=== PATIENT | female | born 1945 | race Caucasian/White ===

== ENCOUNTER 2023-07-02 15:15 | Outpatient (RCR) | payer MEDICARE, OTHER, SELFPAY | END 2023-07-02 23:59 | disposition home or self-care (01) | LOC: RPT 15:15 | PROVIDERS: ATTENDING PHYSICIAN Student in an Organized Health Care Education/Training Program; PRIMARYCARE PHYSICIAN Family Medicine | DX: Z47.89 Encounter for other orthopedic aftercare (principal); R26.89 Other abnormalities of gait and mobility; R29.6 Repeated falls; Z98.1 Arthrodesis status | CPT/HCPCS: 97110; 97530 ==

== ENCOUNTER → 2023-09-13 13:57 | Outpatient (REF) | payer MEDICARE, OTHER, SELFPAY ==
[2023-09-13 15:25] LABS: INR 1.95
== END ==
LOC: REG 13:57
PROVIDERS: ATTENDING PHYSICIAN Internal Medicine
DX: I48.0 Paroxysmal atrial fibrillation (principal)
CPT/HCPCS: 36415; 85610

== ENCOUNTER 2023-10-25 11:53 | Outpatient (RCR) | payer MEDICARE, OTHER, SELFPAY | END 2023-11-08 07:37 | disposition home or self-care (01) | LOC: RPT 11:53 | PROVIDERS: ATTENDING PHYSICIAN Student in an Organized Health Care Education/Training Program; FAMILY PHYSICIAN Family Medicine | DX: Z47.89 Encounter for other orthopedic aftercare (principal); S82.892D Other fracture of left lower leg, subsequent encounter for closed fracture with routine healing; M25.572 Pain in left ankle and joints of left foot; S90.32XD Contusion of left foot, subsequent encounter; R26.89 Other abnormalities of gait and mobility; Z73.6 Limitation of activities due to disability; R26.2 Difficulty in walking, not elsewhere classified; M62.81 Muscle weakness (generalized); R29.6 Repeated falls | CPT/HCPCS: 97162; 97530 ==

== ENCOUNTER → 2023-10-25 15:37 | Outpatient (REF) | payer MEDICARE, OTHER, SELFPAY | LOC: RAD 15:37 | PROVIDERS: ATTENDING PHYSICIAN Family Medicine | DX: D68.69 Other thrombophilia (principal); I50.9 Heart failure, unspecified; I10 Essential (primary) hypertension; R26.2 Difficulty in walking, not elsewhere classified; R29.6 Repeated falls; M25.511 Pain in right shoulder | CPT/HCPCS: 71046; 71100; 73030 ==

== ENCOUNTER 2023-11-03 04:11 | Observation (INO) | payer MEDICARE, OTHER, SELFPAY ==
[2023-11-02 23:51] VITALS: BP 167/92
[2023-11-03] VITALS (16 sets, daily range): BP systolic 99–156; BP diastolic 50–96
[2023-11-03 01:51] LABS: % Basophils 0.2 % (0-2); % Eosinophils 0.5 % (0-6); % Immature Granulocytes 0.5 % (0-0.5); % Lymphocytes 9.4 % (20.5-51.1); % Monocytes 7.8 % (1.7-9.3); % Neutrophils 81.6 % (42.2-75.2); Absolute Eosinophils 0.1 10^3/uL (0-0.7); Absolute Immature Granulocytes 0.1 10^3/uL (0-0.05); Absolute Lymphocytes 0.9 10^3/uL (1.2-3.4); Absolute Monocytes 0.8 10^3/uL (0.1-0.6); Absolute Neutrophils 8.2 10^3/uL (1.4-6.5); Hematocrit 30.3 % (37.0-47.0); Hemoglobin 9.7 g/dL (12.0-16.0); Mean Corpuscular Hgb 27.6 pg (27.0-31.0); Mean Corpuscular Volume 86.1 fL (81.0-99.0); Mean Platelet Volume 8.8 fL (7.4-10.4); Nucleated Red Blood Cells % 0 %; Platelet Count 370 10^3/uL (130-400); Red Blood Cell Count 3.52 10^6/uL (4.20-5.40); Red Cell Dist. Width 18.4 % (11.5-14.5); White Blood Cell Count 10.1 10^3/uL (4.8-10.8)
[2023-11-03 01:54] LABS: Blood Urea Nitrogen 16 mg/dl (7-17); Calcium 8.8 mg/dl (8.4-10.2); Carbon Dioxide 28 mmol/L (22-30); Chloride 103 mmol/L (98-107); Glucose 101 mg/dl (70-99); Potassium 3.7 mmol/L (3.5-5.1); Sodium 140 mmol/L (135-145); eGFR 57.31
[2023-11-03 01:57] LABS: PT 57.3 Sec (11.4-14.6)
[2023-11-03 01:58] LABS: APTT 88.3 Sec (23.4-35.0)
[2023-11-03 01:59] LABS: INR 6.35
--- NOTE | 2023-11-03 02:03 | ED.GENMED ---
History of Present Illness
General
Chief Complaint: Oral/Mouth Problem
Source: patient
Exam Limitations: none
Time Seen by Provider: 11/03/23 00:38
Travel History
Have you had any contact with someone who has COVID-19?: No
Do you have any symptoms of coronavirus? Fever > 100 degrees, chills, cough, shortness of breath, sore throat, loss of taste or smell, muscle aches, or headache?: No
History of Present Illness
History of Present Illness:
78-year-old female intraoral bleeding started 11 PM. Moderate in nature. Supratherapeutic INR reported to her today. Did not take Coumadin today but took it yesterday.
Past History
Past History
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
(Diverticulitis, DVT/PE, Only has right kidney, Endometriosis)
ED Past Surgical History: Appendectomy, Cardiac (quadruple bypass 2001. stent), Gynecological (Hysterectomy), Orthopedic (left shoulder, ankle) and Other (Right nephrectomy 2001 'tumor')
Social History
Tobacco: Former smoker
Alcohol: Occasional
Drug: None
Personal:
Living: with family
Employment: Retired
Family History
Family History: Other (Noncontributory)
Review of Systems
Review of Systems
All Other Systems: Not applicable
Cardiac: Reports no symptoms
ABD/GI: Reports no symptoms
Phy Exam
Physical Exam
Physical Exam:
GENERAL: Alert and oriented in no apparent distress
EYE: Orbits normal.
NECK: Supple
ENT: Diffuse intraoral fresh blood. Very difficult to locate the source. After careful multiple checks appears to be behind the upper left molar.
CARDIAC: Regular rate and rhythm without any obvious murmurs.
LUNGS: Clear breath sounds,normal
ABDOMEN: Soft, without focal tenderness or distention. Elevated BMI
NEUROLOGICAL: Alert and oriented , grossly non-focal
SKIN: Warm and dry
MUSCULOSKELETAL: No edema,no deformity.Good color
PSYCH: Pleasant and cooperative but very anxious
Course
Orders/Labs/Results
Orders:
Orders
11/03/23 00:47
IV Insert/Care/Rem.- Treatment PRN
11/03/23 01:15
Type+Screen Urgent
Basic Metabolic Panel Urgent
Complete Blood Count/With Diff Urgent
PTT Urgent
Prothrombin Time Urgent
11/03/23 02:41
Phytonadione [Mephyton] 5 mg PO NOW STA
11/03/23 02:50
Acetaminophen 1000MG/100Ml [Ofirmev] 1,000 mg in 100 ml IV ONCE
Acetaminophen IV Indication:: ED Narcotic Naive Pt-ONCE
11/03/23 04:03
Admit/Transfer Patient As Directed
Co-Sign Provider:
Level of Care: Observation services
Assign to:: Medical/Surgical
Physician / Group: Jonathan
Diagnosis: Oral Bleeding, Coagulopathy
11/03/23 04:04
Code Status As Directed
Resuscitation Status: Full Code
11/03/23 05:42
Acetaminophen [Tylenol] 650 mg PO Q4HPRN PRN
11/03/23 05:42
ORAL MAXILLO FACIAL CONSULT Routine
Consulting Provider: Addison Baumann
Was physician already notified: Yes
Reason for Consult: Oral Bleeding
Activity As Directed
Activity Level: Ambulate
With Assistance
I/O [Intake/ Output] As Directed
Frequency: Per unit guidelines
Pneumatic Compression Sleeves As Directed
Type: Knee high
Precautions As Directed
Type of Precautions: Bleeding
Aspiration
Vital Signs As Directed
Frequency: Per unit guidelines
Oxygen Therapy [O2 Therapy] [RESP] Routine
Titrate/Wean O2 to maintain O2 sat greater than (%): 94
DX Deep Vein Thrombosis Video Routine
11/03/23 06:23
Basic Metabolic Panel IN AM
Complete Blood Count/No Diff IN AM
Prothrombin Time IN AM
11/03/23 07:30
Pancrelipase [Zenpep Delayed Release Capsule] 2 capsule PO ACHS
11/03/23 08:00
Atenolol [Tenormin] 50 mg PO BID
Bumetanide [Bumex] 1 mg PO BID
Diltiazem Extended Release [Cardizem Cd] 120 mg PO DAILY
Gabapentin [Neurontin] 600 mg PO TID
ISOSORBIDE MONOnitrate ER [Imdur (Extended Release)] 60 mg PO DAILY
Pantoprazole [Protonix] 40 mg PO DAILY
Phenobarbital [Luminal] 32.4 mg PO TID
Phenytoin [Dilantin] 100 mg PO TID
11/03/23 18:00
Montelukast Sodium [Singulair] 10 mg PO QPM
11/04/23 05:40
Prothrombin Time IN AM
11/04/23 Breakfast
NPO
Allow oral meds: Yes
Allow clear liquids: Sips of Clears
11/05/23 06:00
Prothrombin Time IN AM
11/06/23 06:00
Prothrombin Time IN AM
Abnormal Lab Results
11/03/23
01:15
RBC 3.52 L 10^6/uL
(4.20-5.40)
Hgb 9.7 L g/dL
(12.0-16.0)
Hct 30.3 L %
(37.0-47.0)
MCHC 32.0 L g/dL
(33.0-37.0)
RDW 18.4 H %
(11.5-14.5)
Abs Immat Gran (auto) 0.1 H 10^3/uL
(0-0.05)
Absolute Neuts (auto) 8.2 H 10^3/uL
(1.4-6.5)
Absolute Lymphs (auto) 0.9 L 10^3/uL
(1.2-3.4)
Absolute Monos (auto) 0.8 H 10^3/uL
(0.1-0.6)
Neutrophils % 81.6 H %
(42.2-75.2)
Lymphocytes % 9.4 L %
(20.5-51.1)
PT 57.3 H Sec
(11.4-14.6)
INR 6.35 H*
APTT 88.3 H Sec
(23.4-35.0)
Glucose 101 H mg/dl
(70-99)
11/03/23 01:15
11/03/23 01:15
Vital Signs
Initial and Last Documented VS:
Initial Vital Signs
Pulse Resp BP Pulse Ox
78 30 167/92 94
11/02/23 23:51 11/02/23 23:51 11/02/23 23:51 11/02/23 23:51
Last Documented Vital Signs
Temp Pulse Resp BP Pulse Ox
98.5 F 67 21 126/88 96
11/04/23 02:45 11/04/23 02:45 11/04/23 02:45 11/04/23 02:45 11/04/23 02:45
*Critical Care Note
Total Time (30-74mins, 75-104mins- exclusive of procedures): 40
Data Reviewed
Review of Other/Old Records Reveals: Labs, Records, Testing and Discharge Summary
Update Note
Update Note:
Significant searching as to the source of the bleeding. Appears to be behind the left upper molar. Local pressure, epinephrine soaked gauze, hemocon packing. INR supratherapeutic over 6. At this time clinically is not a severe bleeding. However
would benefit from vitamin K.
Also attempted cautery without significant success. Local pressure does seem to hold this. Patient will be admitted medically. Oral surgery was also texted for possible involvement at some point
0250... Recheck. Bleeding is under better control. Clinically stable. Very anxious. Complaining of some headache. Will give her some IV Tylenol.
ED Attending Note
-
Portions of this chart may have been created with voice recognition software.� Occasional wrong word or��sound alike� substitutions may have occurred due to the inherent limitations of voice recognition software.
Discharge Plan
Departure
Patient Disposition: Admit
Date of Disposition: 11/03/23
Time of Disposition: 02:20
Presentation/result/management discussed w/ accepting MD/DO: Oral surgery
Discharge Problem:
Ongoing intraoral hemorrhage, Supratherapeutic INR, Chronic anemia
Interventions
Interventions:
*Risk Screen - Suicide Last Done: 11/02/23 23:51
*General Assessment Last Done: 11/02/23 23:51
*Neglect/Abuse Screening Last Done: 11/02/23 23:51
ED- Fall Risk Assessment Last Done: 11/03/23 08:12
*ED COVID-19 Vaccine History Last Done: 11/02/23 23:51
[2023-11-03] MEDS: OFIRMEV 100 IV (02:57)
[2023-11-03] MEDS: MEPHYTON 5 MG PO (02:57)
--- NOTE | 2023-11-03 04:07 | HPS.HSE ---
Family Physician
-
Family Physician: Luis Manuel Burden
Chief Complaint
-
Bleeding
History of Present Illness
Patient is a 78y F with PMH significant for ASCVD, A-Fib, history of DVT / PE and chronic Coumadin therapy who presents to ED complaining of oral bleeding. Patient states she was preparing for bed this evening when she noted blood on her mouth.
She had no pain / discomfort. She noted significant bleeding then from her mouth - mostly on the L side. She could not pinpoint a source for the bleeding, but presented to the ED for further evaluation. ED staff noted bleeding from an area around
L maxillary molar. Hemostasis improved - though bleeding not completely stopped - after some effort in the ED.
Patient states that her INR has been high lately. She typically takes 2.5mg daily; however, she was decreased to 1.25mg daily after INR last week was > 3. She had repeat INR done Wednesday and was contacted today and told it was > 5.
Patient states that her last dose of Coumadin was 1.25mg taken on Wednesday, 10/31.
Patient also states that she noted a small, crusted lesion under her tongue about one week ago. She was seen by her dentist who recommended monitoring.
Patient took pre-treatment antibiotics prior to that appointment - though no cleaning, biopsy or other significant intervention was done at that visit.
Medical History
Past Medical History
Past Medical History: Reports Other
Additional Past Medical History:
Seizures (infancy)
Peripheral Neuropathy
Asthma
History of DVT / PE
ASCVD
Chronic HFpEF
Atrial Fibrillation
Hypertension
Diverticular Disease
GERD
Endometriosis
Solitary Kidney
Melanoma
History of Renal Cell Carcinoma
Past Surgical History: Reports Other
Additional Past Surgical History:
Melanoma Excision
CABG
PTCA with Stent
Left Ankle ORIF with Hardware
Right Nephrectomy
FLYNN / BSO
Left Shoulder Surgery
Appendectomy
Right TKA
Social History
Tobacco: Former Smoker
Alcohol: Other (Couple times a week with dinner when she eats out)
Drug: None
Personal:
Living: With Family
Employment: Retired
Family History
Family History: Other ((Mother had history of [place], paternal grandmother with history of [place], paternal grandfather had [place], 3 uncles-paternal with [place], brother with [place] at age of 40, another brother had [place], father with history of heart emergency disease)
Allergies / Home Medications
Allergies reflects when Allergies were last updated in [employer].
Home Medications with original date entered in [employer]
Allergy/Medication List:
Allergies
Allergy/AdvReac Type Severity Reaction Status Date / Time
hydroxyzine Allergy Unknown Verified 11/02/23 23:51
lactose Allergy Unknown Verified 11/02/23 23:51
metronidazole [From Flagyl] Allergy Nausea / Verified 11/02/23 23:51
Vomiting
pollen extracts Allergy ENVIRONMENTAL Verified 11/02/23 23:51
ALLERGIES-NASAL
SYMPTOMS
Home Medications
montelukast 10 mg tablet 10 mg PO QPM Lung/breathing issues 04/02/15
warfarin 2.5 mg tablet (Jantoven) 1.25 mg PO SUMOTUWE@1800 Blood clot prevention/tx 05/10/17
albuterol sulfate 90 mcg/actuation aerosol inhaler 2 puff inhalation R Q4 PRN SOB/WHEEZING 03/12/21
ezetimibe 10 mg tablet 10 mg PO DAILY High cholesterol 03/12/21
phenytoin sodium extended 100 mg capsule (Dilantin Extended) 100 mg PO TID Seizures 12/31/22
warfarin 2.5 mg tablet 2.5 mg PO THFRSA@1800 Blood Clot Prevention/Tx 12/31/22
atenolol 50 mg tablet 50 mg PO BID Blood Pressure 01/13/23
fluticasone furoate 200 mcg-vilanterol 25 mcg/dose inhalation powder (Breo Ellipta) 1 inh inhalation R DAILY Lung/Breathing Issues 01/13/23
isosorbide mononitrate 60 mg tablet,extended release 24 hr 60 mg PO DAILY Heart Disease/Condition 01/13/23
bumetanide 1 mg tablet 1 mg PO BID Fluid Retention/Swelling 01/25/23
phenobarbital 32.4 mg tablet 32.4 mg PO TID Seizures #9 tabs 03/22/23
dexlansoprazole 60 mg capsule,biphase delayed release 60 mg PO DAILY 03/25/23
diltiazem HCl 120 mg capsule,extended release 24 hr 120 mg PO DAILY Blood Pressure 03/25/23
incsxl-tamiltfy-oppkxmn 10,000-32,000-42,000 unit capsule,delayed rel (Zenpep) 2 cap PO ACHS Gastrointestinal Issue 03/25/23
nitroglycerin 0.4 mg sublingual tablet 0.4 mg sublingual [id number] PRN chest pain 03/25/23
gabapentin 600 mg tablet 600 mg PO TID 07/29/23
aspirin 81 mg chewable tablet 81 mg PO DAILY 11/03/23
hyoscyamine sulfate 0.125 mg sublingual tablet 0.125 mg PO TID 11/03/23
pravastatin 10 mg tablet 10 mg PO HS 11/03/23
Review of Systems
-
History Source: Patient
A 12 point ROS was completed and negative except as noted: Yes
Constitutional: Denies Fever or Chills
EENT: Reports Other (Mouth bleeding. No pain.); Denies Sore Throat or Runny Nose
Respiratory: Denies Cough or Trouble Breathing
Cardiac: Denies Chest Pain
Abdomen/GI: Denies Abdominal Pain, Nausea, Vomiting or Diarrhea
: Denies Dysuria or Frequency
Musculoskeletal: Denies Joint Pain or Edema
Neurological: Denies Dizzy or Headache
Psych: Denies Depression or Anxiety
Physical Exam
Vital Signs
Vital Signs
Pulse Resp BP Pulse Ox
72 21 116/55 94
11/03/23 03:15 04/10/24 03:15 11/03/23 03:15 11/03/23 03:30
Physical Exam
General: Other (78y F in no acute distress.)
HEENT: Other (Packing is in place in the L mouth / buccal region. Evidence of prior bleeding but not active / significant bleeding noted at present.)
Respiratory: Clear; No Wheezes, Rales or Rhonchi
Cardiac: S1/S2 and Irregular Rhythm; No Murmur
GI: Soft, Non Tender, Non Distended and Normal Bowel Sounds
Musculoskeletal: No Clubbing, No Cyanosis and Other (1+ edema at the L ankle - chronic / unchanged.)
Neuro: AO x 3
Laboratory Results
-
11/03/23 01:15
11/03/23 01:15
Laboratory Results
PT 57.3 Sec (11.4-14.6) H 11/03/23 01:15
INR 6.35 H* 11/03/23 01:15
APTT 88.3 Sec (23.4-35.0) H 11/03/23 01:15
Impression/Plan
-
A/P: Patient is a 78y F with PMH significant for ASCVD, A-Fib and chronic Coumadin use who presents to ED c/o bleeding from the mouth that started suddenly this evening.
Oral Bleeding
Coumadin Coagulopathy
- Observe overnight for further evaluation and treatment.
- Bleeding significantly improved after treatment in the ED.
- s/p Vitamin K x 1 dose in the ED.
- INR here is 6.35
- Continue to hold Coumadin and follow INR.
- Re-dose Vitamin K if needed.
- OMFS evaluation for any additional / local treatment.
ASCVD
- Stable. No current chest pain, etc.
- Continue usual CV med regimen.
Chronic HFpEF
- Stable. No evidence of volume overload on exam.
- Continue current med regimen and follow I/Os, daily weights, etc.
Paroxysmal Atrial Fibrillation
- Stable. Continue rate control strategy.
- Holding Coumadin acutely as noted above given active bleeding.
Moderate Persistent Asthma
- Stable. No evidence of acute exacerbation.
- Continue current inhaled medications.
Remote History of Seizure Disorder
- Childhood seizures and has been maintained on Dilantin and Phenobarb since that time.
- Continue current meds.
GERD
- Stable. Continue PPI.
Peripheral Neuropathy
Chronic Pain
- Stable. Continue current med regimen / gabapentin.
History of DVT / PE
DVT Prophylaxis
- SCDs while Coumadin on hold.
Code Status: Full
[2023-11-03 06:39] LABS: Hematocrit 30.6 % (37.0-47.0); Hemoglobin 9.2 g/dL (12.0-16.0); Mean Corp Hgb Conc. 30.1 g/dL (33.0-37.0); Mean Corpuscular Hgb 26.7 pg (27.0-31.0); Platelet Count 339 10^3/uL (130-400); Red Blood Cell Count 3.44 10^6/uL (4.20-5.40); Red Cell Dist. Width 18.4 % (11.5-14.5); White Blood Cell Count 10.7 10^3/uL (4.8-10.8)
[2023-11-03 06:50] LABS: PT 54.1 Sec (11.4-14.6)
[2023-11-03 06:57] LABS: INR 5.91
[2023-11-03 07:04] LABS: Blood Urea Nitrogen 18 mg/dl (7-17); Calcium 8.4 mg/dl (8.4-10.2); Carbon Dioxide 27 mmol/L (22-30); Chloride 104 mmol/L (98-107); Glucose 119 mg/dl (70-99); Potassium 4.1 mmol/L (3.5-5.1); Sodium 137 mmol/L (135-145); eGFR > 60.00
[2023-11-03] MEDS: PROTONIX 40 MG PO (07:53)
[2023-11-03] MEDS: CARDIZEM CD 120 MG PO (07:54)
[2023-11-03] MEDS: NEURONTIN 600 MG PO ×3 (07:54→23:17)
[2023-11-03] MEDS: LUMINAL 32.3999999999999986 MG PO ×3 (07:54→22:46)
[2023-11-03] MEDS: ZENPEP DELAYED RELEASE CAPSULE 2 CAPSULE PO ×4 (07:55→22:46)
[2023-11-03] MEDS: TENORMIN 50 MG PO ×2 (07:55→20:28)
[2023-11-03] MEDS: BUMEX 1 MG PO ×2 (07:56→22:47)
[2023-11-03] MEDS: DILANTIN 100 MG PO ×3 (07:56→22:46)
[2023-11-03] MEDS: IMDUR (EXTENDED RELEASE) 60 MG PO (07:57)
[2023-11-03] MEDS: SYMBICORT 160/4.5 MCG INHALER INH (09:03)
--- NOTE | 2023-11-03 11:57 | CM ---
CM reviewed medical records. OLGUIN letter given.
Patient lives independently with . Patient has has a history of VN with [facility]. She would like to have a referral to [facility] again. CM updated VN cell biologist with new referral. Patient has been to SNF at [facility]. She is adamant about not
returning. Patient is active with her PCP. Patient uses a walker for ambulation. Patient uses [facility] for medication services.
PLAN: Home with [facility].
[2023-11-03 13:19] LABS: PT 31.6 Sec (11.4-14.6)
--- NOTE | 2023-11-03 13:55 | VNURNOTE ---
Home Health Liaison spoke with patient's spouse Charly at 1330 to discuss [facility] nurse/therapy, visits, schedule and homebound status. Charly is agreeable and understands that visits at home will be 2-3 x per week to assess and teach medical
management.
Charly is aware that [facility] will contact them for start of care in 1-2 days after discharge from .
[facility] referral completed in [facility].
--- NOTE | 2023-11-03 13:59 | W.PN.HOSP.TC ---
Today's Communication/Plan
-
INR coming down
Patient is hemodynamically stable
Recheck INR and CBC later this evening
OMFS will see later today, imaging ordered as below
Assessment / Plan
Assessment / Plan
Physical Exam
General: In mild distress due to pain and bleeding in mouth
HEENT: Other (Packing is in place in the L mouth / buccal region. Evidence of prior bleeding but no copious active bleeding noted at the moment)
Respiratory: Clear to Auscultation Bilaterally
Cardiac: S1/S2 and Irregular Rhythm
GI: Soft, Non Tender, Non Distended and Normal Bowel Sounds
Musculoskeletal: No Cyanosis and Other (1+ edema at the L ankle - chronic / unchanged.)
Neuro: AO x 3
Assessment/Plan
Oral Bleeding
Coumadin Coagulopathy
- Bleeding significantly improved after treatment in the ED --> but patient still continues to bleed, continue with packing and pressure
- s/p Vitamin K x 1 dose in the ED.
- INR here was 6.35 --> now done to 3.00 on November 03, 2023 afternoon, recheck another INR this evening
- Continue to hold Coumadin and follow INR.
- Re-dose Vitamin K if needed.
- OMFS evaluation for any additional / local treatment --> spoke over the phone with Dr. Baumann and he will see the patient later today
- Panorex X-ray and CT Neck ordered to further evaluate patient's reported mass under the tongue and the affected area of the bleeding -- discussed with Dr. Baumann
ASCVD
- Stable. No current chest pain, etc.
- Continue usual CV med regimen.
Chronic HFpEF
- Stable. No evidence of volume overload on exam.
- Continue current med regimen and follow I/Os, daily weights, etc.
Paroxysmal Atrial Fibrillation
- Stable. Continue rate control strategy.
- Holding Coumadin acutely as noted above given active bleeding.
Moderate Persistent Asthma
- Stable. No evidence of acute exacerbation.
- Continue current inhaled medications.
Remote History of Seizure Disorder
- Childhood seizures and has been maintained on Dilantin and Phenobarb since that time.
- Continue current meds.
GERD
- Stable. Continue PPI.
Peripheral Neuropathy
Chronic Pain
- Stable. Continue current med regimen / gabapentin.
History of DVT / PE
DVT Prophylaxis
- SCDs while Coumadin on hold.
Code Status: Full
Anticipated Discharge: > 48 hours
Subjective/Interval History
-
Date of Service: November 03, 2023
Patient was seen and examined. She reported continued pain and bleeding in her mouth.
Objective Data
-
Labs:
Laboratory Results
11/03/23 11/03/23 11/03/23
01:15 06:23 12:53
WBC 10.1 10.7
Hgb 9.7 L 9.2 L
Hct 30.3 L 30.6 L
Plt Count 370 339
PT 57.3 H 54.1 H 31.6 H
INR 6.35 H* 5.91 H* 3.00 D
APTT 88.3 H
Sodium 137
Potassium 4.1
Chloride 104
Carbon Dioxide 27
BUN 18 H
Creatinine 0.9
Glucose 119 H
Calcium 8.4
Vital Signs:
Vital Signs
Pulse Resp BP Pulse Ox
61 19 132/68 94
11/03/23 13:45 11/03/23 13:45 11/03/23 13:00 11/03/23 08:56
[2023-11-03 19:24] LABS: Hemoglobin 8.9 g/dL (12.0-16.0); Mean Corp Hgb Conc. 31.8 g/dL (33.0-37.0); Mean Corpuscular Volume 84.8 fL (81.0-99.0); Mean Platelet Volume 8.7 fL (7.4-10.4); Platelet Count 329 10^3/uL (130-400); Red Cell Dist. Width 18.3 % (11.5-14.5); White Blood Cell Count 8.2 10^3/uL (4.8-10.8)
[2023-11-03 19:39] LABS: INR 2.02
[2023-11-03] MEDS: SYMBICORT 160/4.5 MCG INHALER 2 PUFF INH (19:53)
[2023-11-03] MEDS: SINGULAIR 10 MG PO (20:28)
[2023-11-03] MEDS: BUMEX PO (23:00)
[2023-11-04] VITALS (8 sets, daily range): BP systolic 100–126; BP diastolic 46–88; PULSE 65; O2SAT 93; BMI 31.0
[2023-11-04 06:37] LABS: Hematocrit 29.9 % (37.0-47.0); Hemoglobin 9.9 g/dL (12.0-16.0); Mean Corp Hgb Conc. 33.1 g/dL (33.0-37.0); Mean Corpuscular Hgb 28.8 pg (27.0-31.0); Mean Corpuscular Volume 86.9 fL (81.0-99.0); Mean Platelet Volume 8.9 fL (7.4-10.4); Platelet Count 406 10^3/uL (130-400); Red Blood Cell Count 3.44 10^6/uL (4.20-5.40); Red Cell Dist. Width 18.9 % (11.5-14.5)
[2023-11-04 06:48] LABS: INR 1.59; PT 19.1 Sec (11.4-14.6)
[2023-11-04 06:57] LABS: Blood Urea Nitrogen 16 mg/dl (7-17); Calcium 8.8 mg/dl (8.4-10.2); Carbon Dioxide 27 mmol/L (22-30); Chloride 104 mmol/L (98-107); Estimated Creatinine Clearance 58 ml/min; Glucose 103 mg/dl (70-99); Potassium 4.3 mmol/L (3.5-5.1); Sodium 137 mmol/L (135-145); eGFR > 60.00
[2023-11-04] MEDS: SYMBICORT 160/4.5 MCG INHALER 2 PUFF INH (07:30)
[2023-11-04] MEDS: TENORMIN 50 MG PO (09:04)
[2023-11-04] MEDS: NEURONTIN 600 MG PO (09:04)
[2023-11-04] MEDS: CARDIZEM CD 120 MG PO (09:05)
[2023-11-04] MEDS: PROTONIX 40 MG PO (09:06)
[2023-11-04] MEDS: DILANTIN 100 MG PO (09:06)
[2023-11-04] MEDS: ZENPEP DELAYED RELEASE CAPSULE 2 CAPSULE PO (09:17)
[2023-11-04] MEDS: BUMEX 1 MG PO (09:17)
[2023-11-04] MEDS: IMDUR (EXTENDED RELEASE) 60 MG PO (09:17)
--- NOTE | 2023-11-04 09:50 | W.PN.HOSP.TC ---
Today's Communication/Plan
-
Discharge today
Assessment / Plan
Assessment / Plan
Physical Exam
General: Not in acute distress
HEENT: Normocephalic. Moist mucous membranes. No bleeding noted.
Respiratory: Clear to Auscultation Bilaterally
Cardiac: S1/S2 and Irregular Rhythm
GI: Soft, Non Tender, Non Distended and Normal Bowel Sounds
Musculoskeletal: No Cyanosis and Other (1+ edema at the L ankle - chronic / unchanged.)
Neuro: AO x 3
Assessment/Plan
Oral Bleeding
Coumadin Coagulopathy
- Bleeding significantly improved after treatment in the ED --> but patient still continues to bleed, continue with packing and pressure
- s/p Vitamin K x 1 dose in the ED.
- INR here was 6.35 --> down to 3.00 on November 03, 2023 afternoon, INR now 1.59
- Coumadin 2.5 mg x1 today, followed by 1.25 mg daily until INR recheck on 11/08/23
- OMFS evaluation: bleeding resolved, imaging unremarkable, no treatment needed from oral surgery standpoint
ASCVD
- Stable. No current chest pain, etc.
- Continue usual CV med regimen.
Chronic HFpEF
- Stable. No evidence of volume overload on exam.
- Continue current med regimen and follow I/Os, daily weights, etc.
Paroxysmal Atrial Fibrillation
- Stable. Continue rate control strategy.
- Holding Coumadin acutely as noted above given active bleeding.
Moderate Persistent Asthma
- Stable. No evidence of acute exacerbation.
- Continue current inhaled medications.
Remote History of Seizure Disorder
- Childhood seizures and has been maintained on Dilantin and Phenobarb since that time.
- Continue current meds.
GERD
- Stable. Continue PPI.
Peripheral Neuropathy
Chronic Pain
- Stable. Continue current med regimen / gabapentin.
History of DVT / PE
DVT Prophylaxis
- SCDs while Coumadin on hold.
Melanoma excision
CABG
PTCA with stent
ORIF of ankle
Right nephrectomy
FLYNN
BSO
Left shoulder surgery and appendectomy
Right TKA.
Code Status: Full
Patient on November 04, 2023, adamantly declined SNF or acute rehab placement.
More than 30 minutes spent in discharge including
Final examination of the patient
Summarizing hospital stay
Instructions for continuing care to all relevant caregivers
Preparation of discharge records, prescriptions, and referral forms
Total time spent (in minutes): 40
Anticipated Discharge: Today
Subjective/Interval History
-
Date of Service: November 04, 2023
Patient was seen and examined. Her mouth bleeding has resolved, she reports no pain, and she mentioned she would like to go home, not custodial facility or acute rehab.
Objective Data
-
Labs:
Laboratory Results
11/04/23
05:40
WBC 10.0
Hgb 9.9 L
Hct 29.9 L
Plt Count 406 H D
PT 19.1 H
INR 1.59
Sodium 137
Potassium 4.3
Chloride 104
Carbon Dioxide 27
BUN 16
Creatinine 0.9
Glucose 103 H
Calcium 8.8
Vital Signs:
Vital Signs
Temp Pulse Resp BP Pulse Ox
98.5 F 67 21 126/66 96
11/04/23 02:45 11/04/23 09:04 11/04/23 02:45 11/04/23 09:04 11/04/23 02:45
[2023-11-04] MEDS: LUMINAL 32.3999999999999986 MG PO (12:27)
[2023-11-04] MEDS: COUMADIN 2.5 MG PO (13:55)
--- NOTE | 2023-11-04 14:38 | W.DS.TRANS ---
DC Summary - [employer]
-
Discharge Instructions:
Discharge Diagnosis/Procedures Oral Bleeding
Coumadin Coagulopathy
Atherosclerotic Cardiovascular Disease
Chronic Heart Failure with Preserved Ejection
Fraction
Paroxysmal Atrial Fibrillation
Moderate Persistent Asthma
Remote History of Seizure Disorder
Gastroesophageal Reflux Disease
Peripheral Neuropathy
Chronic Pain
History of DVT / PE
Melanoma excision
CABG heart surgery
PTCA with stent
ORIF of ankle
Right nephrectomy
FLYNN
BSO
Left shoulder surgery and appendectomy
Right TKA.
Diet Other diet,Low Fat,Low Cholesterol
Additional Diets Follow the diet that speech therapist in the
hospital is recommending to you today 11/04/23
Activity As tolerated
Blood Work Recheck CBC, BMP, and INR by tomorrow 11/05/23
with your primary care provider
Specialty Instructions Weigh Daily
Instructions: Warfarin
Stand-Alone Forms:
Changes to Home Medications: Yes
Discharge Medications:
DC Medications w/original date entered in [employer]
montelukast 10 mg tablet 10 mg PO QPM Lung/breathing issues 04/02/15
albuterol sulfate 90 mcg/actuation aerosol inhaler 2 puff inhalation R Q4 PRN SOB/WHEEZING 03/12/21
ezetimibe 10 mg tablet 10 mg PO DAILY High cholesterol 03/12/21
phenytoin sodium extended 100 mg capsule (Dilantin Extended) 100 mg PO TID Seizures 12/31/22
atenolol 50 mg tablet 50 mg PO BID Blood Pressure 01/13/23
fluticasone furoate 200 mcg-vilanterol 25 mcg/dose inhalation powder (Breo Ellipta) 1 inh inhalation R DAILY Lung/Breathing Issues 01/13/23
isosorbide mononitrate 60 mg tablet,extended release 24 hr 60 mg PO DAILY Heart Disease/Condition 01/13/23
bumetanide 1 mg tablet 2 mg PO BID Fluid Retention/Swelling 01/25/23
phenobarbital 32.4 mg tablet 32.4 mg PO TID Seizures #9 tabs 03/22/23
dexlansoprazole 60 mg capsule,biphase delayed release 60 mg PO DAILY 03/25/23
diltiazem HCl 120 mg capsule,extended release 24 hr 120 mg PO DAILY Blood Pressure 03/25/23
osyihn-tfwbpvse-ibjudrz 10,000-32,000-42,000 unit capsule,delayed rel (Zenpep) 2 cap PO ACHS Gastrointestinal Issue 03/25/23
nitroglycerin 0.4 mg sublingual tablet 0.4 mg sublingual [id number] PRN chest pain 03/25/23
gabapentin 600 mg tablet 600 mg PO TID 07/29/23
aspirin 81 mg chewable tablet 81 mg PO DAILY 11/03/23
budesonide 0.5 mg/2 mL suspension for nebulization 0.25 mg inhalation R BID 11/03/23
hyoscyamine sulfate 0.125 mg sublingual tablet 0.125 mg PO TIDPRN PRN spasms 11/03/23
warfarin 2.5 mg tablet (Jantoven) 1.25 mg (1/2 x 2.5 mg) PO DAILY Blood clot prevention/tx #0 tabs 11/04/23
Home Medication Changes
Warfarin changed to 1.25 mg daily until outpatient follow-up
Pending Results: No
Total time spent discharging patient (in min): 40
--- NOTE | 2023-11-04 14:48 | CM ---
Patient medically ready for discharge. CM updated [facility] home care liaison with discharge. CM provided patient with written materials on Advance Directives.
PLAN: Home with [facility]
--- NOTE | 2023-11-04 15:00 | PTOTSP ---
Speech Language Pathology
Pt seen for clinical bedside swallow evaluation. P.O. trials of puree, regular solids, and thin liquids provided. Adequate mastication, bolus formation, and A-P transit noted with no oral residue. No overt signs of aspiration.
Recommend:
(1) Regular solids/thin liquids
(2) General aspiration precautions
(3) Meds whole with liquid as tolerated
(4) WANT AD SUPERVISOR to sign off. Please reconsult as indicated
[2023-11-04] MEDS: ZENPEP DELAYED RELEASE CAPSULE PO (15:28)
--- NOTE | 2023-11-11 09:09 | W.DCSUMMARY ---
Discharge Summary
Discharge Data
Date of Admission: 11/03/23
Date of Discharge: 11/04/23
Total time spent discharging patient (in min): 40
-
Pending Results: No
Hospital Course
78 y/o female with past medical history significant for melanoma excision, CABG, PTCA with stent, ORIF of ankle, right nephrectomy, FLYNN, BSO, left shoulder surgery and appendectomy, right TKA, A-Fib, history of DVT / PE and chronic Coumadin therapy
who presented to the [facility] Emergency Department complaining of oral bleeding -- she could not pinpoint exactly where the bleeding was coming from. Emergency Department staff noted patient had bleeding from an area around left maxillary
molar. Hemostasis improved - though bleeding not completely stopped - after some treatment. Patient did receive Vitamin K and her supratherapeutic INR improved and became subtherapeutic. Patient's bleeding resolved. Oral surgeon was consulted, at
the time of their examination, there was no intraoral bleeding, and there was grossly intact dentition. Patient reported that she may have some type of a mass under her tongue, but CT was obtained during patient's hospitalization and suggested no
mass. Patient declined any kind of acute rehab placement or fci facility placement, patient's Coumadin was resumed as below, and she was asked to closely follow-up outpatient with her INR checks to ensure she is getting the appropriate
doses of her Coumadin and her INR was more stable.
Discharge Plan
-
Patient Disposition: Home with Home Care
Discharge Diagnosis/Procedures: Oral Bleeding
Coumadin Coagulopathy
Atherosclerotic Cardiovascular Disease
Chronic Heart Failure with Preserved Ejection Fraction
Paroxysmal Atrial Fibrillation
Moderate Persistent Asthma
Remote History of Seizure Disorder
Gastroesophageal Reflux Disease
Peripheral Neuropathy
Chronic Pain
History of DVT / PE
Melanoma excision
CABG heart surgery
PTCA with stent
ORIF of ankle
Right nephrectomy
FLYNN
BSO
Left shoulder surgery and appendectomy
Right TKA.
Condition: Fair
Diet: Low Fat, Low Cholesterol and Other diet
Additional Diets: Follow the diet that speech therapist in the hospital is recommending to you today 11/04/23
Activity: As tolerated
Blood Work: Recheck CBC, BMP, and INR by tomorrow 11/05/23 with your primary care provider
Specialty Instructions: Weigh Daily- Call MD for wt gain/loss 3 lbs overnight/5 lbs in 1 week
Activity Restrictions/Additional Instructions:
BY TOMORROW 11/05/23, YOU NEED TO SEE THE PROVIDER THAT MANAGES YOUR COUMADIN AND CHECKS YOUR INR
YOU NEED TO RECHECK YOUR INR TOMORROW 11/05/23 AND ALSO ON 11/08/23
CONTINUE TAKING COUMADIN AT HOME STARTING ON 11/05/23
FOR NOW YOUR COUMADIN DOSE HAS BEEN REDUCED TO 1.25 MG DAILY (INCLUDING ON WEDNESDAY AND WEDNESDAY) -- SO YOU SHOULD TAKE 1.25 MG DAILY UNTIL OTHERWISE ADVISED BY YOUR OUTPATIENT COUMADIN PROVIDERS
Instructions: Warfarin
Referrals:
Luis Manuel Burden MD [Family Provider] - in one day
Additional Discharge Medication Instructions: Warfarin changed to 1.25 mg daily until outpatient follow-up
Prescriptions:
Continued
montelukast 10 MG tablet
10 mg PO QPM
albuterol sulfate 1 PUFF HFA aerosol inhaler
2 puff inhalation R Q4 PRN (Reason: SOB/WHEEZING)
ezetimibe 10 MG tablet
10 mg PO DAILY
phenytoin sodium extended [Dilantin Extended] 100 mg Capsule
100 mg PO TID
fluticasone furoate-vilanterol [Breo Ellipta] 200-25 mcg/dose blister with device
1 inh INHALATION R DAILY
isosorbide mononitrate 60 mg tablet extended release 24 hr
60 mg PO DAILY
atenolol 50 mg tablet
50 mg PO BID
bumetanide 1 mg tablet
2 mg PO BID
phenobarbital 32.4 MG tablet
32.4 mg PO TID Qty: 9 0RF
Patient Comments:
03/25/2023: last filled 02/15/23, 270 tabs for 90 days from [id number]
nitroglycerin 0.4 mg tablet, sublingual
0.4 mg sublingual [id number] PRN (Reason: chest pain)
diltiazem HCl 120 mg capsule,extended release 24hr
120 mg PO DAILY
dexlansoprazole 60 mg capsule,biphase delayed releas
60 mg PO DAILY
Zenpep 10,000-32,000 -42,000 unit capsule,delayed release(DR/EC)
2 cap PO ACHS
gabapentin 600 mg Tablet
600 mg PO TID
hyoscyamine sulfate 0.125 mg Tablet, Sublingual
0.125 mg PO TIDPRN PRN (Reason: spasms)
aspirin 81 mg Tablet,Chewable
81 mg PO DAILY
budesonide 0.5 mg/2 mL Suspension For Nebulization
0.25 mg INHALATION R BID
Changed
warfarin [Jantoven] 2.5 MG tablet
1.25 mg PO DAILY Qty: 0 0RF
Patient Comments:
11/02/23 inr tested- reading 5.4, weekly dose 8.75mg, zeto mg on wednesday and wednesday
Discontinued
warfarin 2.5 mg Tablet
2.5 mg PO SUSA
Discharge Orders:
Discharge Patient (As Directed); Ordered 11/04/23
Ordered By: Jimmy Mccullough
Discharge Date and Time
Discharge Date/Time: 11/04/23 16:10
Print Language: ALGERIAN
== END 2023-11-04 16:10 | disposition home health service (06) ==
LOC: ED 04:11
PROVIDERS: ADMITTING PHYSICIAN Hospitalist; ATTENDING PHYSICIAN Hospitalist; CONSULT PHYSICIAN Dentist Oral and Maxillofacial Surgery; EMERGENCY PHYSICIAN Emergency Medicine; FAMILY PHYSICIAN Family Medicine
DX: D68.32 Hemorrhagic disorder due to extrinsic circulating anticoagulants (principal); T45.515A Adverse effect of anticoagulants, initial encounter; K13.79 Other lesions of oral mucosa; J45.40 Moderate persistent asthma, uncomplicated; I25.10 Atherosclerotic heart disease of native coronary artery without angina pectoris; I11.0 Hypertensive heart disease with heart failure; I48.0 Paroxysmal atrial fibrillation; G89.29 Other chronic pain; D64.9 Anemia, unspecified; E78.00 Pure hypercholesterolemia, unspecified; G40.909 Epilepsy, unspecified, not intractable, without status epilepticus; K21.9 Gastro-esophageal reflux disease without esophagitis; G62.9 Polyneuropathy, unspecified; I50.32 Chronic diastolic (congestive) heart failure; Z79.01 Long term (current) use of anticoagulants; Z79.51 Long term (current) use of inhaled steroids; Z79.82 Long term (current) use of aspirin; Z79.899 Other long term (current) drug therapy; Z86.711 Personal history of pulmonary embolism; Z86.718 Personal history of other venous thrombosis and embolism; Z87.891 Personal history of nicotine dependence; Z90.5 Acquired absence of kidney; Z95.1 Presence of aortocoronary bypass graft; Z95.5 Presence of coronary angioplasty implant and graft
CPT/HCPCS: 70355; 70491; 80048; 85025; 85027; 85610; 85730; 86850; 86900; 86901; 92610; 94640; 96374; 97162; 97166; 99285; G0378; Q9967

== ENCOUNTER 2023-11-24 15:06 | Inpatient (IN) | payer MEDICARE, OTHER, SELFPAY ==
[2023-11-24] VITALS (9 sets, daily range): BP systolic 93–124; BP diastolic 42–94
[2023-11-24 11:38] LABS: % Basophils 0.2 % (0-2); % Eosinophils 1.1 % (0-6); % Immature Granulocytes 0.5 % (0-0.5); % Lymphocytes 7.4 % (20.5-51.1); % Monocytes 7.1 % (1.7-9.3); % Neutrophils 83.7 % (42.2-75.2); Absolute Eosinophils 0.1 10^3/uL (0-0.7); Absolute Immature Granulocytes 0.1 10^3/uL (0-0.05); Absolute Lymphocytes 0.8 10^3/uL (1.2-3.4); Absolute Monocytes 0.8 10^3/uL (0.1-0.6); Absolute Neutrophils 8.8 10^3/uL (1.4-6.5); Hematocrit 26.2 % (37.0-47.0); Mean Corp Hgb Conc. 30.5 g/dL (33.0-37.0); Mean Corpuscular Hgb 26.8 pg (27.0-31.0); Mean Corpuscular Volume 87.6 fL (81.0-99.0); Mean Platelet Volume 8.6 fL (7.4-10.4); Nucleated Red Blood Cells % 0 %; Platelet Count 335 10^3/uL (130-400); Red Blood Cell Count 2.99 10^6/uL (4.20-5.40); Red Cell Dist. Width 18.5 % (11.5-14.5); White Blood Cell Count 10.5 10^3/uL (4.8-10.8)
--- NOTE | 2023-11-24 11:38 | PHANOTE ---
11/24/2023, med rec tech, spoke to pt. to obtain their med. history; pt. is unsure if they are taking Diltiazem ER 24hr 120 mg capsule daily; pharmacy fill data show that pt. has recently filled this med. and [facility] records from 10/27/2023 include this
med. on pt.'s med. list.
[2023-11-24 11:48] LABS: INR 3.89; PT 38.8 Sec (11.4-14.6)
[2023-11-24 12:09] LABS: AST (SGOT) 19 U/L (14-36); Albumin 3.4 g/dl (3.5-5.0); Alkaline Phosphatase 267 U/L (38-126); Blood Urea Nitrogen 21 mg/dl (7-17); Calcium 8.5 mg/dl (8.4-10.2); Carbon Dioxide 28 mmol/L (22-30); Chloride 100 mmol/L (98-107); Glucose 92 mg/dl (70-99); Potassium 3.8 mmol/L (3.5-5.1); Sodium 134 mmol/L (135-145); Total Bilirubin 0.5 mg/dl (0.2-1.3); Total Protein 6.8 g/dl (6.3-8.2); eGFR > 60.00
[2023-11-24 12:10] LABS: ALT (SGPT) 16 U/L (0-35)
[2023-11-24] MEDS: OFIRMEV 100 IV (12:16)
--- NOTE | 2023-11-24 12:46 | ED.GENMED ---
Addendum entered and electronically signed by Pablo Perez MD 11/24/23 16:17:
Repeat EKG sinus bradycardia at 52. No acute changes. Nonspecific diffuse T wave changes
Original Note:
History of Present Illness
General
Chief Complaint: Abnormal Lab Value
Source: patient and spouse
Exam Limitations: none
Time Seen by Provider: 11/24/23 11:04
Travel History
Have you had any contact with someone who has COVID-19?: No
Do you have any symptoms of coronavirus? Fever > 100 degrees, chills, cough, shortness of breath, sore throat, loss of taste or smell, muscle aches, or headache?: No
History of Present Illness
History of Present Illness:
Patient was sent in for a abnormal hemoglobin. However upon arrival to the ER patient started moaning and complaining of bilateral thigh pain. This apparently come on while she was lying in the bed. No abdominal pain no weakness in the legs. No
trauma related to this however patient states she did hit her head 3 times yesterday from falls. She is generally weak and has difficulty with weightbearing or ambulation over the last few months. This is followed by neurology.
Past History
Past History
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
(Diverticulitis, DVT/PE, Only has right kidney, Endometriosis)
ED Past Surgical History: Appendectomy, Cardiac (quadruple bypass 2001. stent), Gynecological (Hysterectomy), Orthopedic (left shoulder, ankle) and Other (Right nephrectomy 2001 'tumor')
Social History
Tobacco: Former smoker
Alcohol: Occasional
Drug: None
Personal:
Living: with family
Employment: Retired
Family History
Family History: Other (Noncontributory)
Review of Systems
Review of Systems
All Other Systems: Not applicable
Constitutional: Denies fever
Respiratory: Reports no symptoms
Cardiac: Reports no symptoms
Phy Exam
Physical Exam
Physical Exam:
GENERAL: Alert and oriented. Seems mildly lethargic at times and mild slurred speech. However patient will easily awaken and talk fully with full understanding. Patient also moans in pain at times but when diverted this stops
EYE: Orbits normal.
NECK: Supple, no significant adenopathy.
ENT: Pharynx without erythema
CARDIAC: Regular rate and rhythm without any obvious murmurs.
LUNGS: Clear breath sounds,normal
ABDOMEN: Soft, without focal tenderness or distention. Elevated BMI
NEUROLOGICAL: Alert and oriented , grossly non-focal
SKIN: Warm and dry, no rash or lesion, no discoloration, skin intact.
MUSCULOSKELETAL: No edema,no deformity.Good color. No flank or abdominal ecchymosis. No swelling or tenderness to the thighs. Able to straight leg raise. Good distal pulses and color
PSYCH: Normal and appropriate interaction.
Course
Orders/Labs/Results
Orders:
Orders
11/24/23 11:04
Cardiac Monitoring- Treatment ONCE
IV Insert/Care/Rem.- Treatment PRN
11/24/23 11:05
Electrocardiogram (*1) Stat
Reason for Study: Other
Other Reason for Exam: GI Bleed
EKG- Treatment ONCE
11/24/23 11:09
Type+Screen Urgent
Complete Blood Count/With Diff Urgent
Comprehensive Metabolic Panel Urgent
Creatine Phosphokinase Urgent
Comment: ADD ON
Erythrocyte Sed Rate Urgent
Comment: ADD ON
PTT Urgent
Prothrombin Time Urgent
11/24/23 12:02
CT Head W/o Iv Contrast Urgent
Comment:
Reason For Exam: Head injury/anticoagulated
IV Insert/Care/Rem.- Treatment PRN
11/24/23 12:03
CT Abd/pel Without Iv Or Oral Urgent
Comment:
Reason For Exam: Lower abdominal pain/anticoagulated/proximal thigh
Acetaminophen 1000MG/100Ml [Ofirmev] 1,000 mg in 100 ml IV ONCE
Acetaminophen IV Indication:: ED Narcotic Naive Pt-ONCE
11/24/23 12:11
Add On- LAB Urgent
Tests Added?: CPK; ESR
11/24/23 13:29
Morphine Sulfate 2 mg IV NOW STA
11/24/23 14:37
Admit/Transfer Patient As Directed
Co-Sign Provider:
Level of Care: Inpatient admission
Assign to:: Telemetry
Physician / Group: Remi
Diagnosis: Severe anemia; ambulatory dysfunction ; BL thigh pains
Reason for Telemetry: Arrhythmia
Date to Stop Telemetry: 11/27/23
Time to Stop Telemetry: 11:00
Reason for Hospitalization: see progress note
Expected length of stay greater than two midnights?: Yes
ELOS- Estimated Length of Stay in days: 2
I certify the patient meets the requirements for IP care: Yes
11/24/23 14:42
Code Status As Directed
Resuscitation Status: Full Code
11/27/23 11:00
DC Protocol for Telemetry ONCE
Abnormal Lab Results
11/24/23
11:09
RBC 2.99 L 10^6/uL
(4.20-5.40)
Hgb 8.0 L g/dL
(12.0-16.0)
Hct 26.2 L %
(37.0-47.0)
MCH 26.8 L pg
(27.0-31.0)
MCHC 30.5 L g/dL
(33.0-37.0)
RDW 18.5 H %
(11.5-14.5)
Abs Immat Gran (auto) 0.1 H 10^3/uL
(0-0.05)
Absolute Neuts (auto) 8.8 H 10^3/uL
(1.4-6.5)
Absolute Lymphs (auto) 0.8 L 10^3/uL
(1.2-3.4)
Absolute Monos (auto) 0.8 H 10^3/uL
(0.1-0.6)
Neutrophils % 83.7 H %
(42.2-75.2)
Lymphocytes % 7.4 L %
(20.5-51.1)
ESR 36 H mm/hour
(0-20)
PT 38.8 H Sec
(11.4-14.6)
APTT 59.0 H Sec
(23.4-35.0)
Sodium 134 L mmol/L
(135-145)
BUN 21 H mg/dl
(7-17)
Alkaline Phosphatase 267 H U/L
(38-126)
Albumin 3.4 L g/dl
(3.5-5.0)
11/24/23 11:09
11/24/23 11:09
Vital Signs
Initial and Last Documented VS:
Initial Vital Signs
Temp Pulse Resp Pulse Ox
97.8 F 53 16 97
11/24/23 10:49 11/24/23 10:49 11/24/23 10:49 11/24/23 10:49
Last Documented Vital Signs
Temp Pulse Resp BP Pulse Ox
97.8 F 52 16 103/51 96
11/24/23 10:49 11/24/23 15:00 11/24/23 15:00 11/24/23 15:00 11/24/23 15:00
*Critical Care Note
Total Time (30-74mins, 75-104mins- exclusive of procedures): Not Applicable
Update Note
Update Note:
Patient has been rechecked multiple times. At times continues to moan in pain complaining of thigh pain bilaterally. Discussed with her primary care physician and updated them. Given patient's drop in hemoglobin, transient hypotension, frequent
falls, elevated INR and unexplained reason for this thigh pain, she will be admitted for further care.
1330... On recheck patient had some difficulty writing her name consent for blood. She was rechecked neurologically and she has have some's mild slurred speech although this apparently is baseline. She has no facial droop. Extraocular muscles are
intact. She has no arm after pronation. She is able to lift both legs off the stretcher. She feels like something may have changed 2 or 3 days ago. A friend at that time noted she seemed slightly off.
ED Attending Note
-
Portions of this chart may have been created with voice recognition software.� Occasional wrong word or��sound alike� substitutions may have occurred due to the inherent limitations of voice recognition software.
Discharge Plan
Departure
Patient Disposition: Admit
Date of Disposition: 11/24/23
Time of Disposition: 13:09
Presentation/result/management discussed w/ accepting MD/DO: Hospitalist
Discharge Problem:
Progressive anemia, Supratherapeutic INR, Bilateral thigh pain, Change in mental status
Interventions
Interventions:
*Risk Screen - Suicide Last Done: 11/24/23 10:51
*Neglect/Abuse Screening Last Done: 11/24/23 10:51
*ED COVID-19 Vaccine History Last Done: 11/24/23 10:51
[2023-11-24 13:18] LABS: Erythrocyte Sed Rate 36 mm/hour (0-20)
[2023-11-24 13:38] LABS: Creatine Phosphokinase 61 U/L (30-135)
[2023-11-24] MEDS: MORPHINE SULFATE 2 MG IV ×2 (14:20→20:32)
--- NOTE | 2023-11-24 14:48 | HPS.HSE ---
Family Physician
-
Family Physician: Luis Manuel Burden
Chief Complaint
-
Abnormal lab value-low hemoglobi
History of Present Illness
patient was referred to hospital by PCP because of abnormal hemoglobin. Hemoglobin is 8.0.
She has chronic anemia And has not needed blood transfusion.. She was recently here in hospital in October for gum bleeding with high INR. Was evaluated by oral surgeon and there was no obvious evidence of source of bleeding. Her Coumadin levels
were adjusted and was discharged home.
She denies any coughing up blood, vomiting blood, blood in the stools. She had rectal done by ER physician today and it was smear but heme-negative.
Blood pressure has been stable.
Denies any more tiredness or weakness compared to before.
Her main issue is bilateral lower extremity neuropathy. She cannot feel her feet. She has had falls but in the last week and especially yesterday she had 3 falls. Now she complains of bilateral thigh pains and hard to walk 100 feet. Denies
passing out.
She just feels she is weak in her legs and her legs gave out and she falls down. She uses a walker.
Denies any postural dizziness.
Medical History
Past Medical History
Past Medical History: Reports Arrhythmia (afib), CAD and Other (DVT/PE)
Past Surgical History: Reports Cardiac (cabg;ptca coronary stent;ORIF rt ankle,rt nephrectomy, FLYNN, BSO, left shoulder surgery and appendectomy, right TKA,)
Social History
Tobacco: Former Smoker
Alcohol: None
Drug: None
Personal:
Living: With Family
Family History
Family History: Not pertinent
Allergies / Home Medications
Allergies reflects when Allergies were last updated in [facility].
Home Medications with original date entered in [facility]
Allergy/Medication List:
Allergies
Allergy/AdvReac Type Severity Reaction Status Date / Time
hydroxyzine Allergy Unknown Verified 11/02/23 23:51
lactose Allergy Unknown Verified 11/02/23 23:51
metronidazole [From Flagyl] Allergy Nausea / Verified 11/02/23 23:51
Vomiting
pollen extracts Allergy ENVIRONMENTAL Verified 11/02/23 23:51
ALLERGIES-NASAL
SYMPTOMS
Home Medications
montelukast 10 mg tablet 10 mg PO HS Lung/breathing issues 04/02/15
ezetimibe 10 mg tablet 10 mg PO DAILY High cholesterol 03/12/21
atenolol 50 mg tablet 50 mg PO .SEE BELOW Blood Pressure 01/13/23
fluticasone furoate 200 mcg-vilanterol 25 mcg/dose inhalation powder (Breo Ellipta) 1 inh inhalation R DAILY Lung/Breathing Issues 01/13/23
isosorbide mononitrate 60 mg tablet,extended release 24 hr 60 mg PO DAILY Heart Disease/Condition 01/13/23
phenobarbital 32.4 mg tablet 32.4 mg PO TID Seizures #9 tabs 03/22/23
dexlansoprazole 60 mg capsule,biphase delayed release 60 mg PO QPM 03/25/23
diltiazem HCl 120 mg capsule,extended release 24 hr 120 mg PO DAILY Blood Pressure 03/25/23
nitroglycerin 0.4 mg sublingual tablet 0.4 mg sublingual [id number] PRN chest pain 03/25/23
gabapentin 600 mg tablet 600 mg PO Q8H 07/29/23
budesonide 0.5 mg/2 mL suspension for nebulization 0.5 mg inhalation R BID 11/03/23
acetaminophen 650 mg tablet,extended release 1,300 mg PO DAILYPRN PRN mild pain 11/24/23
albuterol sulfate 90 mcg/actuation aerosol inhaler 2 puff inhalation R Q4HPRN PRN sob 11/24/23
ascorbic acid (vitamin C) 1,000 mg tablet (Vitamin C) 1,000 mg PO DAILY 11/24/23
aspirin 81 mg tablet,delayed release 81 mg PO DAILY 11/24/23
bumetanide 2 mg tablet 2 mg PO .SEE BELOW 11/24/23
hyoscyamine sulfate 0.125 mg tablet 0.125 mg PO TIDPRN PRN spasms 11/24/23
loperamide 2 mg tablet (Imodium A-D) 4 mg PO BIDPRN PRN diarrhea 11/24/23
phenytoin sodium extended 100 mg capsule (Dilantin Extended) 100 mg PO TID 11/24/23
warfarin 2.5 mg tablet (Jantoven) 1.25 mg PO HS Blood clot prevention/tx 11/24/23
Review of Systems
-
A 12 point ROS was completed and negative except as noted: Yes
Physical Exam
Vital Signs
Vital Signs
Temp Pulse Resp BP Pulse Ox
97.8 F 52 14 94/42 98
11/24/23 10:49 11/24/23 14:15 11/24/23 14:15 11/24/23 14:00 11/24/23 13:45
Physical Exam
General: No Apparent Distress
HEENT: Moist mucous membranes
Respiratory: Clear
Cardiac: S1/S2 and Regular Rhythm
GI: Soft, Non Tender, Non Distended and Normal Bowel Sounds
Musculoskeletal: Other ( When patient tries to sit up she complains of pain in her pelvis and also in bilateral thighs. Denies any back pain)
Neuro: AO x 3 and No Motor Deficits
Psych: Calm; No Confused
Laboratory Results
-
11/24/23 11:09
11/24/23 11:09
Laboratory Results
PT 38.8 Sec (11.4-14.6) H 11/24/23 11:09
INR 3.89 11/24/23 11:09
APTT 59.0 Sec (23.4-35.0) H 11/24/23 11:09
Total Bilirubin 0.5 mg/dl (0.2-1.3) 11/24/23 11:09
AST 19 U/L (14-36) 11/24/23 11:09
ALT 16 U/L (0-35) 11/24/23 11:09
Alkaline Phosphatase 267 U/L (38-126) H 11/24/23 11:09
Data Reviewed
-
Lab Data: Labs Reviewed by me
Impression/Plan
-
Acute on chronic anemia-severe in nature. Hemoglobin 8.0. No obvious external bleeding currently. Hemodynamically stable. Patient on Coumadin with supratherapeutic INR. Rule out any occult GI blood loss. Repeat heme testing stools. Check
iron stores. Follow H&H closely. CT of the abdomen pelvis shows no evidence of intra-abdominal or retroperitoneal bleeding.
Ambulatory dysfunction with recurrent falls-had 3 falls yesterday. Complains of bilateral thigh pain. Check pelvic and bilateral hip x-rays to rule out any fracture. Patient known to have peripheral neuropathy. Will obtain a PT OT eval.
Paroxysmal atrial fibrillation-in sinus rhythm. INR supratherapeutic. Hold Coumadin. Continue with the beta-jelani and Cardizem.
CAD s/p prior CABG and PCI and coronary stent-continue with her home regimen.
Seizure disorder-continue other home antiepileptics.
Full code
[2023-11-24] MEDS: NEURONTIN 600 MG PO ×2 (18:02→23:12)
[2023-11-24] MEDS: PROTONIX 40 MG PO (18:02)
[2023-11-24] MEDS: BUMEX 2 MG PO (18:02)
[2023-11-24] MEDS: DILANTIN 100 MG PO ×2 (18:03→21:29)
[2023-11-24] MEDS: LUMINAL 32.3999999999999986 MG PO ×2 (18:04→21:29)
[2023-11-24] MEDS: ULTRAM 50 MG PO (19:22)
[2023-11-24] MEDS: TENORMIN 50 MG PO (20:03)
[2023-11-24] MEDS: LACTAID 1 CAPSULE PO (20:03)
[2023-11-24] MEDS: PULMICORT 0.5 MG INH (21:11)
[2023-11-24] MEDS: SYMBICORT 160/4.5 MCG INHALER 2 PUFF INH (21:11)
[2023-11-24] MEDS: SINGULAIR 10 MG PO (21:29)
[2023-11-25] MEDS: TYLENOL 650 MG PO (01:43)
[2023-11-25 03:20] VITALS: BP 112/48
[2023-11-25] MEDS: MORPHINE SULFATE 2 MG IV ×2 (06:25→22:27)
[2023-11-25 07:30] VITALS: BP 121/92
[2023-11-25 07:40] LABS: Hematocrit 27.3 % (37.0-47.0); Hemoglobin 8.4 g/dL (12.0-16.0); Mean Corp Hgb Conc. 30.8 g/dL (33.0-37.0); Mean Corpuscular Hgb 26.8 pg (27.0-31.0); Mean Corpuscular Volume 86.9 fL (81.0-99.0); Mean Platelet Volume 9.5 fL (7.4-10.4); Platelet Count 342 10^3/uL (130-400); Red Blood Cell Count 3.14 10^6/uL (4.20-5.40); Red Cell Dist. Width 18.5 % (11.5-14.5); Reticulocyte Count 2.9 % (0.4-2.8); White Blood Cell Count 8.5 10^3/uL (4.8-10.8)
[2023-11-25 07:49] LABS: Iron 30 ug/dl (37-170)
[2023-11-25] MEDS: PULMICORT 0.5 MG INH ×2 (07:50→19:12)
[2023-11-25] MEDS: SYMBICORT 160/4.5 MCG INHALER 2 PUFF INH ×2 (07:50→19:12)
[2023-11-25] MEDS: ProAIR HFA INHALER 2 PUFF INH (07:52)
[2023-11-25 07:58] LABS: Percent Saturation 7 % (20-50); Total Iron Binding Capacity 395 ug/dl (265-497)
[2023-11-25 08:11] LABS: INR 3.55; PT 36.1 Sec (11.4-14.6)
[2023-11-25] MEDS: LACTAID 1 CAPSULE PO ×3 (08:17→16:47)
[2023-11-25] MEDS: NEURONTIN 600 MG PO ×3 (08:17→22:27)
[2023-11-25 08:20] LABS: Ferritin 14.6 ng/ml (11.1-264.0)
[2023-11-25] MEDS: CARDIZEM CD PO (08:20)
[2023-11-25] MEDS: LUMINAL 32.3999999999999986 MG PO ×3 (08:22→21:13)
[2023-11-25] MEDS: VITAMIN C 1000 MG PO (08:22)
[2023-11-25] MEDS: ZETIA 10 MG PO (08:22)
[2023-11-25] MEDS: IMDUR (EXTENDED RELEASE) 60 MG PO (08:22)
[2023-11-25] MEDS: ASPIR LOW (ENTERIC COATED) 81 MG PO (08:22)
[2023-11-25] MEDS: DILANTIN 100 MG PO ×3 (08:22→21:14)
[2023-11-25] MEDS: BUMEX 2 MG PO ×2 (08:28→16:46)
[2023-11-25] MEDS: TENORMIN PO (08:29)
--- NOTE | 2023-11-25 09:47 | VNURNOTE ---
Patient is current with [facility] since 11/04 w/SN/PT, will monitor progress and plan at discharge.
[2023-11-25 11:00] VITALS: BP 135/60
--- NOTE | 2023-11-25 11:09 | W.PN.HOSP.TC ---
Today's Communication/Plan
-
Continue with heme testing stools.
Start on IV iron.
Check celiac profile.
Consult neurology.
Assessment / Plan
Assessment / Plan
Acute on chronic anemia-severe in nature. Hemoglobin 8.0 on adx -now 8.4. Iron deficient. No obvious external bleeding currently. Hemodynamically stable. Patient on Coumadin with supratherapeutic INR. Rule out any occult GI blood loss.
Repeat heme testing stools( in ER was neg). CT of the abdomen pelvis shows no evidence of intra-abdominal or retroperitoneal bleeding.
Patient is having iron deficiency anemia without obvious external bleeding. Continue to follow stools for Hemoccult testing. Start on IV iron. Check celiac profile.
Ambulatory dysfunction with recurrent falls-had 3 falls yesterday. Complains of bilateral thigh pain. pelvic and bilateral hip x-rays neg for fracture. Patient known to have peripheral neuropathy.
Patient with both bilateral upper and lower extremity weakness and sensory disturbances. She also is hyperreflexic. Based on today's history all new since last week. Based on PT reports from previous new acute issue. CT of the head shows no
acute intracranial abnormalities. Consult neurology for rapidly progressive neuropathy or myelopathy.
Paroxysmal atrial fibrillation-in sinus rhythm. INR remains supratherapeutic. Hold Coumadin. Continue with the beta-jelani based on parameters ;hold Cardizem. due to bradycardia.
CAD s/p prior CABG and PCI and coronary stent-continue with her home regimen.
Seizure disorder-continue other home antiepileptics.
Full code
Discussed with RN
Discussed with PT
Total time spent on today's encounter was 52 minutes which included time spent in counseling the patient regarding diagnosis and treatment plan as listed above, goals of care, and symptom management. Case was discussed with nursing staff,
specialists, and care coordinators/case management. All labs and imaging personally reviewed by me. Remainder the time spent in detailed review of previous records, lab data, imaging, and other medical provider documentation.
Anticipated Discharge: > 48 hours
Subjective/Interval History
-
Date of Service: November 25, 2023
Patient was seen by PT today and did very poorly. She could not even stand on her legs gave out. That is a big change for her even according to PT reports from before.
Patient states she has a chronic neuropathy sees Dr. Bonilla. Since last week for some reason she is experiencing more weakness on the legs. Legs were giving out and she was falling.
She also brings to my attention that she was having upper extremity strength issues as well. She could not hold her phone and call her or do a text message which is new for her.
Denies any neck pain.
Objective Data
-
Labs:
Laboratory Results
11/25/23
06:15
WBC 8.5
Hgb 8.4 L
Hct 27.3 L
Plt Count 342
PT 36.1 H
INR 3.55
Vital Signs:
Vital Signs
Temp Pulse Resp BP Pulse Ox
97.7 F 52 16 121/92 93
11/25/23 07:30 11/25/23 08:29 11/25/23 07:53 11/25/23 08:20 11/25/23 07:53
Review of Systems
-
Respiratory: Denies Trouble Breathing
Cardiac: Denies Chest Pain
Abdomen/GI: Denies Abdominal Pain, Nausea or Vomiting
Neuro: Reports Weakness and Numbness (of her feet ); Denies Dizzy or Headache
Physical Exam
-
General: No Apparent Distress
HEENT: Moist Mucous Membranes
Respiratory: Clear to Auscultation
Cardiac: Regular Rhythm and S1/S2
GI: Soft
Neuro: AO x 3; Negative No Motor Deficits (UE BL - 4+/5 prox and 4/5 distally; LE 4+/5 bilaterally. Hyporeflexic . Decreased sensation BL LE upt to knee to touch.)
Psych: Calm
Data Reviewed
-
Labs: Labs Reviewed by me
--- NOTE | 2023-11-25 11:11 | CON.NEURO4 ---
Addendum entered and electronically signed by Brian Bennett MD 11/25/23 13:22:
I saw and evaluate the patient I reviewed the note by Rupa Davila agree with the findings the following comments:
78-year-old right-handed woman with a past medical history of epilepsy, atrial fibrillation, hypertension, coronary artery disease, DVT presents to the hospital after being referred by her PCP due to anemia and also has been noted to have
significant gait abnormality with frequent falls.
Patient reports that she has been on phenobarbital and phenytoin with no recent changes since around the age of 6 described having seizures where she would stare briefly. There has not seem to been a seizure in decades. She reports that she had
apparently been tried to been weaned off of phenytoin in the past but seemed to feel awful and had a brain fog after this.
Patient has been using walker for about 1 year. She reports frequent falls a couple times a week. Review of medical record here indicates ambulatory dysfunction as far back as August 2020 for multiple reasons, hip pain as well as ankle fracture
and had been trying walker back in 2020. and clear and that the gait seems to have been progressively worse somewhat abruptly in the past couple of weeks. Patient reports that she hit her head but has no headache or neck pain at this
time.
Neurologic examination shows unremarkable mental status, no pathologic nystagmus, no dysarthria, pupils 3 mm equal round react light bilaterally.
Motor examination shows normal strength of shoulder abduction arm flexion hip abduction/adduction ankle dorsiflexion and plantarflexion and toe extension.
Sensory loss to vibration in the knees and toes bilaterally.
Absent reflexes throughout.
Normal finger-nose testing bilaterally in the upper extremities.
No pain or abnormality to palpation on cervical spine
Assessment: Multifactorial gait abnormality. A very large part of the gait abnormality and falls is very likely due to long-term use of phenytoin which can produce peripheral neuropathy as well as cerebellar degeneration which can produce ataxia
and balance problems.
Patient seems has been on phenytoin and phenobarbital for many years. Seems to have not had seizure in many years. Patient reports that she seemed to have brain fog and feeling unwell and coming off of phenytoin which is puzzling as the
combination of phenytoin and phenobarbital itself would probably produce brain fog at this point I do not see that there is a strong indication for the patient to be on 2 antiseizure medications and I do feel that there is probably significant harm
from the long-term use of phenytoin. I do not expect that neuropathy due to phenytoin would be completely reversible, there is possibility that this could improve in coming off the medication.
Recommendations
-Check Vitamin B12, TSH, hbA1c, phenytoin and phenobarbital levels
-She needs to continue to see Dr Bonilla her outpatient neurologist
-Do not see indications for MRI imaging of brain or spine with intact mental status and upper extremity strength
-Relayed my concern that the long-term use of phenytoin has very likely produced a lot of the patient's gait problems including peripheral neuropathy and that I do not see a good reason to have the patient on 2 antiseizure medications at this point.
Reassured her that brain fog would most likely improve in the senior living in coming off this medication
-Recommend she slowly come off Phenytoin
Patient is going to consider my recommendation for coming off Phenytoin slowly
--She will need levels of Phenobarbital and coumadin watched closely in this setting
---If she decides to come off the medication, would need to do so slowly. If pursuing this change would start with small decrease and wean off over several weeks
---Initial dosing of Phenytoin would be 50 mg in AM, 100 mg in afternoon and 100 mg in the evening
----Would decrease by 50 mg in the total daily dosing every 2 weeks until off the medication
Original Note:
Consultation - Neurology 4
-
CONSULTING PHYSICIAN: Babar Bennett MD
REFERRING PHYSICIAN: Hospitalists/Dr. Khalil
DICTATED BY: BHAVANI Galeana
DATE/TIME OF REQUEST: 11/25/23
DATE/TIME OF CONSULTATION: 11/25/23
Reason for Consultation: Weakness, falls
History of Present Illness:
This is a 78-year-old right-handed female who has presented to the hospital on 11/24/23 with report of bilateral thigh pain, weakness, and frequent falls. Patient is followed by Neurology Dr. Bonilla as an outpatient for seizure disorder, postherpetic
neuralgia, and bilateral hand tremor. Patient reports having starring spells at age 6 and ultimately being diagnosed with partial seizures. She reports being started on Dilantin and phenobarbital at age 6 after failing other seizure medications, she
has no been seizure free since that time. She reports taking herself off of both seizure medications once suddenly decades ago and feeling 'awful' which she describes as brain fog and passing out episodes. Per outpatient Neurology records, she
developed decreased sensation in bilateral feet in 2017 and also had a fall due to her knee buckling with resulting right ankle fracture in November 2017. She endorses that the numbness also started in her fingertips a year or so ago. She had another
fall with left ankle fracture in 2022 and reports using a walker since then. She has had other falls with head trauma over the past several years, and in the past few months reports she falling several times per week. Starting five days ago on
11/20/23 she reports falling about three times per day. She reports that her legs just 'buckle' on her and she goes down. She denies feeling dizzy or losing consciousness with these events but she does not that chronically she intermittently gets
light-headed with standing up. She also reports about a one year history of bilateral hand tremor. This occurs at rest but worsens with exertion. She has a hard time typing on her phone and frequently drops things. Three weeks ago, she reports that
her friend and brother started saying that she sounds like she is 'cracked out,' but she does not attribute any changes in her speech. She reports several days of throbbing bilateral thigh pain that resolves with IV morphine only. She denies any
headache, neck/back pain, speech/swallow difficulty, double vision, nausea, chest pain, palpitations, and shortness of breath. She denies any changes in her bowels. She has to use the bedpan currently and has been unable to urinate, when she was
able to use the bathroom she reports having no difficulty urinating or dysuria. She denies any recent fevers, illness, or vaccines.
Past Medical History: Seizure disorder, Afib (Coumadin), HTN, HLD, HFpEF, CAD, statin intolerance, renal CA-solitary kidney, LLE DVT, PE, herpes zoster, postherpetic neuralgia, osteoporosis, Barretts esophagus, L RC tear, diverticulitis, basal cell
carcinoma, asthma, left hand mass, tongue mass, bilateral hand tremor, frequent falls with head trauma, lumbar fracture unclear level
Surgical History: CABG, LAD stent, right nephrectomy, appendectomy, FLYNN/BSO, L ankle fx repair, L RC repair, R TKR, lumbar vertebroplasty
Family History: Cousin and maternal grandmother- seizures. Father- Alzheimer's.
Social History: Former smoker. Rare alcohol. Denies illicit drug use.
Allergies: Hydroxyzine, lactose, metronidazole, pollen extracts.
Home Medications: See below.
Review of Symptoms:
Patient denies any fever, headache, chest pain, shortness of breath, GI or symptoms.
�Per the HPI.�All systems are reviewed negative except above.
Physical Exam:
The patient is afebrile, abdomen is nondistended, breathing is unlabored, skin is warm and dry, no edema.
Neurologic Examination:
The patient is awake, alert and oriented x 3. She is able to follow commands and answer questions appropriately. There is no aphasia. Speech is slurred. On cranial nerve assessment, pupils are 3 mm bilateral, round and reactive to light and
accommodation. Visual mendez are full. Extraocular movements are intact. There is a very slight left ptosis. Facial sensations are intact and bilaterally symmetrical. Hearing is intact bilaterally to normal conversation volume. Tongue palate and
uvula are midline. Motor strengths are 5-/5 bilateral upper and 5/5 bilateral lower extremities on medical research [place] scale. B/L hip and plantar/dorsiflexion 5/5. There is no drift. There is a low amplitude semi rhythmic tremor in distal
bilateral upper extremities R>L, worse with exertion. Deep tendon reflexes are absent bilateral upper and lower extremities and Babinski is absent bilaterally. Sensation of temperature is mildly reduced in distal bilateral lower extremities.
Sensation of vibration is absent in bilateral toes. There was no extinction noted on double simultaneous stimulation. Coordination is intact by finger to nose bilaterally.
Lab Results: See below.
Neuro Imaging:
1. CT head 11/24/23: No acute intracranial abnormality. No interval change.
Differentials for the patient's presentation include:
1. Peripheral neuropathy and ambulatory dysfunction likely due to 70 years of Dilantin usage.
2. Very low concern for structural brain/spinal cord abnormality or demyelinating process producing symptoms.
3. Anemia.
Patient has the following risk factors for their symptoms: 70+years of Dilantin usage
Recommendations:
-Discussed with patient recommendation to slowly wean off of Dilantin as an outpatient as she has not had a seizure in 72 years and the continuation of the medication will likely produce worsening of symptoms or new side effects. Patient reluctant
to do this. Okay to continue phenobarbital.
-Do not see a role for further neurological testing at this time.
-Checking blood work/urine for metabolic abnormalities.
-Ferritin level 14.6, iron replacement per primary team.
-PT/OT/ST evaluations.
-SCDs.
-Outpatient EEG if she has not had this completed already.
-Follow-up with Dr. Bonilla as an outpatient as soon as possible.
Discussed patient care with: Dr. Bennett, the patient
Vital Signs and Labs
-
Vital Signs and Labs:
Vital Signs
Temp Pulse Resp BP Pulse Ox
97.7 F 52 16 121/92 93
11/25/23 07:30 11/25/23 08:29 11/25/23 07:53 11/25/23 08:20 11/25/23 07:53
Lab Results
11/25/23 06:15
11/24/23 11:09
PT 36.1 Sec (11.4-14.6) H 11/25/23 06:15
INR 3.55 11/25/23 06:15
APTT 59.0 Sec (23.4-35.0) H 11/24/23 11:09
Sodium 134 mmol/L (135-145) L 11/24/23 11:09
Potassium 3.8 mmol/L (3.5-5.1) 11/24/23 11:09
BUN 21 mg/dl (7-17) H 11/24/23 11:09
Glucose 92 mg/dl (70-99) 11/24/23 11:09
Calcium 8.5 mg/dl (8.4-10.2) 11/24/23 11:09
Medications
-
Active Medications
Generic Name Dose Route Start Last Admin
Trade Name Freq PRN Reason Stop Dose Admin
Acetaminophen 650 mg 11/24/23 15:56 11/25/23 01:43
Acetaminophen 325 Mg Tablet PO 12/22/23 15:55 650 mg
Q4HPRN PRN Administration
mild pain /fever >100.4
Albuterol 2 puff 11/24/23 15:56 11/25/23 07:52
Albuterol Hfa [90 Mcg/Dose] Inhaler INH 2 puff
R Q4HPRN PRN Administration
sob
Protocol
Ascorbic Acid 1,000 mg 11/25/23 08:00 11/25/23 08:22
Ascorbic Acid 500 Mg Tablet PO 12/23/23 07:59 1,000 mg
DAILY RENÉ Administration
Aspirin 81 mg 11/25/23 08:00 11/25/23 08:22
Aspirin 81 Mg (Enteric Coated) Tablet PO 12/23/23 07:59 81 mg
DAILY RENÉ Administration
Atenolol 50 mg 11/24/23 20:00 11/25/23 08:29
Atenolol 50 Mg Tablet PO 12/22/23 19:59 Not Given
BID RENÉ
Budesonide 0.5 mg 11/24/23 20:00 11/25/23 07:50
Budesonide (Pulmicort Respules) 0.5 Mg/2 Ml INH 0.5 mg
R BID RENÉ Administration
Protocol
Budesonide/Formoterol Fumarate 2 puff 11/24/23 20:00 11/25/23 07:50
Symbicort Inhaler 160/4.5 INH 12/22/23 19:59 2 puff
R BID RENÉ Administration
Protocol
Bumetanide 2 mg 11/24/23 17:00 11/25/23 08:28
Bumetanide 2 Mg Tablet PO 12/22/23 16:59 2 mg
BID@0800,1700 RENÉ Administration
Diltiazem HCl 120 mg 11/25/23 08:00 11/25/23 08:20
Diltiazem 120 Mg Extended Release (24 H) Capsule PO 12/23/23 07:59 Not Given
DAILY RENÉ
Ezetimibe 10 mg 11/25/23 08:00 11/25/23 08:22
Ezetimibe (Zetia) 10 Mg Tablet PO 12/23/23 07:59 10 mg
DAILY RENÉ Administration
Gabapentin 600 mg 11/24/23 17:00 11/25/23 08:17
Gabapentin 300 Mg Capsule PO 12/22/23 16:59 600 mg
Q8 RENÉ Administration
Hyoscyamine Sulfate 0.125 mg 11/24/23 16:22
Hyoscyamine 0.125 Mg (Sl/Oral) Tablet PO 12/22/23 16:21
TIDPRN PRN
spasms
Ferric Sodium Gluconate 110 mls @ 110 mls/hr 11/25/23 14:00
Complex 125 mg/ Sodium IV 11/29/23 14:59
Chloride DAILY@1400 RENÉ
Isosorbide Mononitrate 60 mg 11/25/23 08:00 11/25/23 08:22
Isosorbide Mononitrate 60 Mg Extended Release Tablet PO 12/23/23 07:59 60 mg
DAILY RENÉ Administration
Lactase 1 capsule 11/24/23 19:35 11/25/23 08:17
Lactase Enzyme Capsule PO 12/22/23 19:34 1 capsule
AC RENÉ Administration
Loperamide HCl 4 mg 11/24/23 16:29
Loperamide 2 Mg Capsule PO 12/22/23 16:28
BIDPRN PRN
diarrhea
Montelukast Sodium 10 mg 11/24/23 22:00 11/24/23 21:29
Montelukast Sodium 10 Mg Tablet PO 12/22/23 21:59 10 mg
HS RENÉ Administration
Morphine Sulfate 2 mg 11/24/23 15:56 11/25/23 06:25
Morphine 2 Mg/Ml Syringe IV 12/08/23 15:55 2 mg
Q6HPRN PRN Administration
severe pain
Nitroglycerin 0.4 mg 11/24/23 15:56
Nitroglycerin 0.4 Mg Sl Tablet SL 12/22/23 15:55
[id number] PRN
chest pain
Pantoprazole Sodium 40 mg 11/24/23 18:00 11/24/23 18:02
Pantoprazole 40 Mg Delayed Release Tablet PO 12/22/23 17:59 40 mg
QPM RENÉ Administration
Phenobarbital Sodium 32.4 mg 11/24/23 16:00 11/25/23 08:22
Phenobarbital 32.4 Mg Tablet PO 12/22/23 15:59 32.4 mg
TID RENÉ Administration
Phenytoin 100 mg 11/24/23 16:00 11/25/23 08:22
Phenytoin Sodium Extended 100 Mg Capsule PO 12/22/23 15:59 100 mg
TID RENÉ Administration
Sodium Chloride 0 flush 11/24/23 17:00
Sodium Chloride 0.9% (Flush) Syringe IV 12/22/23 16:59
PER PROTOCOL RENÉ
Tramadol HCl 50 mg 11/24/23 15:56 11/24/23 19:22
Tramadol Hcl 50 Mg Tablet PO 12/22/23 15:55 50 mg
Q6HPRN PRN Administration
moderate pain
Home Medications
�Medication �Instructions �Recorded
montelukast 10 mg tablet 10 mg PO HS Lung/breathing issues 04/02/15
ezetimibe 10 mg tablet 10 mg PO DAILY High cholesterol 03/12/21
atenolol 50 mg tablet 50 mg PO .SEE BELOW Blood 01/13/23
Pressure
fluticasone furoate 200 1 inh inhalation R DAILY 01/13/23
mcg-vilanterol 25 mcg/dose Lung/Breathing Issues
inhalation powder (Breo Ellipta)
isosorbide mononitrate 60 mg 60 mg PO DAILY Heart 01/13/23
tablet,extended release 24 hr Disease/Condition
phenobarbital 32.4 mg tablet 32.4 mg PO TID Seizures #9 tabs 03/22/23
dexlansoprazole 60 mg 60 mg PO QPM Gastrointestinal Issue 03/25/23
capsule,biphase delayed release
diltiazem HCl 120 mg 120 mg PO DAILY Blood Pressure 03/25/23
capsule,extended release 24 hr
nitroglycerin 0.4 mg sublingual 0.4 mg sublingual [id number] PRN 03/25/23
tablet chest pain
gabapentin 600 mg tablet 600 mg PO Q8H Pain 07/29/23
budesonide 0.5 mg/2 mL suspension 0.5 mg inhalation R BID 11/03/23
for nebulization Lung/Breathing Issues
acetaminophen 650 mg 1,300 mg PO DAILYPRN PRN mild pain 11/24/23
tablet,extended release
albuterol sulfate 90 mcg/actuation 2 puff inhalation R Q4HPRN PRN sob 11/24/23
aerosol inhaler
ascorbic acid (vitamin C) 1,000 mg 1,000 mg PO DAILY Supplement 11/24/23
tablet (Vitamin C)
aspirin 81 mg tablet,delayed 81 mg PO DAILY Blood Clot 11/24/23
release Prevention/Tx
bumetanide 2 mg tablet 2 mg PO .SEE BELOW Fluid 11/24/23
Retention/Swelling
hyoscyamine sulfate 0.125 mg tablet 0.125 mg PO TIDPRN PRN spasms 11/24/23
loperamide 2 mg tablet (Imodium 4 mg PO BIDPRN PRN diarrhea 11/24/23
A-D)
phenytoin sodium extended 100 mg 100 mg PO TID Seizures 11/24/23
capsule (Dilantin Extended)
warfarin 2.5 mg tablet (Jantoven) 1.25 mg PO HS Blood clot 11/24/23
prevention/tx
[2023-11-25] MEDS: FERRLECIT 110 MG IV (13:14)
[2023-11-25 13:35] LABS: TSH Reflex To Free T4 2.58 uIU/ml (0.47-4.68)
[2023-11-25 13:59] LABS: Glycohemoglobin (HgbA1c) 5.9 % (4.0-5.6)
[2023-11-25 14:11] LABS: Folate 4.2 ng/ml (2.76-20); Vitamin B12 515 pg/ml (239-931)
[2023-11-25 14:12] LABS: Dilantin 18.6 ug/ml (10-20)
[2023-11-25 14:50] LABS: Urine Albumin Negative (Neg - Trace); Urine Bilirubin Negative (Negative); Urine Character Clear (Clear); Urine Color Yellow; Urine Glucose Negative (Negative); Urine Ketone Negative (Negative); Urine Leukocyte 2+ (Negative); Urine Nitrite Positive (Negative); Urine Occult Blood Negative (Negative); Urine Specific Gravity 1.015 (<1.030); Urine Urobilinogen Negative (Neg - 1+)
[2023-11-25 15:00] VITALS: BP 103/66
--- NOTE | 2023-11-25 15:12 | CM ---
sales department manager reviewed patient's chart and met with patient and patient lives with spouse in a 2 story home, darwin reports that she is independent with adl's and uses a walker with ambulation. Patient states her helps her in home. Physical
therapy are recommending skilled however patient adamantly refuses skilled stating that she will be returning to home with spouse and [facility], patient is current with [facility]. patient has a prescription plan and uses [facility] pharmacy.
PCP: Dr. Burden
Plan; Home with spouse and [facility].
[2023-11-25 15:21] LABS: Urine Bacteria Many (Negative)
[2023-11-25 15:23] LABS: Urine Red Blood Cell 0-2 /HPF (0-2)
[2023-11-25] MEDS: PROTONIX 40 MG PO (16:47)
[2023-11-25 19:50] VITALS: BP 127/64
[2023-11-25] MEDS: TENORMIN 50 MG PO (20:44)
[2023-11-25] MEDS: SINGULAIR 10 MG PO (21:14)
[2023-11-25 23:14] VITALS: BP 105/77
[2023-11-26 03:30] VITALS: BP 102/65
[2023-11-26 07:30] VITALS: BP 142/67
--- NOTE | 2023-11-26 07:35 | W.PN.NEURO.1 ---
Today's Communication / Plan
-
Reiterated my concerns that [employer] use of Phenytoin is likely caused peripheral neuropathy and a large part of her gait issues and my recommendation to slowly wean off this medication.
Other easily treatable and reversible causes of neuropathy being evaluated
Patient still considering, she is wary of coming off the medication
--She will need levels of Phenobarbital and coumadin watched closely in this setting
---If she decides to come off the medication, would need to do so slowly. If pursuing this change would start with small decrease and wean off over several weeks
---Initial dosing of Phenytoin would be 50 mg in AM, 100 mg in afternoon and 100 mg in the evening
----Would decrease by 50 mg in the total daily dosing every 2 weeks until off the medication
Should continue to follow with her regular neurologist
Neuro Assessment/Plan
Assessment
78 year old woman presenting with worsening gait problems, multiple falls
Neurologic examination remarkable for sensory loss to vibration and absent reflexes throughout consistent with a peripheral neuropathy
She has has history of epilepsy with seizures starting around age 6, maintained on Phenytoin and Phenobarbital since age 6, patient reports she hasn't had seizure since age 6
Her gait problems are partly due to history of ankle and knee problems, but a large part is most likely from chronic peripheral neuropathy which is extremely likely to be due to [employer] use (6 decades) of Phenytoin which is known to cause
peripheral neuropathy as well as cerebellar degeneration and balance problems from both of these. I don't feel the effects of Phenytoin on gait and nerves will be fully reversible, some chance she could see improvement if were to come off Phenytoin
Vitamin B12, folate, TSH normal levels
Therapeutic level of Phenytoin noted
Not seeing a good reason that the patient should be on 2 different anti seizure medications with multiple adverse effects and drug interactions when she has been seizure free for so long
Subjective/Objective
Subjective Data
Date of Service: November 26, 2023
No acute events, patient feeling at baseline, no new symptoms or unusual pains
Objective Data
Vital Signs
Temp Pulse Resp BP Pulse Ox
98.3 F 55 18 102/65 94
11/26/23 03:30 11/26/23 03:30 11/26/23 03:30 11/26/23 03:30 11/26/23 03:30
Lab Results
11/24/23 11:09
PT 36.1 Sec (11.4-14.6) H 11/25/23 06:15
INR 3.55 11/25/23 06:15
APTT 59.0 Sec (23.4-35.0) H 11/24/23 11:09
Sodium 134 mmol/L (135-145) L 11/24/23 11:09
Potassium 3.8 mmol/L (3.5-5.1) 11/24/23 11:09
BUN 21 mg/dl (7-17) H 11/24/23 11:09
Glucose 92 mg/dl (70-99) 11/24/23 11:09
Calcium 8.5 mg/dl (8.4-10.2) 11/24/23 11:09
Vitamin B12 515 pg/ml (239-931) 11/25/23 06:15
Patient Allergies
hydroxyzine Allergy (Verified 11/02/23 23:51)
Unknown
lactose Allergy (Verified 11/02/23 23:51)
Unknown
metronidazole [From Flagyl] Allergy (Verified 11/02/23 23:51)
Nausea / Vomiting
pollen extracts Allergy (Verified 11/02/23 23:51)
ENVIRONMENTAL ALLERGIES-NASAL SYMPTOMS
Review of Systems
-
History Source: Patient
All other systems: Reviewed and negative
Constitutional: No Symptoms
EENT: No Symptoms Reported
Respiratory: No Symptoms
Cardiac: No Symptoms
Abdomen/GI: No Symptoms
Genitourinary: No Symptoms
Musculoskeletal: No Symptoms
Skin: No Symptoms
Neuro: See existing Neuro Note
Endocrine: No Symptoms
Hematologic / Lymphatic: No Symptoms
Allergy / Immunology: No Symptoms
Physical Exam
-
General: Obese and Appears Stated Age
HEENT: Normocephalic
Neck: No Bruits Bilaterally
Respiratory: No Dyspnea; Negative Wheezes
Cardiac: No Murmur
GI: Soft and Non-tender
Skin: Warm and Dry
Extremities: No Cyanosis
Psych: Intact Judgement/Insight; Negative Confused or Agitated
Extended Neurological Exam
Attention Span & Concentration: Awake, Alert and Interactive
Memory: Unremarkable
Tremor: Hand Tremor Absent
Involuntary Movement: None
Speech: Quality Unremarkable and Quantity Unremarkable; Negative Receptive Aphasia
Cranial Nerve II: Left Eye: Pupillary Reactivity Unremarkable, Pupillary Size Unremarkable and Visual Bell Intact
Cranial Nerve II: Right Eye: Pupillary Reactivity Unremarkable, Pupillary Size Unremarkable and Visual Bell Intact
Cranial Nerves III, IV, : Extraocular Movement: Extraocular Movement Full in all Directions
Cranial Nerve VII: Facial Symmetry: Normal Facial Symmetry
Muscle Strength, Overall: Other (5/5 shoulder abduction arm flexion hip abduction/adduction ankle dorsiflexion/plantarflexion)
Pronator Drift: No Drift in Upper Extremities
Deep Tendon Reflexes: Absent Throughout
Vibration Sensation: Other (Absent in toes bilaterally to vibration, reduced in knees bilaterally to vibration)
Coordination: [id number] Testing Unremarkable
Babinski Sign: Absent Bilaterally
Data Reviewed
-
CT Head: Image Reviewed
Labs: Report Reviewed
[2023-11-26 07:38] LABS: Hematocrit 26.6 % (37.0-47.0); Hemoglobin 8.1 g/dL (12.0-16.0); Mean Corp Hgb Conc. 30.5 g/dL (33.0-37.0); Mean Corpuscular Hgb 26.9 pg (27.0-31.0); Mean Corpuscular Volume 88.4 fL (81.0-99.0); Mean Platelet Volume 8.9 fL (7.4-10.4); Platelet Count 305 10^3/uL (130-400); Red Blood Cell Count 3.01 10^6/uL (4.20-5.40); Red Cell Dist. Width 18.6 % (11.5-14.5); White Blood Cell Count 7.6 10^3/uL (4.8-10.8)
[2023-11-26 07:39] LABS: INR 2.36; PT 26.1 Sec (11.4-14.6)
[2023-11-26] MEDS: SYMBICORT 160/4.5 MCG INHALER 2 PUFF INH ×2 (07:46→19:37)
[2023-11-26] MEDS: PULMICORT 0.5 MG INH ×2 (07:46→19:37)
[2023-11-26 08:02] LABS: IgA 452 mg/dl (70-400)
[2023-11-26] MEDS: BUMEX 2 MG PO ×2 (09:22→17:25)
[2023-11-26] MEDS: ZETIA 10 MG PO (09:23)
[2023-11-26] MEDS: CARDIZEM CD PO (09:23)
[2023-11-26] MEDS: ASPIR LOW (ENTERIC COATED) 81 MG PO (09:23)
[2023-11-26] MEDS: DILANTIN 100 MG PO ×3 (09:24→22:02)
[2023-11-26] MEDS: LUMINAL 32.3999999999999986 MG PO ×3 (09:24→22:01)
[2023-11-26] MEDS: VITAMIN C 1000 MG PO (09:24)
[2023-11-26] MEDS: IMDUR (EXTENDED RELEASE) 60 MG PO (09:24)
[2023-11-26] MEDS: NEURONTIN 600 MG PO ×2 (09:24→17:25)
[2023-11-26] MEDS: TENORMIN PO ×2 (09:24→20:30)
[2023-11-26] MEDS: LACTAID 1 CAPSULE PO ×3 (09:24→17:26)
[2023-11-26 11:00] VITALS: BP 140/55
[2023-11-26] MEDS: MORPHINE SULFATE 2 MG IV ×2 (13:09→21:07)
[2023-11-26] MEDS: FERRLECIT 110 MG IV (13:11)
--- NOTE | 2023-11-26 13:43 | PN.CDI ---
CDI
- -
CDI:
Physician Documentation Request
Admit Date: 11/24/23 15:06
Dear Doctor Remi,
Please review the following and provide your response in the progress notes.
Clinical Indicators:
11/23 Pt admitted with Acute on chronic Iron deficient Anemia
11/23 H&P note: 'Acute on chronic anemia-severe in nature. Hemoglobin 8.0. No obvious external bleeding currently. Hemodynamically stable. Patient on Coumadin with supratherapeutic INR. Rule out any occult GI blood loss.....INR supratherapeutic.
Hold Coumadin.'
Please clarify the relationship between these conditions:
Yes, Acute Anemia is related to/exacerbated by Coumadin.
No, Acute Anemia is not related to/exacerbated by Coumadin but it is due to ___. (Please specify)
Unable to determine
Use of terms such as suspected, likely, concern for, or probable (associated with a specific diagnosis that is being evaluated, monitored, or treated as if it exists) are acceptable and can be coded in the inpatient setting, when documented at the
time of discharge.
Thank you,
Macarena Cr RN, BSN
CDI Specialist
Available via [place] Text
Please use your independent medical judgment in providing your response.
--- NOTE | 2023-11-26 14:21 | W.PN.HOSP.TC ---
Addendum entered and electronically signed by Yeyo Khalil MD 11/26/23 17:43:
EColi UTI -cw ctx
Anemia not exacerbated by coumadin
Addendum entered and electronically signed by Yeyo Khalil MD 11/26/23 14:38:
Correction -she did complain about dysuria
Original Note:
Today's Communication/Plan
-
cw IV iron
Follow stools for blood
Follow HH
Wean Dilantin
CW PT
Ibarra cath for retention
Assessment / Plan
Assessment / Plan
Acute on chronic anemia-severe in nature. Hemoglobin 8.0 on adx -now 8.4. Iron deficient. No obvious external bleeding currently. Hemodynamically stable. Patient on Coumadin with supratherapeutic INR. Rule out any occult GI blood loss.
Repeat heme testing stools( in ER was neg). CT of the abdomen pelvis shows no evidence of intra-abdominal or retroperitoneal bleeding.
Patient is having iron deficiency anemia without obvious external bleeding. Continue to follow stools for Hemoccult testing. Started on IV iron. Check celiac profile-pending.
Ambulatory dysfunction with recurrent falls-had 3 falls yesterday. Complains of bilateral thigh pain. pelvic and bilateral hip x-rays neg for fracture. Patient known to have peripheral neuropathy.
Patient with both bilateral upper and lower extremity weakness and sensory disturbances. She also is hyperreflexic. Based on today's history all new since last week. Based on PT reports from previous new acute issue. CT of the head shows no
acute intracranial abnormalities. appt neurology input - concerned about Dilantin associated neuropathy and recommending to go off of Dilantin. Await phenobarb levels if normal will start tapering if patient is agreeable. Had a long discussion
with the patient. She is concerned about depression symptoms if she comes off of that. She tried wants to come off of it once and felt depressed but then that she had that her mother issue and as well as she went cold turkey with Dilantin. She
is agreeable now to try slow taper.
Paroxysmal atrial fibrillation-in sinus rhythm. INR therapeutic. Resume Coumadin. Continue with the beta-jelani based on parameters ;hold Cardizem. due to bradycardia.
CAD s/p prior CABG and PCI and coronary stent-continue with her home regimen.
Seizure disorder-continue other home antiepileptics.
Recurrent urinary retention-suspect mobility related.Ibarra cath. Voiding trail when more mobile.
Full code
Discussed with RN
DW today on at bedside about clinicals,tx plan.
Discussed with neurology regarding the plan today.
Anticipated Discharge: > 48 hours
Subjective/Interval History
-
Date of Service: November 26, 2023
Patient having trouble with the urinary retention. She says it is because she cannot go on the bedpan and she is having difficulty getting out of the bed. Denies any history of urinary retention or bladder problems. Denies any dysuria.
Still has not ambulated much with PT.
Still complains of bilateral lower leg pains.
Denies headache, no speech disturbance or vision disturbance.
Objective Data
-
Labs:
Laboratory Results
11/26/23
07:21
WBC 7.6
Hgb 8.1 L
Hct 26.6 L
Plt Count 305
PT 26.1 H
INR 2.36
Vital Signs:
Vital Signs
Temp Pulse Resp BP Pulse Ox
98.1 F 57 18 140/55 94
11/26/23 11:00 11/26/23 11:00 11/26/23 11:00 11/26/23 11:00 11/26/23 11:00
I&O
11/25/23 11/26/23 11/27/23
06:59 06:59 06:59
Intake Total 720 / 720
Output Total 1785 / 1785
Balance -1065 / -1065
Review of Systems
-
Constitutional: Denies Fever or Night Sweats
EENT: Denies Sore Throat
Respiratory: Denies Trouble Breathing
Cardiac: Denies Chest Pain
Abdomen/GI: Denies Nausea, Vomiting or Diarrhea
Neuro: Denies Dizzy
Physical Exam
-
General: No Apparent Distress
HEENT: Moist Mucous Membranes
Respiratory: Clear to Auscultation (anteriorly)
Cardiac: Regular Rhythm and S1/S2
GI: Soft and Nontender
Neuro: AO x 3 and No Motor Deficits (4+/5 all limbs); Negative Tremors, DTR's Intact & Symmetrica (hyporeflexia), Slurred Speech or Facial Droop
Psych: Calm; Negative Confused
Data Reviewed
-
Labs: Labs Reviewed by me
--- NOTE | 2023-11-26 15:14 | PN.CDI ---
CDI
- -
CDI:
Physician Documentation Request
Admit Date: 11/24/23 15:06
Dear Doctor Remi,
Please review the following and provide your response in the progress notes.
Clinical Indicators:
11/23 Pt. admitted with Iron deficiency anemia
11/25 Urine culture positive for Escherichia coli
11/25 Progress Note: 'she did complain about dysuria.'
11/25 Rocephin ordered
Please provide further specificity regarding the site, etiology, acuity and know or suspected organism:
Ecoli UTI
dysuria only
Other, please specify
Use of terms such as suspected, likely, concern for, or probable (associated with a specific diagnosis that is being evaluated, monitored, or treated as if it exists) are acceptable and can be coded in the inpatient setting, when documented at the
time of discharge.
Thank you,
Macarena Cr RN, BSN
CDI Specialist
Available via [facility] [employer]
Please use your independent medical judgment in providing your response.
[2023-11-26 15:30] VITALS: BP 122/47
[2023-11-26] MEDS: COUMADIN 1 MG PO (17:24)
[2023-11-26] MEDS: PROTONIX 40 MG PO (17:26)
[2023-11-26] MEDS: STERILE WATER FOR INJECTION 10 ML IV (18:17)
[2023-11-26] MEDS: ROCEPHIN 1000 MG IV (18:17)
[2023-11-26 19:29] VITALS: BP 120/63
[2023-11-26] MEDS: SINGULAIR 10 MG PO (22:01)
[2023-11-26 23:10] VITALS: BP 134/64
[2023-11-27] MEDS: NEURONTIN 600 MG PO ×4 (00:15→23:12)
[2023-11-27] MEDS: MORPHINE SULFATE 2 MG IV ×4 (03:41→22:02)
[2023-11-27 03:44] VITALS: BP 154/76
[2023-11-27 07:00] VITALS: BP 154/84
[2023-11-27 08:06] LABS: INR 1.99; PT 22.4 Sec (11.4-14.6)
[2023-11-27] MEDS: SYMBICORT 160/4.5 MCG INHALER 2 PUFF INH ×2 (08:10→20:34)
[2023-11-27] MEDS: PULMICORT 0.5 MG INH ×2 (08:10→20:34)
[2023-11-27] MEDS: LUMINAL 32.3999999999999986 MG PO ×3 (09:10→21:38)
[2023-11-27] MEDS: TENORMIN 50 MG PO (09:10)
[2023-11-27] MEDS: IMDUR (EXTENDED RELEASE) 60 MG PO (09:10)
[2023-11-27] MEDS: DILANTIN 100 MG PO ×3 (09:10→21:38)
[2023-11-27] MEDS: ASPIR LOW (ENTERIC COATED) 81 MG PO (09:10)
[2023-11-27] MEDS: VITAMIN C 1000 MG PO (09:10)
[2023-11-27] MEDS: BUMEX 2 MG PO ×2 (09:11→17:56)
[2023-11-27] MEDS: ZETIA 10 MG PO (09:11)
[2023-11-27] MEDS: CARDIZEM CD PO (09:13)
[2023-11-27] MEDS: LACTAID 1 CAPSULE PO ×3 (09:13→17:25)
[2023-11-27 11:00] VITALS: BP 114/54
[2023-11-27] MEDS: ULTRAM 50 MG PO (12:01)
--- NOTE | 2023-11-27 12:36 | W.PN.HOSP.TC ---
Addendum entered and electronically signed by Yeyo Khalil MD 11/27/23 12:44:
start Dilantin taper once Phenobarb levels are back and adequate
Original Note:
Today's Communication/Plan
-
Follow MRI cx spine report
Taper Dilantin
CW ABX for UTI /murdock
CW PT tx
Assessment / Plan
Assessment / Plan
Acute on chronic anemia-severe in nature. Hemoglobin 8.0 on adx -now 8.4. Iron deficient. No obvious external bleeding currently. Hemodynamically stable. Patient on Coumadin with supratherapeutic INR. Rule out any occult GI blood loss.
Repeat heme testing stools( in ER was neg). CT of the abdomen pelvis shows no evidence of intra-abdominal or retroperitoneal bleeding.
Patient is having iron deficiency anemia without obvious external bleeding. Continue to follow stools for Hemoccult testing. Started on IV iron. Check celiac profile-pending.
Ambulatory dysfunction with recurrent falls-had 3 falls yesterday. Complains of bilateral thigh pain. pelvic and bilateral hip x-rays neg for fracture. Patient known to have peripheral neuropathy.
Patient with both bilateral upper and lower extremity weakness and sensory disturbances. She also is hyperreflexic. Based on today's history all new since last week. Based on PT reports from previous new acute issue. CT of the head shows no
acute intracranial abnormalities. appt neurology input - concerned about Dilantin associated neuropathy and recommending to go off of Dilantin. Await phenobarb levels if normal will start tapering if patient is agreeable. Had a long discussion
with the patient. She is concerned about depression symptoms if she comes off of that. She tried wants to come off of it once and felt depressed but then that she had that her mother issue and as well as she went cold turkey with Dilantin. She
is agreeable now to try slow taper.
MRI cerivcal spine report pending
Paroxysmal atrial fibrillation-in sinus rhythm. INR therapeutic. Resumed Coumadin. Continue with the beta-jelani based on parameters ;hold Cardizem. due to bradycardia.
CAD s/p prior CABG and PCI and coronary stent-continue with her home regimen.
Seizure disorder-continue other home antiepileptics.
EColi UTI - started on CTX pending cx data
Recurrent urinary retention-suspect mobility related.Murdock cath. Voiding trail when more mobile and abx tx
Full code
Discussed with RN
Anticipated Discharge: > 48 hours
Subjective/Interval History
-
Date of Service: November 27, 2023
No new issues
Wants to sit in a chair
Objective Data
-
Labs:
Laboratory Results
11/27/23
07:45
PT 22.4 H
INR 1.99
Vital Signs:
Vital Signs
Temp Pulse Resp BP Pulse Ox
97.8 F 57 18 114/54 93
11/27/23 11:00 11/27/23 11:00 11/27/23 11:00 11/27/23 11:00 11/27/23 11:00
I&O
11/26/23 11/27/23 11/28/23
06:59 06:59 06:59
Intake Total 720 / 720 720 / 720
Output Total 1785 / 1785 2200 / 2200
Balance -1065 / -1065 -1480 / -1480
Review of Systems
-
Constitutional: Denies Fever
Respiratory: Denies Trouble Breathing
Cardiac: Denies Chest Pain
Abdomen/GI: Denies Abdominal Pain, Nausea or Vomiting
Genitourinary: Reports Other (murdock in )
Neuro: Denies Dizzy
Physical Exam
-
General: No Apparent Distress
HEENT: Moist Mucous Membranes
Respiratory: Clear to Auscultation
Cardiac: Regular Rhythm and S1/S2
GI: Soft
Neuro: AO x 3
Psych: Calm; Negative Confused
[2023-11-27] MEDS: FERRLECIT 110 MG IV (13:12)
[2023-11-27] MEDS: COLACE 100 MG PO ×2 (13:12→20:22)
[2023-11-27] MEDS: MIRALAX 17 GRAMS PO (13:12)
[2023-11-27 15:00] VITALS: BP 129/63
[2023-11-27] MEDS: STERILE WATER FOR INJECTION 10 ML IV (15:05)
[2023-11-27] MEDS: ROCEPHIN 1000 MG IV (15:05)
[2023-11-27] MEDS: TORADOL 15 MG IV (17:24)
[2023-11-27] MEDS: COUMADIN 2 MG PO (17:25)
[2023-11-27] MEDS: PROTONIX 40 MG PO (17:25)
[2023-11-27 19:15] VITALS: BP 107/48
[2023-11-27] MEDS: TENORMIN PO (20:25)
[2023-11-27] MEDS: SINGULAIR 10 MG PO (21:38)
[2023-11-27 22:57] VITALS: BP 103/44
[2023-11-28] MEDS: MORPHINE SULFATE 2 MG IV ×4 (02:39→21:04)
[2023-11-28 03:11] VITALS: BP 143/95
[2023-11-28 06:00] VITALS: BMI 29.7
[2023-11-28 06:55] LABS: INR 1.92; PT 21.9 Sec (11.4-14.6)
[2023-11-28 07:02] LABS: Hematocrit 26.7 % (37.0-47.0); Mean Corpuscular Volume 90.2 fL (81.0-99.0); Mean Platelet Volume 9.4 fL (7.4-10.4); Platelet Count 319 10^3/uL (130-400); Red Blood Cell Count 2.96 10^6/uL (4.20-5.40); Red Cell Dist. Width 18.8 % (11.5-14.5); White Blood Cell Count 7.6 10^3/uL (4.8-10.8)
[2023-11-28 07:13] VITALS: BP 116/57
[2023-11-28] MEDS: SYMBICORT 160/4.5 MCG INHALER 2 PUFF INH ×2 (08:23→20:44)
[2023-11-28] MEDS: PULMICORT 0.5 MG INH (08:23)
[2023-11-28] MEDS: LUMINAL 32.3999999999999986 MG PO ×3 (08:47→21:04)
[2023-11-28] MEDS: DILANTIN 100 MG PO ×3 (08:47→21:04)
[2023-11-28] MEDS: VITAMIN C 1000 MG PO (08:47)
[2023-11-28] MEDS: CARDIZEM CD 120 MG PO (08:47)
[2023-11-28] MEDS: TENORMIN 50 MG PO ×2 (08:47→21:00)
[2023-11-28] MEDS: ASPIR LOW (ENTERIC COATED) 81 MG PO (08:48)
[2023-11-28] MEDS: ZETIA 10 MG PO (08:48)
[2023-11-28] MEDS: IMDUR (EXTENDED RELEASE) 60 MG PO (08:48)
[2023-11-28] MEDS: COLACE PO ×2 (08:48→08:51)
[2023-11-28] MEDS: NEURONTIN 600 MG PO ×2 (08:48→16:28)
[2023-11-28] MEDS: BUMEX 2 MG PO ×2 (08:48→16:28)
[2023-11-28] MEDS: LACTAID 1 CAPSULE PO ×3 (08:48→16:28)
[2023-11-28] MEDS: MIRALAX PO (08:50)
[2023-11-28 11:01] VITALS: BP 110/54
--- NOTE | 2023-11-28 11:35 | W.PN.HOSP.TC ---
Today's Communication/Plan
-
Lumbar spine xray
CW pain med and PT tx
Assessment / Plan
Assessment / Plan
Acute on chronic anemia-severe in nature. Hemoglobin 8.0 on adx -now 8.4. Iron deficient. No obvious external bleeding currently. Hemodynamically stable. Patient on Coumadin with supratherapeutic INR. Rule out any occult GI blood loss.
Repeat heme testing stools( in ER was neg). CT of the abdomen pelvis shows no evidence of intra-abdominal or retroperitoneal bleeding.
Patient is having iron deficiency anemia without obvious external bleeding. Continue to follow stools for Hemoccult testing. cw IV iron. Check celiac profile-pending.
Ambulatory dysfunction with recurrent falls-had 3 falls yesterday. Complains of bilateral thigh pain. pelvic and bilateral hip x-rays neg for fracture. Patient known to have peripheral neuropathy.
Patient with both bilateral upper and lower extremity weakness and sensory disturbances. She also is hyperreflexic. Based on today's history all new since last week. Based on PT reports from previous new acute issue. CT of the head shows no
acute intracranial abnormalities. appt neurology input - concerned about Dilantin associated neuropathy and recommending to go off of Dilantin. Await phenobarb levels if normal will start tapering if patient is agreeable. Had a long discussion
with the patient. She is concerned about depression symptoms if she comes off of that. She tried wants to come off of it once and felt depressed but then that she had that her mother issue and as well as she went cold turkey with Dilantin. She
is agreeable now to try slow taper.
MRI cerivcal spine shows no myelopathy signals or cord compression. DJD noted.
Bilateral thigh pains-worse with movement and leg rise. History since the fall. Pelvic and bilateral hip x-rays were negative. Will check a lumbar spine xray to make sure there is no radiation from the back injury. cw pain tx
Paroxysmal atrial fibrillation-in sinus rhythm. INR therapeutic. Resumed Coumadin. Continue with the beta-jelani based on parameters ;hold Cardizem. due to bradycardia.
CAD s/p prior CABG and PCI and coronary stent-continue with her home regimen.
Seizure disorder-continue other home antiepileptics.
EColi UTI -cw CTX
Recurrent urinary retention-suspect mobility related.Ibarra cath. Voiding trail when more mobile and abx tx
Full code
Discussed at bedside
Anticipated Discharge: > 48 hours
Subjective/Interval History
-
Date of Service: November 28, 2023
Persist to have bilateral thigh pains. Present depressed but worse with movement. Requiring IV pain medication. Denies any back pain though.
Objective Data
-
Labs:
Laboratory Results
11/28/23
06:11
WBC 7.6
Hgb 8.0 L
Hct 26.7 L
Plt Count 319
PT 21.9 H
INR 1.92
Vital Signs:
Vital Signs
Temp Pulse Resp BP Pulse Ox
97.5 F 59 18 110/54 97
11/28/23 11:01 11/28/23 11:01 11/28/23 11:01 11/28/23 11:01 11/28/23 11:01
I&O
11/27/23 11/28/23 11/29/23
06:59 06:59 06:59
Intake Total 720 / 720 1190 / 1190
Output Total 2200 / 2200 1800 / 1800
Balance -1480 / -1480 -610 / -610
Review of Systems
-
Respiratory: Denies Trouble Breathing
Cardiac: Denies Chest Pain
Abdomen/GI: Denies Abdominal Pain, Nausea or Vomiting
Neuro: Denies Dizzy
Physical Exam
-
General: No Apparent Distress
HEENT: Moist Mucous Membranes
Respiratory: Clear to Auscultation (anteriorly)
Cardiac: Regular Rhythm and S1/S2
GI: Soft and Nontender
Musculoskeletal: Other (pain in anterior bilateral thighs with movement /leg raise ; no pain in hip joints with movement per pt)
Neuro: AO x 3 and No Motor Deficits (limited BL LE due to pain)
Psych: Calm
Data Reviewed
-
Labs: Labs Reviewed by me
[2023-11-28] MEDS: FERRLECIT 110 MG IV (13:18)
[2023-11-28 15:17] VITALS: BP 109/48
[2023-11-28] MEDS: STERILE WATER FOR INJECTION 10 ML IV (16:28)
[2023-11-28] MEDS: ROCEPHIN 1000 MG IV (16:28)
[2023-11-28] MEDS: COUMADIN 3 MG PO (16:29)
[2023-11-28] MEDS: PROTONIX 40 MG PO (16:29)
[2023-11-28] MEDS: TORADOL 15 MG IV (17:49)
[2023-11-28 20:33] VITALS: BP 124/44
[2023-11-28] MEDS: SINGULAIR 10 MG PO (21:04)
[2023-11-28] MEDS: COLACE 100 MG PO (21:04)
[2023-11-29] VITALS (8 sets, daily range): BP systolic 111–140; BP diastolic 50–67; PULSE 57
[2023-11-29] MEDS: TORADOL 15 MG IV ×2 (00:32→21:50)
[2023-11-29] MEDS: NEURONTIN 600 MG PO ×3 (00:33→15:59)
[2023-11-29 06:39] LABS: Endomysial IgA Antibody Titer <1:10 (<1:10)
[2023-11-29] MEDS: SYMBICORT 160/4.5 MCG INHALER 2 PUFF INH ×2 (08:25→20:16)
[2023-11-29] MEDS: ZETIA 10 MG PO (09:07)
[2023-11-29] MEDS: IMDUR (EXTENDED RELEASE) 60 MG PO (09:07)
[2023-11-29] MEDS: LACTAID 1 CAPSULE PO ×3 (09:07→15:59)
[2023-11-29] MEDS: BUMEX 2 MG PO ×2 (09:07→15:59)
[2023-11-29] MEDS: ASPIR LOW (ENTERIC COATED) 81 MG PO (09:07)
[2023-11-29] MEDS: CARDIZEM CD 120 MG PO (09:07)
[2023-11-29] MEDS: DILANTIN 100 MG PO ×2 (09:07→15:59)
[2023-11-29] MEDS: VITAMIN C 1000 MG PO (09:07)
[2023-11-29] MEDS: COLACE 100 MG PO (09:07)
--- NOTE | 2023-11-29 09:09 | W.PN.HOSP.TC ---
Addendum entered and electronically signed by Sergio Leahy MD 11/29/23 15:59:
Patient intermittently bradycardic. Will stop diltiazem. Continue atenolol with hold parameters.
Original Note:
Today's Communication/Plan
-
Increase laxatives
Check lumbar spine MRI
Assessment / Plan
Assessment / Plan
Acute on chronic anemia-severe in nature. Hemoglobin 8.0 on adx -now 8.4. Iron deficient. No obvious external bleeding currently. Hemodynamically stable. Patient on Coumadin with supratherapeutic INR. Rule out any occult GI blood loss.
Repeat heme testing stools( in ER was neg). CT of the abdomen pelvis shows no evidence of intra-abdominal or retroperitoneal bleeding.
Patient is having iron deficiency anemia without obvious external bleeding. Continue to follow stools for Hemoccult testing. cw IV iron. Check celiac profile-pending.
Ambulatory dysfunction with recurrent falls-had 3 falls yesterday. Complains of bilateral thigh pain. pelvic and bilateral hip x-rays neg for fracture. Patient known to have peripheral neuropathy.
Patient with both bilateral upper and lower extremity weakness and sensory disturbances. She also is hyperreflexic. Based on today's history all new since last week. Based on PT reports from previous new acute issue. CT of the head shows no
acute intracranial abnormalities. appt neurology input - concerned about Dilantin associated neuropathy and recommending to go off of Dilantin. Had a long discussion with the patient. 11/29/2023atient tells me she does not want to be tapered off
of Dilantin. Check lumbar spine MRI.
MRI cerivcal spine shows no myelopathy signals or cord compression. DJD noted.
Bilateral thigh pains-worse with movement and leg rise. History since the fall. Pelvic and bilateral hip x-rays were negative. Check lumbar spine MRI. Change IV morphine to oxycodone.
Constipation�increase laxatives
Paroxysmal atrial fibrillation-in sinus rhythm. INR therapeutic. Resumed Coumadin. Continue with the beta-jelani based on parameters ; decrease Cardizem. due to bradycardia.
CAD s/p prior CABG and PCI and coronary stent-continue with her home regimen.
Seizure disorder-continue other home antiepileptics.
EColi UTI -cw CTX
Recurrent urinary retention-suspect mobility related.Ibarra cath. Voiding trail when more mobile and abx tx
Full code
Updated on phone 11/28
Total time spent to see the patient on the floor, examine the patient, review data and lab results, discuss treatment plan with patient, nursing staff around 50 minutes.
Physical Exam
General: No acute distress
HEENT: Normocephalic, Atraumatic, EOMI, MMM
Respiratory: Clear to Auscultation bilaterally
Cardiac: Normal S1/S2, Regular Rate and Rhythm
GI: Soft, Nontender, Nondistended, Normal Bowel Sounds
Extremities: No Clubbing, Cyanosis, or Edema
Msk: Lower back pain with straight leg test
Neuro: Slow to respond
Psych: Calm, Cooperative
Derm: No Visible lesions
Anticipated Discharge: 24 - 48 hours
Subjective/Interval History
-
Date of Service: November 29, 2023
Patient complains of severe back pain, improved with morphine. She also complains of constipation. No fever, no vomiting.
Objective Data
-
Vital Signs:
Vital Signs
Temp Pulse Resp BP Pulse Ox
98.3 F 56 18 140/53 91
11/29/23 07:33 11/29/23 07:33 11/29/23 07:33 11/29/23 07:33 11/29/23 07:33
I&O
11/28/23 11/29/23 11/30/23
06:59 06:59 06:59
Intake Total 1190 / 1190 600 / 600
Output Total 1800 / 1800 650 / 650
Balance -610 / -610 -50 / -50
[2023-11-29] MEDS: MIRALAX 17 GRAMS PO (09:11)
[2023-11-29] MEDS: LUMINAL 32.3999999999999986 MG PO ×2 (09:11→15:59)
[2023-11-29] MEDS: TENORMIN PO ×3 (09:30→21:28)
[2023-11-29] MEDS: MORPHINE SULFATE 2 MG IV (09:32)
[2023-11-29] MEDS: DULCOLAX 10 MG RECTAL (12:58)
[2023-11-29] MEDS: FERRLECIT 110 MG IV (13:09)
--- NOTE | 2023-11-29 13:22 | CM ---
Addendum entered by Natasha Tyler 11/29/23 17:04:
Patient's spouse asked for a referral to [facility], referral sent to [facility].
Original Note:
Chart reviewed and physical therapy still recommend skilled placement, and then home with spouse, patient is still refusing skilled placement, patient states she was at [facility] in past but refuses skilled placement.
Plan; Home with [facility].
[2023-11-29] MEDS: ROXICODONE 5 MG PO ×2 (14:21→20:19)
[2023-11-29] MEDS: STERILE WATER FOR INJECTION 10 ML IV (15:59)
[2023-11-29] MEDS: ROCEPHIN 1000 MG IV (16:00)
--- NOTE | 2023-11-29 17:29 | PTCARENOTE ---
Notified the provider that the patient reported no BM since 11/22 and then subsequently stated she had one 'two days ago.' No documentation in the chart showing BM this hospitalization, provider notified. Suppository ordered. Patient then attempted
to have a BM in the evening. She passed mostly gelatinous liquid with pebble stool. Provider notified.
[2023-11-29] MEDS: PROTONIX 40 MG PO (18:00)
--- NOTE | 2023-11-29 19:19 | PTCARENOTE ---
Addendum entered by Angelic Newell RN 11/29/23 19:20:
MD made aware, patient had BM using bedpan.
Original Note:
Patient refused enema
--- NOTE | 2023-11-29 19:29 | PTCARENOTE ---
Patient refusing milk of molasses enema and stating that she 'has been going to the bathroom normally.' Pt. did have a small bowel movement during change of shift and continued to refuse the enema despite this nurse educating patient on purpose of
enema. VSS. Will continue to monitor.
[2023-11-29] MEDS: DILANTIN PO ×2 (20:19→21:28)
[2023-11-29] MEDS: SENOKOT PO ×2 (20:19→21:28)
[2023-11-29] MEDS: SINGULAIR 10 MG PO (20:19)
[2023-11-29] MEDS: COLACE PO ×2 (20:19→21:28)
[2023-11-29] MEDS: MIRALAX PO ×2 (20:21→21:28)
[2023-11-29] MEDS: LUMINAL PO ×2 (20:25→21:28)
--- NOTE | 2023-11-29 21:42 | PTCARENOTE ---
11/29/232018 PRN oxycodone not given. Pt. requested med but refused all meds upon this nurse's attempt to administer PM meds. All meds wasted and witnessed in [facility] by cosigning RN. [employer] will not allow this nurse to unchart this med
administration; however med was not administered and was wasted.
[2023-11-30] MEDS: NEURONTIN PO (00:51)
[2023-11-30 05:00] LABS: Hematocrit 25.1 % (37.0-47.0); Hemoglobin 7.7 g/dL (12.0-16.0); Mean Corp Hgb Conc. 30.7 g/dL (33.0-37.0); Mean Corpuscular Hgb 27.2 pg (27.0-31.0); Mean Corpuscular Volume 88.7 fL (81.0-99.0); Mean Platelet Volume 9.1 fL (7.4-10.4); Platelet Count 292 10^3/uL (130-400); Red Blood Cell Count 2.83 10^6/uL (4.20-5.40); Red Cell Dist. Width 19.2 % (11.5-14.5); White Blood Cell Count 7.1 10^3/uL (4.8-10.8)
[2023-11-30 05:27] LABS: ALT (SGPT) 12 U/L (0-35); AST (SGOT) 21 U/L (14-36); Albumin 2.9 g/dl (3.5-5.0); Alkaline Phosphatase 224 U/L (38-126); Blood Urea Nitrogen 31 mg/dl (7-17); Calcium 8.6 mg/dl (8.4-10.2); Carbon Dioxide 29 mmol/L (22-30); Chloride 100 mmol/L (98-107); Estimated Creatinine Clearance 40 ml/min; Glucose 80 mg/dl (70-99); Magnesium 2.4 mg/dl (1.6-2.3); Phosphorus 6.1 mg/dl (2.5-4.5); Potassium 4.9 mmol/L (3.5-5.1); Sodium 134 mmol/L (135-145); Total Bilirubin 0.4 mg/dl (0.2-1.3); Total Protein 6.1 g/dl (6.3-8.2); eGFR 41.83
[2023-11-30 07:00] VITALS: BP 120/53
--- NOTE | 2023-11-30 07:26 | W.PN.HOSP.TC ---
Today's Communication/Plan
-
Start prednisone
Stop Toradol
Arrange for SNF
Assessment / Plan
Assessment / Plan
Acute on chronic anemia-severe in nature. Hemoglobin 8.0 on adx -now 8.4. Iron deficient. No obvious external bleeding currently. Hemodynamically stable. Patient on Coumadin with supratherapeutic INR. Rule out any occult GI blood loss.
Repeat heme testing stools( in ER was neg). CT of the abdomen pelvis shows no evidence of intra-abdominal or retroperitoneal bleeding.
Patient is having iron deficiency anemia without obvious external bleeding. Continue to follow stools for Hemoccult testing. cw IV iron. Check celiac profile-pending.
Ambulatory dysfunction with recurrent falls-had 3 falls yesterday. Complains of bilateral thigh pain. pelvic and bilateral hip x-rays neg for fracture. Patient known to have peripheral neuropathy.
Patient with both bilateral upper and lower extremity weakness and sensory disturbances. She also is hyperreflexic. Based on today's history all new since last week. Based on PT reports from previous new acute issue. CT of the head shows no
acute intracranial abnormalities. appt neurology input - concerned about Dilantin associated neuropathy and recommending to go off of Dilantin. Had a long discussion with the patient. 11/29/2023atient tells me she does not want to be tapered off
of Dilantin. Lumbar spine MRI confirms L5-S1 diffuse disc bulge with protrusion abutting the descending left S1 nerve root. Will start prednisone 40 mg daily for 5 days for left-sided sciatica
MRI cerivcal spine shows no myelopathy signals or cord compression. DJD noted.
Bilateral thigh pains-worse with movement and leg rise. History since the fall. Pelvic and bilateral hip x-rays were negative. Lumbar spine MRI confirms L5-S1 diffuse disc bulge with protrusion abutting the descending left S1 nerve root. Will
start prednisone 40 mg daily for 5 days for left-sided sciatica.
Constipation�continue laxatives
Paroxysmal atrial fibrillation-in sinus rhythm. INR therapeutic. Resumed Coumadin. Continue with the beta-jelani based on parameters ; decrease Cardizem. due to bradycardia.
CAD s/p prior CABG and PCI and coronary stent-continue with her home regimen.
Seizure disorder-continue other home antiepileptics.
EColi UTI -cw CTX
Recurrent urinary retention-suspect mobility related.Ibarra cath. Will attempt voiding trial today 11/29
Full code
Updated on phone 11/29
Total time spent to see the patient on the floor, examine the patient, review data and lab results, discuss treatment plan with patient, nursing staff around 50 minutes.
Physical Exam
General: Disheveled appearing, no acute distress
HEENT: Normocephalic, Atraumatic, EOMI, MMM
Respiratory: Clear to Auscultation bilaterally
Cardiac: Normal S1/S2, Regular Rate and Rhythm
GI: Soft, Nontender, Nondistended, Normal Bowel Sounds
Extremities: No Clubbing, Cyanosis, or Edema
Msk: Lower back pain with straight leg test
Neuro: Slow to respond
Anticipated Discharge: Within 24 hours
Subjective/Interval History
-
Date of Service: November 30, 2023
Patient complains of lumbar lower back pain radiating down her left leg. She had a bowel movement. No fever, no vomiting.
Objective Data
-
Labs:
Laboratory Results
11/30/23
04:43
WBC 7.1
Hgb 7.7 L
Hct 25.1 L
Plt Count 292
Sodium 134 L
Potassium 4.9
Chloride 100
Carbon Dioxide 29
BUN 31 H
Creatinine 1.3 H
Glucose 80
Calcium 8.6
Total Bilirubin 0.4
AST 21
ALT 12
Alkaline Phosphatase 224 H
Vital Signs:
Vital Signs
Temp Pulse Resp BP Pulse Ox
97.1 F 61 18 139/57 93
11/29/23 23:00 11/29/23 23:00 11/29/23 23:00 11/29/23 23:00 11/29/23 23:00
I&O
11/29/23 11/30/23 12/01/23
06:59 06:59 06:59
Intake Total 600 / 600 240 / 240
Output Total 650 / 650 800 / 800
Balance -50 / -50 -560 / -560
[2023-11-30] MEDS: SYMBICORT 160/4.5 MCG INHALER 2 PUFF INH ×2 (08:21→20:17)
[2023-11-30] MEDS: MIRALAX PO ×2 (08:36→20:47)
[2023-11-30] MEDS: SENOKOT PO ×2 (08:36→20:47)
[2023-11-30] MEDS: COLACE PO ×2 (08:36→20:48)
[2023-11-30] MEDS: IMDUR (EXTENDED RELEASE) 60 MG PO (08:37)
[2023-11-30] MEDS: NEURONTIN 600 MG PO ×2 (08:37→15:58)
[2023-11-30] MEDS: VITAMIN C 1000 MG PO (08:37)
[2023-11-30] MEDS: DILANTIN 100 MG PO ×3 (08:37→20:47)
[2023-11-30] MEDS: LUMINAL 32.3999999999999986 MG PO ×3 (08:37→20:47)
[2023-11-30] MEDS: BUMEX 2 MG PO ×2 (08:40→17:16)
[2023-11-30] MEDS: LACTAID 1 CAPSULE PO ×3 (08:40→15:58)
[2023-11-30] MEDS: ASPIR LOW (ENTERIC COATED) 81 MG PO (08:40)
[2023-11-30] MEDS: ZETIA 10 MG PO (08:40)
[2023-11-30] MEDS: TENORMIN 50 MG PO (08:41)
[2023-11-30] MEDS: TORADOL 15 MG IV (08:59)
[2023-11-30 12:37] VITALS: BP 107/51; O2SAT 100
[2023-11-30 12:53] VITALS: BP 107/72; PULSE 57
[2023-11-30] MEDS: DELTASONE 40 MG PO (12:56)
[2023-11-30 15:00] VITALS: BP 116/49
[2023-11-30] MEDS: STERILE WATER FOR INJECTION 10 ML IV (15:58)
[2023-11-30] MEDS: ROCEPHIN 1000 MG IV (15:58)
[2023-11-30] MEDS: ROXICODONE 5 MG PO ×2 (16:15→20:49)
[2023-11-30] MEDS: PROTONIX 40 MG PO (17:16)
[2023-11-30] MEDS: LEVSIN 0.125 MG PO (18:15)
[2023-11-30] MEDS: TENORMIN PO (20:46)
[2023-11-30] MEDS: SINGULAIR 10 MG PO (20:47)
[2023-11-30 23:04] VITALS: BP 118/74
--- NOTE | 2023-11-30 23:31 | PTCARENOTE ---
Patient was due to void at 2200 after murdock removal during the day. Patient was unable to void prior to this time. Patient bladder scanned and found to have 316 mls of urine in bladder. Patient said she would attempt to urinate on the bed odom again.
Will continue to monitor/encourage voiding and rescan patient per protcol. VSS at this time.
[2023-12-01] MEDS: NEURONTIN 600 MG PO ×4 (00:16→23:02)
[2023-12-01] MEDS: ROXICODONE 5 MG PO ×4 (00:16→22:56)
[2023-12-01 05:31] LABS: Hematocrit 26.9 % (37.0-47.0); Hemoglobin 8.3 g/dL (12.0-16.0); Mean Corp Hgb Conc. 30.9 g/dL (33.0-37.0); Mean Corpuscular Hgb 27.3 pg (27.0-31.0); Mean Corpuscular Volume 88.5 fL (81.0-99.0); Mean Platelet Volume 9.1 fL (7.4-10.4); Platelet Count 347 10^3/uL (130-400); Red Blood Cell Count 3.04 10^6/uL (4.20-5.40); Red Cell Dist. Width 20.2 % (11.5-14.5); White Blood Cell Count 10.3 10^3/uL (4.8-10.8)
[2023-12-01 06:00] VITALS: BMI 29.6
[2023-12-01 07:00] VITALS: BP 135/57
[2023-12-01] MEDS: SYMBICORT 160/4.5 MCG INHALER 2 PUFF INH ×2 (08:09→19:16)
--- NOTE | 2023-12-01 08:44 | W.PN.HOSP.TC ---
Today's Communication/Plan
-
Hopeful for discharge tomorrow
Assessment / Plan
Assessment / Plan
Acute on chronic anemia-severe in nature. Hemoglobin 8.0 on adx -now 8.3. Iron deficient. No obvious external bleeding currently. Hemodynamically stable. Patient on Coumadin with supratherapeutic INR. Rule out any occult GI blood loss. Repeat
heme testing stools( in ER was neg). CT of the abdomen pelvis shows no evidence of intra-abdominal or retroperitoneal bleeding.Patient is having iron deficiency anemia without obvious external bleeding. Continue to follow stools for Hemoccult
testing. Status post IV iron. Check celiac profile-pending.
Ambulatory dysfunction with recurrent falls-had 3 falls yesterday. Complains of bilateral thigh pain. pelvic and bilateral hip x-rays neg for fracture. Patient known to have peripheral neuropathy.
Patient with both bilateral upper and lower extremity weakness and sensory disturbances. She also is hyperreflexic. Based on today's history all new since last week. Based on PT reports from previous new acute issue. CT of the head shows no
acute intracranial abnormalities. appt neurology input - concerned about Dilantin associated neuropathy and recommending to go off of Dilantin. Had a long discussion with the patient. 11/29/2023atient tells me she does not want to be tapered off
of Dilantin. Lumbar spine MRI confirms L5-S1 diffuse disc bulge with protrusion abutting the descending left S1 nerve root. Will start prednisone 40 mg daily for 5 days for left-sided sciatica, day 2/5
MRI cerivcal spine shows no myelopathy signals or cord compression. DJD noted.
Bilateral thigh pains-worse with movement and leg rise. History since the fall. Pelvic and bilateral hip x-rays were negative. Lumbar spine MRI confirms L5-S1 diffuse disc bulge with protrusion abutting the descending left S1 nerve root. Will
start prednisone 40 mg daily for 5 days for left-sided sciatica, day 2/5
Constipation�she has had 1 bowel movement in 7 days, increase laxatives.
Paroxysmal atrial fibrillation-in sinus rhythm. INR therapeutic. Resumed Coumadin. Decreased atenolol with hold parameters ; stopped Cardizem due to bradycardia.
CAD s/p prior CABG and PCI and coronary stent-continue with her home regimen.
Seizure disorder-continue other home antiepileptics.
EColi UTI -status post full course of Rocephin, will stop today
Recurrent urinary retention-suspect mobility related.Ibarra cath. Ibarra removed 11/29, has required 2 straight caths. If she needs a third, we will have to reinsert Ibarra
Full code
Updated on phone 11/29, left message on 11/30
Total time spent to see the patient on the floor, examine the patient, review data and lab results, discuss treatment plan with patient, nursing staff around 51 minutes.
Physical Exam
General: Disheveled appearing, no acute distress
HEENT: Normocephalic, Atraumatic, EOMI, MMM
Respiratory: Clear to Auscultation bilaterally
Cardiac: Normal S1/S2, Regular Rate and Rhythm
GI: Soft, Nontender, Nondistended, Normal Bowel Sounds
Extremities: No Clubbing, Cyanosis, or Edema
Msk: Lower back pain with straight leg test
Neuro: Slow to respond
Anticipated Discharge: Within 24 hours
Subjective/Interval History
-
Date of Service: November 30, 2023
Patient had acute urinary retention, requiring straight cath yesterday, and once this morning. She is still constipated. Continues to complain of severe leg pain, right greater than left. No fever, no vomiting.
Objective Data
-
Labs:
Laboratory Results
11/30/23
04:43
WBC 7.1
Hgb 7.7 L
Hct 25.1 L
Plt Count 292
Sodium 134 L
Potassium 4.9
Chloride 100
Carbon Dioxide 29
BUN 31 H
Creatinine 1.3 H
Glucose 80
Calcium 8.6
Total Bilirubin 0.4
AST 21
ALT 12
Alkaline Phosphatase 224 H
Vital Signs:
Vital Signs
Temp Pulse Resp BP Pulse Ox
97.8 F 59 18 120/53 98
11/30/23 07:00 11/30/23 08:24 11/30/23 08:24 11/30/23 08:40 11/30/23 08:24
I&O
11/29/23 11/30/23 12/01/23
06:59 06:59 06:59
Intake Total 600 / 600 240 / 240
Output Total 650 / 650 800 / 800
Balance -50 / -50 -560 / -560
[2023-12-01] MEDS: LUMINAL 32.3999999999999986 MG PO ×3 (09:27→21:51)
[2023-12-01] MEDS: IMDUR (EXTENDED RELEASE) 60 MG PO (09:27)
[2023-12-01] MEDS: MIRALAX 17 GRAMS PO (09:27)
[2023-12-01] MEDS: LACTAID 1 CAPSULE PO ×3 (09:28→16:37)
[2023-12-01] MEDS: DELTASONE 40 MG PO (09:28)
[2023-12-01] MEDS: VITAMIN C 1000 MG PO (09:28)
[2023-12-01] MEDS: ASPIR LOW (ENTERIC COATED) 81 MG PO (09:28)
[2023-12-01] MEDS: BUMEX 2 MG PO ×2 (09:28→16:37)
[2023-12-01] MEDS: COLACE 100 MG PO (09:28)
[2023-12-01] MEDS: TENORMIN 25 MG PO ×2 (09:28→21:51)
[2023-12-01] MEDS: SENOKOT 17.1999999999999993 MG PO (09:28)
[2023-12-01] MEDS: ZETIA 10 MG PO (09:28)
[2023-12-01] MEDS: DILANTIN 100 MG PO ×3 (09:28→21:53)
--- NOTE | 2023-12-01 11:59 | CM ---
environmental engineering manager reviewed patient's chart and patient is agreeable to going to [facility] skilled, referral sent to [facility] and patient has been accepted at [facility]. Patient's spouse who is at bedside was updated on skilled placement at [facility] and is
agreeable to plan.
Plan; Skilled placement at [facility].
Report [phone]
[2023-12-01] MEDS: DUPHALAC/CHRONULAC 20 GRAMS PO ×3 (12:25→21:50)
--- NOTE | 2023-12-01 14:29 | PN.CDI ---
CDI
- -
CDI:
Physician Documentation Request
Admit Date: 11/24/23 15:06
Dear Doctor Do,
Please review the following and provide your response in the progress notes.
Clinical Indicators:
5/ Pt admitted with Acute on Chronic Anemia
5/ Increase in creatinine to 1.3- see lab values
Laboratory Tests
11/24/23 11/30/23
11:09 04:43
Creatinine 0.9 1.3 H
Bases on the above information and the clinical indicators in the record, please clarify in the Progress Notes which of the following most accurately represents the patient's renal status:
- Acute kidney injury with no underlying CKD
- Acute kidney injury on baseline CKD, (specify stage of CKD)
- Other ( please specify)
Criteria for AYUSH*
1 Increase in serum creatinine by > or = to 0.3 mg/dL (> or = to 26.5 micromol/L) within 48 hours, OR
2 Increase in serum creatinine to > or = to 1.5 times baseline, which is known or presumed to have occurred within 7 days, OR
3 Urine volume < 0.5 nL/kg/hour for six hours
Stages of Chronic Kidney Disease*
Level Description GFR
G1 Normal or High >90
G2 Mildly decreased 60-89
G3a Mildly to moderately decreased 45-59
G3b Moderately to severely decreased 30-44
G4 Severely decreased 15-29
G5 Kidney failure <15
Use of terms such as suspected, likely, concern for, or probable (associated with a specific diagnosis that is being evaluated, monitored, or treated as if it exists) are acceptable and can be coded in the inpatient setting, when documented at the
time of discharge.
Thank you,
Macarena Cr RN, BSN
CDI Specialist
Available via [place] [employer]
Please use your independent medical judgment in providing your response.
*Source: Kidney Disease: Improving Global Outcomes (KDIGO) 2012
[2023-12-01 15:00] VITALS: BP 123/55
[2023-12-01 15:59] LABS: tTG IgA Antibody 11.1 EU/ml (0-19); tTG IgG Antibody 13.1 EU/ml (0-19)
[2023-12-01] MEDS: TYLENOL 1000 MG PO ×2 (16:36→21:50)
[2023-12-01] MEDS: ROCEPHIN 1000 MG IV (16:37)
[2023-12-01] MEDS: STERILE WATER FOR INJECTION 10 ML IV (16:38)
[2023-12-01 17:12] LABS: INR 2.02; PT 23.1 Sec (11.4-14.6)
[2023-12-01] MEDS: COUMADIN 3 MG PO (17:58)
[2023-12-01] MEDS: PROTONIX 40 MG PO (17:58)
[2023-12-01] MEDS: SENOKOT PO (21:50)
[2023-12-01] MEDS: MIRALAX PO (21:50)
[2023-12-01] MEDS: COLACE PO (21:50)
[2023-12-01] MEDS: SINGULAIR 10 MG PO (21:51)
--- NOTE | 2023-12-01 23:00 | W.PN.UPDATE ---
Update Note
Progress Note Update
RN notified PHARMACY TECHNICIAN INSTRUCTOR, patient hasn't voided and notes 680cc bladder scan. per nursing patient was straight cath'd twice. will order for Ibarra insertion.
[2023-12-01 23:15] VITALS: BP 122/56
[2023-12-02 06:00] VITALS: BMI 30.1
[2023-12-02 06:23] LABS: Hematocrit 26.4 % (37.0-47.0); Hemoglobin 8.1 g/dL (12.0-16.0); Mean Corp Hgb Conc. 30.7 g/dL (33.0-37.0); Mean Corpuscular Hgb 27.6 pg (27.0-31.0); Mean Corpuscular Volume 89.8 fL (81.0-99.0); Mean Platelet Volume 9.4 fL (7.4-10.4); Platelet Count 333 10^3/uL (130-400); Red Blood Cell Count 2.94 10^6/uL (4.20-5.40); White Blood Cell Count 9.4 10^3/uL (4.8-10.8)
[2023-12-02 06:26] LABS: INR 1.96; PT 22.5 Sec (11.4-14.6)
[2023-12-02 07:00] VITALS: BP 127/60
[2023-12-02 07:06] LABS: ALT (SGPT) 12 U/L (0-35); AST (SGOT) 21 U/L (14-36); Albumin 3.1 g/dl (3.5-5.0); Alkaline Phosphatase 215 U/L (38-126); Blood Urea Nitrogen 37 mg/dl (7-17); Calcium 8.8 mg/dl (8.4-10.2); Carbon Dioxide 26 mmol/L (22-30); Chloride 102 mmol/L (98-107); Estimated Creatinine Clearance 47 ml/min; Glucose 80 mg/dl (70-99); Sodium 138 mmol/L (135-145); Total Bilirubin 0.4 mg/dl (0.2-1.3); Total Protein 6.3 g/dl (6.3-8.2); eGFR 51.11
[2023-12-02] MEDS: SYMBICORT 160/4.5 MCG INHALER 2 PUFF INH (07:35)
[2023-12-02] MEDS: BUMEX 2 MG PO (08:48)
[2023-12-02] MEDS: ASPIR LOW (ENTERIC COATED) 81 MG PO (08:49)
[2023-12-02] MEDS: VITAMIN C 1000 MG PO (08:49)
[2023-12-02] MEDS: DELTASONE 40 MG PO (08:49)
[2023-12-02] MEDS: NEURONTIN 600 MG PO ×2 (08:49→15:16)
[2023-12-02] MEDS: TENORMIN 25 MG PO (08:49)
[2023-12-02] MEDS: ZETIA 10 MG PO (08:49)
[2023-12-02] MEDS: TYLENOL 1000 MG PO ×3 (08:50→22:34)
[2023-12-02] MEDS: LUMINAL 32.3999999999999986 MG PO ×3 (08:50→22:35)
[2023-12-02] MEDS: LACTAID 1 CAPSULE PO ×2 (08:51→11:33)
[2023-12-02] MEDS: IMDUR (EXTENDED RELEASE) 60 MG PO (08:51)
[2023-12-02] MEDS: DILANTIN 100 MG PO ×3 (08:51→22:34)
[2023-12-02] MEDS: MIRALAX PO (09:02)
[2023-12-02] MEDS: DUPHALAC/CHRONULAC PO ×2 (09:02→15:16)
[2023-12-02] MEDS: COLACE PO (09:02)
[2023-12-02] MEDS: SENOKOT PO (09:03)
--- NOTE | 2023-12-02 09:41 | W.PN.HOSP.TC ---
Addendum entered and electronically signed by Sergio Leahy MD 12/02/23 15:25:
#Elevated creatinine of unclear significance
Monitor for now, no nephrotoxic drugs or NSAIDs
Original Note:
Today's Communication/Plan
-
see bold
Assessment / Plan
Assessment / Plan
Ambulatory dysfunction with recurrent falls-had 3 falls yesterday. Complains of bilateral thigh pain. pelvic and bilateral hip x-rays neg for fracture. Patient known to have peripheral neuropathy.
Patient with both bilateral upper and lower extremity weakness and sensory disturbances. She also is hyperreflexic. Based on today's history all new since last week. Based on PT reports from previous new acute issue. CT of the head shows no
acute intracranial abnormalities. appt neurology input - concerned about Dilantin associated neuropathy and recommending to go off of Dilantin. Had a long discussion with the patient. 11/29/2023atient tells me she does not want to be tapered off
of Dilantin. Lumbar spine MRI confirms L5-S1 diffuse disc bulge with protrusion abutting the descending left S1 nerve root. Will start prednisone 40 mg daily for 5 days for left-sided sciatica, day 3. Head CT on 11/23, and repeat head CT on 12/01
all negative for acute stroke.
MRI cerivcal spine shows no myelopathy signals or cord compression. DJD noted.
Bilateral thigh pains-worse with movement and leg rise. History since the fall. Pelvic and bilateral hip x-rays were negative. Lumbar spine MRI confirms L5-S1 diffuse disc bulge with protrusion abutting the descending left S1 nerve root. Will
start prednisone 40 mg daily for 5 days for left-sided sciatica, day 35
Constipation�due to opioids and immobility, she has had 1 bowel movement in 8 days, increased laxatives. Add anusol supp bid for possible hemorrhoidal pain
EColi UTI -status post full course of Rocephin
Recurrent urinary retention-due to constipation and immobility. Ibarra cath. Ibarra removed 11/29, failed void trial, Ibarra reinserted 11/30. Continue to treat constipation, will be discharged with Ibarra, follow-up with urology in the office for void
trial
Acute on chronic anemia-severe in nature. Hemoglobin 8.0 on adx and stable in the 8's. Iron deficient. No obvious external bleeding currently. Hemodynamically stable. Patient on Coumadin with supratherapeutic INR. Rule out any occult GI blood
loss. Repeat heme testing stools( in ER was neg). CT of the abdomen pelvis shows no evidence of intra-abdominal or retroperitoneal bleeding.Patient is having iron deficiency anemia without obvious external bleeding. Continue to follow stools for
Hemoccult testing. Status post IV iron. She is too constipated to start oral iron.
Paroxysmal atrial fibrillation-in sinus rhythm. INR therapeutic. Resumed Coumadin. Decreased atenolol with hold parameters; stopped Cardizem due to bradycardia.
CAD s/p prior CABG and PCI and coronary stent-continue with her home regimen.
Seizure disorder-continue other home antiepileptics.
DVT prophylaxis�Coumadin
Full code
Updated and son at bedside 12/01
Total time spent to see the patient on the floor, examine the patient, review data and lab results, discuss treatment plan with patient, nursing staff around 55 minutes.
Physical Exam
General: Disheveled appearing, no acute distress
HEENT: Normocephalic, Atraumatic, EOMI, MMM
Respiratory: Clear to Auscultation bilaterally
Cardiac: Normal S1/S2, Regular Rate and Rhythm
GI: Soft, Nontender, Nondistended, Normal Bowel Sounds
Extremities: No Clubbing, Cyanosis, or Edema
Msk: Lower back pain with straight leg test
Neuro: Slow to respond
Anticipated Discharge: Within 24 hours
Subjective/Interval History
-
Date of Service: December 02, 2023
Continues to have bilateral leg weakness, knees buckling. Has constipation, but refusing laxatives. Has urinary retention, Ibarra reinserted. No fever, no vomiting.
Objective Data
-
Labs:
Laboratory Results
12/02/23
05:32
WBC 9.4
Hgb 8.1 L
Hct 26.4 L
Plt Count 333
PT 22.5 H
INR 1.96
Sodium 138
Potassium 4.0
Chloride 102
Carbon Dioxide 26
BUN 37 H
Creatinine 1.1 H
Glucose 80
Calcium 8.8
Total Bilirubin 0.4
AST 21
ALT 12
Alkaline Phosphatase 215 H
Vital Signs:
Vital Signs
Temp Pulse Resp BP Pulse Ox
97.8 F 60 15 127/60 94
12/02/23 07:00 12/02/23 08:49 12/02/23 07:40 12/02/23 08:48 12/02/23 07:40
I&O
12/01/23 12/02/23 12/03/23
06:59 06:59 06:59
Intake Total 1260 / 1260 1440 / 1440
Output Total 850 / 850 2400 / 2400
Balance 410 / 410 -960 / -960
[2023-12-02] MEDS: SENOKOT 17.1999999999999993 MG PO ×2 (10:12→20:35)
[2023-12-02] MEDS: NUPERCAINAL 1% OINTMENT 1 APPLIC TOPICAL (11:33)
[2023-12-02] MEDS: ANUSOL HC 25 MG RECTAL ×2 (11:33→20:35)
[2023-12-02] MEDS: DULCOLAX 10 MG RECTAL (11:33)
[2023-12-02 14:11] VITALS: BP 115/70; O2SAT 92
[2023-12-02 14:13] VITALS: BP 117/58; PULSE 59; O2SAT 92
[2023-12-02 15:00] VITALS: BP 105/47
[2023-12-02] MEDS: ROCEPHIN 1000 MG IV (15:15)
[2023-12-02] MEDS: STERILE WATER FOR INJECTION 10 ML IV (15:16)
[2023-12-02] MEDS: NUPERCAINAL 1% OINTMENT TOPICAL ×2 (15:48→22:35)
[2023-12-02] MEDS: BUMEX PO ×2 (17:10→17:47)
[2023-12-02] MEDS: LACTAID PO ×2 (17:10→17:47)
[2023-12-02] MEDS: COUMADIN 3 MG PO (17:10)
[2023-12-02] MEDS: PROTONIX 40 MG PO (17:10)
[2023-12-02] MEDS: SYMBICORT 160/4.5 MCG INHALER INH (19:45)
[2023-12-02 20:14] VITALS: BP 124/60
[2023-12-02] MEDS: TENORMIN PO (20:34)
[2023-12-02] MEDS: MIRALAX 17 GRAMS PO (20:35)
[2023-12-02] MEDS: COLACE 100 MG PO (20:35)
[2023-12-02] MEDS: DUPHALAC/CHRONULAC 20 GRAMS PO (22:34)
[2023-12-02] MEDS: SINGULAIR 10 MG PO (22:35)
[2023-12-02 23:40] VITALS: BP 128/57
[2023-12-03] MEDS: NEURONTIN 600 MG PO (00:31)
[2023-12-03 05:44] LABS: Hematocrit 29.5 % (37.0-47.0); Hemoglobin 9.1 g/dL (12.0-16.0); Mean Corp Hgb Conc. 30.8 g/dL (33.0-37.0); Mean Corpuscular Hgb 27.8 pg (27.0-31.0); Mean Corpuscular Volume 90.2 fL (81.0-99.0); Mean Platelet Volume 9.4 fL (7.4-10.4); Platelet Count 374 10^3/uL (130-400); Red Blood Cell Count 3.27 10^6/uL (4.20-5.40); White Blood Cell Count 10.7 10^3/uL (4.8-10.8)
[2023-12-03 05:57] LABS: INR 2.22; PT 24.9 Sec (11.4-14.6)
[2023-12-03 06:00] VITALS: BMI 30.2
[2023-12-03 06:17] LABS: Blood Urea Nitrogen 39 mg/dl (7-17); Calcium 9.3 mg/dl (8.4-10.2); Carbon Dioxide 24 mmol/L (22-30); Chloride 102 mmol/L (98-107); Estimated Creatinine Clearance 43 ml/min; Glucose 79 mg/dl (70-99); Sodium 139 mmol/L (135-145); eGFR 46.05
[2023-12-03 07:35] VITALS: BP 120/83
--- NOTE | 2023-12-03 08:05 | PTCARENOTE ---
Addendum entered by Neeta Kimble RN 12/03/23 11:24:
Pt able to swallow her meds and eat breakfast. Talking and awake at this time.
Addendum entered by Neeta Kimble RN 12/03/23 08:11:
Pt a bit more arousable at present. Keeping eyes open for longer periods of time and talking.
Original Note:
At beginning of this shift, pt noted to be difficult to arouse, pox 82% on RA. O2 2L applied and pox now 99%. Pt did arouse when shaken and sternal rubbed, opened eyes and stated 'I'm tired' and then fell back to sleep. Dr. Leahy made aware. Pt
reassessed and opens eyes when gently shaking pt, but then falls back to sleep. ABG's to be ordered. Will continue to monitor.
[2023-12-03] MEDS: SYMBICORT 160/4.5 MCG INHALER INH (08:11)
--- NOTE | 2023-12-03 08:42 | W.PN.HOSP.TC ---
Today's Communication/Plan
-
Discharge today
Assessment / Plan
Assessment / Plan
Ambulatory dysfunction with recurrent falls-had 3 falls yesterday. Complains of bilateral thigh pain. pelvic and bilateral hip x-rays neg for fracture. Patient known to have peripheral neuropathy.
Patient with both bilateral upper and lower extremity weakness and sensory disturbances. She also is hyperreflexic. Based on today's history all new since last week. Based on PT reports from previous new acute issue. CT of the head shows no
acute intracranial abnormalities. appt neurology input - concerned about Dilantin associated neuropathy and recommending to go off of Dilantin. Had a long discussion with the patient. 11/29/2023atient tells me she does not want to be tapered off
of Dilantin. Lumbar spine MRI confirms L5-S1 diffuse disc bulge with protrusion abutting the descending left S1 nerve root. Head CT on 11/23, and repeat head CT on 12/01 all negative for acute stroke. Improving on prednisone, will discharge on 40 mg
p.o. daily to complete a 7-day course.
MRI cerivcal spine shows no myelopathy signals or cord compression. DJD noted.
Bilateral thigh pains-worse with movement and leg rise. History since the fall. Pelvic and bilateral hip x-rays were negative. Lumbar spine MRI confirms L5-S1 diffuse disc bulge with protrusion abutting the descending left S1 nerve root.
Improving on prednisone, will discharge on 40 mg p.o. daily to complete a 7-day course.
Constipation�due to opioids and immobility, resolving on laxatives, she can continue laxatives upon discharge. Continue anusol supp bid for possible hemorrhoidal pain
Elevated creatinine of unclear significance - monitor for now, no nephrotoxic drugs or NSAIDs
EColi UTI -status post full course of Rocephin
Recurrent urinary retention-due to constipation and immobility. Ibarra cath. Ibarra removed 11/29, failed void trial, Ibarra reinserted 11/30. Continue to treat constipation, will be discharged with Ibarra, follow-up with urology in the office for void
trial
Acute on chronic anemia-severe in nature. Hemoglobin 8.0 on adx and stable in the 8's. Iron deficient. No obvious external bleeding currently. Hemodynamically stable. Patient on Coumadin with supratherapeutic INR. Rule out any occult GI blood
loss. Repeat heme testing stools( in ER was neg). CT of the abdomen pelvis shows no evidence of intra-abdominal or retroperitoneal bleeding.Patient is having iron deficiency anemia without obvious external bleeding. Continue to follow stools for
Hemoccult testing. Status post IV iron. She is too constipated to start oral iron.
Paroxysmal atrial fibrillation-in sinus rhythm. INR therapeutic. Resumed Coumadin. Decreased atenolol with hold parameters; stopped Cardizem due to bradycardia.
CAD s/p prior CABG and PCI and coronary stent-continue with her home regimen.
Seizure disorder-continue other home antiepileptics.
DVT prophylaxis�Coumadin
Full code
Updated and son at bedside 12/02
Physical Exam
General: Disheveled appearing, no acute distress
HEENT: Normocephalic, Atraumatic, EOMI, MMM
Respiratory: Clear to Auscultation bilaterally
Cardiac: Normal S1/S2, Regular Rate and Rhythm
GI: Soft, Nontender, Nondistended, Normal Bowel Sounds
Extremities: No Clubbing, Cyanosis, or Edema
Msk: Lower back pain with straight leg test
Neuro: Slow to respond
Anticipated Discharge: Today
Subjective/Interval History
-
Date of Service: December 02, 2023
Patient reports multiple bowel movements overnight. She reports improvement in her bilateral leg pain. She was sleepy and hard to arouse this morning. Now she is awake and alert. She states she did not sleep well last night. No fever, no
vomiting.
Objective Data
-
Labs:
Laboratory Results
12/02/23
05:32
WBC 9.4
Hgb 8.1 L
Hct 26.4 L
Plt Count 333
PT 22.5 H
INR 1.96
Sodium 138
Potassium 4.0
Chloride 102
Carbon Dioxide 26
BUN 37 H
Creatinine 1.1 H
Glucose 80
Calcium 8.8
Total Bilirubin 0.4
AST 21
ALT 12
Alkaline Phosphatase 215 H
Vital Signs:
Vital Signs
Temp Pulse Resp BP Pulse Ox
97.9 F 56 18 105/47 95
12/02/23 15:00 12/02/23 15:00 12/02/23 15:00 12/02/23 15:00 12/02/23 15:00
I&O
12/01/23 12/02/23 12/03/23
06:59 06:59 06:59
Intake Total 1260 / 1260 1440 / 1440
Output Total 850 / 850 2400 / 2400
Balance 410 / 410 -960 / -960
[2023-12-03 09:09] LABS: B.E. 6.1 mmol/L; HCO3 29.5 mmol/L (21-28); O2 Saturation % 89.9 % (94-98); PCO2 37 mmHg (32-35); PO2 60 mmHg (83-108); pH 7.51 (7.35-7.45)
[2023-12-03] MEDS: ASPIR LOW (ENTERIC COATED) 81 MG PO (09:23)
[2023-12-03] MEDS: BUMEX 2 MG PO (09:23)
[2023-12-03] MEDS: ANUSOL HC 25 MG RECTAL (09:23)
[2023-12-03] MEDS: LACTAID 1 CAPSULE PO (09:23)
[2023-12-03] MEDS: DUPHALAC/CHRONULAC PO (09:24)
[2023-12-03] MEDS: COLACE PO (09:24)
[2023-12-03] MEDS: DELTASONE 40 MG PO (09:24)
[2023-12-03] MEDS: DILANTIN 100 MG PO (09:24)
[2023-12-03] MEDS: MIRALAX PO (09:25)
[2023-12-03] MEDS: LUMINAL 32.3999999999999986 MG PO (09:25)
[2023-12-03] MEDS: NEURONTIN PO (09:25)
[2023-12-03] MEDS: VITAMIN C 1000 MG PO (09:25)
[2023-12-03] MEDS: IMDUR (EXTENDED RELEASE) 60 MG PO (09:25)
[2023-12-03] MEDS: ZETIA 10 MG PO (09:26)
[2023-12-03] MEDS: TENORMIN PO (09:26)
[2023-12-03] MEDS: TYLENOL 1000 MG PO (09:26)
[2023-12-03] MEDS: SENOKOT PO (09:27)
[2023-12-03] MEDS: NUPERCAINAL 1% OINTMENT 1 APPLIC TOPICAL (09:28)
[2023-12-03] MEDS: LACTAID PO (12:00)
--- NOTE | 2023-12-03 12:49 | W.DCSUMMARY ---
Discharge Summary
Discharge Data
Date of Admission: 11/24/23
Date of Discharge: 12/03/23
-
Pending Results: No
Hospital Course
Discharge diagnosis:
Ambulatory dysfunction
Recurrent mechanical falls
Left-sided sciatica
Bilateral leg pain
Constipation secondary to opioids and immobility
Acute urinary retention requiring Ibarra secondary to constipation and immobility
Acute urinary tract infection
Acute on chronic anemia
Paroxysmal atrial fibrillation on Coumadin
Coronary artery disease status post surgery
Childhood seizure disorder
Absent right kidney
Consults: Neurology
Head CT:
No acute intracranial abnormality.
No interval change.
Lumbar spine MRI:
T11-12: No disk herniation. Mild facet arthropathy. No cord compression.
T12-L1: Minimal disk bulge. No definite disk herniation. No cord compression.
L1-L2: Mild broad-based disk bulge. Far lateral right annular fissure no disk herniation. Mild facet arthropathy.
L2-L3: Broad-based disk bulge. Small annular fissure far lateral right. Mild facet arthropathy, slightly increased.
L3-L4: Broad-based disk bulge. No disk herniation. Mild inferior foraminal narrowing. Mild facet arthropathy.
L4-L5: There is a small central disk protrusion with annular fissure indenting the ventral surface of the thecal sac, unchanged. Spur disk on the right contributes to moderate foraminal narrowing. Mild facet arthropathy with mild central canal and
lateral recess stenosis.
L5-S1: Broad-based diffuse disk bulge. Tiny left central disk protrusion and annular fissure. Abuts the descending left S1 nerve root. No clear nerve root impingement. Superimposed on mild broad-based diffuse disk bulge.
CT abdomen pelvis:
Limited evaluation of unopacified incompletely distended urinary bladder containing at least one tiny bubble of air. In the absence of recent urinary bladder instrumentation, fistula should be considered.
Distal colonic diverticulosis.
Small hiatal hernia.
Absent right kidney.
Stable small right adrenal lesion, likely a benign adenoma.
Approximate 1.2 cm upper pole left renal lesion with slightly high attenuation density most likely representing a complex/proteinaceous cyst. Unfortunately, on the basis of this study without intravenous contrast, low-attenuation solid mass cannot
be excluded.
Hospital course:
78-year-old female with a past medical history of paroxysmal atrial fibrillation on Coumadin, childhood seizure disorder, CHF, and coronary artery disease was sent from her PCP for worsening hemoglobin of 8.0. Patient has chronic anemia, her
baseline hemoglobin is 9-10.
Patient was heme-negative, iron studies were indicative of iron deficiency anemia. CT of the abdomen and pelvis was negative for intra-abdominal or retroperitoneal bleed. Patient received IV iron in the hospital. Patient's hemoglobin was trended,
and was 9.1 on the day of discharge.
Patient had an acute urinary tract infection. Urine cultures grew out pansensitive E. coli. She received a full course of Rocephin.
Patient was found to have acute urinary retention. Suspect this is due to immobility and constipation. She had a Ibarra inserted. The Ibarra was removed on 11/29. She failed a void trial. Ibarra was reinserted. She will be discharged with a Ibarra.
She needs to follow-up with urology in the office for a void trial.
Patient has been having ambulatory dysfunction with recurrent mechanical falls. Initial head CT on 11/24/2023 was negative for acute CVA. She continued to have bilateral lower extremity weakness, and bilateral lower extremity pain. Repeat head CT
on 12/02/2023 was also negative for acute CVA. Patient was seen in conjunction with neurology. She has peripheral neuropathy. Neurology was concerned that her long-term use of phenytoin is likely the cause of peripheral neuropathy. Neurology
recommended slowly weaning off phenytoin. Patient is on phenytoin and phenobarbital secondary to childhood seizures. Patient is adamant, she does not want to be weaned off of phenytoin because she gets severely depressed when she has been weaned
off in the past. Therefore, she was continued on phenytoin at her usual dosage.
Lumbar spine MRI shows multilevel degenerative disc disease, with disc protrusion at L4-L5, and disc bulge at L5-S1. Suspect she has left-sided sciatica. She was treated with Tylenol, oxycodone. She was also treated with prednisone 40 mg daily.
Her pain did improve. She will be discharged on prednisone 40 mg daily to complete a 7-day course.
Patient had severe constipation. This is due to opioids, as well as immobility. She was started on an aggressive bowel regimen. She started to have multiple bowel movements. She will be discharged on laxatives.
Patient's multiple medical conditions have been optimized. She is medically stable for discharge to short-term rehab. She needs to follow-up with her primary care doctor 1 week after she leaves the hospital.
Disposition: Short-term rehab
Discharge planning: Required 45 minutes
Discharge Plan
-
Patient Disposition: Shelter/SNF
Discharge Diagnosis/Procedures: Ambulatory dysfunction, left-sided sciatica, bilateral leg pain, acute urinary tract infection, acute urinary retention requiring Ibarra, atrial fibrillation on Coumadin, bradycardia, constipation, hemorrhoidal pain,
iron deficiency anemia, asthma, childhood seizures
Condition: Fair
Diet: Low Fat and Low Cholesterol
Activity: As tolerated
Blood Work: CBC, CMP, INR every Wednesday
Activity Restrictions/Additional Instructions:
Take prednisone 40 mg daily for 3 more days.
You have acute urinary retention from immobility and constipation.
Please take your laxatives as directed.
Please follow-up with your urologist in 3-4 days for void trial.
Please use your Anusol suppository twice a day for 6 more days for hemorrhoidal pain.
Please follow-up with your primary care doctor 1 week after you leave rehab.
Referrals:
Luis Manuel Burden MD [Family Provider] - in one week
Prescriptions:
New
hydrocortisone acetate 25 mg Suppository
25 mg [place] BID 6 Days Qty: 12 0RF
prednisone 20 mg Tablet
40 mg PO DAILY 3 Days Qty: 6 0RF
atenolol 25 mg Tablet
25 mg PO BID Qty: 0 0RF
lactase [Dairy Relief] 3,000 unit Tablet
3,000 unit PO AC Qty: 90 0RF
polyethylene glycol 3350 [HealthyLax] 17 gram Powder In Packet
17 g PO BID Qty: 0 0RF
sennosides [Senna Laxative] 8.6 mg Tablet
17.2 mg PO BID Qty: 0 0RF
oxycodone 5 mg Tablet
5 mg PO Q4HPRN PRN (Reason: severe pain) Qty: 10 0RF
acetaminophen [Tylenol Extra Strength] 500 mg Tablet
1,000 mg PO TID Qty: 0 0RF
Continued
montelukast 10 MG tablet
10 mg PO HS
ezetimibe 10 MG tablet
10 mg PO DAILY
fluticasone furoate-vilanterol [Breo Ellipta] 200-25 mcg/dose blister with device
1 inh INHALATION R DAILY
isosorbide mononitrate 60 mg tablet extended release 24 hr
60 mg PO DAILY
phenobarbital 32.4 MG tablet
32.4 mg PO TID Qty: 9 0RF
nitroglycerin 0.4 mg tablet, sublingual
0.4 mg sublingual [id number] PRN (Reason: chest pain)
dexlansoprazole 60 mg capsule,biphase delayed releas
60 mg PO QPM
gabapentin 600 mg Tablet
600 mg PO Q8H
budesonide 0.5 mg/2 mL Suspension For Nebulization
0.5 mg INHALATION R BID
ascorbic acid (vitamin C) [Vitamin C] 1,000 mg Tablet
1,000 mg PO DAILY
bumetanide 2 mg Tablet
2 mg PO .SEE BELOW
Patient Comments:
11/24/2023, prescribed for pt. to take BID, [facility] records from 10/27/2023 also confirm this; however, pt. believes that she takes this med. TID.
phenytoin sodium extended [Dilantin Extended] 100 mg capsule
100 mg PO TID
aspirin 81 mg Tablet,Delayed Release (Dr/Ec)
81 mg PO DAILY
hyoscyamine sulfate 0.125 mg Tablet
0.125 mg PO TIDPRN PRN (Reason: spasms)
albuterol sulfate 90 mcg/actuation Hfa Aerosol Inhaler
2 puff INHALATION R Q4HPRN PRN (Reason: sob)
warfarin [Jantoven] 2.5 MG tablet
1.25 mg PO HS
Discontinued
atenolol 50 mg tablet
50 mg PO .SEE BELOW
Patient Comments:
11/24/2023, prescribed for pt. to take BID, [facility] records from 10/27/2023 also confirm this; however, pt. believes that she takes this med. TID.
diltiazem HCl 120 mg capsule,extended release 24hr
120 mg PO DAILY
Patient Comments:
11/24/2023, pt. is unsure if she is taking this med. or not.
loperamide [Imodium A-D] 2 mg Tablet
4 mg PO BIDPRN PRN (Reason: diarrhea)
acetaminophen [Tylenol Arthritis] 650 mg Tablet Extended Release
1,300 mg PO DAILYPRN PRN (Reason: mild pain)
Discharge Orders:
Discharge Patient (As Directed); Ordered 12/03/23
Ordered By: Sergio Leahy
Discharge Date and Time
Discharge Date/Time: 12/03/23 14:50
Print Language: PERSIAN
--- NOTE | 2023-12-03 13:37 | CM ---
Addendum entered by Natasha Tyler 12/03/23 13:44:
4:30pm picker and sorter load and unload by ambulance.
Original Note:
Patient has been cleared for placement today, plan is for patient to go to [facility], patient has been accepted at [facility], [facility].
[facility]
[phone]
[2023-12-03 14:01] VITALS: BP 116/52
== END 2023-12-03 14:50 | DRG 812 ==
LOC: 4 WEST ACU 15:06
PROVIDERS: Physician Assistant Medical; Registered Nurse Critical Care Medicine; ADMITTING PHYSICIAN Internal Medicine; ATTENDING PHYSICIAN Family Medicine; CONSULT PHYSICIAN Student in an Organized Health Care Education/Training Program; EMERGENCY PHYSICIAN Emergency Medicine; FAMILY PHYSICIAN Family Medicine
DX: D50.9 Iron deficiency anemia, unspecified (principal); N39.0 Urinary tract infection, site not specified; Z87.891 Personal history of nicotine dependence; I48.0 Paroxysmal atrial fibrillation; Z79.01 Long term (current) use of anticoagulants; G40.909 Epilepsy, unspecified, not intractable, without status epilepticus; B96.20 Unspecified Escherichia coli [E. coli] as the cause of diseases classified elsewhere; M54.32 Sciatica, left side; K59.03 Drug induced constipation; T40.2X5A Adverse effect of other opioids, initial encounter; I25.10 Atherosclerotic heart disease of native coronary artery without angina pectoris
CPT/HCPCS: 36600; 70450; 72100; 72141; 72148; 73521; 74176; 80048; 80053; 80184; 80185; 81003; 81015; 82550; 82607; 82728; 82746; 82784; 82805; 83036; 83516; 83540; 83550; 83735; 84100; 84443; 85025; 85027; 85045; 85610; 85652; 85730; 86231; 86850; 86900; 86901; 87086; 87088; 87186; 93005; 94640; 96374; 96375; 97163; 97167; 97530; 97535; 99285; J2916

== ENCOUNTER → 2023-12-06 10:25 | Outpatient (REF) | payer OTHER, MEDICARE, SELFPAY ==
[2023-12-06 11:07] LABS: Hemoglobin 9.1 g/dL (12.0-16.0); Mean Corp Hgb Conc. 30.3 g/dL (33.0-37.0); Mean Corpuscular Hgb 28.1 pg (27.0-31.0); Mean Corpuscular Volume 92.6 fL (81.0-99.0); Mean Platelet Volume 9.3 fL (7.4-10.4); Platelet Count 346 10^3/uL (130-400); Red Blood Cell Count 3.24 10^6/uL (4.20-5.40); Red Cell Dist. Width 23.1 % (11.5-14.5); White Blood Cell Count 7.8 10^3/uL (4.8-10.8)
[2023-12-06 11:10] LABS: INR 1.53; PT 18.2 Sec (11.4-14.6)
[2023-12-06 11:14] LABS: ALT (SGPT) 17 U/L (0-35); AST (SGOT) 28 U/L (14-36); Albumin 3.2 g/dl (3.5-5.0); Alkaline Phosphatase 200 U/L (38-126); Blood Urea Nitrogen 28 mg/dl (7-17); Calcium 8.7 mg/dl (8.4-10.2); Carbon Dioxide 27 mmol/L (22-30); Chloride 104 mmol/L (98-107); Glucose 76 mg/dl (70-99); Potassium 4.2 mmol/L (3.5-5.1); Sodium 141 mmol/L (135-145); Total Bilirubin 0.5 mg/dl (0.2-1.3); Total Protein 6.3 g/dl (6.3-8.2); eGFR > 60.00
[2023-12-06 12:18] LABS: Anisocytosis Slight; Normal RBC Morphology No
== END ==
LOC: OLABP 10:25
PROVIDERS: ATTENDING PHYSICIAN Family Medicine
DX: G40.909 Epilepsy, unspecified, not intractable, without status epilepticus (principal); I11.0 Hypertensive heart disease with heart failure; I50.32 Chronic diastolic (congestive) heart failure; I25.10 Atherosclerotic heart disease of native coronary artery without angina pectoris; I48.0 Paroxysmal atrial fibrillation; D64.9 Anemia, unspecified; B96.20 Unspecified Escherichia coli [E. coli] as the cause of diseases classified elsewhere
CPT/HCPCS: 36415; 80053; 85027; 85610

== ENCOUNTER → 2023-12-16 16:02 | Outpatient (REF) | payer MEDICARE, OTHER, SELFPAY ==
[2023-12-16 17:32] LABS: % Basophils 0.4 % (0-2); % Eosinophils 1.5 % (0-6); % Immature Granulocytes 0.3 % (0-0.5); % Monocytes 3.6 % (1.7-9.3); % Neutrophils 85.2 % (42.2-75.2); Absolute Eosinophils 0.1 10^3/uL (0-0.7); Absolute Lymphocytes 0.7 10^3/uL (1.2-3.4); Absolute Monocytes 0.3 10^3/uL (0.1-0.6); Absolute Neutrophils 6.4 10^3/uL (1.4-6.5); Hemoglobin 10.5 g/dL (12.0-16.0); Mean Corp Hgb Conc. 30.9 g/dL (33.0-37.0); Mean Corpuscular Hgb 28.8 pg (27.0-31.0); Mean Corpuscular Volume 93.2 fL (81.0-99.0); Mean Platelet Volume 9.2 fL (7.4-10.4); Nucleated Red Blood Cells % 0 %; Platelet Count 355 10^3/uL (130-400); Red Blood Cell Count 3.65 10^6/uL (4.20-5.40); Red Cell Dist. Width 21.2 % (11.5-14.5); White Blood Cell Count 7.5 10^3/uL (4.8-10.8)
[2023-12-16 17:38] LABS: INR 1.46; PT 17.9 Sec (11.4-14.6)
[2023-12-16 17:39] LABS: ALT (SGPT) 24 U/L (0-35); AST (SGOT) 28 U/L (14-36); Albumin 3.8 g/dl (3.5-5.0); Alkaline Phosphatase 193 U/L (38-126); Blood Urea Nitrogen 18 mg/dl (7-17); Calcium 9.5 mg/dl (8.4-10.2); Carbon Dioxide 26 mmol/L (22-30); Chloride 106 mmol/L (98-107); Glucose 182 mg/dl (70-99); Iron 78 ug/dl (37-170); Potassium 4.1 mmol/L (3.5-5.1); Sodium 144 mmol/L (135-145); Total Bilirubin 0.5 mg/dl (0.2-1.3); Total Protein 7.2 g/dl (6.3-8.2); eGFR > 60.00
[2023-12-16 17:48] LABS: IgA 441 mg/dl (70-400); IgG 1448 mg/dl (700-1600); IgM 120 mg/dl (40-230)
[2023-12-16 18:14] LABS: Ferritin 84.2 ng/ml (11.1-264.0)
[2023-12-16 18:45] LABS: Folate 3.8 ng/ml (2.76-20); Vitamin B12 478 pg/ml (239-931)
== END ==
LOC: REG 16:02
PROVIDERS: ATTENDING PHYSICIAN Internal Medicine; FAMILY PHYSICIAN Student in an Organized Health Care Education/Training Program
DX: I48.0 Paroxysmal atrial fibrillation (principal); D64.9 Anemia, unspecified; K21.9 Gastro-esophageal reflux disease without esophagitis; G40.909 Epilepsy, unspecified, not intractable, without status epilepticus; E53.8 Deficiency of other specified B group vitamins
CPT/HCPCS: 36415; 80053; 82607; 82728; 82746; 82784; 83540; 85025; 85045; 85610

== ENCOUNTER → 2024-01-10 11:32 | Outpatient (REF) | payer MEDICARE, OTHER, SELFPAY ==
[2024-01-10 12:50] LABS: % Basophils 0.4 % (0-2); % Eosinophils 2.1 % (0-6); % Immature Granulocytes 0.4 % (0-0.5); % Lymphocytes 8.2 % (20.5-51.1); % Monocytes 5.3 % (1.7-9.3); % Neutrophils 83.6 % (42.2-75.2); Absolute Eosinophils 0.2 10^3/uL (0-0.7); Absolute Lymphocytes 0.6 10^3/uL (1.2-3.4); Absolute Monocytes 0.4 10^3/uL (0.1-0.6); Absolute Neutrophils 6.4 10^3/uL (1.4-6.5); Hematocrit 38.6 % (37.0-47.0); Hemoglobin 12.3 g/dL (12.0-16.0); Mean Corp Hgb Conc. 31.9 g/dL (33.0-37.0); Mean Corpuscular Hgb 29.1 pg (27.0-31.0); Mean Corpuscular Volume 91.5 fL (81.0-99.0); Mean Platelet Volume 9.1 fL (7.4-10.4); Nucleated Red Blood Cells % 0 %; Platelet Count 310 10^3/uL (130-400); Red Blood Cell Count 4.22 10^6/uL (4.20-5.40); White Blood Cell Count 7.7 10^3/uL (4.8-10.8)
[2024-01-10 13:17] LABS: ALT (SGPT) 28 U/L (0-35); AST (SGOT) 40 U/L (14-36); Alkaline Phosphatase 242 U/L (38-126)
[2024-01-10 13:47] LABS: Dilantin 15.1 ug/ml (10-20)
== END ==
LOC: REG 11:32
PROVIDERS: ATTENDING PHYSICIAN Specialist; FAMILY PHYSICIAN Family Medicine
DX: G40.209 Localization-related (focal) (partial) symptomatic epilepsy and epileptic syndromes with complex partial seizures, not intractable, without status epilepticus (principal); N39.0 Urinary tract infection, site not specified
CPT/HCPCS: 36415; 80184; 80185; 84075; 84450; 84460; 85025

== ENCOUNTER → 2024-02-04 11:17 | Outpatient (REF) | payer MEDICARE, OTHER, SELFPAY ==
[2024-02-04 17:08] LABS: INR 1.83
== END ==
LOC: REG 11:17
PROVIDERS: ATTENDING PHYSICIAN Internal Medicine
DX: I48.0 Paroxysmal atrial fibrillation (principal)
CPT/HCPCS: 36415; 85610

== ENCOUNTER → 2024-02-11 10:55 | Outpatient (REF) | payer MEDICARE, OTHER, SELFPAY ==
[2024-02-11 17:41] LABS: INR 2.05; PT 22.9 Sec (11.4-14.6)
== END ==
LOC: REG 10:55
PROVIDERS: ATTENDING PHYSICIAN Internal Medicine
DX: I48.0 Paroxysmal atrial fibrillation (principal)
CPT/HCPCS: 85610

== ENCOUNTER 2024-02-22 14:07 | Outpatient (RCR) | payer MEDICARE, OTHER, SELFPAY | END 2024-02-22 23:59 | disposition home or self-care (01) | LOC: RPT 14:07 | PROVIDERS: ATTENDING PHYSICIAN Family Medicine | DX: R26.89 Other abnormalities of gait and mobility (principal) | CPT/HCPCS: 97110; 97112; 97163; 97530 ==

== ENCOUNTER → 2024-02-24 12:15 | Outpatient (REF) | payer MEDICARE, OTHER, SELFPAY ==
[2024-02-24 13:44] LABS: HDL Cholesterol 67 mg/dl; LDL Cholesterol, Calculated 84 mg/dl; Total Cholesterol 172 mg/dl (50-199); Triglyceride 106 mg/dl (10-149); Very Low Density Lipoprotein 21 mg/dl (0-30)
== END ==
LOC: REG 12:15
PROVIDERS: ATTENDING PHYSICIAN Internal Medicine; FAMILY PHYSICIAN Family Medicine
DX: I50.32 Chronic diastolic (congestive) heart failure (principal); I25.10 Atherosclerotic heart disease of native coronary artery without angina pectoris
CPT/HCPCS: 36415; 80061

== ENCOUNTER 2024-02-29 14:02 | Outpatient (RCR) | payer MEDICARE, OTHER, SELFPAY | END 2024-02-29 23:59 | disposition home or self-care (01) | LOC: RPT 14:02 | PROVIDERS: ATTENDING PHYSICIAN Family Medicine | DX: R26.89 Other abnormalities of gait and mobility (principal); Z73.6 Limitation of activities due to disability | CPT/HCPCS: 97110; 97530 ==

== ENCOUNTER 2024-02-29 18:39 | Inpatient (IN) | payer MEDICARE, OTHER, SELFPAY ==
[2024-02-29] VITALS (15 sets, daily range): BP systolic 83–139; BP diastolic 45–93; BMI 28.1
--- NOTE | 2024-02-29 15:13 | ED.GENMED ---
History of Present Illness
General
Chief Complaint: Fall
Time Seen by Provider: 02/29/24 15:13
History of Present Illness
History of Present Illness:
HPI: Patient fell this morning. She tripped on the bed sheets as she was making her bed. She states that she has been having right-sided chest due to the fall/injury and thinks that she 'broke her rib'. Later in the day she passed out. She then
went to physical therapy where she was found to have a low blood pressure reading. She states she takes atenolol for blood pressure and is known to Dr. Gr.
EXAM:
GENERAL: The patient appears somewhat chronically ill
HEENT: Dry oral mucosa
CERVICAL SPINE: No midline c-spine tenderness with excellent AROM
HEAD: No evidence of craniofacial trauma
CHEST: Moderate right-sided mid axillary chest wall tenderness, normal heart sounds
LUNGS: Equal lung sounds, no respiratory distress
ABDOMEN: No abdominal tenderness, no peritoneal signs
EXTREMITIES: Normal active range of motion, no tenderness
NEURO: Good strength all extremities, appropriate mental status, normal speech/language
TIME OF INITIAL ENCOUNTER: 3:15 PM
NUMBER AND COMPLEXITY OF PROBLEMS ADDRESSED AT THE ENCOUNTER
� Chronic conditions affecting care: Seizure disorder, asthma, has had PE/DVT, has had pleural effusion, CHF, CAD,, diverticular disease, skin cancer
� Acute Exacerbation and/or Progression of Chronic Illness: This is an acute problem
� Differential Diagnosis includes: Rib fracture, dehydration, doubt sepsis based on vital signs, anemia
AMOUNT AND/OR COMPLEXITY OF DATA TO BE REVIEWED AND ANALYZED
� I performed an independent evaluation of and my interpretation is:
EKG: Sinus 68, normal axis, nonspecific ST abnormality without significant change from 11/24/2023
CT: CT imaging of the head and chest shows no traumatic concerns
X-rays:
Laboratory Studies: CBC unremarkable, INR 1.99, chemistries relatively unremarkable except for glucose of 67
Other:
� Review of other/old records: The patient was admitted here this past November for 10 days related to recurrent falls and ambulatory dysfunction at that time she had an abnormal lumbar MRI which was reviewed.
� Clinical information was obtained by an independent historian: I spoke to at bedside
� Prescriptions/Medications Considered but not given:
� Further testing considered but not performed:
RISK OF COMPLICATIONS AND/OR MORBIDITY OR MORTALITY OF PATIENT MANAGEMENT
� Social determinants of health affecting care:
� Discussion with other providers:
� Escalation of care including admission/observation vs risk of discharge considered: Patient cannot clearly tell me that she absolutely did not strike her head. Since she is on Coumadin will obtain CT imaging of the brain and
also obtain CT imaging of the chest. She was given IV fluids for mild hypotension. However systolics initially in the 90s then went down to the 80s despite IV fluids. Blood pressure later did improve. She generally does not work well enough to
be discharged home at this time.
Past History
Past History
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
(Diverticulitis, DVT/PE, Only has right kidney, Endometriosis)
ED Past Surgical History: Appendectomy, Cardiac (quadruple bypass 2001. stent), Gynecological (Hysterectomy), Orthopedic (left shoulder, ankle) and Other (Right nephrectomy 2001 'tumor')
Social History
Tobacco: Former smoker
Alcohol: Occasional
Drug: None
Personal:
Living: with family
Employment: Retired
Family History
Family History: Other (Noncontributory)
Phy Exam
Physical Exam
Physical Exam:
See HPI
Course
Orders/Labs/Results
Orders:
Orders
02/29/24 15:10
Electrocardiogram (*1) Urgent
Reason for Study: Fatigue / Weakness
EKG- Treatment ONCE
02/29/24 15:15
0.9% Sodium Chloride 500 ml [Nss] 500 ml IV BOLUS
02/29/24 15:23
Acetaminophen [Tylenol] 1,000 mg PO NOW STA
02/29/24 15:33
CT Chest W/o Iv Contrast Urgent
Comment:
Reason For Exam: R chest trauma
02/29/24 15:34
CT Head W/o Iv Contrast Urgent
Comment:
Reason For Exam: trauma ?head strike; coumadin
02/29/24 15:35
Complete Blood Count/With Diff Urgent
Comprehensive Metabolic Panel Urgent
Phenobarbital [S] Urgent
Prothrombin Time Urgent
02/29/24 16:32
0.9% Sodium Chloride 500 ml [Nss] 500 ml IV BOLUS
02/29/24 17:56
Lactic Acid Q4H
Comment: CANCEL 2nd LACTIC ACID IF 1st LACTIC ACID IS LESS THAN 2
Blood Culture Urgent
DIOGENES Source: Blood/Venous
Specimen Description:
02/29/24 17:59
Urinalysis Reflex To Culture Stat
02/29/24 18:08
Admit/Transfer Patient As Directed
Co-Sign Provider:
Level of Care: Inpatient admission
Assign to:: IMU- Intermediate Care
Physician / Group: naidu
Diagnosis: mechanical fall
Reason for Hospitalization: mechanical fall
Expected length of stay greater than two midnights?: Yes
ELOS- Estimated Length of Stay in days: 3
I certify the patient meets the requirements for IP care: Yes
02/29/24 18:09
Code Status As Directed
Resuscitation Status: Full Code
PRN Pain Medication Management As Directed
May give lesser potent ordered pain med per pt: Yes
preference::
Protocol:: Medication orders for pain may be administered in a
manner that supports deferring to patient preference
when the pt is:
- Requesting an ordered lesser potent pain medication.
Least to most potent pain medications are defined
as: acetaminophen < NSAID < tramadol < opioids
(morphine, oxycodone, hydromorphone).
- Requesting a lesser dose of the same medication IF
ORDERED.
- Requesting a less intrusive route of administration
if both routes are prescribed by the provider (PO <
IV).
02/29/24 18:17
Echo 2D MMode Color/Doppler Stat
Reason for Study: near syncope
02/29/24 18:18
Abdomen/Pelvis wo Contrast CT [CT Abd/pelvis Wo Iv Cont] Urgent
Comment:
Reason For Exam: pain
02/29/24 21:45
Lactic Acid Q4H
Comment: CANCEL 2nd LACTIC ACID IF 1st LACTIC ACID IS LESS THAN 2
03/03/24 11:00
DC Protocol for Telemetry ONCE
Abnormal Lab Results
02/29/24
15:35
RBC 3.97 L 10^6/uL
(4.20-5.40)
Hgb 11.8 L g/dL
(12.0-16.0)
Hct 36.2 L %
(37.0-47.0)
MCHC 32.6 L g/dL
(33.0-37.0)
RDW 16.6 H %
(11.5-14.5)
Abs Immat Gran (auto) 0.1 H 10^3/uL
(0-0.05)
Absolute Neuts (auto) 7.6 H 10^3/uL
(1.4-6.5)
Absolute Lymphs (auto) 1.1 L 10^3/uL
(1.2-3.4)
Absolute Monos (auto) 0.8 H 10^3/uL
(0.1-0.6)
Neutrophils % 78.3 H %
(42.2-75.2)
Lymphocytes % 11.1 L %
(20.5-51.1)
PT 22.5 H Sec
(11.4-14.6)
BUN 22 H mg/dl
(7-17)
Glucose 67 L mg/dl
(70-99)
Alkaline Phosphatase 176 H U/L
(38-126)
02/29/24 15:35
02/29/24 15:35
Vital Signs
Initial and Last Documented VS:
Initial Vital Signs
Temp Pulse Resp BP Pulse Ox
98.1 F 69 16 94/54 98
02/29/24 15:04 02/29/24 15:04 02/29/24 15:04 02/29/24 15:04 02/29/24 15:04
Last Documented Vital Signs
Temp Pulse Resp BP Pulse Ox
98.1 F 69 18 98/49 99
02/29/24 15:04 02/29/24 17:35 02/29/24 17:35 02/29/24 17:35 02/29/24 17:00
*Critical Care Note
Total Time (30-74mins, 75-104mins- exclusive of procedures): Not Applicable
ED Attending Note
-
Portions of this chart may have been created with voice recognition software.� Occasional wrong word or��sound alike� substitutions may have occurred due to the inherent limitations of voice recognition software.
Discharge Plan
Departure
Patient Disposition: Admit
Date of Disposition: 02/29/24
Time of Disposition: 17:40
Presentation/result/management discussed w/ accepting MD/DO: Hospitalist
Discharge Problem:
Acute hypotension
Prescriptions:
No Action
montelukast 10 MG tablet
10 mg PO HS
ezetimibe 10 MG tablet
10 mg PO DAILY
fluticasone furoate-vilanterol [Breo Ellipta] 200-25 mcg/dose blister with device
1 inh INHALATION R DAILY
isosorbide mononitrate 60 mg tablet extended release 24 hr
60 mg PO DAILY
phenobarbital 32.4 MG tablet
32.4 mg PO TID Qty: 9 0RF
nitroglycerin 0.4 mg tablet, sublingual
0.4 mg sublingual [id number] PRN (Reason: chest pain)
dexlansoprazole 60 mg capsule,biphase delayed releas
60 mg PO QPM
gabapentin 600 mg Tablet
600 mg PO Q8H
budesonide 0.5 mg/2 mL Suspension For Nebulization
0.5 mg INHALATION R BID
ascorbic acid (vitamin C) [Vitamin C] 1,000 mg Tablet
1,000 mg PO DAILY
bumetanide 2 mg Tablet
2 mg PO .SEE BELOW
Patient Comments:
11/24/2023, prescribed for pt. to take BID, [facility] records from 10/27/2023 also confirm this; however, pt. believes that she takes this med. TID.
phenytoin sodium extended [Dilantin Extended] 100 mg capsule
100 mg PO TID
aspirin 81 mg Tablet,Delayed Release (Dr/Ec)
81 mg PO DAILY
hyoscyamine sulfate 0.125 mg Tablet
0.125 mg PO TIDPRN PRN (Reason: spasms)
albuterol sulfate 90 mcg/actuation Hfa Aerosol Inhaler
2 puff INHALATION R Q4HPRN PRN (Reason: sob)
warfarin [Jantoven] 2.5 MG tablet
1.25 mg PO HS
hydrocortisone acetate 25 mg Suppository
25 mg [place] BID 6 Days Qty: 12 0RF
prednisone 20 mg Tablet
40 mg PO DAILY 3 Days Qty: 6 0RF
atenolol 25 mg Tablet
25 mg PO BID Qty: 0 0RF
lactase [Dairy Relief] 3,000 unit Tablet
3,000 unit PO AC Qty: 90 0RF
polyethylene glycol 3350 [HealthyLax] 17 gram Powder In Packet
17 g PO BID Qty: 0 0RF
sennosides [Senna Laxative] 8.6 mg Tablet
17.2 mg PO BID Qty: 0 0RF
oxycodone 5 mg Tablet
5 mg PO Q4HPRN PRN (Reason: severe pain) Qty: 10 0RF
acetaminophen [Tylenol Extra Strength] 500 mg Tablet
1,000 mg PO TID Qty: 0 0RF
Referrals:
Luis Manuel Burden MD [Family Provider] -
Discharge Date and Time
Print Language: LATVIAN
[2024-02-29 15:44] LABS: % Basophils 0.3 % (0-2); % Eosinophils 1.8 % (0-6); % Immature Granulocytes 0.5 % (0-0.5); % Lymphocytes 11.1 % (20.5-51.1); % Neutrophils 78.3 % (42.2-75.2); Absolute Eosinophils 0.2 10^3/uL (0-0.7); Absolute Immature Granulocytes 0.1 10^3/uL (0-0.05); Absolute Lymphocytes 1.1 10^3/uL (1.2-3.4); Absolute Monocytes 0.8 10^3/uL (0.1-0.6); Absolute Neutrophils 7.6 10^3/uL (1.4-6.5); Hematocrit 36.2 % (37.0-47.0); Hemoglobin 11.8 g/dL (12.0-16.0); Mean Corp Hgb Conc. 32.6 g/dL (33.0-37.0); Mean Corpuscular Hgb 29.7 pg (27.0-31.0); Mean Corpuscular Volume 91.2 fL (81.0-99.0); Mean Platelet Volume 9.3 fL (7.4-10.4); Nucleated Red Blood Cells % 0 %; Platelet Count 291 10^3/uL (130-400); Red Blood Cell Count 3.97 10^6/uL (4.20-5.40); Red Cell Dist. Width 16.6 % (11.5-14.5); White Blood Cell Count 9.8 10^3/uL (4.8-10.8)
[2024-02-29] MEDS: NSS 500 IV ×2 (15:55→17:03)
[2024-02-29] MEDS: TYLENOL 1000 MG PO (15:56)
[2024-02-29 15:57] LABS: ALT (SGPT) 22 U/L (0-35); AST (SGOT) 33 U/L (14-36); Albumin 3.8 g/dl (3.5-5.0); Alkaline Phosphatase 176 U/L (38-126); Blood Urea Nitrogen 22 mg/dl (7-17); Calcium 9.2 mg/dl (8.4-10.2); Carbon Dioxide 28 mmol/L (22-30); Chloride 100 mmol/L (98-107); Glucose 67 mg/dl (70-99); Potassium 3.6 mmol/L (3.5-5.1); Sodium 136 mmol/L (135-145); Total Bilirubin 0.6 mg/dl (0.2-1.3); Total Protein 6.9 g/dl (6.3-8.2); eGFR > 60.00
[2024-02-29 15:58] LABS: INR 1.99; PT 22.5 Sec (11.4-14.6)
--- NOTE | 2024-02-29 17:42 | HPS.HSE ---
Family Physician
-
Family Physician: Luis Manuel Burden
Chief Complaint
-
mechanical fall
History of Present Illness
78-year-old with past medical history for coronary artery disease, asthma, renal cell carcinoma, congestive heart hyperlipidemia, seizures DVT, PE presented to us low blood pressure. Today morning, She tripped on the bed sheets as she was making
her bed. She fell on her right side. Since then she has been having right-sided chest pain. She also complained of dizziness. She was [facility] where she felt dizzy and though, she was going to pass out. Her brought
her to the rehab for PT due to recent left ankle surgery. She was noted hypotensive which prompted them to send her to the ER patient denied any headache, fever, chills. Patient denies any runny nose, congestion, cough. Patient denied abdominal
pain, nausea, vomiting, diarrhea. Patient stated burning with urination since yesterday. Denied hematuria.
Medical History
Past Medical History
Past Medical History: Reports Other
Additional Past Medical History:
Dyslipidemia
Hypertension
Pulmonary embolism
Seizure
Asthma
GERD coronary artery disease
Mitral valve regurgitation
Arthritis
Paroxysmal A-fib
Solitary kidney
Chronic heart failure with preserved EF
Past Surgical History: Reports Other
Additional Past Surgical History:
Coronary artery bypass graft x 4 vessels
Right kidney nephrectomy
Cardiac stents
Right ankle surgery
Appendectomy
Hysterectomy
Exploratory nipple complex
Ankle fracture repair
Rotator cuff repair right knee replacement
Arthroplasty
Right tendon repair
Social History
Tobacco: Non-smoker
Alcohol: None
Drug: None
Personal:
Living: With Family
Family History
Family History: Not pertinent
Allergies / Home Medications
Allergies reflects when Allergies were last updated in [facility].
Home Medications with original date entered in [facility]
Allergy/Medication List:
Allergies
Allergy/AdvReac Type Severity Reaction Status Date / Time
hydroxyzine Allergy Unknown Verified 02/29/24 16:01
metronidazole [From Flagyl] Allergy Nausea / Verified 02/29/24 16:01
Vomiting
pollen extracts Allergy ENVIRONMENTAL Verified 02/29/24 16:01
ALLERGIES-NASAL
SYMPTOMS
Home Medications
montelukast 10 mg tablet 10 mg PO HS Lung/breathing issues 04/02/15
ezetimibe 10 mg tablet 10 mg PO DAILY High cholesterol 03/12/21
fluticasone furoate 200 mcg-vilanterol 25 mcg/dose inhalation powder (Breo Ellipta) 1 inh inhalation R DAILY Lung/Breathing Issues 01/13/23
isosorbide mononitrate 60 mg tablet,extended release 24 hr 60 mg PO DAILY Heart Disease/Condition 01/13/23
phenobarbital 32.4 mg tablet 32.4 mg PO TID Seizures #9 tabs 03/22/23
dexlansoprazole 60 mg capsule,biphase delayed release 60 mg PO QPM Gastrointestinal Issue 03/25/23
nitroglycerin 0.4 mg sublingual tablet 0.4 mg sublingual [id number] PRN chest pain 03/25/23
gabapentin 600 mg tablet 600 mg PO Q8H Pain 07/29/23
budesonide 0.5 mg/2 mL suspension for nebulization 0.5 mg inhalation R BID Lung/Breathing Issues 11/03/23
albuterol sulfate 90 mcg/actuation aerosol inhaler 2 puff inhalation R Q4HPRN PRN sob 11/24/23
ascorbic acid (vitamin C) 1,000 mg tablet (Vitamin C) 1,000 mg PO DAILY Supplement 11/24/23
aspirin 81 mg tablet,delayed release 81 mg PO DAILY Blood Clot Prevention/Tx 11/24/23
bumetanide 2 mg tablet 2 mg PO .SEE BELOW Fluid Retention/Swelling 11/24/23
hyoscyamine sulfate 0.125 mg tablet 0.125 mg PO TIDPRN PRN spasms 11/24/23
phenytoin sodium extended 100 mg capsule (Dilantin Extended) 100 mg PO TID Seizures 11/24/23
warfarin 2.5 mg tablet (Jantoven) 1.25 mg PO HS Blood clot prevention/tx 11/24/23
acetaminophen 500 mg tablet (Tylenol Extra Strength) 1,000 mg (2 x 500 mg) PO TID #0 tabs 12/03/23
atenolol 25 mg tablet 25 mg PO BID #0 tabs 12/03/23
hydrocortisone acetate 25 mg rectal suppository 25 mg PA BID 6 days #12 ea 12/03/23
lactase 3,000 unit tablet (Dairy Relief) 3,000 unit PO AC #90 tabs 12/03/23
oxycodone 5 mg tablet 5 mg PO Q4HPRN PRN severe pain #10 tabs 12/03/23
polyethylene glycol 3350 17 gram oral powder packet (HealthyLax) 17 g PO BID #0 ea 12/03/23
prednisone 20 mg tablet 40 mg (2 x 20 mg) PO DAILY 3 days #6 tabs 12/03/23
sennosides 8.6 mg tablet (Senna Laxative) 17.2 mg (2 x 8.6 mg) PO BID #0 tabs 12/03/23
Review of Systems
-
Constitutional: Reports No Symptoms
EENT: Reports No Symptoms
Respiratory: Reports No Symptoms
Cardiac: Reports No Symptoms
Abdomen/GI: Reports No Symptoms
: Reports No Symptoms
Musculoskeletal: Reports No Symptoms
Skin: Reports No Symptoms
Neurological: Reports Dizzy
Endocrine: Reports No Symptoms
Hematologic/Lymphatic: Reports No Symptoms
Psych: Reports No Symptoms
Physical Exam
Vital Signs
Vital Signs
Temp Pulse Resp BP Pulse Ox
98.1 F 69 18 98/49 99
02/29/24 15:04 02/29/24 17:35 02/29/24 17:35 02/29/24 17:35 02/29/24 17:00
Physical Exam
General: Well Developed, Well Nourished and No Apparent Distress
HEENT: NormoCephalic, Moist mucous membranes and Atraumatic
Respiratory: Clear
Cardiac: S1/S2 and Regular Rhythm; No Murmur or Rub
GI: Soft, Non Tender, Non Distended and Normal Bowel Sounds; No Organomegaly
Rectal: Deferred by Provider
Musculoskeletal: No Clubbing, No Cyanosis and Edema, Left Lower Extremity
Skin: No Rash
Neuro: AO x 3 and Nonfocal/grossly intact
Psych: Calm
Laboratory Results
-
02/29/24 15:35
02/29/24 15:35
Laboratory Results
PT 22.5 Sec (11.4-14.6) H 02/29/24 15:35
INR 1.99 02/29/24 15:35
Total Bilirubin 0.6 mg/dl (0.2-1.3) 02/29/24 15:35
AST 33 U/L (14-36) 02/29/24 15:35
ALT 22 U/L (0-35) 02/29/24 15:35
Alkaline Phosphatase 176 U/L (38-126) H 02/29/24 15:35
Data Reviewed
-
CT Scan: Report Reviewed by me
Lab Data: Labs Reviewed by me
Impression/Plan
-
# Mechanical fall
-CT chest and head negative for trauma
-PT/OT consulted
# Hypotension likely dehydration
-Fluids continued
-Continue to monitor orthostatic hypotension's
-Received normal saline x 2 in the ER
-Hold all antihypertensives
-obtain CT abdomen pelvis
#near syncope unclear cause
-obtain ECHO
# Dysuria
-Will obtain urinalysis
-Patient is afebrile
-Continue to monitor
-defer abx until UA resulted
# Anemia of chronic disease
-Hemoglobin stable at 11.8
-No active bleeding noted
-Need to trend hemoglobin
#paroxysmal atrial fibrillation
-EKG in sinus rhythm. INR 1.99
-Coumadin held until CT abdomen pelvis obtained
#CAD s/p prior CABG and PCI and coronary stent-continue with her home regimen
-Aspirin continued
#Seizure disorder
-Phenobarbital continued
-Dilantin continued
# GERD
-dexlansoprazole continued
# Neuropathy
-Gabapentin continued
# History of asthma
-patient not in acute exacerbation
-Singulair continued
-Breo continued
-Budesonide continued
# History of CHF
-Patient not in acute exacerbation
-hold Bumex due to hypotension
# Hyperlipidemia
-statin continued
#DVT prophylaxis�scd
#Full code
--- NOTE | 2024-02-29 18:03 | W.PN.UPDATE ---
Update Note
Progress Note Update
This serves as an addendum to the H&P dictated by Severo Willis on 02/29/2024.
I saw and examined the patient.
The PICTURE FRAMES INSPECTOR or PA's note was reviewed and I agree with the note.
Comment:
Patient is 78 years old female with history of CAD, seizures, anemia, renal CA status post nephrectomy in the past, chronic ambulatory dysfunction and back pain, hypertension, dyslipidemia, DVT/PE in the past and A-fib on anticoagulation, left ankle
ORIF in the past for which she gets physical therapy, UTI in the past, asthma, HFpEF, peripheral neuropathy, came into the hospital after a fall. She�tripped and fell when she was making her bed this morning and after fall she is been having
right-sided chest pain, moderate intensity, dull, constantly right under her breast and she thought that she probably had a broken rib but kept going on doing her regular activities during the day. Later on she was grooming her dog and she was
feeling lightheaded with any activities and almost passed out. She went to physical therapy and she was found to have low blood pressure so she was sent over to the hospital for further evaluation. She does take antihypertensives on a regular
basis (twice a day atenolol) and she took atenolol this morning. She also takes diuretics on a regular basis (she also took it this morning). She has been complaining of dysuria and urgency over the last couple of days. No fevers or chills. No
abdominal pain nausea vomiting or diarrhea. No chest pain or shortness of breath. Review of last echocardiogram in our system in 12/2022 EF was 55 to 60%, stage III diastolic dysfunction, moderate right atrial dilation, dilated right ventricle with
depressed systolic function, no significant valve abnormalities, and severe pulmonary hypertension. Twelve-lead EKG in the ER unremarkable except for nonspecific abnormalities. In the ER, blood pressure as low as 83/46 and came up to 100/60 after 2
L of normal saline IV fluids. She is not lightheaded when she is lying in bed and not moving much. She is not tachycardic but she is on beta-blockers. She is afebrile. WBC 9.8. Lactic acid pending. Hemoglobin 11.8, baseline around 12.
Creatinine 0.9. BUN 22. INR 1.99. CT scan of the head unremarkable, CT scan of the chest no acute abnormalities. Blood cultures pending. She was referred to hospitalist for further evaluation.
Physical exam:
General: Acutely ill but nontoxic appearance
HEENT: Normocephalic, Atraumatic and Moist Mucous Membranes
Respiratory: Clear to Auscultation; Negative Wheezes, Rales or Rhonchi
Cardiac: Regular Rhythm and S1/S2, no murmurs rubs or gallops appreciated
GI: Soft, mild suprapubic tender (at the time she says that she wants to urinate) and Nondistended
Musculoskeletal: No Clubbing, No Cyanosis and No Edema, left ankle decreased range of motion.
Neuro: Awake, Alert and Oriented, no gross neurological deficits.
Psych: Calm
A/P:
Mechanical fall/Near syncope/Hypotension--> IV fluids. Unclear etiology of her hypotension but could be medications related and rule out cardiogenic and infectious etiology. Hold off on antihypertensives and diuretics, obtain urine and blood
cultures lactate and obtain CT of the abdomen, start IV antibiotics empirically after cultures (rule out UTI), update echocardiogram, monitor hemoglobin. Hold off anticoagulation until CT of the abdomen but if no abnormalities and can resume
tonight. CT scan of the chest does not show any significant pericardial effusion or cardiac abnormality although test was done without contrast. Discussed with cardiology over the phone today (Dr. Valdovinos) and not enough cardiac justification to
do stat echocardiogram but they will do an echo first thing in the morning tomorrow and will have them on board if anything abnormal. Will give further commendations based on clinical course.
[2024-02-29 18:20] LABS: Lactic Acid 0.9 mmol/L (0.7-2.0)
[2024-02-29 19:47] LABS: Urine Albumin Negative (Neg - Trace); Urine Bilirubin Negative (Negative); Urine Character Clear (Clear); Urine Color Yellow; Urine Glucose Negative (Negative); Urine Ketone Negative (Negative); Urine Leukocyte 2+ (Negative); Urine Nitrite Positive (Negative); Urine Occult Blood Negative (Negative); Urine Urobilinogen Negative (Neg - 1+)
[2024-02-29 19:57] LABS: Urine Red Blood Cell 0-2 /HPF (0-2); Urine White Cell 70-80 /HPF (0-5)
[2024-02-29 19:58] LABS: Urine Bacteria Many (Negative)
[2024-02-29] MEDS: TORADOL 15 MG IV (20:57)
[2024-02-29] MEDS: NSS 1000 IV (21:04)
[2024-02-29] MEDS: COUMADIN 1.25 MG PO (21:04)
[2024-02-29] MEDS: STERILE WATER FOR INJECTION 10 ML IV (21:05)
[2024-02-29] MEDS: SINGULAIR 10 MG PO (21:05)
[2024-02-29] MEDS: DILANTIN 100 MG PO (21:05)
[2024-02-29] MEDS: ROCEPHIN 1000 MG IV (21:05)
[2024-02-29] MEDS: LUMINAL 32.4 MG PO (21:05)
--- NOTE | 2024-02-29 21:21 | PTCARENOTE ---
Patient arrived to room 3344 from ER. at bedside, oriented to room and use of call aponte. CHG bath done, tele applied showing NSR. Pt stated she needed to void and could not use purewick or bedpan. SBP 130s. Assisted pt to BSC, denies any
dizziness, sob or lightheadedness. Unable to void; pt stated she feeling like she has a UTI. Bladder scan showed 186mL. Pt reporting 7/10 right sided chest/breast pain, crying outloud and appearing anxious. BHAVANI Guerra made aware; orders received for
iv toradol x1, urinary retention protocol and iv abx. Pt updated on plan. heat pack provided for comfort. Pt stated if she doesn't eat she will get gastritis; turkey sandwich lunch box provided. no s/s of aspiration. bed alarm set for safety. call
aponte within reach.
[2024-02-29] MEDS: TYLENOL 650 MG PO (23:04)
[2024-02-29] MEDS: NEURONTIN 600 MG PO (23:05)
[2024-03-01] VITALS (16 sets, daily range): BP systolic 100–148; BP diastolic 43–103; PULSE 68; O2SAT 95; BMI 28.0
[2024-03-01] MEDS: LIDOCAINE 4% PATCH 1 PATCH TOPICAL ×2 (01:22→21:08)
[2024-03-01] MEDS: OFIRMEV 100 IV (03:22)
[2024-03-01 03:51] LABS: Hematocrit 31.8 % (37.0-47.0); Hemoglobin 10.9 g/dL (12.0-16.0); Mean Corp Hgb Conc. 34.3 g/dL (33.0-37.0); Mean Corpuscular Hgb 30.4 pg (27.0-31.0); Mean Corpuscular Volume 88.6 fL (81.0-99.0); Mean Platelet Volume 9.5 fL (7.4-10.4); Platelet Count 258 10^3/uL (130-400); Red Blood Cell Count 3.59 10^6/uL (4.20-5.40); Red Cell Dist. Width 16.4 % (11.5-14.5); White Blood Cell Count 7.3 10^3/uL (4.8-10.8)
[2024-03-01 04:03] LABS: INR 2.16; PT 23.9 Sec (11.4-14.6)
[2024-03-01 04:04] LABS: Blood Urea Nitrogen 21 mg/dl (7-17); Calcium 8.6 mg/dl (8.4-10.2); Carbon Dioxide 22 mmol/L (22-30); Chloride 107 mmol/L (98-107); Estimated Creatinine Clearance 56 ml/min; Glucose 88 mg/dl (70-99); Potassium 3.8 mmol/L (3.5-5.1); Sodium 136 mmol/L (135-145); eGFR > 60.00
[2024-03-01 04:42] LABS: TSH 1.04 uIU/ml (0.47-4.68)
--- NOTE | 2024-03-01 04:43 | PTCARENOTE ---
Patient awake all night in pain. Lidocaine patch, warm compress, repositioning and IV Ofirmev given per orders. Minimal relief. emotional support provided. BPs have been stable. Assisted to BSC throughout the night; denies dizziness. New IV placed
by DICTATING MACHINE MECHANIC d/t IVF occluding. IV still occluding. Pt educated on arm position. Plan for PT/OT consults, Echo, IVF & Abx. Call aponte and tray table within reach.
[2024-03-01] MEDS: SYMBICORT 160/4.5 MCG INHALER 2 PUFF INH ×2 (08:20→20:16)
[2024-03-01] MEDS: PRAVACHOL 10 MG PO (08:28)
[2024-03-01] MEDS: ASPIR LOW (ENTERIC COATED) 81 MG PO (08:28)
[2024-03-01] MEDS: PROTONIX 40 MG PO (08:28)
[2024-03-01] MEDS: NEURONTIN 600 MG PO ×2 (08:28→17:05)
[2024-03-01] MEDS: LUMINAL 32.4 MG PO ×3 (08:28→21:09)
[2024-03-01] MEDS: VISBIOME 1 CAP PO (08:28)
[2024-03-01] MEDS: ZETIA 10 MG PO (08:28)
[2024-03-01] MEDS: DILANTIN 100 MG PO ×3 (08:52→21:09)
[2024-03-01] MEDS: MORPHINE SULFATE 1 MG IV ×3 (10:26→21:33)
--- NOTE | 2024-03-01 11:29 | CM ---
Patient with Dx Mechanical fall/Near syncope/Hypotension. Room air. Receiving IVF, IV Abx, IV MS prn, Lidocaine Patch. PT & OT recommend Outpatient Therapy.
Met with patient who resides with her in a 2 story house with 2 TEQUILA.
The patient had been independent in ADLs and ambulation using her RW.
She had been going to outpatient PT after an ankle injury and wishes to resume at d/c.
DME - RW, SPC, quad cane, crutches, nebulizer
Prior [facility]
Prior [facility]
PCP - Luis Manuel Burden
Pharmacy [facility] [place]
Patient feels she has good family support from her , and her son who lives in [place]. Her other son is in [place].
CM Consult- Advanced Directive- provided copy w/pen and instructions to give to nurse if completed, so copy can be placed in chart. She wants to discuss with her .
Plan home with resumption outpatient PT.
[2024-03-01] MEDS: TYLENOL 650 MG PO (13:23)
--- NOTE | 2024-03-01 14:20 | W.PN.HOSP.TC ---
Today's Communication/Plan
-
Monitor vital signs
see plan
Continue to monitor blood pressure
Continue to hold BP meds
Continue Coumadin, INR daily
PT/OT
Transfer out of IMU
Assessment / Plan
Assessment / Plan
General: Well Developed, Well Nourished and No Apparent Distress
HEENT: NormoCephalic, Moist mucous membranes and Atraumatic
Respiratory: Clear
Cardiac: S1/S2 and Regular Rhythm; No Murmur or Rub
GI: Soft, Non Tender, Non Distended and Normal Bowel Sounds; No Organomegaly
Rectal: Deferred by Provider
Musculoskeletal: No Clubbing, No Cyanosis and Edema, Left Lower Extremity
Skin: No Rash
Neuro: AO x 3 and Nonfocal/grossly intact
Psych: Calm
Mechanical fall
-CT chest and head negative for trauma
-PT/OT consulted
Reports right sided rib pain, check x-ray. Pain control. Does follow-up with pain management outpatient
# Hypotension likely dehydration
-Fluids continued
-Continue to monitor orthostatic hypotension's
-Received normal saline x 2 in the ER
-Hold all antihypertensives
CT abdomen/pelvis with sigmoid diverticulosis, small hiatal hernia. Possible right adrenal lesion most likely benign adenoma. Patient to follow-up outpatient with PCP
#near syncope could be secondary to dehydration
Echo 02/28 with EF 65 to 70%. Stage III diastolic function. Slightly progressive MRN TR. PASP has slightly decreased.
Symptomatic UTI
Follow cultures
Continue ceftriaxone
# Anemia of chronic disease
-No active bleeding noted
-Need to trend hemoglobin
#paroxysmal atrial fibrillation
INR daily, continue Coumadin
#CAD s/p prior CABG and PCI and coronary stent-continue with her home regimen
-Aspirin continued
#Seizure disorder
-Phenobarbital continued
-Dilantin continued
Phenobarb level pending
# GERD
-dexlansoprazole continued
# Neuropathy
-Gabapentin continued
# History of asthma
-patient not in acute exacerbation
-Singulair continued
-Breo continued
-Budesonide continued
# History of CHF
-Patient not in acute exacerbation
-hold Bumex due to hypotension
# Hyperlipidemia
-statin continued
#DVT prophylaxis�scd,coumadin
#Full code
I spent a total of 52 minutes with the patient or on the floor. More than 50% of this time involved counseling and coordination of care.
Anticipated Discharge: > 48 hours
Subjective/Interval History
-
Date of Service: March 01, 2024
has pain
Objective Data
-
Labs:
Laboratory Results
03/01/24
03:38
WBC 7.3
Hgb 10.9 L
Hct 31.8 L
Plt Count 258
PT 23.9 H
INR 2.16
Sodium 136
Potassium 3.8
Chloride 107
Carbon Dioxide 22
BUN 21 H
Creatinine 0.9
Glucose 88
Calcium 8.6
Vital Signs:
Vital Signs
Temp Pulse Resp BP Pulse Ox
97.5 F 68 16 100/52 98
03/01/24 07:20 03/01/24 08:21 03/01/24 08:21 03/01/24 06:00 03/01/24 08:21
I&O
02/29/24 03/01/24 03/02/24
06:59 06:59 06:59
Intake Total 453 / 453
Output Total 525 / 525
Balance -72 / -72
[2024-03-01] MEDS: NSS 1000 IV (15:04)
[2024-03-01] MEDS: COUMADIN 1.25 MG PO (17:06)
[2024-03-01] MEDS: STERILE WATER FOR INJECTION 10 ML IV (21:09)
[2024-03-01] MEDS: ROCEPHIN 1000 MG IV (21:10)
[2024-03-01] MEDS: SINGULAIR 10 MG PO (22:20)
[2024-03-02] VITALS (7 sets, daily range): BP systolic 99–166; BP diastolic 53–76; PULSE 76; BMI 28.4
[2024-03-02] MEDS: NEURONTIN 600 MG PO ×4 (00:12→22:58)
[2024-03-02] MEDS: MORPHINE SULFATE 1 MG IV ×2 (03:12→09:11)
[2024-03-02 08:03] LABS: Hematocrit 34.8 % (37.0-47.0); Hemoglobin 11.5 g/dL (12.0-16.0); Mean Corpuscular Hgb 29.9 pg (27.0-31.0); Mean Corpuscular Volume 90.4 fL (81.0-99.0); Mean Platelet Volume 9.5 fL (7.4-10.4); Platelet Count 260 10^3/uL (130-400); Red Blood Cell Count 3.85 10^6/uL (4.20-5.40); Red Cell Dist. Width 16.5 % (11.5-14.5); White Blood Cell Count 6.8 10^3/uL (4.8-10.8)
[2024-03-02 08:13] LABS: INR 2.45; PT 26.9 Sec (11.4-14.6)
[2024-03-02] MEDS: VISBIOME 1 CAP PO (08:21)
[2024-03-02] MEDS: ZETIA 10 MG PO (08:21)
[2024-03-02] MEDS: VITAMIN D3 (cholecalciferol) 25 MCG PO (08:21)
[2024-03-02] MEDS: ASPIR LOW (ENTERIC COATED) 81 MG PO (08:21)
[2024-03-02] MEDS: PRAVACHOL 10 MG PO (08:21)
[2024-03-02] MEDS: PROTONIX 40 MG PO (08:21)
[2024-03-02] MEDS: DILANTIN 100 MG PO ×3 (08:22→21:34)
[2024-03-02] MEDS: LUMINAL 32.4 MG PO ×3 (08:22→21:34)
[2024-03-02 08:31] LABS: Blood Urea Nitrogen 12 mg/dl (7-17); Calcium 9.1 mg/dl (8.4-10.2); Carbon Dioxide 22 mmol/L (22-30); Chloride 110 mmol/L (98-107); Estimated Creatinine Clearance 72 ml/min; Glucose 86 mg/dl (70-99); Potassium 4.4 mmol/L (3.5-5.1); Sodium 137 mmol/L (135-145); eGFR > 60.00
[2024-03-02] MEDS: SYMBICORT 160/4.5 MCG INHALER 2 PUFF INH ×2 (08:53→19:44)
[2024-03-02] MEDS: TENORMIN 50 MG PO ×2 (09:15→20:06)
[2024-03-02] MEDS: NSS 1000 IV (09:15)
--- NOTE | 2024-03-02 11:14 | CM ---
Patient seen at bedside.
Patient was receiving outpatient therapy prior to hospitalization.
drove her to outpatient therapy.
Discussed PT/OT recommendation of return to outpatient therapy.
Patient also states she has a stair lift at home.
PLAN: Discharge when stable.
Therapy recommends return to outpatient therapy.
--- NOTE | 2024-03-02 12:20 | W.PN.HOSP.TC ---
Today's Communication/Plan
-
Monitor vital signs see plan
Start oxycodone, use morphine for breakthrough
Continue antibiotics
Restart atenolol, Imdur
Assessment / Plan
Assessment / Plan
General: Well Developed, Well Nourished and No Apparent Distress
HEENT: NormoCephalic, Moist mucous membranes and Atraumatic
Respiratory: Clear
Cardiac: S1/S2 and Regular Rhythm; No Murmur or Rub
GI: Soft, Non Tender, Non Distended and Normal Bowel Sounds; No Organomegaly
Rectal: Deferred by Provider
Musculoskeletal: No Clubbing, No Cyanosis and Edema, Left Lower Extremity
Skin: No Rash
Neuro: AO x 3 and Nonfocal/grossly intact
Psych: Calm
Mechanical fall
-CT chest and head negative for trauma
-PT/OT consulted
Reports right sided rib pain, check x-ray without any rib fx. Pain control. Does follow-up with pain management outpatient. on oxy prn at times. start oxy prn and use morphine for breakthrough.
# Hypotension likely dehydration
-Fluids continued
-Continue to monitor orthostatic hypotension's
-BP improving; dc further fluids. start atenolol and imdur
CT abdomen/pelvis with sigmoid diverticulosis, small hiatal hernia. Possible right adrenal lesion most likely benign adenoma. Patient to follow-up outpatient with PCP
#near syncope could be secondary to dehydration
Echo 02/28 with EF 65 to 70%. Stage III diastolic function. Slightly progressive MRN TR. PASP has slightly decreased.
hold bumex for now
Symptomatic UTI
Follow cultures
Continue ceftriaxone
# Anemia of chronic disease
-No active bleeding noted
-Need to trend hemoglobin
#paroxysmal atrial fibrillation
INR daily, continue Coumadin
#CAD s/p prior CABG and PCI and coronary stent-continue with her home regimen
-Aspirin continued
#Seizure disorder
-Phenobarbital continued
-Dilantin continued
Phenobarb level pending
# GERD
-dexlansoprazole continued
# Neuropathy
-Gabapentin continued
# History of asthma
-patient not in acute exacerbation
-Singulair continued
-Breo continued
-Budesonide continued
# History of CHF
-Patient not in acute exacerbation
-hold Bumex due to hypotension
# Hyperlipidemia
-statin continued
#DVT prophylaxis�scd,coumadin
#Full code
Anticipated Discharge: Within 24 hours
Subjective/Interval History
-
Date of Service: March 02, 2024
denies nausea
Objective Data
-
Labs:
Laboratory Results
03/02/24
07:39
WBC 6.8
Hgb 11.5 L
Hct 34.8 L
Plt Count 260
PT 26.9 H
INR 2.45
Sodium 137
Potassium 4.4
Chloride 110 H
Carbon Dioxide 22
BUN 12
Creatinine 0.7
Glucose 86
Calcium 9.1
Vital Signs:
Vital Signs
Temp Pulse Resp BP Pulse Ox
98.1 F 105 20 181/98 93
03/02/24 07:00 03/02/24 09:15 03/02/24 09:01 03/02/24 09:15 03/02/24 09:01
I&O
03/01/24 03/02/24 03/03/24
06:59 06:59 06:59
Intake Total 453 / 453 200 / 200
Output Total 525 / 525
Balance -72 / -72 200 / 200
[2024-03-02] MEDS: IMDUR (EXTENDED RELEASE) 60 MG PO (13:11)
[2024-03-02] MEDS: ROXICODONE 5 MG PO ×2 (13:11→22:58)
[2024-03-02] MEDS: COUMADIN 1.25 MG PO (18:16)
[2024-03-02] MEDS: SINGULAIR 10 MG PO (21:34)
[2024-03-02] MEDS: STERILE WATER FOR INJECTION 10 ML IV (21:34)
[2024-03-02] MEDS: ROCEPHIN 1000 MG IV (21:34)
[2024-03-02] MEDS: LIDOCAINE 4% PATCH 1 PATCH TOPICAL (21:43)
[2024-03-03] MEDS: NSS 1000 IV (02:56)
[2024-03-03 03:44] VITALS: BP 122/97
[2024-03-03 06:00] VITALS: BMI 28.4
[2024-03-03 07:00] VITALS: BP 144/67
[2024-03-03] MEDS: SYMBICORT 160/4.5 MCG INHALER 2 PUFF INH ×2 (07:35→20:22)
[2024-03-03] MEDS: NEURONTIN 600 MG PO ×3 (08:36→23:20)
[2024-03-03] MEDS: ZETIA 10 MG PO (08:36)
[2024-03-03] MEDS: PROTONIX 40 MG PO (08:36)
[2024-03-03] MEDS: ASPIR LOW (ENTERIC COATED) 81 MG PO (08:36)
[2024-03-03] MEDS: VISBIOME 1 CAP PO (08:37)
[2024-03-03] MEDS: IMDUR (EXTENDED RELEASE) 60 MG PO (08:37)
[2024-03-03] MEDS: LUMINAL 32.4 MG PO ×3 (08:37→21:07)
[2024-03-03] MEDS: DILANTIN 100 MG PO ×3 (08:37→21:07)
[2024-03-03] MEDS: VITAMIN D3 (cholecalciferol) 25 MCG PO (08:37)
[2024-03-03] MEDS: PRAVACHOL 10 MG PO (08:37)
[2024-03-03] MEDS: TENORMIN 50 MG PO ×2 (08:38→20:26)
[2024-03-03] MEDS: ROXICODONE 5 MG PO (08:49)
[2024-03-03 09:29] LABS: Hematocrit 34.6 % (37.0-47.0); Hemoglobin 11.2 g/dL (12.0-16.0); Mean Corp Hgb Conc. 32.4 g/dL (33.0-37.0); Mean Corpuscular Hgb 29.6 pg (27.0-31.0); Mean Corpuscular Volume 91.3 fL (81.0-99.0); Mean Platelet Volume 9.5 fL (7.4-10.4); Platelet Count 267 10^3/uL (130-400); Red Blood Cell Count 3.79 10^6/uL (4.20-5.40); Red Cell Dist. Width 16.7 % (11.5-14.5); White Blood Cell Count 7.3 10^3/uL (4.8-10.8)
[2024-03-03 09:38] LABS: INR 2.61; PT 27.8 Sec (11.4-14.6)
[2024-03-03 10:05] LABS: Blood Urea Nitrogen 9 mg/dl (7-17); Calcium 9.3 mg/dl (8.4-10.2); Carbon Dioxide 23 mmol/L (22-30); Chloride 108 mmol/L (98-107); Estimated Creatinine Clearance 84 ml/min; Glucose 91 mg/dl (70-99); Potassium 4.4 mmol/L (3.5-5.1); Sodium 139 mmol/L (135-145); eGFR > 60.00
[2024-03-03 11:00] VITALS: BP 133/60
--- NOTE | 2024-03-03 11:20 | W.PN.HOSP.TC ---
Addendum entered and electronically signed by Shelton Nath MD 03/03/24 12:49:
Went to see patient again as she is still in pain. Trope pending. EKG nonischemic. Pain is below her right breast around rib cage. apply lidocaine,heat pads. cw oxy. Morphine for breakthrough. Possible DC tomorrow if pain improves
Original Note:
Today's Communication/Plan
-
monitor vitals
see plan
change abx to PO
dc if pain is controlled
Assessment / Plan
Assessment / Plan
General: Well Developed, Well Nourished and No Apparent Distress
HEENT: NormoCephalic, Moist mucous membranes and Atraumatic
Respiratory: Clear
Cardiac: S1/S2 and Regular Rhythm; No Murmur or Rub
GI: Soft, Non Tender, Non Distended and Normal Bowel Sounds; No Organomegaly
Rectal: Deferred by Provider
Musculoskeletal: No Clubbing, No Cyanosis and Edema, Left Lower Extremity
Skin: No Rash
Neuro: AO x 3 and Nonfocal/grossly intact
Psych: Calm
Mechanical fall
-CT chest and head negative for trauma
-PT/OT consulted
Reports right sided rib pain,x-ray without any rib fx. Pain control. Does follow-up with pain management outpatient. on oxy prn at times. started oxy prn and use morphine for breakthrough.
# Hypotension likely dehydration
-Fluids continued
-Continue to monitor orthostatic hypotension's
-BP improving; dc further fluids. start atenolol and imdur
CT abdomen/pelvis with sigmoid diverticulosis, small hiatal hernia. Possible right adrenal lesion most likely benign adenoma. Patient to follow-up outpatient with PCP
#near syncope could be secondary to dehydration
Echo 02/28 with EF 65 to 70%. Stage III diastolic function. Slightly progressive MRN TR. PASP has slightly decreased.
restart bumex
Symptomatic UTI
Follow cultures grew ecoli
switch abx to cefdinir
# Anemia of chronic disease
-No active bleeding noted
-Need to trend hemoglobin
#paroxysmal atrial fibrillation
INR daily, continue Coumadin
#CAD s/p prior CABG and PCI and coronary stent-continue with her home regimen
-Aspirin continued
#Seizure disorder
-Phenobarbital continued
-Dilantin continued
Phenobarb level within limits
# GERD
-dexlansoprazole continued
# Neuropathy
-Gabapentin continued
# History of asthma
-patient not in acute exacerbation
-Singulair continued
-Breo continued
-Budesonide continued
# History of CHF
-Patient not in acute exacerbation
bumex restarted
# Hyperlipidemia
-statin continued
#DVT prophylaxis�scd,coumadin
#Full code
Anticipated Discharge: Today
Subjective/Interval History
-
Date of Service: March 03, 2024
has pain at times
Objective Data
-
Labs:
Laboratory Results
03/03/24
09:05
WBC 7.3
Hgb 11.2 L
Hct 34.6 L
Plt Count 267
PT 27.8 H
INR 2.61
Sodium 139
Potassium 4.4
Chloride 108 H
Carbon Dioxide 23
BUN 9
Creatinine 0.6
Glucose 91
Calcium 9.3
Vital Signs:
Vital Signs
Temp Pulse Resp BP Pulse Ox
98.2 F 72 16 144/67 93
03/03/24 07:00 03/03/24 07:39 03/03/24 07:39 03/03/24 08:38 03/03/24 07:00
I&O
03/02/24 03/03/24 03/04/24
06:59 06:59 06:59
Intake Total 200 / 200 1200 / 1200
Balance 200 / 200 1200 / 1200
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
[2024-03-03] MEDS: MORPHINE SULFATE 1 MG IV ×2 (11:53→20:21)
[2024-03-03 13:20] LABS: Troponin I < 0.012 ng/ml
[2024-03-03] MEDS: TYLENOL 1000 MG PO ×3 (13:21→21:07)
[2024-03-03] MEDS: OMNICEF 300 MG PO ×2 (13:21→20:24)
[2024-03-03] MEDS: LMX 4 1 APPLIC TOPICAL (13:22)
[2024-03-03 15:00] VITALS: BP 131/58
[2024-03-03] MEDS: BUMEX 2 MG PO (16:24)
[2024-03-03] MEDS: COUMADIN 1.25 MG PO (17:37)
[2024-03-03 19:54] VITALS: BP 113/60
[2024-03-03] MEDS: LIDOCAINE 4% PATCH 1 PATCH TOPICAL (21:06)
[2024-03-03] MEDS: SINGULAIR 10 MG PO (21:07)
[2024-03-03 23:35] VITALS: BP 130/63
[2024-03-04 03:39] VITALS: BP 158/80
[2024-03-04 06:00] VITALS: BMI 28.1
[2024-03-04 07:22] VITALS: BP 164/83
[2024-03-04] MEDS: SYMBICORT 160/4.5 MCG INHALER 2 PUFF INH (08:11)
[2024-03-04 10:04] LABS: Hematocrit 35.2 % (37.0-47.0); Hemoglobin 11.5 g/dL (12.0-16.0); Mean Corp Hgb Conc. 32.7 g/dL (33.0-37.0); Mean Corpuscular Volume 91.9 fL (81.0-99.0); Mean Platelet Volume 9.6 fL (7.4-10.4); Platelet Count 264 10^3/uL (130-400); Red Blood Cell Count 3.83 10^6/uL (4.20-5.40); Red Cell Dist. Width 16.8 % (11.5-14.5); White Blood Cell Count 7.3 10^3/uL (4.8-10.8)
[2024-03-04] MEDS: ROXICODONE 5 MG PO (10:04)
[2024-03-04 10:05] LABS: INR 2.82; PT 29.6 Sec (11.4-14.6)
[2024-03-04] MEDS: PROTONIX 40 MG PO (10:06)
[2024-03-04] MEDS: ASPIR LOW (ENTERIC COATED) 81 MG PO (10:07)
[2024-03-04] MEDS: NEURONTIN 600 MG PO (10:07)
[2024-03-04] MEDS: TYLENOL 1000 MG PO (10:07)
[2024-03-04] MEDS: BUMEX 2 MG PO (10:07)
[2024-03-04] MEDS: ZETIA 10 MG PO (10:07)
[2024-03-04] MEDS: DILANTIN 100 MG PO (10:07)
[2024-03-04] MEDS: OMNICEF 300 MG PO (10:07)
[2024-03-04] MEDS: VISBIOME 1 CAP PO (10:07)
[2024-03-04] MEDS: LUMINAL 32.4 MG PO (10:08)
[2024-03-04] MEDS: TENORMIN 50 MG PO (10:08)
[2024-03-04] MEDS: VITAMIN D3 (cholecalciferol) 25 MCG PO (10:08)
[2024-03-04] MEDS: IMDUR (EXTENDED RELEASE) 60 MG PO (10:08)
[2024-03-04] MEDS: PRAVACHOL 10 MG PO (10:08)
[2024-03-04 10:26] LABS: Blood Urea Nitrogen 10 mg/dl (7-17); Calcium 9.2 mg/dl (8.4-10.2); Carbon Dioxide 23 mmol/L (22-30); Chloride 106 mmol/L (98-107); Estimated Creatinine Clearance 72 ml/min; Glucose 131 mg/dl (70-99); Sodium 137 mmol/L (135-145); eGFR > 60.00
--- NOTE | 2024-03-04 10:51 | W.PN.HOSP.TC ---
Today's Communication/Plan
-
d/c
Assessment / Plan
Assessment / Plan
Gen: NAD, Awake and alert
Eyes: EOMI, PERRLA, no scleral icterus.
Neck: supple.
CV: RRR, +S1/S2, no m/r/g.
Resp: CTAB, no rales, wheezes, or rhonchi.
Abd: +BS, soft, NT, ND
Skin: No rashes.
Neuro: CN 2-12 intact, non-focal.
Psych: Normal mood and affect.
Echo 02/29/24: EF 65-70%. G3DD. Slightly progressive MR/TR. PASP has slightly decreased.
CT A/P: Markedly limited evaluation of the abdomen and pelvis in this patient with apparent recent trauma without intravenous contrast, without gross acute posttraumatic abnormality. Additional findings again seen including sigmoid diverticulosis,
small hiatal hernia, right kidney and small low-attenuation right adrenal lesion most likely a benign adenoma. Stable approximate 1.2 cm left adrenal lesion of approximately 30 Hounsfield units, either representing a proteinaceous/complex cyst or
low attenuation solid lesion.
Mechanical fall:
-CT chest and head negative for trauma
-PT/OT consulted
-Reports right sided rib pain, x-ray without any rib fx. Pain control. Does follow-up with pain management outpatient. On oxycodone and morphine as needed. Can follow up with outpt pain management.
Hypotension and near syncope:
-likely due to dehydration
-was on IVFs, now off (hypotension resolved). Note that home Bumex has been restarted.
-check orthostatic VS
Symptomatic UTI:
-UCx with E coli
-cont Cefdinir (currently on day 5 of 5)
Other problems:
Anemia of chronic disease: Hb stable
Paroxysmal atrial fibrillation: cont coumadin/BB
CAD: h/o CABG and stenting: cont ASA/BB/statin
Seizure disorder: Cont phenobarbital/Dilantin
GERD: cont PPI
Neuropathy: cont gabapentin
Asthma: cont Symbicort/Singulair
Chronic HFpEF: Bumex restarted, cont BB
Hyperlipidemia: Cont statin
Family updated at bedside.
FULL/coumadin
Medically cleared for d/c. Case management aware.
Total time spent on d/c = 36 min. This included today's physical exam, progress note, review of laboratory and diagnostic data, preparation of discharge documents and prescriptions, and discussions about the pt's hospital course and discharge plan
with the patient and other medical csr involved in the patient's care.
Anticipated Discharge: Today
Subjective/Interval History
-
Date of Service: March 04, 2024
c/o R-sided muscular chest pain.
Objective Data
-
Labs:
Laboratory Results
03/04/24
08:41
WBC 7.3
Hgb 11.5 L
Hct 35.2 L
Plt Count 264
PT 29.6 H
INR 2.82
Sodium 137
Potassium 4.0
Chloride 106
Carbon Dioxide 23
BUN 10
Creatinine 0.7
Glucose 131 H
Calcium 9.2
Vital Signs:
Vital Signs
Temp Pulse Resp BP Pulse Ox
97.9 F 71 18 164/83 93
03/04/24 07:22 03/04/24 07:22 03/04/24 07:22 03/04/24 07:22 03/04/24 07:22
I&O
03/03/24 03/04/24 03/05/24
06:59 06:59 06:59
Intake Total 1200 / 1200 1829
Balance 1200 / 1200 1829
[2024-03-04 11:37] VITALS: BP 139/67
--- NOTE | 2024-03-04 12:30 | CM ---
Met with patient and spouse at bedside
IMM benefit explained and signed
Plan: discharge to home; has script for outpatient PT/OT; spouse will provide transport
[2024-03-04 12:45] VITALS: BP 100/52; BP 102/55; BP 95/52; PULSE 68; PULSE 71; PULSE 78
--- NOTE | 2024-03-04 12:51 | W.DCSUMMARY ---
Discharge Summary
Discharge Data
Date of Admission: 02/29/24
Date of Discharge: 03/04/24
-
Pending Results: No
Hospital Course
Primary diagnoses:
Mechanical fall with resulting right-sided rib pain
Hypotension and near syncope
Symptomatic urinary tract infection
Secondary diagnoses:
Anemia of chronic disease
Paroxysmal atrial fibrillation
Coronary artery disease h/o coronary artery bypass graft and stenting
Seizure disorder
Gastroesophageal reflux disease
Neuropathy
Asthma
Chronic heart failure with preserved ejection fraction
Hyperlipidemia
Consults:
None
Imaging:
Echo 02/29/24: EF 65-70%. G3DD. Slightly progressive MR/TR. PASP has slightly decreased.
CT A/P: Markedly limited evaluation of the abdomen and pelvis in this patient with apparent recent trauma without intravenous contrast, without gross acute posttraumatic abnormality. Additional findings again seen including sigmoid diverticulosis,
small hiatal hernia, right kidney and small low-attenuation right adrenal lesion most likely a benign adenoma. Stable approximate 1.2 cm left adrenal lesion of approximately 30 Hounsfield units, either representing a proteinaceous/complex cyst or
low attenuation solid lesion.
CT chest: No significant acute posttraumatic abnormality seen within the chest on this study obtained without intravenous contrast, limited evaluation of the thoracic aorta, however, thoracic aorta normal in caliber with calcific atherosclerotic
changes. Cardiomegaly with coronary artery calcifications. Partial T11 vertebral compression fracture with accompanying changes of vertebroplasty, stable since prior CT November 24, 2023.
CT Brain: No acute intracranial abnormality or interval change.
78-year-old female presented with chief complaint of mechanical fall as outlined in the H&P done on admission. Hospital course per problem list:
Mechanical fall: Trauma workup above and negative. Patient was seen by PT and OT. She had right rib pain and did receive oxycodone and morphine while hospitalized. The risks of further narcotic therapy on discharge outweigh any potential benefits.
Hypotension and near syncope: This was likely due to dehydration. The patient's Bumex was held and she was given IV fluids. Her hypotension resolved. Her Bumex was restarted. She was not orthostatic at the time of discharge.
Symptomatic UTI: Patient's urine culture grew E. coli. She was initially on Rocephin and will complete antibiotic therapy with cefdinir.
Discharge Plan
-
Patient Disposition: Home (Routine Discharge)
Discharge Diagnosis/Procedures: Mechanical fall, hypotension, near syncope, symptomatic urinary tract infection
Condition: Good
Diet: Low Cholesterol
Activity: As tolerated
Driving Restrictions: Not until seen by your Dr
Blood Work: CBC, BMP, INR in 1 week, prescription from PCP
Activity Restrictions/Additional Instructions:
You need to discuss further workup with your PCP regarding ' Stable approximate 1.2 cm left adrenal lesion of approximately 30 Hounsfield units, either representing a proteinaceous/complex cyst or low attenuation solid lesion.'
Referrals:
Luis Manuel Burden MD [Family Provider] - in less than 1 week
Prescriptions:
New
cefdinir 300 mg Capsule
300 mg PO Q12 Qty: 2 0RF
Continued
montelukast 10 MG tablet
10 mg PO HS
ezetimibe 10 MG tablet
10 mg PO DAILY
fluticasone furoate-vilanterol [Breo Ellipta] 200-25 mcg/dose blister with device
1 inh INHALATION R DAILY
isosorbide mononitrate 60 mg tablet extended release 24 hr
60 mg PO DAILY
phenobarbital 32.4 MG tablet
32.4 mg PO TID Qty: 9 0RF
dexlansoprazole 60 mg capsule,biphase delayed releas
60 mg PO DAILY
gabapentin 600 mg Tablet
600 mg PO Q8H
bumetanide 2 mg Tablet
2 mg PO BID
phenytoin sodium extended [Dilantin Extended] 100 mg capsule
100 mg PO TID
aspirin 81 mg Tablet,Delayed Release (Dr/Ec)
81 mg PO DAILY
hyoscyamine sulfate 0.125 mg Tablet
0.125 mg PO TIDPRN PRN (Reason: spasms)
albuterol sulfate 90 mcg/actuation Hfa Aerosol Inhaler
2 puff INHALATION R Q4HPRN PRN (Reason: sob)
warfarin [Jantoven] 2.5 MG tablet
1.25 mg PO SUTUWETHFRSA
warfarin 2.5 mg Tablet
2.5 mg PO MO
acetaminophen [Tylenol Arthritis Pain] 650 mg Tablet Extended Release
1,300 mg PO [id number] PRN (Reason: arthritis pain)
pravastatin 10 mg Tablet
10 mg PO DAILY
atenolol 50 mg Tablet
50 mg PO BID
cholecalciferol (vitamin D3) [Vitamin D3] 25 mcg (1,000 unit) Tablet
25 mcg PO DAILY
Visbiome 112.5 billion cell Capsule
1 cap PO DAILY
Discharge Orders:
Discharge Patient (As Directed); Ordered 03/04/24
Ordered By: Josesito Luna
Discharge Date and Time
Print Language: MAORI
[2024-03-04 15:17] VITALS: BP 133/65
== END 2024-03-04 15:22 | disposition home or self-care (01) | DRG 315 ==
LOC: 4 WEST ACU 18:39
PROVIDERS: Internal Medicine; Registered Nurse; ADMITTING PHYSICIAN Hospitalist; ATTENDING PHYSICIAN Internal Medicine; EMERGENCY PHYSICIAN Emergency Medicine; FAMILY PHYSICIAN Family Medicine
DX: I95.89 Other hypotension (principal); I50.32 Chronic diastolic (congestive) heart failure; N39.0 Urinary tract infection, site not specified; I25.10 Atherosclerotic heart disease of native coronary artery without angina pectoris; J45.909 Unspecified asthma, uncomplicated; G40.909 Epilepsy, unspecified, not intractable, without status epilepticus; E78.00 Pure hypercholesterolemia, unspecified; I11.0 Hypertensive heart disease with heart failure; K21.9 Gastro-esophageal reflux disease without esophagitis; I48.0 Paroxysmal atrial fibrillation; E86.0 Dehydration; R07.89 Other chest pain; D63.8 Anemia in other chronic diseases classified elsewhere; G62.9 Polyneuropathy, unspecified; B96.20 Unspecified Escherichia coli [E. coli] as the cause of diseases classified elsewhere; I08.1 Rheumatic disorders of both mitral and tricuspid valves; R26.89 Other abnormalities of gait and mobility; Z86.711 Personal history of pulmonary embolism; Z86.718 Personal history of other venous thrombosis and embolism; Z79.01 Long term (current) use of anticoagulants; Z96.651 Presence of right artificial knee joint; Z95.5 Presence of coronary angioplasty implant and graft; Z95.1 Presence of aortocoronary bypass graft; Z90.5 Acquired absence of kidney; Z85.528 Personal history of other malignant neoplasm of kidney; Z79.899 Other long term (current) drug therapy; Z79.82 Long term (current) use of aspirin; W01.0XXA Fall on same level from slipping, tripping and stumbling without subsequent striking against object, initial encounter
CPT/HCPCS: 70450; 71046; 71250; 74176; 80048; 80053; 80184; 81003; 81015; 83605; 84443; 84484; 85025; 85027; 85610; 87040; 87086; 87088; 87186; 93005; 93306; 94640; 96360; 97116; 97163; 97166; 97530; 99285

== ENCOUNTER → 2024-04-25 15:45 | Outpatient (REF) | payer MEDICARE, OTHER, SELFPAY | LOC: RAD 15:45 | PROVIDERS: ATTENDING PHYSICIAN Orthopaedic Surgery Hand Surgery; FAMILY PHYSICIAN Family Medicine | DX: M19.011 Primary osteoarthritis, right shoulder (principal) | CPT/HCPCS: 73200 ==

== ENCOUNTER 2024-05-12 13:43 | Inpatient (IN) | payer MEDICARE, OTHER, SELFPAY ==
[2024-04-25 14:18] VITALS: BMI 29.7
[2024-04-25 15:11] LABS: Hematocrit 36.2 % (37.0-47.0); Hemoglobin 11.6 g/dL (12.0-16.0); Mean Corpuscular Hgb 30.7 pg (27.0-31.0); Mean Corpuscular Volume 95.8 fL (81.0-99.0); Mean Platelet Volume 9.4 fL (7.4-10.4); Platelet Count 360 10^3/uL (130-400); Red Blood Cell Count 3.78 10^6/uL (4.20-5.40); Red Cell Dist. Width 16.1 % (11.5-14.5); White Blood Cell Count 8.4 10^3/uL (4.8-10.8)
[2024-04-25 15:25] LABS: ALT (SGPT) 15 U/L (0-35); AST (SGOT) 19 U/L (14-36); Albumin 3.7 g/dl (3.5-5.0); Alkaline Phosphatase 240 U/L (38-126); Blood Urea Nitrogen 19 mg/dl (7-17); Calcium 8.9 mg/dl (8.4-10.2); Carbon Dioxide 28 mmol/L (22-30); Chloride 101 mmol/L (98-107); Estimated Creatinine Clearance 49 ml/min; Glucose 94 mg/dl (70-99); Potassium 4.4 mmol/L (3.5-5.1); Sodium 141 mmol/L (135-145); Total Bilirubin 0.4 mg/dl (0.2-1.3); Total Protein 6.8 g/dl (6.3-8.2); eGFR > 60.00
[2024-04-26 09:25] LABS: Glycohemoglobin (HgbA1c) 5.3 % (4.0-5.6)
[2024-05-04 13:59] VITALS: BMI 29.7
[2024-05-10] VITALS (24 sets, daily range): BP systolic 73–141; BP diastolic 37–90; PULSE 60–73; BMI 30.1
[2024-05-10] MEDS: TYLENOL 1000 MG PO (08:22)
[2024-05-10] MEDS: NORMOSOL-R/PLASMALYTE-A 1000 IV (08:24)
[2024-05-10] MEDS: BACTROBAN NASAL 1 GRAM NASAL (08:28)
[2024-05-10 08:38] LABS: INR 1.77; PT 20.8 Sec (11.4-14.6)
--- NOTE | 2024-05-10 11:00 | SUR.PHASEI ---
Patient reporting chest pressure 02/01. Dr trevin mendieta. Stephanie Arroyo GLAZIER ARTIST.
--- NOTE | 2024-05-10 11:21 | SUR.PHASEI ---
Ekg done, reviewed by Dr Jauregui. Sary ordered. Stephanie Brower RN BSN.
[2024-05-10] MEDS: PEPCID 20 MG IV (11:27)
[2024-05-10] MEDS: NSS (PRESERVATIVE FREE) 8 ML IV (11:28)
[2024-05-10] MEDS: NSS 1000 IV (11:31)
[2024-05-10] MEDS: DILAUDID 0.25 MG IV (11:40)
--- NOTE | 2024-05-10 11:44 | SUR.PHASEI ---
Patient continues to report chest pressure, pepcid given per order. VSS Will monitor. Stephanie Brower RN BSN.
--- NOTE | 2024-05-10 13:14 | W.PN.UPDATE ---
Update Note
Progress Note Update
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
- s/p R TKA
DVT prophylaxis - resumption of Warfarin, b/l venous foot pumps
Chest pain in PACU - pressure in center of chest, ?radiation to R-side, 02/01 - GI vs cardiac vs nerve block
- Troponin WNL - trend
- EKG w/o significant changes. Will monitor on tele
- IV Pepcid given STAT; daily Protonix to follow
- CP resolved since Pepcid given
HTN w/ hypotension post-op likely 2* Isosorbide taken this AM - monitor BP
- + parameters to BP meds
- IVF running. Was given 250 cc bolus in recovery
- Midodrine w/ BP parameters
- Await H&H results
- HOLD narcotics till BP stabilized - verbalized w/ RN
PAF � monitor on tele
- Continue Atenolol
- Warfarin as stated above
CHFpEF - decrease hourly IVF rate to prevent fluid overload
- Resume Bumex w/ BP parameters to avoid hypotension
LLE DVT/ Pulmonary embolus 2015 (isolated) - resume Coumadin
- Frequent and early ambulation as tolerated
- Plasma flow devices HIGHLY encouraged for outpatient use
Near syncope 2* orthostasis 02/2024 - check orthostatic VS q8h
- See above re: hypotension
Asthma/RAD - monitor O2
- IS
- Resume home inhalers
GERD, small hiatal hernia, and Barretts esophagus - continue PPI therapy
Seizure disorder (petit mal - last seizure 6 years old) - continue Phenobarbital, Phenytoin, and Gabapentin w/o interruption
Ambulatory dysfunction w/ h/o recurrent falls - on fall precautions
H/o urinary retention - monitor voids
- Add daily Flomax
- Bladder scan/straight cath prn
Anemia of chronic disease - non-invasive hgb in AM
Hyperlipidemia��
CAD s/p CABG x3 2005, PCI w/ LAD stent 2017
Moderate carotid stenosis
Chronic peripheral edema
Mild-mod valvular disease
H/o diverticulitis
Multilevel DDD
Neuropathy
Renal cell carcinoma, status post R nephrectomy
Melanoma/BCC/SCC s/p excision
Osteoporosis�����
PTSD
Shingles
[2024-05-10] MEDS: NSS 250 IV (13:30)
[2024-05-10 14:15] LABS: Troponin I < 0.012 ng/ml
[2024-05-10] MEDS: PROTONIX PO (14:15)
[2024-05-10] MEDS: TYLENOL PO (14:19)
[2024-05-10 14:45] LABS: Troponin I < 0.012 ng/ml
[2024-05-10] MEDS: TYLENOL 650 MG PO ×2 (15:04→20:34)
--- NOTE | 2024-05-10 15:20 | TRANSFER ---
pt transferred to room 2107 with all belongings in no acute distress.
--- NOTE | 2024-05-10 16:08 | PTCARENOTE ---
Pt arrived to 2S in bed. Full assessment completed. RUE with decreased sensation and movement, neurovascular assessment otherwise WDL. IVF infusing per order. Telemetry applied. Pt denies chest pain/ pressure at this time. Pt c/o of 8/10 RUE pain. N
Kate Izquierdo at bedside Low manual BP, pt educated on safe pain management at this time. Pt refusing education stating ' i was promised i would not be suffering in pain'. Pt refusing PO pain medication stating, ' i only want the shot, and then
repeatedly referring to when her brother was hospitalized and how he (per her) received IV pain medication any time he asked for it, so why cant she'. Jaz Love offered to change PRN pain medication to PO dilaudid, pt refusing saying ' no i only
want the shot, i was told i would have no pain'. Several more attempts made to educate pt, pt continuing to refuse and revert back to only wanting IV pain medication for the duration of her stay. New non narcotic pain medications ordered by N
Kate Izquierdo. Bed locked and in the lowest position, safety maintained. Oriented to room and call aponte. Care remains ongoing.
[2024-05-10 16:46] LABS: Hematocrit 32.8 % (37.0-47.0)
[2024-05-10] MEDS: IMDUR (EXTENDED RELEASE) PO (17:24)
--- NOTE | 2024-05-10 17:37 | PTCARENOTE ---
Addendum entered by Deanna Callahan, KASSIDY 05/10/24 18:19:
Dr Brooke to bedside, RN to observe for now. Care ongoing.
Original Note:
Pt with c/o chest pain described ad 'angina'. Denies palpitations/ chest pressure. EKG obtained, NSR with t wave abnormality consider anterior ischemia. BP 103/84 HR 62. Pt refusing supplement al oxygen at this time, 02 91 % on RA. Dr Brooke made
aware. Care remains ongoing.
[2024-05-10] MEDS: COUMADIN 2.5 MG PO (17:45)
[2024-05-10] MEDS: DILANTIN 100 MG PO ×2 (17:46→23:03)
[2024-05-10] MEDS: NEURONTIN 600 MG PO ×2 (17:47→23:05)
[2024-05-10] MEDS: ANCEF 5 IV (17:47)
[2024-05-10] MEDS: FLOMAX 0.4 MG PO (17:48)
[2024-05-10] MEDS: ZETIA 10 MG PO (17:49)
[2024-05-10] MEDS: VITAMIN D3 (cholecalciferol) 25 MCG PO (17:49)
[2024-05-10] MEDS: ProAmatine 5 MG PO (17:50)
[2024-05-10] MEDS: LIDOCAINE 4% PATCH TOPICAL (17:50)
[2024-05-10] MEDS: LUMINAL 32.4 MG PO ×2 (17:57→23:03)
--- NOTE | 2024-05-10 20:30 | PTCARENOTE ---
informed pt of pain medications po vs IV. po pain medications administered. reviewed post op care and restrictions. pt was argumentation but agreed to plan discussed. pt has call aponte in reach
[2024-05-10] MEDS: BACTROBAN 2% OINTMENT 1 APPLIC NASAL (20:35)
[2024-05-10] MEDS: ROXICODONE 10 MG PO (20:35)
[2024-05-10] MEDS: TENORMIN 50 MG PO (20:35)
[2024-05-10 21:12] LABS: Troponin I < 0.012 ng/ml
[2024-05-10] MEDS: SYMBICORT 160/4.5 MCG INHALER 2 PUFF INH (21:29)
[2024-05-10] MEDS: DILAUDID 0.5 MG IV (21:48)
[2024-05-10] MEDS: SINGULAIR 10 MG PO (23:03)
[2024-05-11] VITALS (7 sets, daily range): BP systolic 95–139; BP diastolic 46–65; PULSE 60–76; O2SAT 92–95; BMI 30.6
[2024-05-11] MEDS: TYLENOL PO ×2 (01:45→23:07)
[2024-05-11] MEDS: ANCEF 5 IV (01:46)
[2024-05-11] MEDS: ROXICODONE 10 MG PO ×2 (02:04→05:50)
[2024-05-11] MEDS: TYLENOL 650 MG PO ×5 (02:04→19:56)
--- NOTE | 2024-05-11 02:30 | PTCARENOTE ---
pt is 90-93% while sleeping. While walking to the bathroom pt became FRENCH, de-stated to 84%. pt placed on 2 L of O2=93%.
[2024-05-11] MEDS: ProAIR HFA INHALER 2 PUFF INH (05:01)
[2024-05-11 05:34] LABS: INR 2.01; PT 22.9 Sec (11.4-14.6)
[2024-05-11] MEDS: SYMBICORT 160/4.5 MCG INHALER 2 PUFF INH ×2 (07:36→19:55)
[2024-05-11] MEDS: ZOFRAN 4 MG IV (07:55)
[2024-05-11] MEDS: ASPIR LOW (ENTERIC COATED) 81 MG PO (07:56)
[2024-05-11] MEDS: NEURONTIN 600 MG PO ×3 (07:57→23:13)
[2024-05-11] MEDS: DILANTIN 100 MG PO ×3 (07:57→21:31)
[2024-05-11] MEDS: FLOMAX 0.4 MG PO (07:58)
[2024-05-11] MEDS: LUMINAL 32.4 MG PO ×3 (07:58→21:31)
[2024-05-11] MEDS: PROTONIX 40 MG PO (07:58)
[2024-05-11] MEDS: ProAmatine 5 MG PO ×2 (07:58→12:43)
[2024-05-11] MEDS: VITAMIN D3 (cholecalciferol) 25 MCG PO (07:59)
[2024-05-11] MEDS: TENORMIN 50 MG PO (08:00)
[2024-05-11] MEDS: ZETIA 10 MG PO (08:00)
[2024-05-11] MEDS: IMDUR (EXTENDED RELEASE) PO (08:01)
[2024-05-11] MEDS: BACTROBAN 2% OINTMENT 1 APPLIC NASAL ×2 (08:01→19:55)
[2024-05-11] MEDS: LIDOCAINE 4% PATCH 2 PATCH TOPICAL (08:03)
[2024-05-11] MEDS: DILAUDID 0.5 MG IV (09:17)
[2024-05-11 11:03] LABS: Blood Urea Nitrogen 22 mg/dl (7-17); Calcium 8.5 mg/dl (8.4-10.2); Carbon Dioxide 26 mmol/L (22-30); Chloride 101 mmol/L (98-107); Estimated Creatinine Clearance 50 ml/min; Glucose 124 mg/dl (70-99); Potassium 4.5 mmol/L (3.5-5.1); Sodium 139 mmol/L (135-145); eGFR > 60.00
[2024-05-11 11:59] LABS: NT-proBNP 1020 pg/ml
[2024-05-11] MEDS: DELTASONE 40 MG PO (12:56)
--- NOTE | 2024-05-11 13:35 | W.PN.ORTHO ---
Today's Communication / Plan
-
Consult hospitalist service given complexity of patient.
D/c when clinically stable.
Assessment
.
Distal Motor Intact: Yes
Dressing:
Clean, dry and intact.
Assessment:
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
- s/p R TKA
DVT prophylaxis - resumption of Warfarin, b/l venous foot pumps
- INR w/n therapeutic range by POD 1
- First INR upon d/c to be done at home 05/18. Results to Coumadin clinic for further Warfarin adjustments
ARF - possibly multifactorial given Asthma/RAD, recent deconditioning, excessive need for narcotics overnight
- Continue IS
- BNP not clinically significant for acute CHF. No s/sx correlating w/ this.
- Chest CT PE study w/o PE but ?RLL pneumonia. Pt afebrile. WBC pending
- Start Prednisone taper. Consider duoneb if feeling SOB
- MINIMIZE OPIOIDS TOLERATED
- Wean supplement O2 as tolerated
- Will consult hospitalist service for further med mgmt
Chest pain in PACU - pressure in center of chest, ?radiation to R-side, 02/01 - GI vs cardiac vs nerve block
- Troponin trends WNL
- EKG x2 w/o significant changes. Continue to monitor on tele
- IV Pepcid given STAT; daily Protonix to follow
- CP resolved by POD 1
HTN w/ post-surgical hypotension - monitor BP
- + parameters to BP meds
- S/p IVF. Was given 250 cc bolus in recovery
- Midodrine w/ BP parameters
- H&H notably stable at 11
- Minimize narcotics as able
PAF � monitor on tele
- Continue Atenolol
- Warfarin as stated above
CHFpEF - resume Bumex w/ BP parameters to avoid hypotension
LLE DVT/ Pulmonary embolus 2016 (isolated) - resumed Coumadin
- Frequent and early ambulation as tolerated
- Plasma flow devices HIGHLY encouraged for outpatient use
Near syncope 2* orthostasis 02/2024 - check orthostatic VS q8h
- See above re: hypotension
Asthma/RAD - monitor O2
- IS
- Resume home inhalers
GERD, small hiatal hernia, and Barretts esophagus - continue PPI therapy
Seizure disorder (petit mal - last seizure 6 years old) - continue Phenobarbital, Phenytoin, and Gabapentin w/o interruption
Ambulatory dysfunction w/ h/o recurrent falls - on fall precautions
H/o urinary retention - voiding appropriately with Flomax
- Bladder scan/straight cath prn
Anemia of chronic disease - non-invasive hgb 14.2 POD 1
Hyperlipidemia��
CAD s/p CABG x3 2005, PCI w/ LAD stent 2017
Moderate carotid stenosis
Chronic peripheral edema
Mild-mod valvular disease
H/o diverticulitis
Multilevel DDD
Neuropathy
Renal cell carcinoma, status post R nephrectomy
Melanoma/BCC/SCC s/p excision
Osteoporosis�����
PTSD
Shingles
Plan
.
Surgery / Date: R Reverse TSA w/ Dr Krueger 05/10/24
DVT Prophylaxis: Coumadin
Activity:
Out of bed.
PT/OT
Discharge Plan: Home
Subjective
.
.:
Patient examined resting in bed today.
Is hysterical and reports high levels of R shoulder pain; subjectively, however, appears comfortable.
Chest pain from yesterday resolved.
O2 sats notably low this AM.
Vital Signs and Labs
.
Vital Signs and Labs:
Lab Results
05/10/24 16:27
05/11/24 04:34
Temp Pulse Resp BP Pulse Ox
97.7 F 68 18 101/46 93
05/11/24 11:00 05/11/24 11:00 05/11/24 11:00 05/11/24 12:43 05/11/24 11:00
PT 22.9 Sec (11.4-14.6) H 05/11/24 04:34
INR 2.01 05/11/24 04:34
Non-invasive Hgb result: 14.2
Physical Exam
-
HEENT: No pallor, cyanosis, or jaundice. Throat clear.
NECK: Supple. No JVD.
RESPIRATORY: Lungs clear to auscultation.
CVS: S1, S2 normal. RRR.�
ABDOMEN: Soft, non-tender. No distension.
EXTREMITIES: + RUE sling. Able to wiggle fingers b/l. 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 Strength equal, no calf pain with palpation/dorsiflexion. Calves soft.
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 No focal deficits. blow off worker grossly intact
--- NOTE | 2024-05-11 14:52 | CON.HOSP ---
Consultation
-
Date/Time Consultation Requested: May 11, 2024 at 2:15PM
Date/Time Consultation Performed: May 11, 2024 at 2:45 PM
Requesting Provider: Caron Love PA-C
Performing Provider: Eliane Banda PA-C / Dr. Radha Hurt
Reason for Consultation: Hypoxia and Hypotension
Family Physician
-
Family Physician: Luis Manuel Burden
Chief Complaint
-
Hypoxia and Hypotension
History of Present Illness
Patient is a 78 y/o female past medical history CAD s/p CABG, A-fib, CHF, DVT/PE and asthma who underwent a right reverse total shoulder arthroplasty yesterday. Post-op she developed hypoxia and hypotension. Chest CT was negative for PE but showed
evidence of a right lower lobe pneumonia. Patient reports some increased wheezing this morning, and chronic cough productive of white mucus. She denies any fevers, sweats or chills. She denies any chest pains or palpitations.
Medical History
Past Medical History
Past Medical History: Reports Other
Additional Past Medical History:
ASCVD
Chronic HFpEF
Atrial Fibrillation
Essential Hypertension
Asthma
Peripheral Neuropathy
Seizures (infancy)
DVT / PE in 2016
Diverticular Disease
GERD
Endometriosis
Solitary Kidney
Melanoma
History of Renal Cell Carcinoma
Past Surgical History: Reports Other
Additional Past Surgical History:
CABG
PTCA with Stent
Right Shoulder Replacement
Left Shoulder Surgery
Right TKA
Left Ankle ORIF with Hardware
Right Nephrectomy
Melanoma Excision
FLYNN / BSO
Appendectomy
Social History
Tobacco: Non-smoker
Alcohol: Occasional
Family History
Family History: Reviewed & Not Pertinent
Allergies / Home Medications
Allergies reflects when Allergies were last updated in [employer].
Home Medications with original date entered in [employer]
Allergy/Medication List:
Allergies
Allergy/AdvReac Type Severity Reaction Status Date / Time
metronidazole [From Flagyl] Allergy Nausea / Verified 05/10/24 07:42
Vomiting
pollen extracts Allergy ENVIRONMENTAL Verified 05/10/24 07:42
ALLERGIES-NASAL
SYMPTOMS
Home Medications
montelukast 10 mg tablet 10 mg PO HS Lung/breathing issues 04/02/15
ezetimibe 10 mg tablet 10 mg PO DAILY High cholesterol 03/12/21
fluticasone furoate 200 mcg-vilanterol 25 mcg/dose inhalation powder (Breo Ellipta) 1 inh inhalation R DAILY Lung/Breathing Issues 01/13/23
isosorbide mononitrate 60 mg tablet,extended release 24 hr 60 mg PO DAILY Heart Disease/Condition 01/13/23
phenobarbital 32.4 mg tablet 32.4 mg PO TID Seizures #9 tabs 03/22/23
dexlansoprazole 60 mg capsule,biphase delayed release 60 mg PO DAILY Gastrointestinal Issue 03/25/23
gabapentin 600 mg tablet 600 mg PO Q8H Pain 07/29/23
albuterol sulfate 90 mcg/actuation aerosol inhaler 2 puff inhalation R Q4HPRN PRN sob 11/24/23
aspirin 81 mg tablet,delayed release 81 mg PO DAILY Blood Clot Prevention/Tx 11/24/23
bumetanide 2 mg tablet 2 mg PO BID Fluid Retention/Swelling 11/24/23
hyoscyamine sulfate 0.125 mg tablet 0.125 mg PO TIDPRN PRN spasms 11/24/23
phenytoin sodium extended 100 mg capsule (Dilantin Extended) 100 mg PO TID Seizures 11/24/23
warfarin 2.5 mg tablet (Jantoven) 1.25 mg PO SUMOTUWETHSA Blood clot prevention/tx 11/24/23
Lactobac no.2-Bifidobac no.1-S. thermo 112.5 billion cell capsule (Visbiome) 1 cap PO DAILY Supplement 02/29/24
acetaminophen 650 mg tablet,extended release (Tylenol Arthritis Pain) 1,300 mg PO [id number] PRN arthritis pain 02/29/24
atenolol 50 mg tablet 50 mg PO BID Blood Pressure 02/29/24
cholecalciferol (vitamin D3) 25 mcg (1,000 unit) tablet (Vitamin D3) 25 mcg PO DAILY Supplement 02/29/24
warfarin 2.5 mg tablet 2.5 mg PO FR Blood Clot Prevention/Tx 02/29/24
inclisiran 284 mg/1.5 mL subcutaneous syringe (Leqvio) 284 mg SC [id number] 05/04/24
mupirocin 2 % topical ointment 1 applic topical BID 05/04/24
Review of Systems
-
A 12 point Review of Systems was completed except as noted: Yes
Constitutional: Denies Fever or Chills
Respiratory: Reports Cough; Denies Trouble Breathing
Cardiac: Denies Chest Pain or Palpitations
Physical Exam
Vital Signs
Vital Signs
Temp Pulse Resp BP Pulse Ox
97.7 F 68 18 101/46 93
05/11/24 11:00 05/11/24 11:00 05/11/24 11:00 05/11/24 12:43 05/11/24 11:00
Physical Exam
General: Well Developed and Well Nourished
HEENT: Anicteric, Moist Mucous Membranes and Oxygen (Nasal Cannula at 2L)
Respiratory: Rales (Right Base) and Accessory Resp Muscle Use
Cardiac: S1/S2 and Regular Rhythm
GI: Soft, Non Tender and Other (Protuberant)
Rectal: Deferred by Provider
Musculoskeletal: No Clubbing, No Cyanosis, No Edema (ANGELA stockings in place) and Other (Right upper extremity shoulder immobilizer)
Skin: Warm and Dry
Neuro: Awake, Alert, Oriented and No Motor Deficits
Psych: Calm
Laboratory Results
-
Laboratory Results
05/11/24 04:34
PT 22.9 Sec (11.4-14.6) H 05/11/24 04:34
INR 2.01 05/11/24 04:34
Total Bilirubin 0.4 mg/dl (0.2-1.3) 04/25/24 14:16
AST 19 U/L (14-36) 04/25/24 14:16
ALT 15 U/L (0-35) 04/25/24 14:16
Alkaline Phosphatase 240 U/L (38-126) H 04/25/24 14:16
Troponin I < 0.012 ng/ml 05/10/24 20:18
Data Reviewed
-
CT Scan: Report Reviewed by Me
Lab Data: Labs Reviewed
Impression / Plan
-
Acute Hypoxic Respiratory Insufficiency, possibly secondary to Pneumonia
-Check CBC
-Start empiric ceftriaxone and doxycycline
-Add Mucinex
-Encourage use of incentive spirometer and Acapella Device
-Continue prednisone started this morning
Hypotension, BP seems to be improving
-Hold Atenolol
-Stop Flomax
-Decrease Bumex dose
-Change Midodrine to as needed
-Try to limit narcotics
Chronic HFpEF
-Change to low sodium diet
-Add daily weights
Asthma, does not appear to have acute exacerbation
-Continue prednisone as started this morning
-Continue albuterol prn
-Continue Symbicort
Other Noted History
-CAD s/p CABG and Stents
-DVT/PE in 2016 on Coumadin
-Seizure Disorder on phenytoin
--- NOTE | 2024-05-11 15:16 | CM ---
Met with pt and her at bedside
Pt reports she lives with her in a 2 story home; 2 steps to enter, 12 steps to 2nd fl. Has bath room on 1st level
Reports was independent, some assist around home chores
DME - rolling walker, cane, commode, crutches
SNF - past [facility]
HH - [facility] in past
Has ride home at discharge
PCP - Luis Manuel Burden
Pharm - [facility]
Seen by OT - recs HH with assist
PT eval pending
Requiring oxygen prn at this time
Plan - anticipate home with HH vs SNF - tbd
[2024-05-11] MEDS: ROCEPHIN 1000 MG IV (15:25)
[2024-05-11] MEDS: STERILE WATER FOR INJECTION 10 ML IV (15:25)
[2024-05-11] MEDS: BUMEX PO (15:36)
--- NOTE | 2024-05-11 15:48 | W.PN.UPDATE ---
Update Note
Progress Note Update
This is an addendum to the H&P written by Eliane Banda on 05/11/24.� Patient seen and examined independently with PA.
78-year-old female past medical history of CAD status post CABG, paroxysmal atrial fibrillation on Coumadin, history of left lower extremity DVT/pulmonary embolism 2016, moderate carotid stenosis, chronic peripheral edema, degenerative disc disease,
neuropathy, renal cell carcinoma status post right nephrectomy, melanoma status post excision, osteoporosis, asthma, GERD, seizure disorder, ambulatory dysfunction, history of urinary retention, anemia of chronic disease, hyperlipidemia who
underwent right reverse total shoulder arthroplasty yesterday.
Hospitalist consulted for medical management of hypertension/hypoxia.
Patient was hypotensive after surgery yesterday and started on standing midodrine.� Patient was noted to be wheezing this morning and started on prednisone.� She underwent CT PE today which showed right lower lobe consolidation with air bronchograms
suspicious for pneumonia with tiny right pleural effusion.
At this time blood pressure is 101/46.� Patient currently on 2 L of oxygen. Slight crackles right lower lobe.� Will start ceftriaxone/doxycycline.� Will hold atenolol, Flomax.� Change midodrine to as needed.� Bumex resumed at reduced dosage of 1 mg
twice daily.� Wean oxygen as able.� Bladder scan protocol to monitor for urinary retention.
[2024-05-11 16:58] LABS: % Basophils 0.1 % (0-2); % Eosinophils 0.1 % (0-6); % Immature Granulocytes 0.6 % (0-0.5); % Lymphocytes 2.5 % (20.5-51.1); % Monocytes 2.8 % (1.7-9.3); % Neutrophils 93.9 % (42.2-75.2); Absolute Immature Granulocytes 0.1 10^3/uL (0-0.05); Absolute Lymphocytes 0.4 10^3/uL (1.2-3.4); Absolute Monocytes 0.4 10^3/uL (0.1-0.6); Absolute Neutrophils 14.2 10^3/uL (1.4-6.5); Hematocrit 33.1 % (37.0-47.0); Hemoglobin 10.9 g/dL (12.0-16.0); Mean Corp Hgb Conc. 32.9 g/dL (33.0-37.0); Mean Corpuscular Hgb 29.5 pg (27.0-31.0); Mean Corpuscular Volume 89.7 fL (81.0-99.0); Mean Platelet Volume 9.7 fL (7.4-10.4); Nucleated Red Blood Cells % 0 %; Platelet Count 262 10^3/uL (130-400); Red Blood Cell Count 3.69 10^6/uL (4.20-5.40); Red Cell Dist. Width 15.3 % (11.5-14.5); White Blood Cell Count 15.1 10^3/uL (4.8-10.8)
[2024-05-11 17:02] LABS: COVID-19 Antigen Negative (Negative)
[2024-05-11] MEDS: COUMADIN 1.25 MG PO (18:11)
[2024-05-11] MEDS: VIBRAMYCIN 100 MG PO (19:57)
[2024-05-11] MEDS: SINGULAIR 10 MG PO (21:31)
--- NOTE | 2024-05-12 | PTCARENOTE ---
Pt aaox2, forgetful at times and anxious. confuse at times. Gen weakness. c/o chest pain. Occasional pain of rt shoulder, see SEP. Lung sounds are diminished, saO2 95% 2L. Dyspneic w/ exertion and desaturates when sleeping high 80's. pt is a mouth
breather. Desaturates after using IS to low 90's. Will continue w/ tx plan. OOBx2
[2024-05-12] MEDS: DILAUDID 2 MG PO ×2 (01:42→07:52)
[2024-05-12] MEDS: TYLENOL PO (03:04)
[2024-05-12 05:26] VITALS: BMI 30.6
[2024-05-12 05:47] LABS: Hematocrit 31.9 % (37.0-47.0); Hemoglobin 10.4 g/dL (12.0-16.0); Mean Corp Hgb Conc. 32.6 g/dL (33.0-37.0); Mean Corpuscular Hgb 29.8 pg (27.0-31.0); Mean Corpuscular Volume 91.4 fL (81.0-99.0); Mean Platelet Volume 9.9 fL (7.4-10.4); Platelet Count 252 10^3/uL (130-400); Red Blood Cell Count 3.49 10^6/uL (4.20-5.40); Red Cell Dist. Width 15.4 % (11.5-14.5); White Blood Cell Count 10.6 10^3/uL (4.8-10.8)
[2024-05-12 05:51] LABS: INR 2.27; PT 25.3 Sec (11.4-14.6)
[2024-05-12 07:41] VITALS: BP 135/57
[2024-05-12] MEDS: TYLENOL 650 MG PO ×2 (07:52→11:18)
[2024-05-12] MEDS: PROTONIX 40 MG PO (07:53)
[2024-05-12] MEDS: NEURONTIN 600 MG PO ×2 (07:53→15:59)
[2024-05-12] MEDS: DELTASONE 40 MG PO (07:53)
[2024-05-12] MEDS: ZETIA 10 MG PO (07:53)
[2024-05-12] MEDS: VIBRAMYCIN 100 MG PO (07:54)
[2024-05-12] MEDS: ASPIR LOW (ENTERIC COATED) 81 MG PO (07:54)
[2024-05-12] MEDS: VITAMIN D3 (cholecalciferol) 25 MCG PO (07:54)
[2024-05-12] MEDS: BUMEX 1 MG PO ×2 (07:54→15:59)
[2024-05-12] MEDS: DILANTIN 100 MG PO ×2 (07:54→16:00)
[2024-05-12] MEDS: LUMINAL 32.4 MG PO ×2 (07:55→16:00)
[2024-05-12] MEDS: LIDOCAINE 4% PATCH 2 PATCH TOPICAL (07:55)
[2024-05-12] MEDS: IMDUR (EXTENDED RELEASE) 60 MG PO (07:55)
[2024-05-12] MEDS: SYMBICORT 160/4.5 MCG INHALER 2 PUFF INH (07:59)
--- NOTE | 2024-05-12 08:05 | PTCARENOTE ---
SpO2 95% ON 2L NC prior to IS. IS completed and reached 750. SpO2 rechecked after IS and SpO2 94% on 2L. Care ongoing at this time.
--- NOTE | 2024-05-12 08:18 | W.PN.HOSP.TC ---
Today's Communication/Plan
-
see plan
Assessment / Plan
Assessment / Plan
Gen: NAD, awake and alert
Eyes: EOMI, PERRLA, no scleral icterus.
Neck: supple.
CV: RRR, +S1/S2, no m/r/g.
Resp: Faint rales in the right base
Abd: +BS, soft, NT, ND
Skin: No rashes.
Neuro: CN 2-12 intact, non-focal.
Psych: Normal mood and affect.
CTA chest: No findings to suggest central pulmonary embolism. Right lower lobe consolidation with air bronchograms suspicious for pneumonia with tiny right pleural effusion.
Acute Hypoxic Respiratory Insufficiency likely due to RLL Pneumonia:
-cont Rocephin/Doxy
-leukocytosis has resolved (could have been reactive)
-was on 2L NC O2, now 93% RA as per discussion with ortho AP
-cont Mucinex
-Encourage use of incentive spirometer and Acapella Device
-stop prednisone
-check procal and if NEG no indication for abx
Hypotension:
-Atenolol/Flomax stopped
-Bumex dose decreased
-Midodrine PRN
-Try to limit narcotics
Chronic HFpEF:
-cont Bumex
-low sodium diet
-daily weights, I/Os
Asthma:
-does not appear to have acute exacerbation
-stop prednisone
-Continue albuterol PRN
-Continue Symbicort
Other problems:
CAD s/p CABG and Stents: cont ASA. BB on hold for hypotension.
DVT/PE in 2016: cont Coumadin
Seizure Disorder on phenytoin/phenobarbital
Discussed at length with orthopedics advanced practitioner. Discussed with Dr. Krueger over [facility].
Dispo: From my standpoint the patient does not require further hospitalization. If her procalcitonin is negative she does not require further antibiotics. If it is positive I would give 5 to 7 days of oral antibiotics. Augmentin/doxycycline would
be fine. With recent orthopedic surgery I would avoid Levaquin as you can get tendinitis from Levaquin.
Total time spent on today's encounter was 50 minutes which included time spent in counseling the patient/family regarding diagnosis and treatment plan as listed above, goals of care, and symptom management. Case was discussed with nursing staff,
specialists, and care coordinators/case management. All labs and imaging personally reviewed by me. Remainder the time spent in detailed review of previous records, lab data, imaging, and other medical provider documentation.
Anticipated Discharge: Within 24 hours
Subjective/Interval History
-
Date of Service: May 12, 2024
Patient denies shortness of breath.
Objective Data
-
Labs:
Laboratory Results
05/12/24
04:28
WBC 10.6
Hgb 10.4 L
Hct 31.9 L
Plt Count 252
PT 25.3 H
INR 2.27
Vital Signs:
Vital Signs
Temp Pulse Resp BP Pulse Ox
97.6 F 65 18 135/57 92
05/12/24 07:41 05/12/24 08:01 05/12/24 08:01 05/12/24 07:41 05/12/24 08:01
I&O
05/11/24 05/12/24 05/13/24
06:59 06:59 06:59
Intake Total 970 / 970 420 / 420
Balance 970 / 970 420 / 420
[2024-05-12 10:30] VITALS: O2SAT 93; O2SAT 94
[2024-05-12] MEDS: MUCINEX 600 MG PO (11:17)
[2024-05-12 12:03] LABS: Procalcitonin 0.05 ng/ml (0.0-0.25)
--- NOTE | 2024-05-12 12:24 | VNURNOTE ---
Home Health Liaison met with patient at bedside to discuss [facility] nurse/therapy, visits, schedule and homebound status. Patient is agreeable and understands that visits at home will be 2-3 x per week to assess and teach medical management. She is
familiar with [facility], has had our services in the past. [facility] brochure provided with contact information. Patient is aware that [facility] will contact them for start of care in 1-2 days after discharge from .
[facility] referral completed in [facility].
--- NOTE | 2024-05-12 12:46 | CM ---
Pt for discharge today
OT recs - HH
Pt prefers [facility]
TT sent to [facility] Liaison for HH
Plan - home with [facility]
--- NOTE | 2024-05-12 12:54 | W.PN.ORTHO ---
Today's Communication / Plan
-
D/c today since clinically stable.
Assessment
.
Distal Motor Intact: Yes
Dressing:
Scant areas of old incisional bleeding.
Assessment:
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
- s/p R TKA
DVT prophylaxis - resumption of Warfarin, b/l venous foot pumps
- INR w/n therapeutic range by POD 1
- First INR upon d/c to be done at home 05/18. Results to Coumadin clinic for further Warfarin adjustments
ARF - possibly multifactorial (Asthma/RAD, recent deconditioning, excessive need for narcotics - pt frequently asking for IV Morphine/Dilaudid)
- Continue IS
- BNP not clinically significant for acute CHF. No s/sx correlating w/ this. Daily weight stable.
- Chest CT PE study w/o PE but ?RLL pneumonia. Pt afebrile. WBC WNL and procalcitonin stable -> started on empiric abx but d/c as of today
- S/p Prednisone
- MINIMIZE OPIOIDS TOLERATED
- Wean supplement O2 as tolerated -> 92% on RA currently
- Appreciate hospitalist service
Chest pain in PACU - pressure in center of chest, ?radiation to R-side, 02/01 - GI vs cardiac vs nerve block
- Troponin trends WNL
- EKG x2 w/o significant changes. Tele stable
- IV Pepcid given STAT; daily Protonix followed
- CP self-resolved
HTN w/ post-surgical hypotension
- + parameters to Isosorbide. Bumex decreased. Atenolol held but can be resumed given BP stability
- S/p IVF. Was given 250 cc bolus in recovery
- S/p Midodrine prn w/ BP parameters
- H&H notably stable at 10.4 POD 2
- Continue to minimize narcotics as able
PAF � maintaining NSR on tele
- Continue Atenolol
- Warfarin as stated above
CHFpEF - resume Bumex w/ BP parameters to avoid hypotension
LLE DVT/ Pulmonary embolus 2016 (isolated) - resumed Coumadin
- Frequent and early ambulation as tolerated
- Plasma flow devices HIGHLY encouraged for outpatient use
Near syncope 2* orthostasis 02/2024 - orthostatics overall stable while inpatient
- See above re: hypotension
Asthma/RAD - O2 now stable on RA
- IS
- Resume home inhalers
GERD, small hiatal hernia, and Barretts esophagus - continue PPI therapy
Seizure disorder (petit mal - last seizure 7 years old) - continue Phenobarbital, Phenytoin, and Gabapentin w/o interruption
Ambulatory dysfunction w/ h/o recurrent falls - on fall precautions
H/o urinary retention - voiding appropriately with Flomax (was d/c 05/11)
- Bladder scan/straight cath prn
Hyperlipidemia��
CAD s/p CABG x3 2005, PCI w/ LAD stent 2017
Moderate carotid stenosis
Chronic peripheral edema
Mild-mod valvular disease
H/o diverticulitis
Multilevel DDD
Neuropathy
Anemia of chronic disease
Renal cell carcinoma, status post R nephrectomy
Melanoma/BCC/SCC s/p excision
Osteoporosis�����
PTSD
Shingles
Plan
.
Surgery / Date: R Reverse TSA w/ Dr Krueger 05/10/24
DVT Prophylaxis: Coumadin
Activity:
Out of bed.
PT/OT
Discharge Plan: Home w/ [facility]
Subjective
.
.:
Patient appearing to rest comfortably in her chair today.
No reports of R shoulder pain during my assessment.
Overall feels well. No reports of CP or wheeze this AM.
Anxious but eager to get home.
Vital Signs and Labs
.
Vital Signs and Labs:
Lab Results
05/12/24 04:28
05/11/24 04:34
Temp Pulse Resp BP Pulse Ox
97.6 F 65 18 135/57 92
05/12/24 07:41 05/12/24 08:01 05/12/24 08:01 05/12/24 07:41 05/12/24 11:25
PT 25.3 Sec (11.4-14.6) H 05/12/24 04:28
INR 2.27 05/12/24 04:28
Non-invasive Hgb result: 14.2
Physical Exam
-
HEENT: No pallor, cyanosis, or jaundice. Throat clear.
NECK: Supple. No JVD.
RESPIRATORY: Faint rales RLL; otherwise, CTA.
CVS: S1, S2 normal. RRR.�
ABDOMEN: Soft, non-tender. No distension. Obese.
EXTREMITIES: + LUE sling. Able to wiggle fingers b/l. Good cardiac care unit nurse b/l. Strength equal, no calf pain with palpation/dorsiflexion. Calves soft.
NEMATOLOGIST: AOx3. No focal deficits. outpatient coding specialist grossly intact
--- NOTE | 2024-05-12 13:30 | W.DS.TRANS ---
DC Summary - [employer]
-
Discharge Instructions:
Sleep Apnea Risk Low
Discharge Diagnosis/Procedures R shoulder OA s/p R Reverse TSA w/ Dr Krueger 10
Diet Regular
Activity As tolerated
Additional Activity Non-weightbearing right upper extremity
Driving Restrictions Not until seen by your Dr
Bathing Restrictions OK to shower 72 hours post-surgery.
Blood Work PT/INR as arranged by the Coumadin clinic on
.
Other Services [facility]
Specialty Instructions Weigh Daily
Instructions:
Stand-Alone Forms: Total Shoulder Replacement D/C
Changes to Home Medications: Yes
Discharge Medications:
DC Medications w/original date entered in [facility]
montelukast 10 mg tablet 10 mg PO HS Lung/breathing issues 04/02/15
ezetimibe 10 mg tablet 10 mg PO DAILY High cholesterol 03/12/21
fluticasone furoate 200 mcg-vilanterol 25 mcg/dose inhalation powder (Breo Ellipta) 1 inh inhalation R DAILY Lung/Breathing Issues 01/13/23
phenobarbital 32.4 mg tablet 32.4 mg PO TID Seizures #9 tabs 03/22/23
dexlansoprazole 60 mg capsule,biphase delayed release 60 mg PO DAILY Gastrointestinal Issue 03/25/23
albuterol sulfate 90 mcg/actuation aerosol inhaler 2 puff inhalation R Q4HPRN PRN sob 11/24/23
aspirin 81 mg tablet,delayed release 81 mg PO DAILY Blood Clot Prevention/Tx 11/24/23
hyoscyamine sulfate 0.125 mg tablet 0.125 mg PO TIDPRN PRN spasms 11/24/23
phenytoin sodium extended 100 mg capsule (Dilantin Extended) 100 mg PO TID Seizures 11/24/23
warfarin 2.5 mg tablet (Jantoven) 1.25 mg PO SUMOTUWETHSA Blood clot prevention/tx 11/24/23
Lactobac no.2-Bifidobac no.1-S. thermo 112.5 billion cell capsule (Visbiome) 1 cap PO DAILY Supplement 02/29/24
cholecalciferol (vitamin D3) 25 mcg (1,000 unit) tablet (Vitamin D3) 25 mcg PO DAILY Supplement 02/29/24
warfarin 2.5 mg tablet 2.5 mg PO FR Blood Clot Prevention/Tx 02/29/24
inclisiran 284 mg/1.5 mL subcutaneous syringe (Leqvio) 284 mg SC [id number] 05/04/24
mupirocin 2 % topical ointment 1 applic topical BID 05/04/24
acetaminophen 650 mg tablet,extended release (Tylenol Arthritis Pain) 1,300 mg (2 x 650 mg) PO Q8H #60 tabs 05/12/24
atenolol 50 mg tablet 50 mg PO BID Blood Pressure #0 tabs 05/12/24
bumetanide 2 mg tablet 1 mg (1/2 x 2 mg) PO BID AT 0800,1600 #30 tabs 05/12/24
docusate sodium 100 mg capsule 100 mg PO BID #30 caps 05/12/24
doxycycline hyclate 100 mg tablet 100 mg PO BID #6 tabs 05/12/24
gabapentin 600 mg tablet 600 mg PO Q8H neuropathic pain #0 tabs 05/12/24
hydromorphone 4 mg tablet (Dilaudid) 2 - 4 mg (0.5 - 1 x 4 mg) PO Q6H PRN moderate-severe pain #20 tabs 05/12/24
isosorbide mononitrate 60 mg tablet,extended release 24 hr 60 mg PO DAILY Heart Disease/Condition #0 tabs 05/12/24
lidocaine 4 % topical patch 2 patch topical DAILY #30 ea 05/12/24
ondansetron HCl 4 mg tablet 4 mg PO Q6H PRN nausea and vomiting #30 tabs 05/12/24
sennosides 8.6 mg tablet (Senna Laxative) 17.2 mg (2 x 8.6 mg) PO BID #30 tabs 05/12/24
Home Medication Changes
acetaminophen 650 mg tablet,extended release (Tylenol Arthritis Pain) 1,300 mg (2 x 650 mg) PO Q8H #60 tabs 05/12/24
bumetanide 2 mg tablet 1 mg (1/2 x 2 mg) PO BID AT 0800,1600 #30 tabs 05/12/24 - dose adjusted.
docusate sodium 100 mg capsule 100 mg PO BID #30 caps 05/12/24
doxycycline hyclate 100 mg tablet 100 mg PO BID #6 tabs 05/12/24
hydromorphone 4 mg tablet (Dilaudid) 2 - 4 mg (0.5 - 1 x 4 mg) PO Q6H PRN moderate-severe pain #20 tabs 05/12/24
lidocaine 4 % topical patch 2 patch topical DAILY #30 ea 05/12/24
ondansetron HCl 4 mg tablet 4 mg PO Q6H PRN nausea and vomiting #30 tabs 05/12/24
sennosides 8.6 mg tablet (Senna Laxative) 17.2 mg (2 x 8.6 mg) PO BID #30 tabs 05/12/24
Pending Results: No
[2024-05-12 15:07] VITALS: BP 108/50
== END 2024-05-12 16:19 | disposition home health service (06) | DRG 483 ==
LOC: 2 SOUTH 13:43
PROVIDERS: Internal Medicine; Physician Assistant; ADMITTING PHYSICIAN Orthopaedic Surgery Hand Surgery; FAMILY PHYSICIAN Family Medicine; OTHER PHYSICIAN Physician Assistant Medical; REFERRING PHYSICIAN Internal Medicine
PROC: 0RRJ00Z Replacement of Right Shoulder Joint with Reverse Ball and Socket Synthetic Substitute, Open Approach (ICD-10-PCS; 2024-05-10)
DX: M19.011 Primary osteoarthritis, right shoulder (principal); J96.01 Acute respiratory failure with hypoxia; J18.9 Pneumonia, unspecified organism; I50.32 Chronic diastolic (congestive) heart failure; M75.101 Unspecified rotator cuff tear or rupture of right shoulder, not specified as traumatic; I48.0 Paroxysmal atrial fibrillation; I11.0 Hypertensive heart disease with heart failure; I25.118 Atherosclerotic heart disease of native coronary artery with other forms of angina pectoris; G40.909 Epilepsy, unspecified, not intractable, without status epilepticus; J45.909 Unspecified asthma, uncomplicated; M81.0 Age-related osteoporosis without current pathological fracture; I65.29 Occlusion and stenosis of unspecified carotid artery; G62.9 Polyneuropathy, unspecified; I95.81 Postprocedural hypotension; K21.9 Gastro-esophageal reflux disease without esophagitis; E78.5 Hyperlipidemia, unspecified; R07.89 Other chest pain; Z96.651 Presence of right artificial knee joint; Z95.5 Presence of coronary angioplasty implant and graft; Z95.1 Presence of aortocoronary bypass graft; Z91.81 History of falling; Z90.5 Acquired absence of kidney; Z86.718 Personal history of other venous thrombosis and embolism; Z86.711 Personal history of pulmonary embolism; Z85.528 Personal history of other malignant neoplasm of kidney; Z79.01 Long term (current) use of anticoagulants; Z79.82 Long term (current) use of aspirin; Z79.51 Long term (current) use of inhaled steroids; Z79.899 Other long term (current) drug therapy; Z87.891 Personal history of nicotine dependence; Z11.52 Encounter for screening for COVID-19
CPT/HCPCS: 36415; 71275; 73020; 80048; 80053; 83036; 83880; 84145; 84484; 85014; 85018; 85025; 85027; 85610; 86850; 86900; 86901; 87070; 87811; 93005; 94640; 97116; 97163; 97166; 97530; 97535; C1713; C1776; Q9967

== ENCOUNTER 2024-06-15 14:45 | Outpatient (RCR) | payer MEDICARE, OTHER, SELFPAY | END 2024-06-15 23:59 | disposition home or self-care (01) | LOC: RPT 14:45 | PROVIDERS: ATTENDING PHYSICIAN Physician Assistant Surgical; FAMILY PHYSICIAN Family Medicine | DX: Z47.1 Aftercare following joint replacement surgery (principal); M19.012 Primary osteoarthritis, left shoulder; Z73.6 Limitation of activities due to disability; M25.512 Pain in left shoulder; R26.81 Unsteadiness on feet; R26.89 Other abnormalities of gait and mobility; Z96.611 Presence of right artificial shoulder joint | CPT/HCPCS: 97010; 97110; 97140; 97163; 97530 ==

== ENCOUNTER 2024-06-16 18:23 | Inpatient (IN) | payer MEDICARE, OTHER, SELFPAY ==
[2024-06-16 13:56] VITALS: BP 161/87
[2024-06-16 14:13] VITALS: BP 166/94
[2024-06-16] MEDS: DILAUDID 0.5 MG IV ×2 (14:28→17:38)
[2024-06-16 14:29] VITALS: BP 173/126
[2024-06-16] MEDS: ZOFRAN 4 MG IV (14:29)
[2024-06-16] MEDS: NSS 500 IV (14:29)
[2024-06-16 14:34] LABS: % Basophils 0.5 % (0-2); % Eosinophils 2.8 % (0-6); % Immature Granulocytes 0.2 % (0-0.5); % Lymphocytes 9.7 % (20.5-51.1); % Monocytes 5.5 % (1.7-9.3); % Neutrophils 81.3 % (42.2-75.2); Absolute Eosinophils 0.3 10^3/uL (0-0.7); Absolute Lymphocytes 0.9 10^3/uL (1.2-3.4); Absolute Monocytes 0.5 10^3/uL (0.1-0.6); Absolute Neutrophils 7.2 10^3/uL (1.4-6.5); Hematocrit 38.5 % (37.0-47.0); Hemoglobin 12.2 g/dL (12.0-16.0); Mean Corp Hgb Conc. 31.7 g/dL (33.0-37.0); Mean Corpuscular Hgb 30.1 pg (27.0-31.0); Mean Corpuscular Volume 95.1 fL (81.0-99.0); Mean Platelet Volume 9.2 fL (7.4-10.4); Nucleated Red Blood Cells % 0 %; Platelet Count 332 10^3/uL (130-400); Red Blood Cell Count 4.05 10^6/uL (4.20-5.40); White Blood Cell Count 8.8 10^3/uL (4.8-10.8)
--- NOTE | 2024-06-16 14:35 | ED.GENMED ---
History of Present Illness
General
Chief Complaint: Abdominal Pain
Source: patient and spouse
Exam Limitations: none
Time Seen by Provider: 06/16/24 14:05
History of Present Illness
History of Present Illness:
79-year-old female complaining of severe upper abdominal pain. Started after eating this morning. Has had intermittent episodes in the past and some nearly this severe but not quite this severe. No radiation to the back or chest. No shortness of
breath. No change in bowels. No fever. Pain is severe in nature.
Past History
Past History
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
(Diverticulitis, DVT/PE, Only has right kidney, Endometriosis)
ED Past Surgical History: Appendectomy, Cardiac (quadruple bypass 2001. stent), Gynecological (Hysterectomy), Orthopedic (left shoulder, ankle) and Other (Right nephrectomy 2001 'tumor')
Social History
Tobacco: Former smoker
Alcohol: Occasional
Drug: None
Personal:
Living: with family
Employment: Retired
Family History
Family History: Other (Noncontributory)
Review of Systems
Review of Systems
All Other Systems: Not applicable
Constitutional: Denies fever or chills
Respiratory: Reports no symptoms
Cardiac: Reports no symptoms
Phy Exam
Physical Exam
Physical Exam:
GENERAL: Alert. Elderly. Moaning in pain. Lying on her left side. However when distracted to talk she does stop moaning and interacts appropriately
EYE: Orbits normal.
NECK: Supple, no significant adenopathy.
ENT: Pharynx without erythema
CARDIAC: Regular rate and rhythm without any obvious murmurs.
LUNGS: Clear breath sounds,normal
ABDOMEN: Soft, bowel sounds present. No distention. Mild epigastric tenderness. No rebound or guarding no mass or hernia
NEUROLOGICAL: Alert and oriented , grossly non-focal
SKIN: Warm and dry, no rash or lesion, no discoloration, skin intact.
MUSCULOSKELETAL: No edema,no deformity.Good color
PSYCH: Cooperative but anxious
Course
Orders/Labs/Results
Orders:
Orders
06/16/24 14:14
Electrocardiogram (*1) Stat
Reason for Study: Abdominal Pain
CT Abd/pelvis Angio W/wo Iv Urgent
Comment:
Reason For Exam: Severe upper abdominal pain. History of A-fib
Cardiac Monitoring- Treatment ONCE
EKG- Treatment ONCE
IV Insert/Care/Rem.- Treatment PRN
0.9% Sodium Chloride 500 ml [Nss] 500 ml IV BOLUS
HYDROmorphone [Dilaudid] 0.5 mg IV NOW STA
Ondansetron Injectable [Zofran] 4 mg IV NOW STA
Pulse Ox/cont/shift [RESP] Stat
Quantity: 1
US Abdomen Limited Urgent
Comment:
Reason For Exam: Upper abdominal pain
06/16/24 14:21
Complete Blood Count/With Diff Urgent
Comprehensive Metabolic Panel Urgent
Lactic Acid Urgent
Lipase Urgent
PT/INR [Prothrombin Time] Urgent
PTT Urgent
Troponin I Urgent
06/16/24 17:15
Heparin 6,200 units IV NOW STA
Heparin 56100 Units/250 ml 25,000 units in 250 ml IV PER PROTOCOL
Weight to be used for heparin protocol in kilograms (kg):: 78
Protocol:: Vascular Surgery
PTT Goal Range to be used:: PTT 73 to 111 seconds
Order type:: Initial
INITIAL Infusion Dose (UNITS/KG/hr) & then follow protocol:: 18 units/kg/hr
Infusion Dose in UNITS/hr & then follow protocol (UNITS/hr):: 1,400
INFUSION RATE in mL/hr & then follow protocol (mL/hr):: 14
PTT less than or equal to 64 seconds:: Notify Ordering Provider. obtain orders for rate increase &
possible bolus
PTT 64.1 to 72.9 seconds:: Increase rate by 100 units/hr (+ 1 mL/hr)
PTT 73 to 111 seconds:: Target Range. No change in rate.
PTT 111.1 to 130.9 seconds:: Decrease rate by 100 units/hr (- 1 mL/hr)
PTT 131 to 199.9 seconds:: HOLD for 1 hour. Then decrease rate by 200 units/hr (- 2 mL/hr)
PTT greater than or equal to 200 seconds:: STOP INFUSION. Notify Ordering provider to obtain further orders.
Lab follow-up:: Each change, PTT q6h until 2 consecutive are therapeutic. Then PTT
daily.
06/16/24 17:35
HYDROmorphone [Dilaudid] 0.5 mg .ROUTE .[facility]
06/16/24 17:37
HYDROmorphone [Dilaudid] 0.5 mg IV NOW STA
06/16/24 18:04
Lactate Level [Lactic Acid] Routine
06/16/24 18:10
Admit/Transfer Patient As Directed
Co-Sign Provider:
Level of Care: Inpatient admission
Assign to:: Telemetry
Physician / Group: [email or web address]
Diagnosis: Acute severe upper abdominal pain
Reason for Telemetry: Subacute Heart Failure
Date to Stop Telemetry: 06/18/24
Time to Stop Telemetry: 11:00
Reason for Hospitalization: Acute severe upper abdominal pain
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
HX intermittent abdominal pain episodes in the past
Expected length of stay greater than two midnights?: Yes
ELOS- Estimated Length of Stay in days: 3
I certify the patient meets the requirements for IP care: Yes
06/16/24 18:16
Code Status As Directed
Resuscitation Status: Full Code
06/17/24 00:37
Acetaminophen [Tylenol] 650 mg PO Q4HPRN PRN
Albuterol [ProAIR HFA INHALER] 2 puff INH R Q4HPRN PRN
Bisacodyl [Dulcolax] 10 mg RECTAL [id number] PRN
Docusate W/Senna [Senokot-S] 1 tablet PO BIDPRN PRN
HYDROmorphone [Dilaudid] 0.5 mg IV Q4HPRN PRN
Hyoscyamine Sulfate [Levsin] 0.125 mg PO TIDPRN PRN
Montelukast Sodium [Singulair] 10 mg PO HS
Ondansetron Injectable [Zofran] 4 mg IV Q6HPRN PRN
Oxycodone [Roxicodone] 10 mg PO Q6HPRN PRN
Polyethylene Glycol Powder [Miralax] 17 grams PO DAILYPRN PRN
06/17/24 00:37
Vascular Surgery Consult Routine
Consulting Provider: Massimo Ibarra III
Was physician already notified: Yes
Reason for consult: Acute severe upper abdominal pain ,Complete occlusion of the proximal SMA
Activity As Directed
Activity Level: With Assistance
Intake/ Output As Directed
Frequency: q1h
Call for Urine Output less than: 30 ml/hr
Vital Signs As Directed
Frequency: Per unit guidelines
Weight As Directed
Frequency: Daily
06/17/24 03:00
Atenolol [Tenormin] 50 mg PO BID
Gabapentin [Neurontin] 600 mg PO Q8
Phenobarbital [Luminal] 32.4 mg PO TID
Phenytoin [Dilantin] 100 mg PO TID
06/17/24 04:46
Basic Metabolic Panel IN AM
Complete Blood Count/No Diff IN AM
Prothrombin Time IN AM
06/17/24 06:00
Urinalysis IN AM
06/17/24 08:00
Aspirin Low Dose EC [Aspir Low (Enteric Coated)] 81 mg PO DAILY
Budesonide/Formoterol 160/4.5 [Symbicort 160/4.5 Mcg Inhaler] 2 puff INH R BID
Bumetanide [Bumex] 1 mg PO BID AT 0800,1600
Diltiazem Extended Release [Cardizem Cd] 120 mg PO DAILY
Ezetimibe [Zetia] 10 mg PO DAILY
ISOSORBIDE MONOnitrate ER [Imdur (Extended Release)] 60 mg PO DAILY
Pantoprazole [Protonix] 40 mg PO DAILY
06/18/24 11:00
DC Protocol for Telemetry ONCE
Abnormal Lab Results
06/16/24
14:21
RBC 4.05 L 10^6/uL
(4.20-5.40)
MCHC 31.7 L g/dL
(33.0-37.0)
RDW 15.0 H %
(11.5-14.5)
Absolute Neuts (auto) 7.2 H 10^3/uL
(1.4-6.5)
Absolute Lymphs (auto) 0.9 L 10^3/uL
(1.2-3.4)
Neutrophils % 81.3 H %
(42.2-75.2)
Lymphocytes % 9.7 L %
(20.5-51.1)
PT 24.0 H Sec
(11.4-14.6)
BUN 29 H mg/dl
(7-17)
Glucose 114 H mg/dl
(70-99)
Alkaline Phosphatase 212 H U/L
(38-126)
Lipase 320 H U/L
(23-300)
06/16/24 14:21
06/16/24 14:21
Vital Signs
Initial and Last Documented VS:
Initial Vital Signs
Temp Pulse Resp BP Pulse Ox
98.2 F 77 16 161/87 94
06/16/24 13:56 06/16/24 13:56 06/16/24 13:56 06/16/24 13:56 06/16/24 13:56
Last Documented Vital Signs
Temp Pulse Resp BP Pulse Ox
98.0 F 66 16 102/70 93
06/17/24 15:23 06/17/24 12:15 06/17/24 12:15 06/17/24 12:00 06/17/24 12:15
MDM/Problems Addressed
Differential Diagnosis Includes:
Patient describing progressive episodes of epigastric postprandial pain. More progressive this morning. Severe in nature at this time although clinically stable. Differential would include biliary colic/cholecystitis, gastritis or ulcer, bowel
ischemia. Workup in progress. Doubt primary cardiac issue but EKG and troponin ordered
*Pulse Oximetry
Patient hypoxic: no
*Critical Care Note
Total Time (30-74mins, 75-104mins- exclusive of procedures): 45
Data Reviewed
Review of Other/Old Records Reveals: Labs, Records, Radiology Studies and Testing
Update Note
Update Note:
Patient rechecked and remains medically stable. Symptoms have essentially resolved. Nontoxic. CT scan consistent with a superior mesenteric artery occlusion. However no signs of bowel ischemia. Lactic acid high normal. Symptom complex all
consistent with ischemia. Pain out of proportion, borderline lactic acid and CT consistent. Referred to hospitalist and vascular surgery. Awaiting callback from vascular. Will start heparin.
ED Attending Note
-
Portions of this chart may have been created with voice recognition software.� Occasional wrong word or��sound alike� substitutions may have occurred due to the inherent limitations of voice recognition software.
Discharge Plan
Departure
Patient Disposition: Admit
Date of Disposition: 06/16/24
Time of Disposition: 17:18
Presentation/result/management discussed w/ accepting MD/DO: Vascular surgery
Discharge Problem:
Superior mesenteric artery occlusion, Bowel ischemia
Interventions
Interventions:
*Risk Screen - Suicide Last Done: 06/17/24 03:19
*General Assessment Last Done: 06/16/24 13:56
*Neglect/Abuse Screening Last Done: 06/16/24 13:56
ED- Fall Risk Assessment Last Done: 06/16/24 14:09
*ED COVID-19 Vaccine History Last Done: 06/17/24 03:19
*Nursing Disposition Last Done: 06/16/24 19:27
QY-Wpvdqo-Smyohnlban Assessment Last Done: 06/16/24 14:09
Discharge Date and Time
Discharge Date/Time: 06/16/24 19:28
[2024-06-16 14:44] LABS: INR 2.14
[2024-06-16 14:53] LABS: ALT (SGPT) 22 U/L (0-35); AST (SGOT) 27 U/L (14-36); Albumin 3.9 g/dl (3.5-5.0); Alkaline Phosphatase 212 U/L (38-126); Blood Urea Nitrogen 29 mg/dl (7-17); Calcium 8.9 mg/dl (8.4-10.2); Carbon Dioxide 24 mmol/L (22-30); Chloride 103 mmol/L (98-107); Glucose 114 mg/dl (70-99); Lipase 320 U/L (23-300); Potassium 4.5 mmol/L (3.5-5.1); Sodium 140 mmol/L (135-145); Total Bilirubin 0.2 mg/dl (0.2-1.3); Total Protein 7.2 g/dl (6.3-8.2); eGFR > 60.00
[2024-06-16 15:03] LABS: Troponin I < 0.012 ng/ml
[2024-06-16 17:08] VITALS: BP 133/63
[2024-06-16] MEDS: HEPARIN 6200 UNITS IV (17:40)
[2024-06-16] MEDS: HEPARIN 25000 UNITS/250 ML IV (17:41)
--- NOTE | 2024-06-16 18:00 | HPS.HSE ---
Family Physician
-
Family Physician: Luis Manuel Burden
Chief Complaint
-
HPI
79F past medical history CAD s/p CABG, A-fib, CHF, DVT/PE and asthma
- Report acute severe upper abdominal pain started after eating this morning.
- HX intermittent abdominal pain episodes in the past and some nearly this severe but not quite this severe.
ROS
No radiation to the back or chest.
No shortness of breath.
No change in bowels.
No fever.
History of Present Illness
HPI
79F past medical history CAD s/p CABG, A-fib, CHF, DVT/PE and asthma
- Report acute severe upper abdominal pain started after eating this morning.
- HX intermittent abdominal pain episodes in the past and some nearly this severe but not quite this severe.
ROS
No radiation to the back or chest.
No shortness of breath.
No change in bowels.
No fever.
Medical History
Past Medical History
Past Medical History: Reports Other
Additional Past Medical History:
Dyslipidemia
Hypertension
Pulmonary embolism
Seizure
Asthma
GERD coronary artery disease
Mitral valve regurgitation
Arthritis
Paroxysmal A-fib
Solitary kidney
Chronic heart failure with preserved EF
Past Surgical History: Reports Other
Additional Past Surgical History:
Coronary artery bypass graft x 4 vessels
Right kidney nephrectomy
Cardiac stents
Right ankle surgery
Appendectomy
Hysterectomy
Exploratory nipple complex
Ankle fracture repair
Rotator cuff repair right knee replacement
Arthroplasty
Right tendon repair
Social History
Tobacco: Non-smoker
Alcohol: None
Drug: None
Personal:
Living: With Family
Family History
Family History: Not pertinent
Allergies / Home Medications
Allergies reflects when Allergies were last updated in [facility].
Home Medications with original date entered in [facility]
Allergy/Medication List:
Allergies
Allergy/AdvReac Type Severity Reaction Status Date / Time
hydroxyzine Allergy Unknown Verified 02/29/24 16:01
metronidazole [From Flagyl] Allergy Nausea / Verified 02/29/24 16:01
Vomiting
pollen extracts Allergy ENVIRONMENTAL Verified 02/29/24 16:01
ALLERGIES-NASAL
SYMPTOMS
Home Medications
montelukast 10 mg tablet 10 mg PO HS Lung/breathing issues 04/02/15
ezetimibe 10 mg tablet 10 mg PO DAILY High cholesterol 03/12/21
fluticasone furoate 200 mcg-vilanterol 25 mcg/dose inhalation powder (Breo Ellipta) 1 inh inhalation R DAILY Lung/Breathing Issues 01/13/23
isosorbide mononitrate 60 mg tablet,extended release 24 hr 60 mg PO DAILY Heart Disease/Condition 01/13/23
phenobarbital 32.4 mg tablet 32.4 mg PO TID Seizures #9 tabs 03/22/23
dexlansoprazole 60 mg capsule,biphase delayed release 60 mg PO QPM Gastrointestinal Issue 03/25/23
nitroglycerin 0.4 mg sublingual tablet 0.4 mg sublingual [id number] PRN chest pain 03/25/23
gabapentin 600 mg tablet 600 mg PO Q8H Pain 07/29/23
budesonide 0.5 mg/2 mL suspension for nebulization 0.5 mg inhalation R BID Lung/Breathing Issues 11/03/23
albuterol sulfate 90 mcg/actuation aerosol inhaler 2 puff inhalation R Q4HPRN PRN sob 11/24/23
ascorbic acid (vitamin C) 1,000 mg tablet (Vitamin C) 1,000 mg PO DAILY Supplement 11/24/23
aspirin 81 mg tablet,delayed release 81 mg PO DAILY Blood Clot Prevention/Tx 11/24/23
bumetanide 2 mg tablet 2 mg PO .SEE BELOW Fluid Retention/Swelling 11/24/23
hyoscyamine sulfate 0.125 mg tablet 0.125 mg PO TIDPRN PRN spasms 11/24/23
phenytoin sodium extended 100 mg capsule (Dilantin Extended) 100 mg PO TID Seizures 11/24/23
warfarin 2.5 mg tablet (Jantoven) 1.25 mg PO HS Blood clot prevention/tx 11/24/23
acetaminophen 500 mg tablet (Tylenol Extra Strength) 1,000 mg (2 x 500 mg) PO TID #0 tabs 12/03/23
atenolol 25 mg tablet 25 mg PO BID #0 tabs 12/03/23
hydrocortisone acetate 25 mg rectal suppository 25 mg ME BID 6 days #12 ea 12/03/23
lactase 3,000 unit tablet (Dairy Relief) 3,000 unit PO AC #90 tabs 12/03/23
oxycodone 5 mg tablet 5 mg PO Q4HPRN PRN severe pain #10 tabs 12/03/23
polyethylene glycol 3350 17 gram oral powder packet (HealthyLax) 17 g PO BID #0 ea 12/03/23
prednisone 20 mg tablet 40 mg (2 x 20 mg) PO DAILY 3 days #6 tabs 12/03/23
sennosides 8.6 mg tablet (Senna Laxative) 17.2 mg (2 x 8.6 mg) PO BID #0 tabs 12/03/23
Review of Systems
-
Constitutional: Reports No Symptoms
EENT: Reports No Symptoms
Respiratory: Reports No Symptoms
Cardiac: Reports No Symptoms
Abdomen/GI: Reports See HPI and Abdominal Pain
: Reports No Symptoms
Musculoskeletal: Reports No Symptoms
Skin: Reports No Symptoms
Neurological: Reports Dizzy
Endocrine: Reports No Symptoms
Hematologic/Lymphatic: Reports No Symptoms
Psych: Reports No Symptoms
Physical Exam
Vital Signs
Vital Signs
Temp Pulse Resp BP Pulse Ox
98.2 F 75 13 133/63 96
06/16/24 13:56 06/16/24 17:08 06/16/24 17:08 06/16/24 17:08 06/16/24 15:31
Physical Exam
General: Well Developed, Well Nourished and No Apparent Distress
HEENT: NormoCephalic, Moist mucous membranes and Atraumatic
Respiratory: Clear
Cardiac: S1/S2 and Regular Rhythm; No Murmur or Rub
GI: Soft, Non Distended, Normal Bowel Sounds and Tender; No Organomegaly
Rectal: Deferred by Provider
Musculoskeletal: No Clubbing, No Cyanosis and Edema, Left Lower Extremity
Skin: No Rash
Neuro: AO x 3 and Nonfocal/grossly intact
Psych: Calm
Laboratory Results
-
06/16/24 14:21
06/16/24 14:21
Laboratory Results
PT 24.0 Sec (11.4-14.6) H 06/16/24 14:21
INR 2.14 06/16/24 14:21
APTT 35.0 Sec (23.4-35.0) 06/16/24 14:21
Lactic Acid 2.0 mmol/L (0.7-2.0) 06/16/24 14:21
Total Bilirubin 0.2 mg/dl (0.2-1.3) 06/16/24 14:21
AST 27 U/L (14-36) 06/16/24 14:21
ALT 22 U/L (0-35) 06/16/24 14:21
Alkaline Phosphatase 212 U/L (38-126) H 06/16/24 14:21
Troponin I < 0.012 ng/ml 06/16/24 14:21
Lipase 320 U/L (23-300) H 06/16/24 14:21
Data Reviewed
-
CT Scan: Report Reviewed by me
Lab Data: Labs Reviewed by me
Old Records: Reviewed
Impression/Plan
-
Data
Unremarkable CBC
Unremarkable CMP ecept elevated AKP
NEG TPNI
Lipase 320
INR 2.14
EKG
NORMAL SINUS RHYTHM
NORMAL ECG
WHEN COMPARED WITH ECG OF 10-MAY-2024 17:31,
T WAVE INVERSION NO LONGER EVIDENT IN ANTERIOR LEADS
Confirmed by MD BACILIO, SERA Topete ([id number]) on 06/16/2024 3:24:[address] AP Angio W/wo Iv
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 This may be embolic in nature. There are no CT findings of acute mesenteric ischemia, however consider correlation with lactate.
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
- Colonic diverticulosis without evidence of acute diverticulitis.
- 1.2 cm left renal hemorrhagic/proteinaceous cyst, unchanged.
US Abdomen Limited
No sonographic evidence of acute cholecystitis. The gallbladder is contracted without cholelithiasis.
No biliary ductal dilation.
Last hospitalist admission:
DATE OF ADMISSION: 05/10/2024 - DATE OF DISCHARGE: 05/12/2024
DISCHARGE DIAGNOSES:
1. Advanced primary osteoarthritis of the right shoulder, status post right reverse total shoulder arthroplasty by Dr. Davenport
Ritting on 05/10/2024.
2. Deep vein thrombosis prophylaxis with resumption of warfarin and bilateral venous compression devices.
3. Acute respiratory failure.
4. Postsurgical chest pain.
5. Hypertension with postsurgical hypotension.
ASSESSMENT & PLAN
Acute severe upper abdominal pain
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
HX intermittent abdominal pain episodes in the past
- check LA
- agree with heparin gtt and held warfarin upon admission
- f/u INR and PTT
- PRN analgesia
- vascular / Dr Ibarra : consulted by ER
HX Essential HTN: Normotensive
-Atenolol/Flomax
-Midodrine PRN
Chronic HFpEF: stable
-cont Bumex
-low sodium diet
-daily weights, I/Os
Asthma:
- stable: Not in acute exacerbation
- Continue albuterol PRN
- Continue Symbicort
Other problems:
CAD s/p CABG and Stents: cont ASA. BB
DVT/PE in 2016: Held Warfarin while on Heparing gtt
Seizure Disorder on phenytoin/phenobarbital
DVT Px: Heparin gtt
Code: Full
IP TLM
[2024-06-16 18:23] LABS: Lactic Acid 1.6 mmol/L (0.7-2.0)
--- NOTE | 2024-06-16 19:35 | W.SUR.PREOP ---
Pre-Operative Surgical Note
-
I have examined this patient prior to the performance of the scheduled procedure.
The patient's condition is unchanged from the time of the current History and
Physical and the patient is able to undergo the scheduled procedure.
--- NOTE | 2024-06-16 19:40 | CON.VAS ---
Consultation
Consultation Request
Date/Time Consultation Requested: 06/16/24
Date/Time Consultation Performed: 06/16/24
Requesting Provider: Chris
Performing Provider: Stacey
Reason for Consultation: Mesenteric ischemia
Medical History
-
Chief Complaint: Abd pain
History of Present Illness:
79 yo female
Afib, on Coumadin (Simón)
INR not stabilized recently by her report
Several weeks of post prandial abd pain
Severe pain today and came to ED. Resolved in ED but now back
CT shows SMA occlusion proximally
Past Medical History
Past Medical History: Arrhythmias, CAD, HTN and Hypercholesterolemia
Past Surgical History: Cardiac
Social History
Tobacco: Non-Smoker
Allergies / Home Medications
Allergy/AdvReac Type Severity Reaction Status Date / Time
metronidazole [From Flagyl] Allergy Nausea / Verified 06/16/24 13:55
Vomiting
pollen extracts Allergy ENVIRONMENTAL Verified 06/16/24 13:55
ALLERGIES-NASAL
SYMPTOMS
�Medication �Instructions �Recorded �Confirmed �Type
montelukast 10 mg tablet 10 mg PO HS Lung/breathing issues 04/02/15 06/16/24 History
ezetimibe 10 mg tablet 10 mg PO DAILY High cholesterol 03/12/21 06/16/24 History
fluticasone furoate 200 1 inh inhalation R DAILY 01/13/23 06/16/24 History
mcg-vilanterol 25 mcg/dose Lung/Breathing Issues
inhalation powder (Breo Ellipta)
phenobarbital 32.4 mg tablet 32.4 mg PO TID Seizures #9 tabs 03/22/23 06/16/24 Rx
dexlansoprazole 60 mg 60 mg PO DAILY Gastrointestinal 03/25/23 06/16/24 History
capsule,biphase delayed release Issue
albuterol sulfate 90 mcg/actuation 2 puff inhalation R Q4HPRN PRN sob 11/24/23 06/16/24 History
aerosol inhaler
aspirin 81 mg tablet,delayed 81 mg PO DAILY Blood Clot 11/24/23 06/16/24 History
release Prevention/Tx
hyoscyamine sulfate 0.125 mg tablet 0.125 mg PO TIDPRN PRN spasms 11/24/23 06/16/24 History
phenytoin sodium extended 100 mg 100 mg PO TID Seizures 11/24/23 06/16/24 History
capsule (Dilantin Extended)
warfarin 2.5 mg tablet (Jantoven) 1.25 mg PO SUMOTUSA Blood clot 11/24/23 06/16/24 History
prevention/tx
Lactobac no.2-Bifidobac no.1-S. 1 cap PO DAILY Supplement 02/29/24 06/16/24 History
thermo 112.5 billion cell capsule
(Visbiome)
cholecalciferol (vitamin D3) 25 25 mcg PO DAILY Supplement 02/29/24 06/16/24 History
mcg (1,000 unit) tablet (Vitamin
D3)
warfarin 2.5 mg tablet 2.5 mg PO WETHFR Blood Clot 02/29/24 06/16/24 History
Prevention/Tx
inclisiran 284 mg/1.5 mL 284 mg SC [id number] High Cholesterol 05/04/24 06/16/24 History
subcutaneous syringe (Leqvio)
atenolol 50 mg tablet 50 mg PO BID Blood Pressure #0 tabs 05/12/24 06/16/24 Rx
bumetanide 2 mg tablet 1 mg (1/2 x 2 mg) PO BID AT 05/12/24 06/16/24 Rx
0800,1600 #30 tabs
gabapentin 600 mg tablet 600 mg PO Q8H neuropathic pain #0 05/12/24 06/16/24 Rx
tabs
isosorbide mononitrate 60 mg 60 mg PO DAILY Heart 05/12/24 06/16/24 Rx
tablet,extended release 24 hr Disease/Condition #0 tabs
diltiazem HCl 120 mg 120 mg PO DAILY 06/16/24 06/16/24 History
capsule,extended release 24 hr
oxycodone 5 mg tablet 5 - 10 mg PO Q6HPRN PRN moderate 06/16/24 06/16/24 History
pain
Review of Systems
-
History Source: Patient
Constitutional: Reports No Symptoms
EENT: Reports No Symptoms
Respiratory: Reports No Symptoms
Cardiac: Reports No Symptoms
Abdomen/GI: Reports Abdominal Pain
Musculoskeletal: Reports No Symptoms
Skin: Reports No Symptoms
Physical Exam
Vital Signs
Temp Pulse Resp BP Pulse Ox
98.2 F 79 19 133/63 98
06/16/24 13:56 06/16/24 19:15 06/16/24 19:15 06/16/24 17:08 06/16/24 19:15
Lab Results
06/16/24 14:21
06/16/24 14:21
Troponin I < 0.012 ng/ml 06/16/24 14:21
Physical Exam
General: Well Developed, Well Nourished and No Apparent Distress
HEENT: Normocephalic
Respiratory: Non Labored Respirations
Cardiac: Irregular Rhythm
GI: Soft, Non Tender and Other (obese)
Skin: Warm
Neuro: Awake and AO x 3
Assessment / Plan
-
She likely has a component of more chronic mesenteric ischemia with an acute component responsible for her presentation today. He has a focal occlusion of the proximal superior mesenteric artery. There is some calcified plaque at the origin of the
vessel. Given her postprandial abdominal pain, severe episodic abdominal pain today and radiographic findings I am recommending that we proceed to the operating room for intervention. I will plan to approach this from the left brachial artery and
perform aspiration thrombectomy on the superior mesenteric artery occlusion. She may also need balloon angioplasty and stenting of the superior mesenteric artery. The technical aspects of this procedure were discussed with her in detail. The
benefits and rationale for this approach were discussed with her in detail. Operative risks were discussed with her in detail including but not limited to bleeding, stroke, , nerve injury, distal embolization.
I also discussed the possibility that we may need to convert to an open procedure which would involve exploratory laparotomy, possible open SMA embolectomy, possible retrograde balloon angioplasty and stenting of the superior mesenteric artery and
possible mesenteric bypass. We also discussed the possibility of needing additional surgery and potentially bowel resection.
She expressed a clear understanding of our conversation and agreed to proceed with surgery as detailed above. We will plan to go to the operating room shortly.
Massimo Ibarra III, MD
[facility] Vascular Surgery
[phone] (gxaq)
Data Reviewed
-
CT Scan: Image Personally Visualized and interpreted, Report Reviewed by me, Discussed with Physician, Discussed with Patient and Discussed with Family
Labs: Labs Reviewed by me
[2024-06-16 20:39] LABS: ACT-LR - POC 295 Seconds (116-155)
[2024-06-17] VITALS (26 sets, daily range): BP systolic 96–148; BP diastolic 43–112
--- NOTE | 2024-06-17 00:53 | OR.RPT ---
Operative Report
Operative Report
Date of Operation: 06/17/2024
Pre Op Diagnosis: Acute on chronic mesenteric ischemia
Post Op Diagnosis: Acute on chronic mesenteric ischemia
Procedure:
1.) Exploratory laparotomy
2.) Retrograde balloon angioplasty and stenting of the superior mesenteric artery (7 mm x 39 mm [place] VBX stent)
3.) Cutdown and exposure of left brachial artery for attempted endovascular intervention
4.) Diagnostic aortogram
5.) Selective catheterization of superior mesenteric artery from left brachial approach
Surgeon: Massimo Ibarra III, MD
Profiling Machine Operator: Tony Chaudhry MD PhD, PGY2
Anesthesia: General
Complications: None
Estimated Blood Loss: 100 cc
History and Indications for Procedure: 79-year-old female with recent history of postprandial abdominal pain for several weeks, if not longer, who presented with acute exacerbation of abdominal pain. CT angiogram demonstrated occlusion of the
proximal superior mesenteric artery.
Procedure in Detail: Josefina Cruz was correctly identified and placed supine on the operating table. Her left arm was abducted 90 degrees on an armboard. After adequate induction of anesthesia her left arm was circumferentially prepped and draped
in the usual sterile fashion. Preoperative antibiotics were administered. A timeout procedure was performed at the nursing and anesthesia staff confirming the patient's identity as well as the nature and laterality of the procedure.
We made an incision over the brachial pulse just proximal to the antecubital fossa. Using a combination of electrocautery and sharp dissection we exposed the brachial artery. Proximal and distal control was obtained with vessel loops. The patient
had been anticoagulated in the emergency room and we confirmed a therapeutic ACT. The brachial artery was then punctured under direct visualization with a micropuncture needle. We upsized to a 5 Afghan sheath over a Bentson wire. Using a Rodríguez
catheter and the Bentson wire we navigated retrograde through the subclavian artery and into the descending thoracic aorta. The wire was advanced to the abdominal aorta. A pigtail flush catheter was positioned at approximately L1 and an aortogram
was performed.
The aortogram demonstrated a patent abdominal aorta. The celiac artery was widely patent. There is a short stump of patent superior mesenteric artery but occluded shortly thereafter. Distal reconstitution of the superior mesenteric artery was
identified via collaterals.
Over a Storq wire I brought into position a 7 Afghan 90 cm sheath. The radiopaque tip was brought to the level of the superior mesenteric artery. We then attempted to access the superior mesenteric artery using a Rodríguez catheter and Glidewire under
roadmap guidance. We could not advance the Glidewire or catheter beyond the short patent stump. I tried with a stiff Glidewire as well with no success. We then tried an array of 0.014 wires and 0.018 wires without success. I then exchanged out
for a egg crater catheter and was able to engage the superior mesenteric artery stump with better purchase using this catheter.I brought the 7Fr sheath into the SMA origin that was patent for additional support. Unfortunately I was unable to
advance any of the above wires across the superior mesenteric artery occlusion. With the 7 Afghan sheath and egg crater catheter at the origin of the superior mesenteric artery I advanced a CXI microcatheter through the egg crater catheter and
advanced it to the point of SMA occlusion. With this set up I then attempted to advance several 0.014 wires across the SMA occlusion but was unsuccessful. Despite multiple attempts I was unsuccessful at crossing the superior mesenteric artery
occlusion from this approach and abandoned further attempts. The wires and catheters were removed from the 7 Afghan sheath. The 7 Afghan sheath was then removed from the brachial artery. The brachial artery was repaired using interrupted 6-0
Prolene suture. The vessel loops were released. There was a strong pulse in the brachial artery proximal and distal to the repair. The patient had a palpable radial pulse at the conclusion of this portion of the case. The suture line was closely
inspected for hemostasis which was achieved. The wound was irrigated with normal saline solution and then closed in layers. A sterile dressing was applied.
I then made the decision to proceed with exploratory laparotomy and an attempt at retrograde stenting of the SMA. The previous drapes were removed. The patient's abdomen and pelvis was then prepped and draped in the usual sterile fashion. A
midline abdominal incision was made in the upper abdomen. Electrocautery was used on the subcutaneous tissue and fascia. We then entered the peritoneum sharply. I opened the midline abdominal fascia with electrocautery to gain entry to the
abdominal cavity. Gross inspection of the abdomen revealed no obvious abnormality. The small bowel was healthy and pink with active peristalsis. The colon was also pink and healthy appearing.
A Calvo retractor was positioned. The transverse colon was retracted cephalad. The root of the mesentery was exposed. Sharp dissection was used to expose the superior mesenteric artery. Proximal and distal control was obtained with vessel
loops. There was no pulse in the superior mesenteric artery but a monophasic Doppler signal was present. The patient was systemically heparinized. Under direct visualization I punctured the superior mesenteric artery in a retrograde fashion with
a micropuncture needle. With the micropuncture wire and micro dilator/sheath I was able to advance this retrograde across the superior mesenteric artery occlusion and into the aorta. A De[employer] wire was then placed followed by a 6 Afghan sheath.
Diagnostic arteriograms were performed through the 6 Afghan sheath to identify the abdominal aorta, superior mesenteric artery origin and point of reconstitution of the more distal superior mesenteric artery. With this imaging I then brought into
position a 7 mm x 39 mm [place] VBX stent. This was positioned in the desired location and deployed by inflating the balloon to nominal pressure. The balloon was deflated over the wire and removed. Completion arteriogram to the 6 Afghan sheath
demonstrated an excellent technical result. The superior mesenteric artery stent was widely patent with no residual stenosis identified. Outflow through the superior mesenteric artery was identified.
The sheath and wire were removed from the superior mesenteric artery puncture site. There was brisk pulsatile bleeding coming from the arteriotomy. The vessel loops were secured. The arteriotomy was repaired with 3 interrupted 6-0 Prolene
sutures. Following the repair the vessel loops were released. The patient now had a strong pulse in the superior mesenteric artery and in the small bowel mesentery which was also confirmed by the presence of robust Doppler signals.
The superior mesenteric artery repair site was inspected closely for hemostasis which was achieved. The peritoneum overlying the SMA exposure site was closed with a running 3-0 Prolene suture. The abdomen was closed with 2 running looped PDS
sutures. The subcutaneous tissue was reapproximated with a running 3-0 Vicryl suture. Skin sole were used and sterile dressings were applied.
The patient tolerated the procedure well was taken to the recovery room in good condition.
Attestation: I was present and responsible for the entire procedure
Signed:
Massimo Ibarra III, MD
[facility] Vascular Surgery
[phone] (hzki)
--- NOTE | 2024-06-17 01:25 | W.PN.UPDATE ---
Update Note
Progress Note Update
Received update from vascular surgery. Patient status post ex lap and retrograde balloon angioplasty/stent of SMA.
Plan
discontinued heparin drip for now and decision to restart in the a.m.
continue Aspirin for now
NG tube continued to low intermittent suction
Transfer to ICU.
[2024-06-17] MEDS: DILAUDID 0.25 MG IV ×2 (01:38→22:14)
[2024-06-17] MEDS: ASPIRIN 300 MG RECTAL (02:30)
[2024-06-17] MEDS: DILAUDID 0.5 MG IV ×6 (02:30→19:02)
[2024-06-17] MEDS: SINGULAIR PO (02:38)
[2024-06-17] MEDS: NSS 1000 IV ×2 (02:58→15:37)
[2024-06-17] MEDS: LUMINAL 32.4 MG PO (02:59)
[2024-06-17] MEDS: TENORMIN 50 MG PO (02:59)
[2024-06-17] MEDS: NEURONTIN 600 MG PO (02:59)
--- NOTE | 2024-06-17 03:16 | W.PN.UPDATE ---
Update Note
Progress Note Update
9740- Updated Dr. Ibarra, vascular surgeon, patient's SBP 150s and HR 70s, recommendations received, prn hydralazine and SBP goal 120-140. If needed nicardipine gtt.
[2024-06-17] MEDS: DILANTIN ORAL SUSP 100 MG TUBE (03:58)
[2024-06-17 05:15] LABS: Hematocrit 31.8 % (37.0-47.0); Hemoglobin 10.5 g/dL (12.0-16.0); Mean Corpuscular Hgb 30.8 pg (27.0-31.0); Mean Corpuscular Volume 93.3 fL (81.0-99.0); Mean Platelet Volume 9.3 fL (7.4-10.4); Platelet Count 306 10^3/uL (130-400); Red Blood Cell Count 3.41 10^6/uL (4.20-5.40); Red Cell Dist. Width 15.1 % (11.5-14.5); White Blood Cell Count 13.7 10^3/uL (4.8-10.8)
[2024-06-17 05:19] LABS: PT 27.9 Sec (11.4-14.6)
[2024-06-17 05:41] LABS: Blood Urea Nitrogen 18 mg/dl (7-17); Calcium 8.2 mg/dl (8.4-10.2); Carbon Dioxide 21 mmol/L (22-30); Chloride 108 mmol/L (98-107); Estimated Creatinine Clearance 65 ml/min; Glucose 153 mg/dl (70-99); Magnesium 2.4 mg/dl (1.6-2.3); Phosphorus 3.3 mg/dl (2.5-4.5); Potassium 4.5 mmol/L (3.5-5.1); Sodium 143 mmol/L (135-145); eGFR > 60.00
--- NOTE | 2024-06-17 07:00 | PTCARENOTE ---
Received patient from third shift lieutenant. patient is AAOx3, anxious, able to move all extremities. Has chronic numbness and tingling in hands and feet. patient is on room air saturating 97%. lungs clear. Patient is sinus rhythm in 60s on monitor.
right radial darren correlating, will ask to discontinue. Patient is NPO, has NG tube to low intermittent suction, has murdock catheter for accurate I&O. Patient has large midline incision, has drainage outlined. Patient is to be strict NPO,
verified with vascular HOSPITAL EDUCATOR. NG tube to stay in today for strict bowel rest. patient continues to have pain 8:10. changes to medications to be ordered.
--- NOTE | 2024-06-17 07:10 | CON.INTV ---
Consultation
Consultation Request
Date/Time Consultation Requested: 06/17/2024-7 AM
Date/Time Consultation Performed: 06/17/2024-7:30 AM
Requesting Provider: Hospitalist
Performing Provider: Dr. Haque
Reason for Consultation: Postop critical care management
Medical History
-
Chief Complaint: Abdominal pain
History of Present Illness:
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
laparotomy, retrograde balloon angioplasty and stenting of the superior mesenteric artery by Dr. Ibarra-logistics system engineer consulted for postoperative critical care management 06/17/2024. The patient is off ventilator, no complaints of shortness of breath
at rest, no chest pain, has some mild abdominal pain but no nausea, vomiting, or focal weakness.
Past Medical History
Past Medical History: None (Hypertension. Hyperlipidemia. DVT/PE. Asthma. GERD. Seizure. CAD/stents/CABG. Mitral regurgitation. PAF. Solitary kidney. CHF preserved EF. Right nephrectomy. Appendectomy. Hysterectomy. Ankle fracture.
Rotator cuff. Right knee replacement. Right tendon repair.)
Social History
Tobacco: Non-smoker
Alcohol: None
Drug: None
Personal:
Living: With Family
Occupational Exposures: No known asbestos exposure
Environmental Exposures: No known tuberculosis exposure
Family History
Family History: Reviewed & Not Pertinent
Allergies / Home Medications
Allergies
Allergy/AdvReac Type Severity Reaction Status Date / Time
metronidazole [From Flagyl] Allergy Nausea / Verified 06/16/24 13:55
Vomiting
pollen extracts Allergy ENVIRONMENTAL Verified 06/16/24 13:55
ALLERGIES-NASAL
SYMPTOMS
Home Medications
�Medication �Instructions �Recorded �Confirmed �Last Taken �Type
montelukast 10 mg tablet 10 mg PO HS Lung/breathing issues 04/02/15 06/16/24 06/15/24 History
ezetimibe 10 mg tablet 10 mg PO DAILY High cholesterol 03/12/21 06/16/24 06/16/24 History
fluticasone furoate 200 1 inh inhalation R DAILY 01/13/23 06/16/24 06/16/24 History
mcg-vilanterol 25 mcg/dose Lung/Breathing Issues
inhalation powder (Breo Ellipta)
phenobarbital 32.4 mg tablet 32.4 mg PO TID Seizures #9 tabs 03/22/23 06/16/24 06/16/24 Rx
dexlansoprazole 60 mg 60 mg PO DAILY Gastrointestinal 03/25/23 06/16/24 06/16/24 History
capsule,biphase delayed release Issue
albuterol sulfate 90 mcg/actuation 2 puff inhalation R Q4HPRN PRN sob 11/24/23 06/16/24 11/23/23 History
aerosol inhaler
aspirin 81 mg tablet,delayed 81 mg PO DAILY Blood Clot 11/24/23 06/16/24 06/16/24 History
release Prevention/Tx
hyoscyamine sulfate 0.125 mg tablet 0.125 mg PO TIDPRN PRN spasms 11/24/23 06/16/24 11/24/23 History
phenytoin sodium extended 100 mg 100 mg PO TID Seizures 11/24/23 06/16/24 06/16/24 History
capsule (Dilantin Extended)
warfarin 2.5 mg tablet (Jantoven) 1.25 mg PO SUMOTUSA Blood clot 11/24/23 06/16/24 06/13/24 History
prevention/tx
Lactobac no.2-Bifidobac no.1-S. 1 cap PO DAILY Supplement 02/29/24 06/16/24 06/16/24 History
thermo 112.5 billion cell capsule
(Visbiome)
cholecalciferol (vitamin D3) 25 25 mcg PO DAILY Supplement 02/29/24 06/16/24 06/16/24 History
mcg (1,000 unit) tablet (Vitamin
D3)
warfarin 2.5 mg tablet 2.5 mg PO WETHFR Blood Clot 02/29/24 06/16/24 06/15/24 History
Prevention/Tx
inclisiran 284 mg/1.5 mL 284 mg SC [id number] High Cholesterol 05/04/24 06/16/24 04/21/24 History
subcutaneous syringe (Leqvio)
atenolol 50 mg tablet 50 mg PO BID Blood Pressure #0 tabs 05/12/24 06/16/24 06/16/24 Rx
bumetanide 2 mg tablet 1 mg (1/2 x 2 mg) PO BID AT 05/12/24 06/16/24 06/16/24 Rx
0800,1600 #30 tabs
gabapentin 600 mg tablet 600 mg PO Q8H neuropathic pain #0 05/12/24 06/16/24 06/16/24 Rx
tabs
isosorbide mononitrate 60 mg 60 mg PO DAILY Heart 05/12/24 06/16/24 06/16/24 Rx
tablet,extended release 24 hr Disease/Condition #0 tabs
diltiazem HCl 120 mg 120 mg PO DAILY 06/16/24 06/16/24 06/16/24 History
capsule,extended release 24 hr
oxycodone 5 mg tablet 5 - 10 mg PO Q6HPRN PRN moderate 06/16/24 06/16/24 Unknown History
pain
Review of Systems
-
Unable to Obtain full review of systems at this time due to: Other (Per HPI)
Vitals / Labs / Diagnostic Testing
Vital Signs
Temp Pulse Resp BP Pulse Ox
98.5 F 71 14 155/68 98
06/17/24 03:21 06/17/24 02:59 06/17/24 01:45 06/17/24 02:59 06/17/24 03:33
Lab Data
06/17/24 04:46
06/17/24 04:46
Laboratory Results
06/16/24 06/17/24 06/17/24
14:21 02:00 04:46
PT 24.0 H 27.9 H
INR 2.14 2.60
APTT 35.0 Cancelled
Diagnostic Testing:
Physical Exam
-
Exam:
Well-nourished and well-developed in no apparent distress
HEENT-atraumatic, normocephalic
Neck-supple, no JVD, no bruit
Heart-regular rate and rhythm-no murmurs, rubs or gallops
Chest-clear to auscultation, no wheezes, crackles
Back-no tenderness
Abdomen-soft, nontender, nondistended, no hepatosplenomegaly
Extremities-no cyanosis, clubbing, edema and good peripheral pulses
Integument-intact, no rashes, lesions or ecchymosis
Neurology-alert and oriented, nonfocal motor and sensory exam
Assessment
-
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
laparotomy, retrograde balloon angioplasty and stenting of the superior mesenteric artery by Dr. Ibarra-logistics system engineer consulted for postoperative critical care management 06/17/2024.
Acute on top of chronic mesenteric ischemia
Status post emergent exploratory laparotomy, retrograde balloon angioplasty and stenting superior mesenteric artery-Dr. Ibarra 06/17/2024
Leukocytosis
Anemia-hemoglobin 10.5-normocytic
Hyperglycemic
Conditions present prior to admission:
Hypertension.
Hyperlipidemia.
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
Asthma-mild intermittent-Dr. Villegas-budesonide and albuterol nebulizers
GERD.
Seizure.
Postnasal drip
Obesity
MAKI suspected-she was not interested in the home polysomnogram
Former smoker-3 to 4 cigarettes daily for 5 years-quit completely 59 years old
CAD/stents/CABG.
Mitral regurgitation.
PAF.
Solitary kidney.
CHF preserved EF.
Right nephrectomy. Appendectomy. Hysterectomy. Ankle fracture. Rotator cuff. Right knee replacement. Right tendon repair.
Plan
Postoperative surgical intensive care unit monitoring
Supplemental oxygen as needed
Incentive spirometry
Aspiration precautions
Nebulizers as needed
Neuro and vascular checks per protocol
Monitor blood pressure closely
Significantly hypertensive
Hydralazine and Lopressor as needed
Nicardipine drip if needed
Vascular surgery following-correspondence and operative notes reviewed
Continue nasogastric tube-high risk for ileus
Can give antiepileptics and Coumadin via nasogastric tube
Follow INR-reinitiate Coumadin this evening, recheck INR in the a.m. and provide heparin drip if less than 2
Continue rectal aspirin but nasogastric tube in place
Arterial line can be discontinued
Monitor hemoglobin
Transfuse as needed
Monitor blood sugar
Insulin supplementation as needed
DVT prophylaxis
Early nutrition
Early mobilization
Last seen by Dr. Villegas 08/26/2023 and no showed 10/15/2023 and canceled 11/30/2023-would recommend follow-up with Dr. Villegas
Critical care statement: A total of 55 minutes of critical care time was provided for this patient today. This includes management of unstable vital signs, evaluation of the patient at bedside, reviewing the patient's pertinent medical records
including radiographs, microbiology, laboratory evaluations, and discussion with primary team, consultants, pharmacy, nutrition, physical therapy, case management, charge nurse, critical care nursing, and respiratory therapy.
Diagnostic data:
Chest x-ray07/29/2023: Reviewed, showed pulmonary vascular congestion.�������������
Chest x-ray03/26/2023: �showed no acute pulmonary process.�������
Chest x-ray 06/17/2024-NAD, NG tube could be advanced 5 to 8 cm for optimal positioning
CT chest 05/11/2024-no central pulmonary emboli, right lower lobe consolidation
CT Abd/pelvis 01/14/22: subsegmental atelectasis in the bilateral lung bases.����
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
hemorrhagic/proteinaceous cyst unchanged�����������
CT angio 10/03/20: NAD. mild pleural and subpleural interstitial scarring in the lower lateral aspect of the left upper lobe as well as mild linear paraspinal interstitial scarring at the medial right lung base.���������-��������
Lower extremity Dopplers 01/05/2016: No evidence of DVT on the right lower extremity. Left behind the knee and Deep venous thrombosis.����������������
CT chest 06/2016: no acute pulmonary embolism. No pleural parenchymal abnormalities.����������������
CT angiogram of the chest 12/18/2015 showed multiple segmental pulmonary emboli on the right lung. Small hiatal hernia. Fatty liver. Coronary artery calcifications. Stable bibasilar lung scarring. ,��������
CT Abd/pelvis 01/14/22: subsegmental atelectasis in the bilateral lung bases.�������������
CT angio 10/03/20: NAD. mild pleural and subpleural interstitial scarring in the lower lateral aspect of the left upper lobe as well as mild linear paraspinal interstitial scarring at the medial right lung base.���������-��������
Lower extremity Dopplers 01/05/2016: No evidence of DVT on the right lower extremity. Left behind the knee and Deep venous thrombosis.����������������
CT chest 06/2016: no acute pulmonary embolism. No pleural parenchymal abnormalities.����������������
CT angiogram of the chest 12/18/2015 showed multiple segmental pulmonary emboli on the right lung. Small hiatal hernia. Fatty liver. Coronary artery calcifications. Stable bibasilar lung scarring..
Echocardiogram 12/11/2018:demonstrated normal LVEF. No significant valvular abnormalities. No significant pulmonary hypertension.����������������
Echocardiogram 12/18/2015: Demonstrated normal left ventricular ejection fraction. 64%. Normal RV function and size. Pulmonary artery pressure 31-36. No change compared to 2010. , -��������
Echocardiogram 12/11/2018:demonstrated normal LVEF. No significant valvular abnormalities. No significant pulmonary hypertension
PFT 11/21/2018: demonstrated FEV1 /FVC 67%, FEV1 1.83 L-79%, FVC 2.72 L-88%, TLC 3.89 L-74%, DLCO 9.02-41%, DLCO/VA 2.34-56%. Mild airflow obstruction with mild restriction and moderate gas to change abnormality unchanged compared to 10/27/2017.
Data Reviewed
-
PFT: Report reviewed by me
Radiology: Image personally visualized and interpreted and Report reviewed by me
CT Scan: Image personally visualized and interpreted and Report reviewed by me
Medical Tests (Nuc Med, Echo etc): Report reviewed by me
Labs: Labs reviewed by me
Old Records: Reviewed
Critical Care Time (in minutes): 55
[2024-06-17] MEDS: BUMEX PO (07:15)
[2024-06-17] MEDS: DILANTIN ORAL SUSP TUBE (07:15)
[2024-06-17] MEDS: PROTONIX PO (07:15)
[2024-06-17] MEDS: LUMINAL PO (07:15)
[2024-06-17] MEDS: ZETIA PO (07:15)
[2024-06-17] MEDS: NEURONTIN PO (07:15)
[2024-06-17] MEDS: SYMBICORT 160/4.5 MCG INHALER 2 PUFF INH ×2 (07:15→19:38)
--- NOTE | 2024-06-17 07:21 | PTCARENOTE ---
79 y/o female, arrived, hx asthma, CAD, CA, CHF, HTN, seizure, L Nephrectomy, afib, CABG x4,
arrived post op (minimal OR blood loss) , s/p SMA surgery with stent. arrived lethrgic, midline incision to abdomen with aquacel, drsg to L uppere arm, 16f murdock, IV, output 90 ml, confused at tmes, alert to name/. pain meds given for /
with effective results.
iv fluids started at 80cc/hr. murdock patent for clear yellow urine, midline incision has larger blood loss area, photo sent to vascular, they will be by to change dressing and assess
[2024-06-17] MEDS: TENORMIN PO (07:23)
--- NOTE | 2024-06-17 07:46 | PTCARENOTE ---
can not verify accuracy of prior vital signs, not captured by prior shift.
--- NOTE | 2024-06-17 08:07 | W.PN.VS ---
Addendum entered and electronically signed by Massimo Ibarra III, MD 06/17/24 08:59:
This patient was seen and examined with BHAVANI Guy. I agree with the history and physical exam as well as the assessment and plan.
Signed:
Massimo Ibarra III, MD
[facility]
[phone] (dibr)
Original Note:
Today's Communication / Plan
-
Patient seen and examined at bedside with Dr. Massimo Ibarra, below plan reviewed with attending.
Assessment/Plan
-
Assessment: 79-year-old female
POD #1 1.) Exploratory laparotomy
2.) Retrograde balloon angioplasty and stenting of the superior mesenteric artery (7 mm x 39 mm [place] VBX stent)
3.) Cutdown and exposure of left brachial artery for attempted endovascular intervention
4.) Diagnostic aortogram
5.) Selective catheterization of superior mesenteric artery from left brachial approach
Plan:
Continue NG tube today, high risk for ileus development
Would advise only giving antiepileptic medication and Coumadin via NG tube to clamp, all other medications should be provided IV or rectally as needed
INR today 2.6, okay from a vascular surgery standpoint to reinitiate Coumadin via NG tube this evening. Would recheck INR tomorrow a.m. and if less than 2 can provide heparin infusion for continued bridge till therapeutic again on her p.o. Coumadin
Continue rectal aspirin while NG tube in place
Continue strict I and O
Continue Ibarra catheter given n.p.o. status, for strict I and O management
Discontinue arterial line
Can get out of bed to chair today with progression to ambulation as tolerated
Subjective Data
-
Date of Service: June 17, 2024
Patient seen and examined at bedside, reports adequate postoperative pain management. Endorses mild abdominal pain at surgical incision. Denies nausea, vomiting, fever, and chills.
Objective Data
-
Vital Signs
Temp Pulse Resp BP Pulse Ox
98.5 F 69 16 115/59 98
06/17/24 03:21 06/17/24 07:45 06/17/24 07:45 06/17/24 07:18 06/17/24 08:03
Intake and Output
06/16/24 06/17/24 06/18/24
06:59 06:59 06:59
Intake Total 100 / 100
Output Total 885 / 885
Balance -785 / -785
Intake:
IV fluids (Total) 100 / 100
normosol 100 / 100
Output:
Urine, Ibarra 835 / 835
Urine, Voided 50 / 50
Lab Results
06/17/24 04:46
06/17/24 04:46
Calcium 8.2 mg/dl (8.4-10.2) L 06/17/24 04:46
Phosphorus 3.3 mg/dl (2.5-4.5) 06/17/24 04:46
Magnesium 2.4 mg/dl (1.6-2.3) H 06/17/24 04:46
Total Bilirubin 0.2 mg/dl (0.2-1.3) 06/16/24 14:21
AST 27 U/L (14-36) 06/16/24 14:21
ALT 22 U/L (0-35) 06/16/24 14:21
Alkaline Phosphatase 212 U/L (38-126) H 06/16/24 14:21
Total Protein 7.2 g/dl (6.3-8.2) 06/16/24 14:21
Albumin 3.9 g/dl (3.5-5.0) 06/16/24 14:21
Physical Exam
-
Awake alert and oriented, no apparent distress
No tachycardia
No dyspnea on room air
ABD rotund, nondistended, tender at midline incision. Midline dressing dry and intact.
Ibarra draining clear yellow urine
--- NOTE | 2024-06-17 08:13 | W.PN.HOSP.TC ---
Today's Communication/Plan
-
see bold
Assessment / Plan
Assessment / Plan
HPI: 79-year-old female with a history of CAD/CABG, atrial fibrillation, CHF, DVT and PE as well as asthma presented with severe upper abdominal pain found to have occlusion of proximal superior mesenteric artery and underwent emergent exploratory
laparotomy, retrograde balloon angioplasty and stenting of the superior mesenteric artery by Dr. Ibarra
Acute severe upper abdominal pain
Complete occlusion of the proximal SMA with distal reconstitution
-Appreciate vascular surgery input, status post ex lap, angioplasty and stenting of the SMA 06/17
-Continue NG tube, minimize medications through NG tube, okay for Coumadin
-Continue rectal aspirin while NG tube in place, Ibarra catheter, n.p.o., IV fluids, PT/OT, pain control
Acute blood loss anemia from surgery superimposed on anemia of chronic disease
-Trend hemoglobin
Paroxysmal atrial fibrillation
History of DVT/PE
-INR therapeutic, resume Coumadin through NGT tonight
-Holding atenolol, diltiazem
-IV beta-jelani as needed
CAD s/p prior CABG and PCI and coronary stent
-Continue rectal aspirin
-Holding Imdur, Zetia
Seizure disorder
-Continue home phenytoin/phenobarbital - changed to IV
Chronic HFpEF
-Holding Bumex, trend weights
GERD
-Continue PPI IV
Asthma
- Continue albuterol PRN
- Continue Symbicort
DVT prophylaxis�INR therapeutic on Coumadin
Full code
Total time spent to see the patient on the floor, examine the patient, review data and lab results, discuss treatment plan with patient, nursing staff around 51 minutes.
Physical Exam
General: No acute distress
HEENT: Normocephalic, Atraumatic, EOMI, MMM
Respiratory: Clear to Auscultation bilaterally
Cardiac: Normal S1/S2, Regular Rate and Rhythm
GI: Soft, tender, incision dressed
Extremities: No Clubbing, Cyanosis, or Edema
Neuro: Nonfocal/Grossly Intact
Anticipated Discharge: > 48 hours
Subjective/Interval History
-
Date of Service: June 17, 2024
Patient complains of severe abdominal pain, no chest pain, no nausea, no shortness of breath. She does complain of throat pain. No fever.
Objective Data
-
Labs:
Laboratory Results
06/17/24 06/17/24
02:00 04:46
WBC 13.7 H
Hgb 10.5 L
Hct 31.8 L
Plt Count 306
PT 27.9 H
INR 2.60
APTT Cancelled
Sodium 143
Potassium 4.5
Chloride 108 H
Carbon Dioxide 21 L
BUN 18 H
Creatinine 0.7
Glucose 153 H
Calcium 8.2 L
Vital Signs:
Vital Signs
Temp Pulse Resp BP Pulse Ox
97.9 F 69 16 115/59 97
06/17/24 08:09 06/17/24 07:45 06/17/24 07:45 06/17/24 07:18 06/17/24 08:09
I&O
06/16/24 06/17/24 06/18/24
06:59 06:59 06:59
Intake Total 100 / 180 160 / 160
Output Total 885 / 915 60 / 60
Balance -785 / -735 100 / 100
[2024-06-17] MEDS: OFIRMEV 100 IV ×3 (09:26→20:09)
--- NOTE | 2024-06-17 09:30 | PTCARENOTE ---
IVF changed to 100ml/hr. Also after dilaudid administration patient fell asleep and desaturated into low 80s, applied oxygen via nasal cannula.
--- NOTE | 2024-06-17 11:18 | PTCARENOTE ---
encouraged patient to get OOB and sit in chair, patient states she is feeling shakey and that pain is still not under control. went over patient's pain medicine regimen. reinforced plan of care.
[2024-06-17] MEDS: DILANTIN 100 MG IV ×2 (11:31→19:02)
[2024-06-17 11:49] LABS: Glucose - Point of Care 125 mg/dl (70-99)
--- NOTE | 2024-06-17 13:30 | PTCARENOTE ---
Addendum entered by Gabriela León RN 06/17/24 18:05:
correction, patient received 500cc bolus
Original Note:
Spoke with Dr. Ibarra regarding patient's soft BP and need for PT OT order. Patient got 400cc bolus of LR and rechecked hemoglobin. Hemoglopin 9.1. and will recheck hemoglobin in 6 hours.
[2024-06-17 14:11] LABS: Hematocrit 27.3 % (37.0-47.0); Hemoglobin 8.9 g/dL (12.0-16.0)
[2024-06-17] MEDS: LR 500 IV (14:23)
[2024-06-17 14:37] LABS: Hematocrit 28.6 % (37.0-47.0); Hemoglobin 9.1 g/dL (12.0-16.0)
[2024-06-17] MEDS: PROTONIX IV 40 MG IV (15:38)
[2024-06-17] MEDS: NSS (PRESERVATIVE FREE) 10 ML IV (15:38)
[2024-06-17] MEDS: PHENOBARBITAL 32.5 MG IV ×2 (15:43→22:14)
--- NOTE | 2024-06-17 15:46 | CM ---
Patient seen at bedside with patient present. Patient states that she lives with her in a 4 story home with bathrooms on all the floors. Patient plan is to remain on the first floor. Patient confirmed 2 steps to enter. Patient has a
walker, and a cane at home patient states that she has had [facility] in the past but no t currently. Patient PCP is Dr. Burden and she uses the [facility] in [place] on . Patient indicated that she really would like to have a VN when she is
discharged. Therapy would be helpful to confirm level of care needs at discharge. CM will continue to follow for discharge planning needs.
Plan; home with VN; watch for further needs.
--- NOTE | 2024-06-17 16:00 | PTCARENOTE ---
Addendum entered by Gabriela León RN 06/17/24 18:08:
Will also hold tonight's dose of coumadin per Dr. Stacey johnson text.
Original Note:
No change in patient's assessment. have provided mouth care and repositioned patient as patient remains NPO. Patient did not get OOB today, pressures were soft and patient stated she felt 'shaky'. Awaiting H&H at 1999.
[2024-06-17 17:48] LABS: Glucose - Point of Care 91 mg/dl (70-99)
[2024-06-17 20:23] LABS: Hematocrit 26.9 % (37.0-47.0); Hemoglobin 8.7 g/dL (12.0-16.0)
--- NOTE | 2024-06-17 20:39 | PTCARENOTE ---
dr murdock updated via TT - Hgb 8.7, VS, and UOP. pt given PRN pain meds for severe abdominal pain. assessment as documented. SR on monitor. on 2L NC. NPO, NGT to LIS. ARCHANA wipes provided. call aponte within reach.
[2024-06-18] VITALS (37 sets, daily range): BP systolic 86–158; BP diastolic 19–98; BMI 30.3
--- NOTE | 2024-06-18 | PTCARENOTE ---
Pt. assessment unchanged. PRN medication administered for complaints of pain, see MAR. Vital signs stable at this time.
[2024-06-18] MEDS: NSS 1000 IV (02:27)
[2024-06-18] MEDS: DILANTIN 100 MG IV ×3 (03:12→21:47)
[2024-06-18] MEDS: DILAUDID 0.5 MG IV ×5 (03:12→18:34)
[2024-06-18] MEDS: OFIRMEV 100 IV (03:12)
[2024-06-18 03:49] LABS: Hematocrit 25.8 % (37.0-47.0); Hemoglobin 7.8 g/dL (12.0-16.0); Mean Corp Hgb Conc. 30.2 g/dL (33.0-37.0); Mean Corpuscular Hgb 29.7 pg (27.0-31.0); Mean Corpuscular Volume 98.1 fL (81.0-99.0); Mean Platelet Volume 9.6 fL (7.4-10.4); Platelet Count 260 10^3/uL (130-400); Red Blood Cell Count 2.63 10^6/uL (4.20-5.40); Red Cell Dist. Width 15.3 % (11.5-14.5); White Blood Cell Count 6.3 10^3/uL (4.8-10.8)
[2024-06-18 03:55] LABS: INR 2.93; PT 30.5 Sec (11.4-14.6)
[2024-06-18 03:56] LABS: APTT 56.6 Sec (23.4-35.0)
--- NOTE | 2024-06-18 04:00 | PTCARENOTE ---
Pt. assessment remains unchanged. AM labs drawn. Vital signs stable at this time.
[2024-06-18 04:10] LABS: Blood Urea Nitrogen 17 mg/dl (7-17); Calcium 8.2 mg/dl (8.4-10.2); Carbon Dioxide 24 mmol/L (22-30); Chloride 112 mmol/L (98-107); Estimated Creatinine Clearance 65 ml/min; Glucose 86 mg/dl (70-99); Sodium 146 mmol/L (135-145); eGFR > 60.00
--- NOTE | 2024-06-18 07:00 | PTCARENOTE ---
Received patient back from glove turner and former automatic. no change in prior assessment. patient remains AAOx4, tearful, anxious, crying. Patient is sinus rhythm on the monitor, on 4L nasal cannula. She remains NPO. NG tube at 55cm andres, draining brown, blood
tinged drainage, low intermittent wall suction. Patient has murdock catheter. Midline incision dressing removed. replaced with gauze and ABDs. NSS infusing into left AC. Plan to give 2 units of pRBCs
[2024-06-18] MEDS: SYMBICORT 160/4.5 MCG INHALER 2 PUFF INH ×2 (07:21→19:54)
[2024-06-18] MEDS: NSS (PRESERVATIVE FREE) 10 ML IV (07:23)
[2024-06-18] MEDS: PHENOBARBITAL 32.5 MG IV ×3 (07:23→21:48)
[2024-06-18] MEDS: PROTONIX IV 40 MG IV (07:23)
[2024-06-18] MEDS: ASPIRIN 300 MG RECTAL (07:23)
--- NOTE | 2024-06-18 07:45 | W.PN.INTV ---
Today's Communication / Plan
Recommendations
Increase activity
Hold Coumadin
Continue nasogastric tube
Transfuse
Maintain in ICU-hopefully can be transferred out in the next 24 hours
Assessment
-
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
laparotomy, retrograde balloon angioplasty and stenting of the superior mesenteric artery by Dr. Ibarra-rn nursery consulted for postoperative critical care management 06/17/2024.
Acute on top of chronic mesenteric ischemia
Status post emergent exploratory laparotomy, retrograde balloon angioplasty and stenting superior mesenteric artery-Dr. Ibarra 06/17/2024
Leukocytosis
Anemia-hemoglobin 10.5-normocytic
Hyperglycemic
Conditions present prior to admission:
Hypertension.
Hyperlipidemia.
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
Asthma-mild intermittent-Dr. Villegas-budesonide and albuterol nebulizers
GERD.
Seizure.
Postnasal drip
Obesity
MAKI suspected-she was not interested in the home polysomnogram
Former smoker-3 to 4 cigarettes daily for 5 years-quit completely 59 years old
CAD/stents/CABG.
Mitral regurgitation.
PAF.
Solitary kidney.
CHF preserved EF.
Right nephrectomy. Appendectomy. Hysterectomy. Ankle fracture. Rotator cuff. Right knee replacement. Right tendon repair.
Plan
Hemodynamically and neurovascularly intact
Supplemental oxygen as needed-attempt to wean
Incentive spirometry encouraged
Aspiration precautions
Nebulizers as needed
Neuro and vascular checks per protocol continues
Monitor blood pressure closely
Significantly hypertensive
Hydralazine and Lopressor as needed
Nicardipine drip if needed
Vascular surgery following-correspondence and operative notes reviewed-reviewed with Dr. Ibarra
Continue with nasogastric tube-high risk for ileus
Can give antiepileptics and Coumadin via nasogastric tube
Follow INR-reinitiate Coumadin when INR dictates,-continues to be held for elevated INR, hold on reversal for now
Continue rectal aspirin but nasogastric tube in place
Arterial line can be discontinued
Monitor hemoglobin-transfuse 2 units
Transfuse as needed
Monitor blood sugar
Insulin supplementation as needed
DVT prophylaxis
Begin nutrition
Out of bed
Last seen by Dr. Villegas 08/26/2023 and no showed 10/15/2023 and canceled 11/30/2023-would recommend follow-up with Dr. Villegas
Critical care statement: A total of 40 minutes of critical care time was provided for this patient today. This includes management of unstable vital signs, evaluation of the patient at bedside, reviewing the patient's pertinent medical records
including radiographs, microbiology, laboratory evaluations, and discussion with primary team, consultants, pharmacy, nutrition, physical therapy, case management, charge nurse, critical care nursing, and respiratory therapy.
Diagnostic data:
Chest x-ray07/29/2023: Reviewed, showed pulmonary vascular congestion.�������������
Chest x-ray03/26/2023: �showed no acute pulmonary process.�������
Chest x-ray 06/17/2024-NAD, NG tube could be advanced 5 to 8 cm for optimal positioning
CT chest 05/11/2024-no central pulmonary emboli, right lower lobe consolidation
CT Abd/pelvis 01/14/22: subsegmental atelectasis in the bilateral lung bases.����
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
hemorrhagic/proteinaceous cyst unchanged�����������
CT angio 10/03/20: NAD. mild pleural and subpleural interstitial scarring in the lower lateral aspect of the left upper lobe as well as mild linear paraspinal interstitial scarring at the medial right lung base.���������-��������
Lower extremity Dopplers 01/05/2016: No evidence of DVT on the right lower extremity. Left behind the knee and Deep venous thrombosis.����������������
CT chest 06/2016: no acute pulmonary embolism. No pleural parenchymal abnormalities.����������������
CT angiogram of the chest 12/18/2015 showed multiple segmental pulmonary emboli on the right lung. Small hiatal hernia. Fatty liver. Coronary artery calcifications. Stable bibasilar lung scarring. ,��������
CT Abd/pelvis 01/14/22: subsegmental atelectasis in the bilateral lung bases.�������������
CT angio 10/03/20: NAD. mild pleural and subpleural interstitial scarring in the lower lateral aspect of the left upper lobe as well as mild linear paraspinal interstitial scarring at the medial right lung base.���������-��������
Lower extremity Dopplers 01/05/2016: No evidence of DVT on the right lower extremity. Left behind the knee and Deep venous thrombosis.����������������
CT chest 06/2016: no acute pulmonary embolism. No pleural parenchymal abnormalities.����������������
CT angiogram of the chest 12/18/2015 showed multiple segmental pulmonary emboli on the right lung. Small hiatal hernia. Fatty liver. Coronary artery calcifications. Stable bibasilar lung scarring..
Echocardiogram 12/11/2018:demonstrated normal LVEF. No significant valvular abnormalities. No significant pulmonary hypertension.����������������
Echocardiogram 12/18/2015: Demonstrated normal left ventricular ejection fraction. 64%. Normal RV function and size. Pulmonary artery pressure 31-36. No change compared to 2010. , -��������
Echocardiogram 12/11/2018:demonstrated normal LVEF. No significant valvular abnormalities. No significant pulmonary hypertension
PFT 11/21/2018: demonstrated FEV1 /FVC 67%, FEV1 1.83 L-79%, FVC 2.72 L-88%, TLC 3.89 L-74%, DLCO 9.02-41%, DLCO/VA 2.34-56%. Mild airflow obstruction with mild restriction and moderate gas to change abnormality unchanged compared to 10/27/2017.
Subjective Dataa
Subjective Data
Date of Service:
Date of Service: June 18, 2024
Chief Complaint: [employer] Follow Up and Pulmonary Follow Up
Subjective:
Tearful, no complaints of shortness of breath, chest pain, or abdominal pain
Review of Systems
General: Other (Per HPI)
Objective Data
Data Reviewed
Vital Signs / I&O / Oxygen:
Vital Signs
Temp Pulse Resp BP Pulse Ox
97.9 F 67 16 109/48 97
06/18/24 04:00 06/18/24 07:22 06/18/24 07:22 06/18/24 07:00 06/18/24 07:22
Intake and Output
06/17/24 06/18/24 06/19/24
06:59 06:59 06:59
Intake Total 100 / 180 2860 / 2960 100 / 100
Output Total 885 / 915 1155 / 1200 45 / 45
Balance -785 / -735 1705 / 1760 55 / 55
SaO2 97
Nasal Cannula flow liters per 2
minute
Physical Exam
General: Respiratory Distress (n) and Comfortable
HEENT: Normocephalic, Anicteric and Moist Mucous Membranes
Cardiovascular: Regular Rhythm
Respiratory: Wheeze (n), Crackles (n), Rhonchi (n), Non-Labored Respirations, Accessory Resp Muscle Use (n) and Stridor
GI: Soft and Non Distended
Neurology: Awake, Alert and No Motor Deficits
Skin: Warm, Good Color, Cyanosis (n), Jaundice (n) and Rash (n)
Labs/Micro/Reports
Lab Data
06/18/24 03:11
06/18/24 03:11
Laboratory Results
06/18/24
03:11
PT 30.5 H
INR 2.93
APTT 56.6 H
--- NOTE | 2024-06-18 08:00 | PTCARENOTE ---
2 units of pRBCs ordered per Dr. Ibarra. verified blood consent and started 1st unit of blood as charted in [facility]
--- NOTE | 2024-06-18 08:18 | W.PN.VS ---
Today's Communication / Plan
-
as above
Assessment/Plan
-
Assessment: 79-year-old female
POD #2
1.) Exploratory laparotomy
2.) Retrograde balloon angioplasty and stenting of the superior mesenteric artery (7 mm x 39 mm [place] VBX stent)
Plan:
Continue NG tube
Hold coumadin
Continue rectal aspirin
Continue strict I and O
Transfuse 2 units PRBCs and recheck Hgb post transfusion
OOB chair today
-
Total Time Spent with Patient (in minutes): 15
Subjective Data
-
Date of Service: June 18, 2024
Sitting up in bed
No acute events overnight
Hgb slow drift to 7.8 this AM
INR 2.9
SBP 90-100s. UOP acceptable
Her only complaint is that the NGT is bothering her
Objective Data
-
Vital Signs
Temp Pulse Resp BP Pulse Ox
98.7 F 65 16 98/62 98
06/18/24 08:15 06/18/24 08:07 06/18/24 08:07 06/18/24 08:07 06/18/24 08:07
Intake and Output
06/17/24 06/18/24 06/19/24
06:59 06:59 06:59
Intake Total 100 / 180 2860 / 2960 100 / 100
Output Total 885 / 915 1155 / 1200 45 / 45
Balance -785 / -735 1705 / 1760 55 / 55
Intake:
IV fluids (Total) 100 / 180 2760 / 2860 100 / 100
Nss 1,000 ml @ 100 mls/hr IV . 2260 / 2360 100 / 100
Q10H RENÉ Rx#:[id number]
bolus 500 / 500
normosol 100 / 100
IV piggybacks 100 / 100
Blood Product Amount Infused ( 0 / 0
mL)
Packed Rbc Leukoreduced Unit 0 / 0
[id number]
Output:
Gastrointestinal tube output ( 250 / 250
Total)
Antelope Sump 250 / 250
Urine, Ibarra 835 / 865 905 / 950 45 / 45
Urine, Voided 50 / 50
Lab Results
06/18/24 03:11
06/18/24 03:11
Calcium 8.2 mg/dl (8.4-10.2) L 06/18/24 03:11
Phosphorus 3.3 mg/dl (2.5-4.5) 06/17/24 04:46
Magnesium 2.4 mg/dl (1.6-2.3) H 06/17/24 04:46
Total Bilirubin 0.2 mg/dl (0.2-1.3) 06/16/24 14:21
AST 27 U/L (14-36) 06/16/24 14:21
ALT 22 U/L (0-35) 06/16/24 14:21
Alkaline Phosphatase 212 U/L (38-126) H 06/16/24 14:21
Total Protein 7.2 g/dl (6.3-8.2) 06/16/24 14:21
Albumin 3.9 g/dl (3.5-5.0) 06/16/24 14:21
Physical Exam
-
Nontoxic
Non labored breathing
Regular
Abd obese but soft
Incision clean/dry
Ext warm and without sig edema bilat
Palp left radial pulse. Left brach incision clean/dry with some ecchymosis.
--- NOTE | 2024-06-18 08:58 | W.PN.HOSP.TC ---
Today's Communication/Plan
-
see bold
Assessment / Plan
Assessment / Plan
HPI: 79-year-old female with a history of CAD/CABG, atrial fibrillation, CHF, DVT and PE as well as asthma presented with severe upper abdominal pain found to have occlusion of proximal superior mesenteric artery and underwent emergent exploratory
laparotomy, retrograde balloon angioplasty and stenting of the superior mesenteric artery by Dr. Ibarra
Acute severe upper abdominal pain
Complete occlusion of the proximal SMA with distal reconstitution
-Appreciate vascular surgery input, status post ex lap, angioplasty and stenting of the SMA 06/17
-Continue NG tube, minimize medications through NG tube
-Continue rectal aspirin while NG tube in place, Ibarra catheter, n.p.o., IV fluids, PT/OT, pain control
Acute blood loss anemia from surgery superimposed on anemia of chronic disease
-Hemoglobin 7.8 today, was 8.7 yesterday
-Hold Coumadin, transfuse 2 units of packed red blood cells today
Paroxysmal atrial fibrillation
History of DVT/PE
-INR therapeutic, hold Coumadin
-Holding atenolol, diltiazem
-IV beta-jelani as needed
Hypernatremia
-Change IV fluids to half-normal saline, trend sodium
Essential hypertension
-Holding atenolol, diltiazem
-IV hydralazine as needed
CAD s/p prior CABG and PCI and coronary stent
-Continue rectal aspirin
-Holding Imdur, Zetia
Seizure disorder
-Continue home phenytoin/phenobarbital - changed to IV
Chronic HFpEF
-Holding Bumex, trend weights
GERD
-Continue PPI IV
Asthma
- Continue albuterol PRN
- Continue Symbicort
DVT prophylaxis�INR therapeutic, holding Coumadin
Full code
Total time spent to see the patient on the floor, examine the patient, review data and lab results, discuss treatment plan with patient, nursing staff around 50 minutes.
Physical Exam
General: Appears to not feel well, no acute distress
HEENT: Normocephalic, Atraumatic, EOMI, MMM
Respiratory: Clear to Auscultation bilaterally
Cardiac: Normal S1/S2, Regular Rate and Rhythm
GI: Soft, tender, incision dressed
Extremities: No Clubbing, Cyanosis, or Edema
Neuro: Nonfocal/Grossly Intact
Anticipated Discharge: > 48 hours
Subjective/Interval History
-
Date of Service: June 17, 2024
Patient complains of severe abdominal pain. No fever, no nausea. She is passing gas, no stool. No chest pain, no shortness of breath.
Objective Data
-
Labs:
Laboratory Results
06/17/24 06/17/24 06/17/24
02:00 04:46 13:59
WBC 13.7 H
Hgb 10.5 L 8.9 L
Hct 31.8 L 27.3 L
Plt Count 306
PT 27.9 H
INR 2.60
APTT Cancelled
Sodium 143
Potassium 4.5
Chloride 108 H
Carbon Dioxide 21 L
BUN 18 H
Creatinine 0.7
Glucose 153 H
Calcium 8.2 L
06/17/24
14:22
WBC
Hgb Pending
Hct Pending
Plt Count
PT
INR
APTT
Sodium
Potassium
Chloride
Carbon Dioxide
BUN
Creatinine
Glucose
Calcium
Vital Signs:
Vital Signs
Temp Pulse Resp BP Pulse Ox
97.7 F 66 16 102/70 93
06/17/24 11:27 06/17/24 12:15 06/17/24 12:15 06/17/24 12:00 06/17/24 12:15
I&O
06/16/24 06/17/24 06/18/24
06:59 06:59 06:59
Intake Total 100 / 180 760 / 760
Output Total 885 / 915 440 / 440
Balance -785 / -735 320 / 320
[2024-06-18 09:25] LABS: Glucose - Point of Care 96 mg/dl (70-99)
[2024-06-18 11:56] LABS: Glucose - Point of Care 96 mg/dl (70-99)
[2024-06-18] MEDS: 0.45%NACL 1000 IV ×2 (13:35→23:07)
--- NOTE | 2024-06-18 13:53 | PTCARENOTE ---
Completed second transfusion. Will recheck CBC 1 hour post transfusion end. Patient assessment remains unchanged. Son Addison and Charly at bedside.
[2024-06-18 15:07] LABS: Hematocrit 30.1 % (37.0-47.0); Hemoglobin 9.8 g/dL (12.0-16.0); Mean Corp Hgb Conc. 32.6 g/dL (33.0-37.0); Mean Corpuscular Hgb 30.1 pg (27.0-31.0); Mean Corpuscular Volume 92.3 fL (81.0-99.0); Mean Platelet Volume 9.3 fL (7.4-10.4); Platelet Count 207 10^3/uL (130-400); Red Blood Cell Count 3.26 10^6/uL (4.20-5.40); Red Cell Dist. Width 16.8 % (11.5-14.5); White Blood Cell Count 6.3 10^3/uL (4.8-10.8)
[2024-06-18 15:34] LABS: Lactic Acid 0.8 mmol/L (0.7-2.0)
--- NOTE | 2024-06-18 15:38 | PTCARENOTE ---
Inocente texted Dr. Ibarra. repeat Hgb and lactic sent post transfusions. vital signs stable. patient still continues to have a lot of pain with moving. states she had shoulder surgery 5 weeks ago and is unable to get up. Will ask for PT OT consult.
Dressing from this morning clean dry and intact.
[2024-06-18 17:58] LABS: Glucose - Point of Care 82 mg/dl (70-99)
--- NOTE | 2024-06-18 20:00 | PTCARENOTE ---
rec`d pt at 1900 aaox3. makes needs known. can be tearful and forgetful at times. SR on monitor, HR in the 70s. 4L NC POX 96%. left nare NGT connected to LIWS. brown tinged fluids out of NGT. murdock draining selin urine. left upper arm with sole,
open to air. midline incision covered with folded gauze. c/d/i. rt AC 18 running with fluids. call aponte in reach, safe environment maintained. family at bedside.
[2024-06-18] MEDS: DILAUDID 0.25 MG IV (21:47)
[2024-06-19] VITALS (18 sets, daily range): BP systolic 87–167; BP diastolic 52–93; PULSE 85; O2SAT 96; BMI 29.7
--- NOTE | 2024-06-19 | PTCARENOTE ---
pt reassessed. no changes in pt assessment. call aponte in reach.
[2024-06-19] MEDS: DILAUDID 0.5 MG IV ×5 (00:10→20:00)
[2024-06-19 00:18] LABS: Glucose - Point of Care 111 mg/dl (70-99)
[2024-06-19] MEDS: DILAUDID 0.25 MG IV (02:45)
[2024-06-19] MEDS: DILANTIN 100 MG IV (05:05)
[2024-06-19 05:22] LABS: INR 2.27; PT 25.1 Sec (11.4-14.6)
[2024-06-19 05:23] LABS: APTT 48.3 Sec (23.4-35.0)
[2024-06-19 05:33] LABS: Hemoglobin 12.3 g/dL (12.0-16.0); Mean Corp Hgb Conc. 32.4 g/dL (33.0-37.0); Mean Corpuscular Hgb 29.9 pg (27.0-31.0); Mean Corpuscular Volume 92.2 fL (81.0-99.0); Mean Platelet Volume 9.4 fL (7.4-10.4); Platelet Count 253 10^3/uL (130-400); Red Blood Cell Count 4.12 10^6/uL (4.20-5.40); Red Cell Dist. Width 16.5 % (11.5-14.5); White Blood Cell Count 9.5 10^3/uL (4.8-10.8)
[2024-06-19 05:34] LABS: Blood Urea Nitrogen 16 mg/dl (7-17); Calcium 7.9 mg/dl (8.4-10.2); Carbon Dioxide 23 mmol/L (22-30); Chloride 112 mmol/L (98-107); Estimated Creatinine Clearance 76 ml/min; Glucose 104 mg/dl (70-99); Potassium 4.5 mmol/L (3.5-5.1); Sodium 141 mmol/L (135-145); eGFR > 60.00
[2024-06-19 06:01] LABS: Glucose - Point of Care 120 mg/dl (70-99)
--- NOTE | 2024-06-19 07:06 | W.PN.INTV ---
Today's Communication / Plan
Recommendations
Doing well postop, stable on RA
Pain control, notes her pain level is 9/10
Encouraged OOB/PT/IS
Continue further postop care per team
Transfer to floors, we will sign off upon transfer
Assessment
-
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
laparotomy, retrograde balloon angioplasty and stenting of the superior mesenteric artery by Dr. 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
Acute on top of chronic mesenteric ischemia
Status post emergent exploratory laparotomy, retrograde balloon angioplasty and stenting superior mesenteric artery-Dr. Ibarra 06/17/2024
Leukocytosis
Anemia-hemoglobin 10.5-normocytic
Hyperglycemic
Conditions present prior to admission:
Hypertension.
Hyperlipidemia.
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
Asthma-mild intermittent-Dr. Villegas-budesonide and albuterol nebulizers
GERD.
Seizure.
Postnasal drip
Obesity
MAKI suspected-she was not interested in the home polysomnogram
Former smoker-3 to 4 cigarettes daily for 5 years-quit completely 59 years old
CAD/stents/CABG.
Mitral regurgitation.
PAF.
Solitary kidney.
CHF preserved EF.
Right nephrectomy. Appendectomy. Hysterectomy. Ankle fracture. Rotator cuff. Right knee replacement. Right tendon repair.
Plan
Hemodynamically and neurovascularly intact
Supplemental oxygen as needed-stable on RA
Incentive spirometry encouraged
Aspiration precautions
Nebulizers as needed
Neuro and vascular checks per protocol continues
Continue postop care
Monitor blood pressure closely
Significantly hypertensive
Hydralazine and Lopressor as needed
Nicardipine drip if needed
Vascular surgery following-correspondence and operative notes reviewed-reviewed with Dr. Ibarra
Continue with nasogastric tube-high risk for ileus
Can give antiepileptics and Coumadin via nasogastric tube
Follow INR-reinitiate Coumadin when INR dictates,-continues to be held for elevated INR, hold on reversal for now
Continue rectal aspirin but nasogastric tube in place
Arterial line can be discontinued
Monitor hemoglobin-transfuse 2 units
Transfuse as needed
Monitor blood sugar
Insulin supplementation as needed
DVT prophylaxis
Begin nutrition
Out of bed
Last seen by Dr. Villegas 08/26/2023 and no showed 10/15/2023 and canceled 11/30/2023-would recommend follow-up with Dr. Villegas
Diagnostic data:
Chest x-ray07/29/2023: Reviewed, showed pulmonary vascular congestion.�������������
Chest x-ray 03/26/2023: �showed no acute pulmonary process.�������
Chest x-ray 06/17/2024-NAD, NG tube could be advanced 5 to 8 cm for optimal positioning
CT chest 05/11/2024-no central pulmonary emboli, right lower lobe consolidation
CT Abd/pelvis 01/14/22: subsegmental atelectasis in the bilateral lung bases.����
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
hemorrhagic/proteinaceous cyst unchanged�����������
CT angio 10/03/20: NAD. mild pleural and subpleural interstitial scarring in the lower lateral aspect of the left upper lobe as well as mild linear paraspinal interstitial scarring at the medial right lung base.��������������
Lower extremity Dopplers 01/05/2016: No evidence of DVT on the right lower extremity. Left behind the knee and Deep venous thrombosis.����������������
CT chest 06/2016: no acute pulmonary embolism. No pleural parenchymal abnormalities.����������������
CT angiogram of the chest 12/18/2015 showed multiple segmental pulmonary emboli on the right lung. Small hiatal hernia. Fatty liver. Coronary artery calcifications. Stable bibasilar lung scarring. ,��������
Echocardiogram 12/11/2018:demonstrated normal LVEF. No significant valvular abnormalities. No significant pulmonary hypertension.����������������
Echocardiogram 12/18/2015: Demonstrated normal left ventricular ejection fraction. 64%. Normal RV function and size. Pulmonary artery pressure 31-36. No change compared to 2010. , -��������
PFT 11/21/2018: demonstrated FEV1 /FVC 67%, FEV1 1.83 L-79%, FVC 2.72 L-88%, TLC 3.89 L-74%, DLCO 9.02-41%, DLCO/VA 2.34-56%. Mild airflow obstruction with mild restriction and moderate gas to change abnormality unchanged compared to 10/27/2017.
-----
Critical Care time 35 mins -- The patient is admitted for acute critical illness for the treatment of vital organ failure and/or prevention of further life-threatening conditions. Total care includes time spent in review of history, physical exam,
medications, hemodynamic/ventilator parameters, laboratory data, imaging and discussion with house staff, pharmacy, respiratory therapy, financial reserve clerk, and nursing.
Subjective Dataa
Subjective Data
Date of Service:
Date of Service: June 19, 2024
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
Subjective:
Doing well postop, stable on RA
Has pain 9/10
Feels she cannot rehab
Objective Data
Data Reviewed
Vital Signs / I&O / Oxygen:
Vital Signs
Temp Pulse Resp BP Pulse Ox
97.6 F 80 19 165/93 97
06/19/24 03:10 06/19/24 05:00 06/19/24 05:00 06/19/24 05:00 06/19/24 05:00
Intake and Output
06/18/24 06/19/24 06/20/24
06:59 06:59 06:59
Intake Total 2860 / 2960 2900 / 2900
Output Total 1155 / 1200 1535 / 1535
Balance 1705 / 1760 1365 / 1365
SaO2 97
Nasal Cannula flow liters per 4
minute
Physical Exam
General: Respiratory Distress (n), Comfortable, Pain and Good Appetite
HEENT: Normocephalic, Anicteric and Moist Mucous Membranes
Cardiovascular: Regular Rhythm
Respiratory: Clear, Wheeze (n), Crackles (n), Rhonchi (n), Non-Labored Respirations, Accessory Resp Muscle Use (n) and Stridor
GI: Soft, Non Distended and Non Tender
Neurology: Awake, Alert, Oriented and No Motor Deficits
Skin: Warm, Good Color, Cyanosis (n), Jaundice (n) and Rash (n)
Labs/Micro/Reports
Lab Data
06/19/24 04:49
06/19/24 04:49
Laboratory Results
06/19/24
04:49
PT 25.1 H
INR 2.27
APTT 48.3 H
[2024-06-19] MEDS: SYMBICORT 160/4.5 MCG INHALER 2 PUFF INH ×2 (07:22→19:44)
[2024-06-19 07:30] LABS: ACT-LR - POC 184 Seconds (116-155)
[2024-06-19] MEDS: PROTONIX IV 40 MG IV (07:44)
[2024-06-19] MEDS: NSS (PRESERVATIVE FREE) 10 ML IV (07:44)
[2024-06-19] MEDS: PHENOBARBITAL 32.5 MG IV (07:44)
[2024-06-19] MEDS: ASPIRIN 300 MG RECTAL (07:45)
[2024-06-19] MEDS: 0.45%NACL 1000 IV ×2 (07:45→17:03)
--- NOTE | 2024-06-19 08:12 | W.PN.VS ---
Addendum entered and electronically signed by Felix Garica MD 06/19/24 11:11:
Seen and examined with YANELI Carballo. Agree with findings as noted below. Patient notes incisional abdominal pain. Otherwise somewhat comfortable. Notes that she is passing moderate amount of flatus today. Exam/awake and alert. No acute distress.
NG tube drainage with 50 cc only overnight, nonbilious. Abdomen is soft. Dressing clean dry and intact. Plan/as discussed and noted below. NG tube discontinued by us.
Original Note:
Today's Communication / Plan
-
Patient seen and examined at bedside with Dr. Felix Garcia, below plan reviewed with attending.
Assessment/Plan
-
Assessment: 79-year-old female
POD #3
1.) Exploratory laparotomy
2.) Retrograde balloon angioplasty and stenting of the superior mesenteric artery (7 mm x 39 mm [place] VBX stent)
Plan:
NG tube discontinued
Can initiate sips of water and ice chips
Continue rectal aspirin
Continue strict I and O, we will continue observe urine output possible removal of Ibarra later this afternoon
OOB chair today
Okay to transition to p.o. meds per primary team
Okay to downgrade from a vascular surgical perspective
Subjective Data
-
Date of Service: June 19, 2024
Patient seen and examined at bedside, reports eagerness for removal of NG tube and for water. Reports passing flatus.
Objective Data
-
Vital Signs
Temp Pulse Resp BP Pulse Ox
97.9 F 76 18 165/93 98
06/19/24 07:46 06/19/24 07:25 06/19/24 07:25 06/19/24 05:00 06/19/24 07:25
Intake and Output
06/18/24 06/19/24 06/20/24
06:59 06:59 06:59
Intake Total 2860 / 2960 2900 / 2900
Output Total 1155 / 1200 1535 / 1535
Balance 1705 / 1760 1365 / 1365
Intake:
IV fluids (Total) 2760 / 2860 2400 / 2400
0.45%NaCl 1,000 ml @ 100 mls/hr 1800 / 1800
IV .Q10H RENÉ Rx#:[id number]
Nss 1,000 ml @ 100 mls/hr IV . 2260 / 2360 600 / 600
Q10H RENÉ Rx#:[id number]
bolus 500 / 500
IV piggybacks 100 / 100
Blood Product Amount Infused ( 500 / 500
mL)
Packed Rbc Leukoreduced Unit 250 / 250
[id number]
Packed Rbc Leukoreduced Unit 250 / 250
[id number]
Output:
Gastrointestinal tube output ( 250 / 250 400 / 400
Total)
Natoma Sump 250 / 250 400 / 400
Urine, Ibarra 905 / 950 1135 / 1135
Lab Results
06/19/24 04:49
06/19/24 04:49
Calcium 7.9 mg/dl (8.4-10.2) L 06/19/24 04:49
Phosphorus 3.3 mg/dl (2.5-4.5) 06/17/24 04:46
Magnesium 2.4 mg/dl (1.6-2.3) H 06/17/24 04:46
Total Bilirubin 0.2 mg/dl (0.2-1.3) 06/16/24 14:21
AST 27 U/L (14-36) 06/16/24 14:21
ALT 22 U/L (0-35) 06/16/24 14:21
Alkaline Phosphatase 212 U/L (38-126) H 06/16/24 14:21
Total Protein 7.2 g/dl (6.3-8.2) 06/16/24 14:21
Albumin 3.9 g/dl (3.5-5.0) 06/16/24 14:21
Physical Exam
-
Nontoxic
Non labored breathing
Regular
Abd obese but soft, tender only at surgical incision
Incision clean/dry
Ext warm and without sig edema bilat
Palp left radial pulse. Left brach incision clean/dry with some ecchymosis.
--- NOTE | 2024-06-19 08:27 | W.PN.HOSP.TC ---
Today's Communication/Plan
-
Resume Bumex
Resume oral meds if okay with surgical service
Transfer to telemetry if okay with surgical service
Assessment / Plan
Assessment / Plan
Gen-AAOx3, NAD, obese
HEENT-NC, AT, anicteric, clear oral mm
Neck-supple
CV-reg, no M, +S1/S2
Lungs-clear B/L
Abd-soft, mildly tender, dressing intact
Ext-no edema
Musculoskeletal-no cyanosis, clubbing
Skin-warm and dry
Neuro-grossly non-focal
Psych-calm, cooperative
Acute on chronic mesenteric ischemia - Complete occlusion of the proximal SMA with distal reconstitution
-Appreciate vascular surgery input, status post ex lap, angioplasty and stenting of the SMA 06/17
-NG tube removed this morning. Start oral meds if okay with vascular surgery. LAURIE Ibarra.
Acute blood loss anemia from surgery superimposed on anemia of chronic disease
-Hemoglobin improved to 12.3 today, transfused 2 units of blood this admission.
-Warfarin on hold, resume when okay with vascular surgery.
Paroxysmal atrial fibrillation
History of DVT/PE
INR 2.27 today despite holding warfarin. Component of vitamin K deficiency suspected.
Hypernatremia -resolved.
Essential hypertension
-Holding atenolol, diltiazem
-IV hydralazine as needed
CAD s/p prior CABG and PCI and coronary stent
-Continue rectal aspirin
-Holding Imdur, Zetia
Seizure disorder
-Continue home phenytoin/phenobarbital -currently IV.
Chronic HFpEF -weight is trending up. Bumex has been on hold. Can give a dose IV Bumex this morning, hold IV fluids. NG tube removed today.
GERD
-Continue PPI IV
Asthma
- Continue albuterol PRN
- Continue Symbicort
DVT prophylaxis�INR therapeutic, holding Coumadin
Full code
PT consult
Transfer to tele if ok with vascular surgery.
Anticipated Discharge: > 48 hours
Subjective/Interval History
-
Date of Service: June 19, 2024
Patient seen and examined. Complaining of mild abdominal pain.
Objective Data
-
Labs:
Laboratory Results
06/19/24
04:49
WBC 9.5
Hgb 12.3 D
Hct 38.0
Plt Count 253 D
PT 25.1 H
INR 2.27
APTT 48.3 H
Sodium 141
Potassium 4.5
Chloride 112 H
Carbon Dioxide 23
BUN 16
Creatinine 0.6
Glucose 104 H
Calcium 7.9 L
Vital Signs:
Vital Signs
Temp Pulse Resp BP Pulse Ox
97.9 F 76 18 165/93 94
06/19/24 07:46 06/19/24 07:25 06/19/24 07:25 06/19/24 05:00 06/19/24 08:18
I&O
06/18/24 06/19/24 06/20/24
06:59 06:59 06:59
Intake Total 2860 / 2960 2900 / 3000 200 / 200
Output Total 1155 / 1200 1535 / 1575 80 / 80
Balance 1705 / 1760 1365 / 1425 120 / 120
Review of Systems
-
History Source: Patient
All other systems: Reviewed and negative
--- NOTE | 2024-06-19 08:30 | PTCARENOTE ---
Received pt @ change of shift ; AAOx3, forgetful/anxious/tearful @ x's; emotional support given. Reports baseline neuropathy in all extremities. C/O of mod-severe R shoulder and midline abd incisional pain; medicated w prns- see SEP. SR on
monitor. SpO2 94% on RA. Afebrile. Hypoactive BS, abd soft/round obese; pt. reports passing gas, awaiting BM. L nare NGT d/c'd and removed w vascular team. Ibarra catheter in place w yellow urine. L upper arm approximated w sole intact, VLADIMIR.
Midline abd incision c/d/i. IVf infusing via #18 R AC-see SEP. #24 R FA patent, dressing c/d/i. Pt. assisted to stand/pivot OOB to chair x2. Chair alarm active. Instructed on how to report care concerns and call aponte w in reach.
[2024-06-19 11:39] LABS: Glucose - Point of Care 112 mg/dl (70-99)
--- NOTE | 2024-06-19 12:01 | PTCARENOTE ---
Pt. remains OOB to chair. Assisted x 2 to BSC for BM. Assisted back to chair. Tolerating ice chips, no n/v. @ bedside, updated. PT to bedside @ this time to wk w patient.
[2024-06-19] MEDS: TENORMIN 25 MG PO ×2 (14:13→23:19)
--- NOTE | 2024-06-19 14:50 | CM ---
CM following re: discharge planning.
Reviewed pt's chart, met with pt.
Pt is POD #3 Exploratory laparotomy. Retrograde balloon angioplasty and stenting of the superior mesenteric artery. Pt rapports she feels much better.
PT and OT evaluations noted - SNF vs home PT/OT recommended. pt is aware, expressed her agreement and pt made it very clear she will return back home at discharge with [facility]. Pt politely declined SNF level of care. CM explained the benefits of SNF
level of care and pt insisted to return back home with [facility]. Pt stated her will transport home.
A referral to [facility] made.
D/C plan: home with [facility] and family support. to transport at discharge.
CM will follow with discharge plan updates as hospitalization progresses
[2024-06-19] MEDS: BUMEX 1 MG PO (17:01)
[2024-06-19] MEDS: LUMINAL 32.4 MG PO ×2 (17:02→21:41)
[2024-06-19] MEDS: DILANTIN 100 MG PO ×2 (17:02→21:41)
[2024-06-19] MEDS: COUMADIN 1 MG PO (17:02)
[2024-06-19] MEDS: NEURONTIN 600 MG PO ×2 (17:02→23:20)
--- NOTE | 2024-06-19 17:28 | PTCARENOTE ---
Report given to 2S RN. Pt. transported via wheelchair to [address] on yeast fermentation attendant w belongings and . No further needs from this RN.
--- NOTE | 2024-06-19 18:18 | VATNOTE ---
During routine assessment, it was noted that both of pts IV sites were non-functioning. Attempted restart x2 unsuccessfully. Due to limited access options, attempted to place a midline, but pt had unmet toileting needs and was unable to be set up
for procedure, will have 2nd VAT RN attempt.
[2024-06-19] MEDS: DILAUDID IV ×2 (19:49→23:20)
--- NOTE | 2024-06-19 20:00 | PTCARENOTE ---
Pt ordered NPO with no oral meds. surgery and hospitalist reports state okay to resume oral meds. notified FILLING HAND. Channel Machine Operator gave okay to give night time oral meds.
[2024-06-19] MEDS: TENORMIN PO (20:06)
[2024-06-19] MEDS: SINGULAIR PO (21:42)
[2024-06-19 21:52] LABS: Glucose - Point of Care 83 mg/dl (70-99)
[2024-06-20] MEDS: DILAUDID 0.5 MG IV ×4 (00:02→11:41)
[2024-06-20 03:23] VITALS: BP 140/67
[2024-06-20 05:25] VITALS: BMI 30.5
[2024-06-20 06:09] LABS: Glucose - Point of Care 94 mg/dl (70-99)
[2024-06-20] MEDS: SYMBICORT 160/4.5 MCG INHALER 2 PUFF INH ×2 (07:32→19:57)
[2024-06-20 07:51] VITALS: BP 144/67
[2024-06-20] MEDS: ZETIA 10 MG PO (08:12)
[2024-06-20] MEDS: NEURONTIN 600 MG PO ×3 (08:13→23:26)
[2024-06-20] MEDS: PROTONIX 40 MG PO (08:13)
[2024-06-20] MEDS: TENORMIN 25 MG PO ×2 (08:13→20:56)
[2024-06-20] MEDS: ASPIR LOW (ENTERIC COATED) 81 MG PO (08:13)
[2024-06-20] MEDS: DILANTIN 100 MG PO ×3 (08:13→21:55)
[2024-06-20] MEDS: LUMINAL 32.4 MG PO ×3 (08:13→21:56)
[2024-06-20] MEDS: BUMEX 1 MG PO ×2 (08:14→17:20)
--- NOTE | 2024-06-20 10:22 | VNURNOTE ---
Home Health Liaison met with patient to discuss [facility] nurse/therapy, visits, schedule and homebound status. Patient is agreeable and understands that visits at home will be 2-3 x per week to assess and teach medical management. Patient has had [facility]
in the past. Patient is aware that [facility] will contact them for start of care in 1-2 days after discharge from . [facility] referral completed in [facility].
--- NOTE | 2024-06-20 10:33 | W.PN.VS ---
Addendum entered and electronically signed by Massimo Ibarra III, MD 06/20/24 15:51:
This patient was seen and examined with BHAVANI Guy. I agree with the history and physical exam as well as the assessment and plan.
Doing well
Incision clean and dry
Abdomen obese and soft
Slowly advance diet to clears
Out of bed/PT/OT
Signed:
Massimo Ibarra III, MD
[facility]
[phone] (cell)
Original Note:
Today's Communication / Plan
-
See below.
Assessment/Plan
-
Assessment: 79-year-old female
POD #4
1.) Exploratory laparotomy
2.) Retrograde balloon angioplasty and stenting of the superior mesenteric artery (7 mm x 39 mm [place] VBX stent)
Plan:
Can advance diet to clear liquid, but avoid carbonated beverages
Continue aspirin with Coumadin
Continue PT
Subjective Data
-
Date of Service: June 20, 2024
Patient seen and examined at bedside, reports well managed postoperative ABD surgical incision pain. Denies nausea, vomiting, fever, and chills. Reports eagerness for clear liquid diet.
Objective Data
-
Vital Signs
Temp Pulse Resp BP Pulse Ox
98.6 F 77 17 144/67 95
06/20/24 07:51 06/20/24 07:51 06/20/24 07:51 06/20/24 07:51 06/20/24 07:51
Intake and Output
06/19/24 06/20/24 06/21/24
06:59 06:59 06:59
Intake Total 2900 / 3000 1160 / 1160
Output Total 1535 / 1575 180 / 180
Balance 1365 / 1425 980 / 980
Intake:
Oral fluids 960 / 960
IV fluids (Total) 2400 / 2500 200 / 200
0.45%NaCl 1,000 ml @ 100 mls/hr 1800 / 1900 200 / 200
IV .Q10H RENÉ Rx#:[id number]
Nss 1,000 ml @ 100 mls/hr IV . 600 / 600
Q10H RENÉ Rx#:[id number]
Blood Product Amount Infused ( 500 / 500
mL)
Packed Rbc Leukoreduced Unit 250 / 250
[id number]
Packed Rbc Leukoreduced Unit 250 / 250
[id number]
Output:
Gastrointestinal tube output ( 400 / 400
Total)
Java Sump 400 / 400
Urine, Ibarra 1135 / 1175 180 / 180
Other:
Number of approximated MODERATE 4
amounts of urine
Lab Results
06/19/24 04:49
06/19/24 04:49
Calcium 7.9 mg/dl (8.4-10.2) L 06/19/24 04:49
Phosphorus 3.3 mg/dl (2.5-4.5) 06/17/24 04:46
Magnesium 2.4 mg/dl (1.6-2.3) H 06/17/24 04:46
Total Bilirubin 0.2 mg/dl (0.2-1.3) 06/16/24 14:21
AST 27 U/L (14-36) 06/16/24 14:21
ALT 22 U/L (0-35) 06/16/24 14:21
Alkaline Phosphatase 212 U/L (38-126) H 06/16/24 14:21
Total Protein 7.2 g/dl (6.3-8.2) 06/16/24 14:21
Albumin 3.9 g/dl (3.5-5.0) 06/16/24 14:21
Physical Exam
-
Nontoxic
Non labored breathing
Regular
Abd obese but soft, tender only at surgical incision
Incision clean/dry
Ext warm and without sig edema bilat
Palp left radial pulse. Left brach incision clean/dry with some ecchymosis.
[2024-06-20 11:07] VITALS: BP 125/56
[2024-06-20 12:04] LABS: Glucose - Point of Care 84 mg/dl (70-99)
--- NOTE | 2024-06-20 12:28 | CM ---
Chart reviewed
Diet advanced to clear liquids
PT recs home PT vs rehab - pt declining rehab. [facility] to follow when d/c'ed
CM will cont to follow for d/c needs
Plan - anticipate home with [facility] when medically ready
--- NOTE | 2024-06-20 12:38 | W.PN.HOSP.TC ---
Today's Communication/Plan
-
Resume oxycodone
Minimize Dilaudid use
Out of bed to chair
PT/OT
Assessment / Plan
Assessment / Plan
Gen-AAOx3, NAD, obese
HEENT-NC, AT, anicteric, clear oral mm
Neck-supple
CV-reg, no M, +S1/S2
Lungs-clear B/L
Abd-soft, mildly tender, dressing intact
Ext-no edema
Musculoskeletal-no cyanosis, clubbing
Skin-warm and dry
Neuro-grossly non-focal
Psych-calm, cooperative
Acute on chronic mesenteric ischemia - Complete occlusion of the proximal SMA with distal reconstitution
-Appreciate vascular surgery input, status post ex lap, angioplasty and stenting of the SMA 06/17
-Started on clears. Had a bowel movement on June 19.
Tried to get off IV Dilaudid over the next 24 hours. Resume oxycodone 10 mg as needed. Discussed with the patient and nurse.
Acute blood loss anemia from surgery superimposed on anemia of chronic disease
-Hemoglobin improved to 12.3 today, transfused 2 units of blood this admission.
-Warfarin on hold, resume when okay with vascular surgery.
Paroxysmal atrial fibrillation
History of DVT/PE
INR 2.5 today. Warfarin resumed lower dose of 1 mg at bedtime.
Hypernatremia -resolved.
Essential hypertension
-Holding atenolol, diltiazem
-IV hydralazine as needed
CAD s/p prior CABG and PCI and coronary stent
-Continue rectal aspirin
-Holding Imdur, Zetia
Seizure disorder
-Continue home phenytoin/phenobarbital -currently IV.
Chronic HFpEF -Bumex resumed.
GERD
-Continue PPI IV
Asthma
- Continue albuterol PRN
- Continue Symbicort
Full code
PT/OT
Anticipated Discharge: 24 - 48 hours
Subjective/Interval History
-
Date of Service: June 20, 2024
Patient seen and examined. Complaining of abdominal pain but looks comfortable.
Objective Data
-
Labs:
Laboratory Results
06/20/24
04:49
PT 27.0 H
INR 2.50
Vital Signs:
Vital Signs
Temp Pulse Resp BP Pulse Ox
98.6 F 74 17 125/56 94
06/20/24 11:07 06/20/24 11:07 06/20/24 11:07 06/20/24 11:07 06/20/24 11:07
I&O
06/19/24 06/20/24 06/21/24
06:59 06:59 06:59
Intake Total 2900 / 3000 1160 / 1160
Output Total 1535 / 1575 180 / 180
Balance 1365 / 1425 980 / 980
Review of Systems
-
History Source: Patient
All other systems: Reviewed and negative
Constitutional: Reports No Symptoms
[2024-06-20 15:00] VITALS: BP 113/54
[2024-06-20] MEDS: ROXICODONE 10 MG PO (15:11)
[2024-06-20 16:06] LABS: Glucose - Point of Care 68 mg/dl (70-99)
[2024-06-20 16:28] LABS: Glucose - Point of Care 86 mg/dl (70-99)
[2024-06-20] MEDS: COUMADIN 1 MG PO (17:20)
[2024-06-20 19:00] VITALS: BP 129/68
[2024-06-20] MEDS: TYLENOL 650 MG PO (21:55)
[2024-06-20] MEDS: SINGULAIR 10 MG PO (21:56)
[2024-06-20 22:01] LABS: Glucose - Point of Care 80 mg/dl (70-99)
[2024-06-20 23:00] VITALS: BP 120/50
[2024-06-21 02:50] VITALS: BP 131/65
--- NOTE | 2024-06-21 05:28 | DOWNTIME ---
There was a [employer] Downtime on 06/21/2024 from 0100 to 06/21/2024 at 0350. Downtime documentation of patient's care, including medication administrations, has been reconciled in the electronic record per guidelines. Refer to the
patient's paper chart under the miscellaneous tab to see printed paper medication records and downtime forms.
[2024-06-21 06:00] VITALS: BMI 29.9
[2024-06-21 06:43] LABS: INR 2.57; PT 27.6 Sec (11.4-14.6)
[2024-06-21 06:44] LABS: % Basophils 0.3 % (0-2); % Eosinophils 7.6 % (0-6); % Immature Granulocytes 0.3 % (0-0.5); % Lymphocytes 15.5 % (20.5-51.1); % Monocytes 9.4 % (1.7-9.3); % Neutrophils 66.9 % (42.2-75.2); Absolute Eosinophils 0.5 10^3/uL (0-0.7); Absolute Lymphocytes 1.1 10^3/uL (1.2-3.4); Absolute Monocytes 0.7 10^3/uL (0.1-0.6); Absolute Neutrophils 4.7 10^3/uL (1.4-6.5); Hematocrit 34.1 % (37.0-47.0); Hemoglobin 11.5 g/dL (12.0-16.0); Mean Corp Hgb Conc. 33.7 g/dL (33.0-37.0); Mean Corpuscular Hgb 31.3 pg (27.0-31.0); Mean Corpuscular Volume 92.7 fL (81.0-99.0); Nucleated Red Blood Cells % 0 %; Platelet Count 240 10^3/uL (130-400); Red Blood Cell Count 3.68 10^6/uL (4.20-5.40); Red Cell Dist. Width 15.6 % (11.5-14.5)
[2024-06-21 07:01] LABS: Blood Urea Nitrogen 14 mg/dl (7-17); Carbon Dioxide 25 mmol/L (22-30); Chloride 106 mmol/L (98-107); Estimated Creatinine Clearance 76 ml/min; Glucose 87 mg/dl (70-99); Potassium 3.6 mmol/L (3.5-5.1); Sodium 140 mmol/L (135-145); eGFR > 60.00
[2024-06-21] MEDS: SYMBICORT 160/4.5 MCG INHALER 2 PUFF INH ×2 (07:27→18:00)
[2024-06-21 07:46] VITALS: BP 129/57
[2024-06-21] MEDS: TENORMIN 25 MG PO ×2 (07:47→19:39)
[2024-06-21] MEDS: ASPIR LOW (ENTERIC COATED) 81 MG PO (07:48)
[2024-06-21] MEDS: LUMINAL 32.4 MG PO ×3 (07:48→22:44)
[2024-06-21] MEDS: NEURONTIN 600 MG PO ×3 (07:48→23:07)
[2024-06-21] MEDS: BUMEX 1 MG PO ×2 (07:48→15:44)
[2024-06-21] MEDS: PROTONIX 40 MG PO (07:48)
[2024-06-21] MEDS: ZETIA 10 MG PO (07:48)
[2024-06-21] MEDS: DILANTIN 100 MG PO ×3 (07:48→22:44)
--- NOTE | 2024-06-21 08:21 | W.PN.HOSP.TC ---
Today's Communication/Plan
-
Reduce dose of oxycodone
Out of bed to chair
PT/OT
Send stool for C. difficile if diarrhea persists
Assessment / Plan
Assessment / Plan
Gen-AAOx3, NAD, obese
HEENT-NC, AT, anicteric, clear oral mm
Neck-supple
CV-reg, no M, +S1/S2
Lungs-clear B/L
Abd-soft, mildly tender, dressing intact
Ext-no edema
Musculoskeletal-no cyanosis, clubbing
Skin-warm and dry
Neuro-grossly non-focal
Psych-calm, cooperative
Acute on chronic mesenteric ischemia - Complete occlusion of the proximal SMA with distal reconstitution
-Appreciate vascular surgery input, status post ex lap, angioplasty and stenting of the SMA 06/17
-Started on clears. Loose stools noted yesterday, patient concerned. If persists, send C. difficile. Advance diet per surgical service.
Pain overall controlled. Patient agreeable to discontinue Dilaudid, reduce dose of oxycodone to 5 mg as needed.
Acute blood loss anemia from surgery superimposed on anemia of chronic disease
-Hemoglobin stable at 11.5, transfused 2 units of blood this admission.
Paroxysmal atrial fibrillation
History of DVT/PE
INR 2.57 today. Continue warfarin at lower dose 1 mg at bedtime.
Hypernatremia -resolved.
Essential hypertension
-Holding atenolol, diltiazem
-IV hydralazine as needed
CAD s/p prior CABG and PCI and coronary stent
-Continue rectal aspirin
-Holding Imdur, Zetia
Seizure disorder
-Continue home phenytoin/phenobarbital
Chronic HFpEF -Bumex resumed.
GERD
-Continue PPI
Asthma
- Continue albuterol PRN
- Continue Symbicort
Full code
PT/OT
Anticipated Discharge: > 48 hours
Subjective/Interval History
-
Date of Service: June 21, 2024
Patient seen and examined. Tearful and anxious about having diarrhea. States her abdominal pain is present but controlled.
Objective Data
-
Labs:
Laboratory Results
06/21/24
05:12
WBC 7.0
Hgb 11.5 L
Hct 34.1 L
Plt Count 240
PT 27.6 H
INR 2.57
Sodium 140
Potassium 3.6
Chloride 106
Carbon Dioxide 25
BUN 14
Creatinine 0.6
Glucose 87
Calcium 8.0 L
Vital Signs:
Vital Signs
Temp Pulse Resp BP Pulse Ox
97.9 F 70 20 129/57 95
06/21/24 07:46 06/21/24 07:47 06/21/24 07:46 06/21/24 07:47 06/21/24 07:46
I&O
06/20/24 06/21/24 06/22/24
06:59 06:59 06:59
Intake Total 1160 / 1160 780 / 780
Output Total 180 / 180
Balance 980 / 980 780 / 780
Review of Systems
-
History Source: Patient
All other systems: Reviewed and negative
[2024-06-21] MEDS: KCL ELIXIR 40 MEQ PO (09:15)
--- NOTE | 2024-06-21 10:10 | W.PN.VS ---
Addendum entered and electronically signed by Felix Garcia MD 06/21/24 10:22:
Seen and examined with YANELI Davidson. Agree with findings as noted below. Patient tolerating clears. Did note some diarrhea once. She is passing flatus as well. On exam/abdomen is soft, nondistended, nontender. Incision is clean dry and intact.
Plan/as discussed and noted below.
Original Note:
Today's Communication / Plan
-
Seen and assessed with Dr. Garcia
Assessment/Plan
-
Assessment: 79-year-old female
POD #5
1.) Exploratory laparotomy
2.) Retrograde balloon angioplasty and stenting of the superior mesenteric artery (7 mm x 39 mm [place] VBX stent)
Plan:
Advance diet to regular, slow
Continue aspirin with Coumadin
Continue PT
Subjective Data
-
Date of Service: June 21, 2024
Patient seen at bedside today with Dr. Garcia. Patient sitting on chair eating breakfast. No events overnight. No complaints at this time
Objective Data
-
Vital Signs
Temp Pulse Resp BP Pulse Ox
97.9 F 70 20 129/57 95
06/21/24 07:46 06/21/24 07:47 06/21/24 07:46 06/21/24 07:47 06/21/24 07:46
Intake and Output
06/20/24 06/21/24 06/22/24
06:59 06:59 06:59
Intake Total 1160 / 1160 780 / 780
Output Total 180 / 180 350 / 350
Balance 980 / 980 780 / 780 -350 / -350
Intake:
Oral fluids 960 / 960 780 / 780
IV fluids (Total) 200 / 200
0.45%NaCl 1,000 ml @ 100 mls/hr 200 / 200
IV .Q10H RENÉ Rx#:[id number]
Output:
Urine, Ibarra 180 / 180
Urine, Voided 350 / 350
Other:
Number of approximated MODERATE 4 3
amounts of urine
Lab Results
06/21/24 05:12
06/21/24 05:12
Calcium 8.0 mg/dl (8.4-10.2) L 06/21/24 05:12
Phosphorus 3.3 mg/dl (2.5-4.5) 06/17/24 04:46
Magnesium 2.4 mg/dl (1.6-2.3) H 06/17/24 04:46
Total Bilirubin 0.2 mg/dl (0.2-1.3) 06/16/24 14:21
AST 27 U/L (14-36) 06/16/24 14:21
ALT 22 U/L (0-35) 06/16/24 14:21
Alkaline Phosphatase 212 U/L (38-126) H 06/16/24 14:21
Total Protein 7.2 g/dl (6.3-8.2) 06/16/24 14:21
Albumin 3.9 g/dl (3.5-5.0) 06/16/24 14:21
Physical Exam
-
Nontoxic
Non labored breathing
Regular
Abd obese but soft, tender only at surgical incision
Incision clean/dry
Ext warm and without sig edema bilat
Palp left radial pulse. Left brach incision clean/dry with some ecchymosis.
--- NOTE | 2024-06-21 11:00 | CM ---
Patient seen bedside.
Patient increasing diet.
Spouse will transport once medically stable.
IMM completed.
Plan: home with [facility]
[2024-06-21 11:40] VITALS: BP 126/95
[2024-06-21 15:35] VITALS: BP 128/59
[2024-06-21] MEDS: COUMADIN 1 MG PO (17:04)
[2024-06-21] MEDS: ROXICODONE 5 MG PO ×2 (17:31→23:07)
[2024-06-21 19:38] VITALS: BP 149/76
[2024-06-21] MEDS: DESENEX/MITRAZOL/ZEASORB 1 APPLIC TOPICAL (19:40)
[2024-06-21 19:41] VITALS: BMI 29.9
[2024-06-21] MEDS: SINGULAIR 10 MG PO (22:44)
[2024-06-21 23:58] VITALS: BP 133/60
[2024-06-22 03:44] VITALS: BP 134/68
[2024-06-22 06:00] VITALS: BMI 29.6
[2024-06-22 07:15] VITALS: BP 133/61
[2024-06-22] MEDS: SYMBICORT 160/4.5 MCG INHALER 2 PUFF INH (07:46)
[2024-06-22] MEDS: ZETIA 10 MG PO (08:12)
[2024-06-22] MEDS: TENORMIN 25 MG PO (08:12)
[2024-06-22] MEDS: ASPIR LOW (ENTERIC COATED) 81 MG PO (08:12)
[2024-06-22] MEDS: BUMEX 1 MG PO (08:14)
[2024-06-22] MEDS: DILANTIN 100 MG PO (08:14)
[2024-06-22] MEDS: LUMINAL 32.4 MG PO (08:14)
[2024-06-22] MEDS: PROTONIX 40 MG PO (08:15)
[2024-06-22] MEDS: NEURONTIN 600 MG PO (08:15)
[2024-06-22] MEDS: DESENEX/MITRAZOL/ZEASORB 1 APPLIC TOPICAL (08:15)
[2024-06-22 08:36] LABS: INR 2.02; PT 23.3 Sec (11.4-14.6)
--- NOTE | 2024-06-22 09:50 | W.PN.HOSP.TC ---
Today's Communication/Plan
-
Discharge
Assessment / Plan
Assessment / Plan
Gen-AAOx3, NAD, obese
HEENT-NC, AT, anicteric, clear oral mm
Neck-supple
CV-reg, no M, +S1/S2
Lungs-clear B/L
Abd-soft, mildly tender, dressing intact
Ext-no edema
Musculoskeletal-no cyanosis, clubbing
Skin-warm and dry
Neuro-grossly non-focal
Psych-calm, cooperative
Acute on chronic mesenteric ischemia - Complete occlusion of the proximal SMA with distal reconstitution
-Appreciate vascular surgery input, status post ex lap, angioplasty and stenting of the SMA 06/17
Tolerating solid diet. Diarrhea improved. C. difficile toxin negative.
Can discharge home today, follow-up with vascular surgery.
Acute blood loss anemia from surgery superimposed on anemia of chronic disease
-Hemoglobin stable at 11.5, transfused 2 units of blood this admission.
Paroxysmal atrial fibrillation
History of DVT/PE
INR down to 2.0 today, resume home doses of warfarin on discharge.
Hypernatremia -resolved.
Essential hypertension
-Holding atenolol, diltiazem
-IV hydralazine as needed
CAD s/p prior CABG and PCI and coronary stent
-Continue rectal aspirin
-Holding Imdur, Zetia
Seizure disorder
-Continue home phenytoin/phenobarbital
Chronic HFpEF -Bumex resumed.
GERD
-Continue PPI
Asthma
- Continue albuterol PRN
- Continue Symbicort
Full code
Dispo -medically stable for discharge today. Outpatient follow-up.
35-minute spent in discharge process.
Anticipated Discharge: Today
Subjective/Interval History
-
Date of Service: June 22, 2024
Patient seen and examined. Diarrhea improving. No complaints otherwise.
Objective Data
-
Labs:
Laboratory Results
06/22/24
07:03
PT 23.3 H
INR 2.02
Vital Signs:
Vital Signs
Temp Pulse Resp BP Pulse Ox
98.3 F 74 16 133/61 96
06/22/24 07:15 06/22/24 08:14 06/22/24 07:52 06/22/24 08:14 06/22/24 07:52
I&O
06/21/24 06/22/24 06/23/24
06:59 06:59 06:59
Intake Total 780 / 780 720 / 720
Output Total 350 / 350
Balance 780 / 780 370 / 370
Review of Systems
-
History Source: Patient
All other systems: Reviewed and negative
--- NOTE | 2024-06-22 09:56 | W.DS.TRANS ---
DC Summary - In Service Coordinator
-
Discharge Instructions:
Sleep Apnea Risk Intermediate
Discharge Diagnosis/Procedures Mesenteric ischemia, acute anemia
Diet Regular
Activity With assistance,As tolerated
Driving Restrictions No driving
Bathing Restrictions None
Instructions:
Stand-Alone Forms:
Changes to Home Medications: No
Discharge Medications:
DC Medications w/original date entered in [employer]
montelukast 10 mg tablet 10 mg PO HS Lung/breathing issues 04/02/15
ezetimibe 10 mg tablet 10 mg PO DAILY High cholesterol 03/12/21
fluticasone furoate 200 mcg-vilanterol 25 mcg/dose inhalation powder (Breo Ellipta) 1 inh inhalation R DAILY Lung/Breathing Issues 01/13/23
phenobarbital 32.4 mg tablet 32.4 mg PO TID Seizures #9 tabs 03/22/23
dexlansoprazole 60 mg capsule,biphase delayed release 60 mg PO DAILY Gastrointestinal Issue 03/25/23
albuterol sulfate 90 mcg/actuation aerosol inhaler 2 puff inhalation R Q4HPRN PRN sob 11/24/23
aspirin 81 mg tablet,delayed release 81 mg PO DAILY Blood Clot Prevention/Tx 11/24/23
hyoscyamine sulfate 0.125 mg tablet 0.125 mg PO TIDPRN PRN spasms 11/24/23
phenytoin sodium extended 100 mg capsule (Dilantin Extended) 100 mg PO TID Seizures 11/24/23
Lactobac no.2-Bifidobac no.1-S. thermo 112.5 billion cell capsule (Visbiome) 1 cap PO DAILY Supplement 02/29/24
cholecalciferol (vitamin D3) 25 mcg (1,000 unit) tablet (Vitamin D3) 25 mcg PO DAILY Supplement 02/29/24
inclisiran 284 mg/1.5 mL subcutaneous syringe (Leqvio) 284 mg SC [id number] High Cholesterol 05/04/24
gabapentin 600 mg tablet 600 mg PO Q8H neuropathic pain #0 tabs 05/12/24
oxycodone 5 mg tablet 5 - 10 mg PO Q6HPRN PRN moderate pain 06/16/24
atenolol 25 mg tablet 25 mg PO Q12 #60 tabs 06/21/24
bumetanide 2 mg tablet 1 mg (1/2 x 2 mg) PO BID AT 0800,1600 #30 tabs 06/21/24
isosorbide mononitrate 60 mg tablet,extended release 24 hr 60 mg PO DAILY Heart Disease/Condition #0 tabs 06/21/24
warfarin 2.5 mg tablet 1.25 mg (1/2 x 2.5 mg) PO SUMOTUSA #20 tabs 06/22/24
warfarin 2.5 mg tablet 2.5 mg PO WETHFR #20 tabs 06/22/24
Home Medication Changes
Pending Results: No
--- NOTE | 2024-06-22 11:12 | CM ---
Pt for discharge
Family to transport home
Plan - home with [facility]
[2024-06-22 11:20] VITALS: BP 105/61
[2024-06-22] MEDS: ROXICODONE 5 MG PO (12:10)
== END 2024-06-22 13:08 | disposition home health service (06) | DRG 981 ==
LOC: 2 SOUTH 18:23
PROVIDERS: Nurse Practitioner; ADMITTING PHYSICIAN Internal Medicine; ATTENDING PHYSICIAN Hospitalist; CONSULT PHYSICIAN Surgery Vascular Surgery; EMERGENCY PHYSICIAN Emergency Medicine; FAMILY PHYSICIAN Family Medicine; OTHER PHYSICIAN Internal Medicine Critical Care Medicine
PROC: 047 Lower Arteries, Dilation (ICD-10-PCS; 2024-06-17)
PROC: B4101ZZ Fluoroscopy of Abdominal Aorta using Low Osmolar Contrast (ICD-10-PCS; 2024-06-17)
PROC: 30233N1 Transfusion of Nonautologous Red Blood Cells into Peripheral Vein, Percutaneous Approach (ICD-10-PCS; 2024-06-18)
DX: K55.069 Acute infarction of intestine, part and extent unspecified (principal); J96.00 Acute respiratory failure, unspecified whether with hypoxia or hypercapnia; D62 Acute posthemorrhagic anemia; I50.32 Chronic diastolic (congestive) heart failure; E87.0 Hyperosmolality and hypernatremia; I25.10 Atherosclerotic heart disease of native coronary artery without angina pectoris; K55.1 Chronic vascular disorders of intestine; I48.0 Paroxysmal atrial fibrillation; J45.909 Unspecified asthma, uncomplicated; I11.0 Hypertensive heart disease with heart failure; G40.909 Epilepsy, unspecified, not intractable, without status epilepticus; K21.9 Gastro-esophageal reflux disease without esophagitis; D63.8 Anemia in other chronic diseases classified elsewhere; I34.0 Nonrheumatic mitral (valve) insufficiency; E78.00 Pure hypercholesterolemia, unspecified; E66.9 Obesity, unspecified; Z68.29 Body mass index [BMI] 29.0-29.9, adult; Z79.01 Long term (current) use of anticoagulants; Z79.82 Long term (current) use of aspirin; Z79.899 Other long term (current) drug therapy; Z86.711 Personal history of pulmonary embolism; Z86.718 Personal history of other venous thrombosis and embolism; Z87.891 Personal history of nicotine dependence; Z90.5 Acquired absence of kidney; Z95.1 Presence of aortocoronary bypass graft; Z95.5 Presence of coronary angioplasty implant and graft; Z96.611 Presence of right artificial shoulder joint
CPT/HCPCS: 36246; 37236; 49000; 71045; 74174; 75625; 76705; 80048; 80053; 82962; 83605; 83690; 83735; 84100; 84484; 85014; 85018; 85025; 85027; 85610; 85730; 86850; 86900; 86901; 86920; 87324; 87449; 93005; 94640; 96361; 96365; 96366; 96375; 96376; 97116; 97163; 97166; 97530; 99291; C1769; C1874; C1887; C1894; P9016; Q9967

== ENCOUNTER → 2024-08-03 13:38 | Outpatient (REF) | payer MEDICARE, OTHER, SELFPAY | LOC: RAD 13:38 | PROVIDERS: ATTENDING PHYSICIAN Registered Nurse; FAMILY PHYSICIAN Family Medicine; OTHER PHYSICIAN Surgery Vascular Surgery | DX: K55.9 Vascular disorder of intestine, unspecified (principal) | CPT/HCPCS: 93975 ==

== ENCOUNTER → 2024-08-15 12:55 | Outpatient (REF) | payer MEDICARE, OTHER, SELFPAY | LOC: HWRAD 12:55 | PROVIDERS: ATTENDING PHYSICIAN Orthopaedic Surgery Hand Surgery; FAMILY PHYSICIAN Family Medicine | DX: M25.512 Pain in left shoulder (principal) | CPT/HCPCS: 73200 ==

== ENCOUNTER 2024-09-27 08:22 | Inpatient (IN) | payer MEDICARE, OTHER, SELFPAY ==
[2024-09-25 14:09] VITALS: BMI 31.4
[2024-09-25 14:19] LABS: Hematocrit 40.6 % (37.0-47.0); Hemoglobin 13.5 g/dL (12.0-16.0); Mean Corp Hgb Conc. 33.3 g/dL (33.0-37.0); Mean Corpuscular Hgb 31.3 pg (27.0-31.0); Mean Corpuscular Volume 94.2 fL (81.0-99.0); Mean Platelet Volume 9.3 fL (7.4-10.4); Platelet Count 297 10^3/uL (130-400); Red Blood Cell Count 4.31 10^6/uL (4.20-5.40); Red Cell Dist. Width 15.7 % (11.5-14.5); White Blood Cell Count 11.4 10^3/uL (4.8-10.8)
[2024-09-25 15:00] LABS: ALT (SGPT) 21 U/L (0-35); AST (SGOT) 23 U/L (14-36); Albumin 4.4 g/dl (3.5-5.0); Alkaline Phosphatase 240 U/L (38-126); Blood Urea Nitrogen 50 mg/dl (7-17); Calcium 9.2 mg/dl (8.4-10.2); Carbon Dioxide 34 mmol/L (22-30); Chloride 87 mmol/L (98-107); Estimated Creatinine Clearance 40 ml/min; Glucose 94 mg/dl (70-99); Potassium 4.6 mmol/L (3.5-5.1); Sodium 134 mmol/L (135-145); Total Bilirubin 0.9 mg/dl (0.2-1.3); Total Protein 7.7 g/dl (6.3-8.2); eGFR 45.76
[2024-09-25 15:11] VITALS: BMI 31.4
--- NOTE | 2024-09-25 15:14 | PTCARENOTE ---
Yovana in office made aware of Cr 1.2.
[2024-09-26 09:17] LABS: Glycohemoglobin (HgbA1c) 5.4 % (4.0-5.6)
[2024-09-27] VITALS (19 sets, daily range): BP systolic 87–135; BP diastolic 46–65; PULSE 66–76; O2SAT 95
[2024-09-27] MEDS: TYLENOL 1000 MG PO (09:01)
[2024-09-27] MEDS: NORMOSOL-R/PLASMALYTE-A 1000 IV (09:01)
[2024-09-27 09:28] LABS: PT 16.7 Sec (11.4-14.6)
--- NOTE | 2024-09-27 12:46 | W.PN.UPDATE ---
Update Note
Progress Note Update
L shoulder OA and hand mass s/p L Reverse TSA and L hand mass excision w/ Dr Krueger 09/27/24
- s/p R Reverse TSA w/ Dr Krueger 05/10/24
DVT prophylaxis - Resumption of Warfarin, b/l venous foot pumps
HTN w/ h/o post-surgical hypotension
- + parameters to Isosorbide and Bumex. Atenolol to continue for now
- IVR running
- Order Midodrine w/ SBP parameters
- Minimize narcotics as able
PAF � monitor on tele
- Continue Atenolol
- Warfarin as stated above
CHFpEF - resume Bumex w/ BP parameters to avoid post-surgical hypotension
LLE DVT/ Pulmonary embolus 2016 (isolated) - resume Coumadin tonight
- Frequent and early ambulation as tolerated
- Plasma flow devices HIGHLY encouraged for outpatient use
Near syncope 2* orthostasis 02/2024 - orthostatic VS q8h
- See above re: hypotension
Asthma/RAD
Recent L sided 10th rib fx 2* fall
- Monitor O2. Wean supplemental O2 as tolerated
- IS
- Resume home inhalers
- Add Prednisone to help breathing
GERD, small hiatal hernia, and Barretts esophagus - continue PPI therapy
Seizure disorder (petit mal - last seizure 6 years old) - continue Phenobarbital, Phenytoin, and Gabapentin w/o interruption
Ambulatory dysfunction w/ h/o recurrent, recent falls - on fall precautions
- PT consult ordered in addition to OT
H/o urinary retention - monitor voids
- Flomax prn
Hyperlipidemia��
CAD s/p CABG x3 2005, PCI w/ LAD stent 2017
Moderate carotid stenosis
Chronic peripheral edema
Mild-mod valvular disease
Acute on chronic mesenteric ischemia s/p Ex lap with retrograde balloon angioplasty and stenting of the SMA 05/2024
H/o diverticulitis
Multilevel DDD
Neuropathy
Anemia of chronic disease
Renal cell carcinoma, status post R nephrectomy
Melanoma/BCC/SCC s/p excision
Osteoporosis�����
PTSD
Shingles
[2024-09-27] MEDS: DELTASONE 40 MG PO (14:54)
[2024-09-27] MEDS: NSS 1000 IV (14:54)
[2024-09-27] MEDS: ProAmatine 2.5 MG PO ×2 (14:54→17:19)
[2024-09-27] MEDS: DILAUDID 0.5 MG IV ×2 (14:55→21:11)
[2024-09-27] MEDS: NEURONTIN 600 MG PO (17:15)
[2024-09-27] MEDS: TYLENOL 650 MG PO ×2 (17:17→19:50)
[2024-09-27] MEDS: ANCEF 5 IV (17:17)
[2024-09-27] MEDS: COUMADIN 5 MG PO (17:17)
[2024-09-27] MEDS: LUMINAL 32.4 MG PO ×2 (17:19→21:11)
[2024-09-27] MEDS: DILANTIN 100 MG PO ×2 (17:29→21:11)
[2024-09-27] MEDS: DILAUDID 2 MG PO (18:07)
[2024-09-27] MEDS: TENORMIN 25 MG PO (19:46)
[2024-09-27] MEDS: BACTROBAN 2% OINTMENT 1 APPLIC NASAL (21:10)
[2024-09-27] MEDS: SINGULAIR 10 MG PO (22:25)
[2024-09-28] MEDS: NEURONTIN 600 MG PO ×2 (00:19→08:53)
[2024-09-28] MEDS: TYLENOL 650 MG PO ×4 (00:19→12:33)
[2024-09-28] MEDS: ANCEF 5 IV (02:20)
--- NOTE | 2024-09-28 03:05 | PTCARENOTE ---
pt required education regarding sling as she was observed with the sling off.
[2024-09-28 03:10] VITALS: BP 123/63
[2024-09-28 05:27] VITALS: BP 121/60; BP 125/62; BP 126/61; PULSE 72; PULSE 75; PULSE 78
[2024-09-28] MEDS: DILAUDID 0.5 MG IV (05:58)
[2024-09-28 06:00] VITALS: BMI 30.4
[2024-09-28 06:42] LABS: INR 1.29; PT 16.6 Sec (11.4-14.6)
[2024-09-28] MEDS: SYMBICORT 160/4.5 MCG INHALER 2 PUFF INH (07:16)
[2024-09-28 07:50] VITALS: BP 127/67
[2024-09-28] MEDS: ProAmatine PO (08:52)
[2024-09-28] MEDS: DELTASONE 40 MG PO (08:53)
[2024-09-28] MEDS: ASPIR LOW (ENTERIC COATED) 81 MG PO (08:53)
[2024-09-28] MEDS: VITAMIN D3 (cholecalciferol) 25 MCG PO (08:53)
[2024-09-28] MEDS: ZETIA 10 MG PO (08:53)
[2024-09-28] MEDS: PROTONIX 40 MG PO (08:53)
[2024-09-28] MEDS: TENORMIN 25 MG PO (08:54)
[2024-09-28] MEDS: DILANTIN 100 MG PO (08:55)
[2024-09-28] MEDS: BACTROBAN 2% OINTMENT 1 APPLIC NASAL (08:55)
[2024-09-28] MEDS: VISBIOME 1 CAP PO (08:55)
[2024-09-28] MEDS: LUMINAL 32.4 MG PO (08:55)
[2024-09-28] MEDS: IMDUR (EXTENDED RELEASE) 60 MG PO (08:55)
[2024-09-28 10:08] VITALS: BP 124/61; BP 127/60; PULSE 67; O2SAT 93
--- NOTE | 2024-09-28 10:23 | W.PN.ORTHO ---
Today's Communication / Plan
-
Await PT and OT recs.
Wean supplemental O2 as tolerated. Pt NEEDS to use IS prior to SpO2 assessments.
Possible d/c later today pending clinical stability.
Assessment
.
Distal Motor Intact: Yes
Dressing:
Small areas of old incisional bleeding noted.
Assessment:
L shoulder OA and hand mass s/p L Reverse TSA and L hand mass excision w/ Dr Krueger 09/27/24
- s/p R Reverse TSA w/ Dr Krueger 05/10/24
DVT prophylaxis - Resumption of Warfarin, b/l venous foot pumps
- First INR to be determined by Coumadin clinic upon d/c
HTN w/ h/o post-surgical hypotension
- + parameters to Isosorbide and Bumex. Atenolol to continue for now
- s/p IVF
- Order Midodrine w/ SBP parameters
- Minimize narcotics as able
- BPs overall stable w/ measures above
PAF � maintaining NSR on tele
- Continue Atenolol
- Warfarin as stated above
CHFpEF - resumed Bumex w/ BP parameters to avoid post-surgical hypotension
- Daily weight improved since pre-op
LLE DVT/ Pulmonary embolus 2016 (isolated) - resumed Coumadin 09/27
- Frequent and early ambulation as tolerated
- Plasma flow devices HIGHLY encouraged for outpatient use
Near syncope 2* orthostasis 02/2024 - orthostatic VS stable
- See above re: hypotension
Asthma/RAD
Recent L sided 10th rib fx 2* fall
- Monitor O2. Wean supplemental O2 as tolerated
- IS -> was given new one this AM
- Resume home inhalers
- Continue Prednisone to help breathing
GERD, small hiatal hernia, and Barretts esophagus - continue PPI therapy
Seizure disorder (petit mal - last seizure 7 years old) - continue Phenobarbital, Phenytoin, and Gabapentin w/o interruption
Ambulatory dysfunction w/ h/o recurrent, recent falls - on fall precautions
- PT consult ordered in addition to OT
H/o urinary retention - voiding appropriately by POD 1 w/o intervention
- Flomax prn
Hyperlipidemia��
CAD s/p CABG x3 2005, PCI w/ LAD stent 2017
Moderate carotid stenosis
Chronic peripheral edema
Mild-mod valvular disease
Acute on chronic mesenteric ischemia s/p Ex lap with retrograde balloon angioplasty and stenting of the SMA 05/2024
H/o diverticulitis
Multilevel DDD
Neuropathy
Anemia of chronic disease
Renal cell carcinoma, status post R nephrectomy
Melanoma/BCC/SCC s/p excision
Osteoporosis�����
PTSD
Shingles
Plan
.
Surgery / Date: L Reverse TSA, L hand mass excision w/ Dr Krueger
DVT Prophylaxis: Coumadin
Activity:
Out of bed.
PT/OT
Discharge Plan: Home w/ VN (vs SNF)
Subjective
.
.:
Patient examined resting in bed.
Reports high levels of pain; however, appears comfortable. Of note, pt does have a h/o drug seeking behaviors (wants IV dilaudid over PO).
Denies any other new significant complaints.
Vital Signs and Labs
.
Vital Signs and Labs:
Lab Results
09/25/24 12:54
09/25/24 12:54
Temp Pulse Resp BP Pulse Ox
98.3 F 68 18 127/67 95
09/28/24 07:50 09/28/24 08:54 09/28/24 07:50 09/28/24 08:56 09/28/24 07:50
PT 16.6 Sec (11.4-14.6) H 09/28/24 05:07
INR 1.29 09/28/24 05:07
Non-invasive Hgb result: 14.8
Physical Exam
-
HEENT: No pallor, cyanosis, or jaundice. Throat clear.
NECK: Supple. No JVD.
RESPIRATORY: Lungs clear to auscultation.
CVS: S1, S2 normal. RRR.�
ABDOMEN: Soft, non-tender. No distension. Obese.
EXTREMITIES: +LUE sling. Able to wiggle fingers b/l. 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 Strength equal, no calf pain with palpation/dorsiflexion. Calves soft.
INSPECTOR CRYSTAL: AOx3. No focal deficits. 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
[2024-09-28 10:25] VITALS: BP 124/61; BP 127/60; PULSE 67; O2SAT 93
[2024-09-28] MEDS: DILAUDID 4 MG PO (10:29)
[2024-09-28 11:00] VITALS: BP 119/51
--- NOTE | 2024-09-28 11:30 | CM ---
Met with pt at bedside
Pt reports she lives with her in a 2 story home; 3 steps to enter, 18 steps to 2nd fl
Independent prior to sx - assists with ambulation
DME - rolling walker, single point cane, commode, shower chair, nebulizer
SNF - in past - unable to recall name
HH - [facility] in past
Has ride at d/c
PCP - Luis Manuel Burden
Pharm - [facility]
PT/OT recs - HH - prefers [facility]
TT sent to [facility] Liaison for HH needs
Given IMM
Plan - anticipate home with [facility]
[2024-09-28] MEDS: ProAmatine 2.5 MG PO (12:37)
--- NOTE | 2024-09-28 12:56 | W.DS.TRANS ---
DC Summary - Soil Specialist
-
Discharge Instructions:
Sleep Apnea Risk Low
Discharge Diagnosis/Procedures L shoulder OA and hand mass s/p L Reverse TSA
and L hand mass excision w/ Dr Krueger 09/27/24
Diet 2 Gram Sodium,Low Cholesterol
Activity As tolerated,With Walker
Additional Activity Non-weightbearing left upper extremity. Patient
should be supervised at all times given recent
falls.
Driving Restrictions Not until seen by your Dr
Bathing Restrictions OK to shower 72 hours post-surgery.
Blood Work PT/INR 10/02/24 with results to Coumadin
clinic for further Warfarin dose adjustments
Other Services PT,OT,VN
Wound Care Leave dressing on until seen by surgeon's office
for follow-up in 2 weeks.
Specialty Instructions Weigh Daily
Instructions:
Stand-Alone Forms: Total Shoulder Replacement D/C
Changes to Home Medications: Yes
Discharge Medications:
DC Medications w/original date entered in [facility]
montelukast 10 mg tablet 10 mg PO HS Lung/breathing issues 04/02/15
ezetimibe 10 mg tablet 10 mg PO DAILY High cholesterol 03/12/21
fluticasone furoate 200 mcg-vilanterol 25 mcg/dose inhalation powder (Breo Ellipta) 1 inh inhalation R DAILY Lung/Breathing Issues 01/13/23
phenobarbital 32.4 mg tablet 32.4 mg PO TID Seizures #9 tabs 03/22/23
dexlansoprazole 60 mg capsule,biphase delayed release 60 mg PO DAILY Gastrointestinal Issue 03/25/23
albuterol sulfate 90 mcg/actuation aerosol inhaler 2 puff inhalation R Q4HPRN PRN sob 11/24/23
aspirin 81 mg tablet,delayed release 81 mg PO DAILY Blood Clot Prevention/Tx 11/24/23
hyoscyamine sulfate 0.125 mg tablet 0.125 mg PO TIDPRN PRN spasms 11/24/23
phenytoin sodium extended 100 mg capsule (Dilantin Extended) 100 mg PO TID Seizures 11/24/23
Lactobac no.2-Bifidobac no.1-S. thermo 112.5 billion cell capsule (Visbiome) 1 cap PO DAILY Supplement 02/29/24
cholecalciferol (vitamin D3) 25 mcg (1,000 unit) tablet (Vitamin D3) 25 mcg PO DAILY Supplement 02/29/24
inclisiran 284 mg/1.5 mL subcutaneous syringe (Leqvio) 284 mg SC [id number] High Cholesterol 05/04/24
gabapentin 600 mg tablet 600 mg PO Q8H neuropathic pain #0 tabs 05/12/24
atenolol 25 mg tablet 25 mg PO Q12 #60 tabs 06/21/24
isosorbide mononitrate 60 mg tablet,extended release 24 hr 60 mg PO DAILY Heart Disease/Condition #0 tabs 06/21/24
acetaminophen 500 mg tablet (Tylenol Extra Strength) 1,000 mg (2 x 500 mg) PO Q6H #60 tabs 09/28/24
bumetanide 2 mg tablet 2 mg PO BID AT 0800,1600 #0 tabs 09/28/24
docusate sodium 100 mg capsule 100 mg PO BID #30 caps 09/28/24
doxycycline hyclate 100 mg tablet 100 mg PO BID #7 tabs 09/28/24
hydromorphone 2 mg tablet 2 - 4 mg (1 - 2 x 2 mg) PO Q6H PRN moderate-severe pain #30 tabs 09/28/24
ondansetron HCl 4 mg tablet 4 mg PO Q6H PRN nausea and vomiting #30 tabs 09/28/24
prednisone 10 mg tablet 40 mg (4 x 10 mg) PO TAPER #20 tabs 09/28/24
sennosides 8.6 mg tablet (Rupa-rosemarie) 17.2 mg (2 x 8.6 mg) PO BID #30 tabs 09/28/24
warfarin 2.5 mg tablet 2.5 mg PO QPM #1 tab 09/28/24
Home Medication Changes
gabapentin 600 mg tablet 600 mg PO Q8H neuropathic pain #0 tabs 05/12/24
acetaminophen 500 mg tablet (Tylenol Extra Strength) 1,000 mg (2 x 500 mg) PO Q6H #60 tabs 09/28/24
docusate sodium 100 mg capsule 100 mg PO BID #30 caps 09/28/24
doxycycline hyclate 100 mg tablet 100 mg PO BID #7 tabs 09/28/24
hydromorphone 2 mg tablet 2 - 4 mg (1 - 2 x 2 mg) PO Q6H PRN moderate-severe pain #30 tabs 09/28/24
ondansetron HCl 4 mg tablet 4 mg PO Q6H PRN nausea and vomiting #30 tabs 09/28/24
prednisone 10 mg tablet 40 mg (4 x 10 mg) PO TAPER #20 tabs 09/28/24
sennosides 8.6 mg tablet (Rupa-rosemarie) 17.2 mg (2 x 8.6 mg) PO BID #30 tabs 09/28/24
Pending Results: Yes (Wound and anaerobic cultures, gram stain )
--- NOTE | 2024-09-28 13:21 | VNURNOTE ---
Home Health Liaison met with patient and spouse at bedside to discuss [facility] nurse/therapy, visits, schedule and homebound status. Patient is agreeable and understands that visits at home will be 2-3 x per week to assess and teach medical management.
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 She stated she cancelled them right before surgery. Patient and spouse are aware that [facility] will contact them for start of care in 1-2 days after discharge from .
[facility] referral completed in [facility].
== END 2024-09-28 15:38 | disposition home health service (06) | DRG 483 ==
LOC: 2 SOUTH 08:22
PROVIDERS: Physician Assistant; ADMITTING PHYSICIAN Orthopaedic Surgery Hand Surgery; FAMILY PHYSICIAN Family Medicine; REFERRING PHYSICIAN Internal Medicine
PROC: 0RRK00Z Replacement of Left Shoulder Joint with Reverse Ball and Socket Synthetic Substitute, Open Approach (ICD-10-PCS; 2024-09-27)
DX: M19.012 Primary osteoarthritis, left shoulder (principal); I50.32 Chronic diastolic (congestive) heart failure; M75.102 Unspecified rotator cuff tear or rupture of left shoulder, not specified as traumatic; G40.802 Other epilepsy, not intractable, without status epilepticus; J45.909 Unspecified asthma, uncomplicated; E78.5 Hyperlipidemia, unspecified; I11.0 Hypertensive heart disease with heart failure; M81.0 Age-related osteoporosis without current pathological fracture; I25.10 Atherosclerotic heart disease of native coronary artery without angina pectoris; I48.0 Paroxysmal atrial fibrillation; F43.10 Post-traumatic stress disorder, unspecified; Z86.711 Personal history of pulmonary embolism; Z86.718 Personal history of other venous thrombosis and embolism; Z79.01 Long term (current) use of anticoagulants; Z90.5 Acquired absence of kidney; Z79.82 Long term (current) use of aspirin; Z96.651 Presence of right artificial knee joint; Z79.899 Other long term (current) drug therapy; Z95.1 Presence of aortocoronary bypass graft; Z95.5 Presence of coronary angioplasty implant and graft; Z95.828 Presence of other vascular implants and grafts; Z85.528 Personal history of other malignant neoplasm of kidney
CPT/HCPCS: 88304; 36415; 73020; 80053; 83036; 85027; 85610; 87070; 87075; 87205; 94640; 97110; 97116; 97163; 97167; 97530; 97535; C1713; C1776

== ENCOUNTER 2024-12-20 16:23 | Outpatient (RCR) | payer MEDICARE, OTHER, SELFPAY | END 2024-12-20 23:59 | disposition home or self-care (01) | LOC: RPT 16:23 | PROVIDERS: ATTENDING PHYSICIAN Orthopaedic Surgery Hand Surgery; FAMILY PHYSICIAN Family Medicine | DX: Z47.89 Encounter for other orthopedic aftercare (principal); M25.512 Pain in left shoulder; R26.81 Unsteadiness on feet; Z73.6 Limitation of activities due to disability; G62.9 Polyneuropathy, unspecified; R26.2 Difficulty in walking, not elsewhere classified; R26.89 Other abnormalities of gait and mobility; Z96.611 Presence of right artificial shoulder joint; R29.6 Repeated falls | CPT/HCPCS: 97010; 97110; 97112; 97140; 97163 ==

== ENCOUNTER 2025-01-16 15:00 | Outpatient (RCR) | payer MEDICARE, OTHER, SELFPAY | END 2025-01-16 23:59 | disposition home or self-care (01) | LOC: RPT 15:00 | PROVIDERS: ATTENDING PHYSICIAN Orthopaedic Surgery Hand Surgery; FAMILY PHYSICIAN Family Medicine | DX: Z47.89 Encounter for other orthopedic aftercare (principal); M25.512 Pain in left shoulder; R26.81 Unsteadiness on feet; Z73.6 Limitation of activities due to disability; G62.9 Polyneuropathy, unspecified; R26.2 Difficulty in walking, not elsewhere classified; R26.89 Other abnormalities of gait and mobility; Z96.611 Presence of right artificial shoulder joint; R29.6 Repeated falls | CPT/HCPCS: 97010; 97110; 97112; 97140 ==

== ENCOUNTER 2025-02-05 14:09 | Outpatient (RCR) | payer MEDICARE, OTHER, SELFPAY | END 2025-02-05 23:59 | disposition home or self-care (01) | LOC: RPT 14:09 | PROVIDERS: ATTENDING PHYSICIAN Orthopaedic Surgery Hand Surgery; FAMILY PHYSICIAN Family Medicine | DX: Z47.89 Encounter for other orthopedic aftercare (principal); M25.512 Pain in left shoulder; R26.81 Unsteadiness on feet; Z73.6 Limitation of activities due to disability; G62.9 Polyneuropathy, unspecified; R26.2 Difficulty in walking, not elsewhere classified; R26.89 Other abnormalities of gait and mobility; Z96.611 Presence of right artificial shoulder joint; R29.6 Repeated falls | CPT/HCPCS: 97010; 97110; 97112; 97164; 97530 ==

== ENCOUNTER → 2025-02-05 15:13 | Outpatient (REF) | payer MEDICARE, OTHER, SELFPAY ==
[2025-02-05 16:25] LABS: Glucose 106 mg/dl (70-99)
[2025-02-05 16:44] LABS: TSH 1.52 uIU/ml (0.47-4.68)
[2025-02-05 19:56] LABS: Folate 8.3 ng/ml (2.76-20); Vitamin B12 327 pg/ml (239-931)
[2025-02-08 12:23] LABS: Rheumatoid Agglutinin Positive (<10 IU)
[2025-02-08 14:19] LABS: Rheumatoid Agg. Semi-quant 512 IU
[2025-02-08 18:10] LABS: SSA 52 (Ro)(ENA) Ab, IgG 6 AU/mL (0-40); SSA 60 (Ro)(ENA) Ab, IgG 2 AU/mL (0-40); SSB (La)(ENA) Ab, IgG 1 AU/mL (0-40)
[2025-02-08 18:42] LABS: Purkinje Cell/Neuronal Nuc IgG None Detected (None Detected)
[2025-02-08 21:54] LABS: ANA, IgG Reflex to HEp-2 None Detected (None Detected)
[2025-02-09 14:37] LABS: Albumin 3.44 g/dL (3.75-5.01); Free Kappa Light Chains,Quant 95.08 mg/L (3.30-19.40); Free Lambda Light Chains,Quant 49.93 mg/L (5.71-26.30); Immunofixation Electrophoresis IFE Done; Kappa/Lambda Fr Light Ratio 1.90 (0.26-1.65); Total Protein-Electrophoresis 7.7 g/dL (6.3-8.2)
== END ==
LOC: REG 15:13
PROVIDERS: ATTENDING PHYSICIAN Specialist; FAMILY PHYSICIAN Family Medicine
DX: G60.3 Idiopathic progressive neuropathy (principal); E11.42 Type 2 diabetes mellitus with diabetic polyneuropathy; D51.8 Other vitamin B12 deficiency anemias; E03.9 Hypothyroidism, unspecified
CPT/HCPCS: 36415; 82607; 82746; 82784; 82947; 83521; 84155; 84165; 84439; 84443; 86038; 86235; 86255; 86334; 86430; 86431

== ENCOUNTER 2025-02-26 18:19 | Inpatient (IN) | payer MEDICARE, OTHER, SELFPAY ==
[2025-02-26] VITALS (17 sets, daily range): BP systolic 69–120; BP diastolic 32–87; BMI 30.4; BMI 29.9; BMI 29.8
--- NOTE | 2025-02-26 15:09 | ED.GENMED ---
History of Present Illness
General
Chief Complaint: Chest Pain
Source: patient
Exam Limitations: none
Time Seen by Provider: 02/26/25 14:56
History of Present Illness
History of Present Illness:
See MDM
Past History
Past History
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
(Diverticulitis, DVT/PE, Only has right kidney, Endometriosis)
ED Past Surgical History: Appendectomy, Cardiac (quadruple bypass 2001. stent), Gynecological (Hysterectomy), Orthopedic (left shoulder, ankle) and Other (Right nephrectomy 2001 'tumor')
Social History
Tobacco: Former smoker
Alcohol: Occasional
Drug: None
Personal:
Living: with family
Employment: Retired
Family History
Family History: Other (Noncontributory)
Phy Exam
Physical Exam
Physical Exam:
See MDM
Scores
Heart Score for Chest Pain Patients
STEMI patient?: No
History: Slightly or Non-Suspicious
ECG: Nonspecific Repolarization
Age: >/= 65 years
Risk Factors: >/= 3 Risk Factors or History of CAD
Troponin: >1 - <3 x Normal Limit
Heart Score for Chest Pain Patients: 6
Heart Score Risk: 20.3% MACE over next 6 weeks
Course
Orders/Labs/Results
Orders:
Orders
02/26/25 14:26
Electrocardiogram (*1) Urgent
Reason for Study: Chest Pain
EKG- Treatment ONCE
02/26/25 15:07
Aspirin Chewable [Low Strength Aspirin] 324 mg PO NOW STA
Nitroglycerin Sublingual [Nitrostat (Sublingual)] 0.4 mg SL NOW STA
02/26/25 15:08
CR Chest - 2 Views Urgent
Comment:
Reason For Exam: SOB with exertion
02/26/25 15:10
Complete Blood Count/With Diff Urgent
Comprehensive Metabolic Panel Urgent
NT-proBNP Urgent
Comment: ADD ON
PT/INR [Prothrombin Time] Urgent
Is patient on Coumadin/Warfarin?: No
Comment: [email or web address]
PTT Urgent
Troponin I Urgent
02/26/25 15:17
0.9% Sodium Chloride 500 ml [Nss] 500 ml IV BOLUS
02/26/25 15:20
Add On- LAB Urgent
Tests Added?: Pro BNP
02/26/25 15:48
Echo 2D MMode Color/Doppler Routine
Reason for Study: Shortness of breath, chest pain, dizziness
02/26/25 15:56
Consult Cardiology [CARDIOLOGY CONSULT] Routine
Consulting Provider: Jake Gr
Was physician already notified: Yes
02/26/25 16:00
Ketorolac [Toradol] 15 mg IV NOW STA
Abnormal Lab Results
02/26/25
15:10
WBC 15.2 H 10^3/uL
(4.8-10.8)
Abs Immat Gran (auto) 0.1 H 10^3/uL
(0-0.05)
Absolute Neuts (auto) 13.3 H 10^3/uL
(1.4-6.5)
Absolute Lymphs (auto) 0.9 L 10^3/uL
(1.2-3.4)
Absolute Monos (auto) 0.7 H 10^3/uL
(0.1-0.6)
Immature Gran % 0.7 H %
(0-0.5)
Neutrophils % 87.8 H %
(42.2-75.2)
Lymphocytes % 5.9 L %
(20.5-51.1)
PT 27.5 H Sec
(11.4-14.6)
APTT 39.9 H Sec
(23.4-35.0)
Chloride 96 L mmol/L
(98-107)
BUN 61 H mg/dl
(7-17)
Creatinine 1.7 H mg/dL
(0.6-1.0)
Glucose 115 H mg/dl
(70-99)
Alkaline Phosphatase 220 H U/L
(38-126)
02/26/25 15:10
02/26/25 15:10
Vital Signs
Initial and Last Documented VS:
Initial Vital Signs
Temp Pulse Resp BP Pulse Ox
98.7 F 69 16 95/55 95
02/26/25 14:38 02/26/25 14:38 02/26/25 14:38 02/26/25 14:38 02/26/25 14:38
Last Documented Vital Signs
Temp Pulse Resp BP Pulse Ox
98.7 F 70 23 118/55 89
02/26/25 14:38 02/26/25 15:45 02/26/25 15:45 02/26/25 15:40 02/26/25 15:26
MDM/Problems Addressed
Differential Diagnosis Includes:
Note:
CHIEF COMPLAINT(S)
Shortness of breath, dizziness, and chest pain.
HISTORY OF PRESENT ILLNESS
The patient is an 79-year-old female presenting with shortness of breath and dizziness. The symptoms began this morning and have worsened throughout the day. The patient reports experiencing shortness of breath with minimal exertion, such as
dressing, and has not experienced syncope but feels as if they might pass out. The patient also reports chest pain, which is present at the time of this encounter.
The patients history is significant for coronary artery bypass grafting (CABG) performed in 2005. The patient has not taken any aspirin today but usually takes it at night, and she has taken Tylenol. The patient has yet to take nitroglycerin but
intends to.
The patient conveys that she consulted with her healthcare provider via phone, and they advised her to come to the hospital for evaluation after her symptoms did not improve.
PHYSICAL EXAM
General: Alert, no acute distress.
Skin: Warm, dry.
Head: Normocephalic, atraumatic
Neck: Appears supple, trachea midline.
Eyes, Ears, Nose, Mouth, and Throat: Oral mucosa moist.
Cardiovascular: No signs of cyanosis. Regular rate and rhythm
Respiratory: Respirations are non-labored.
Abdomen: Non-distended
Musculoskeletal: No deformities
Neurological: No focal neurological deficit observed.
Psychiatric: Cooperative, appropriate mood and affect.
PLAN
- Administer aspirin and nitroglycerin to address chest pain and potential cardiac origins.
- Arrange for a crank hand consultation to evaluate the patients cardiac history and current symptoms more thoroughly.
- Monitor the patient overnight for further assessment given her cardiac history and current symptomatology.
DIFFERENTIAL DIAGNOSIS
The Differential Diagnosis includes, in no particular order and is not limited to:
1. Angina pectoris
2. Myocardial infarction
3. Congestive heart failure
4. Atrial fibrillation
5. Pulmonary embolism
6. Chronic obstructive pulmonary disease exacerbation
7. Anemia
8. Pleural effusion
9. Panic disorder
10. Orthostatic hypotension
EKG
My independent EKG interpretation is:
- Time of EKG not specified
- Rhythm: Sinus rhythm
- Heart rate: 75 beats per minute
- Wana: Normal
- Abnormalities: Mild ST depression anteriorly
- No ST elevation noted
CARE-UPDATE
02/26/25 - 15:18
The patients blood pressure is currently too low to administer nitroglycerin. Cardiologists have been closely monitoring her condition and recently initiated treatment with tazolone. Today, she was directed to the emergency department due to severe
episodes of blackouts and dizziness reported during a follow-up call. Administering a small IV fluid bolus was decided to address her low blood pressure.
SUMMARY OF ENCOUNTER
The patient, an 79-year-old female, presented to the emergency department due to shortness of breath, dizziness, and chest pain, with a significant history of coronary artery bypass grafting. Despite negative troponin results, cardiology recommended
hospital admission for further monitoring and evaluation, including troponin trending and additional cardiology assessments. The patient experienced persistent pain, which was addressed with a dose of ketorolac.
DISPOSITION
The patient is admitted to the hospitalist service for further evaluation and monitoring.
ASSESSMENT
The patient�s presentation includes symptoms suggestive of potential cardiac issues, despite negative troponin tests. The current management plan involves hospital observation and specialist evaluation to rule out acute coronary syndrome or other
cardiac events.
EMERGENCY TREATMENTS ADMINISTERED
A dose of ketorolac was administered for pain management.
MANAGEMENT OF THE PATIENTS CARE WAS DISCUSSED WITH
The case was discussed with the crank hand, who recommended hospital admission. Additionally, the hospitalist service was consulted regarding admission.
PLAN
The patient will be admitted to the hospitalist service for further cardiac evaluation and troponin trending to ensure close monitoring of her cardiac status and overall condition.
INDEPENDENT REVIEW OF LABS AND INTERPRETATION OF TESTS
My independent review of the troponin test indicates negative results. My independent interpretation of the chest x-ray shows no evidence of pulmonary edema.
MEDICATION RECONCILIATION
Ketorolac (Toradol) was administered to address the patients pain.
MEDICAL DECISION MAKING
- Number and Complexity of Problems Addressed: Chronic conditions affecting care include a history of coronary artery bypass grafting.
Differential diagnosis list includes:
1. Angina pectoris
2. Myocardial infarction
3. Congestive heart failure
4. Atrial fibrillation
5. Pulmonary embolism
6. Chronic obstructive pulmonary disease exacerbation
7. Anemia
8. Pleural effusion
9. Panic disorder
10. Orthostatic hypotension
- Data:
Category 1:
- My independent interpretation of EKG: Sinus rhythm, heart rate 75 beats per minute, mild ST depression anteriorly.
- My independent interpretation of chest x-ray: No evidence of pulmonary edema.
Category 3:
- Discussion of management with the crank hand and hospitalist.
- Risk:
Decisions to admit the patient for further monitoring and evaluation due to potential high risk of cardiac issues.
DIAGNOSIS
- Chest pain, unspecified (R07.9)
- Dyspnea (R06.00)
- Dizziness (R42)
*Pulse Oximetry
SaO2: 90
Oxygen Mode of Delivery: Room air
Patient hypoxic: no
*Critical Care Note
Total Time (30-74mins, 75-104mins- exclusive of procedures): Not Applicable
ED Attending Note
-
Portions of this chart may have been created with voice recognition software.� Occasional wrong word or��sound alike� substitutions may have occurred due to the inherent limitations of voice recognition software.
Discharge Plan
Departure
Patient Disposition: Admit
Date of Disposition: 02/26/25
Time of Disposition: 16:14
Admit to: Telemetry
Presentation/result/management discussed w/ accepting MD/DO: Hospitalist
Discharge Problem:
Chest pain
Prescriptions:
No Action
montelukast 10 MG tablet
10 mg PO HS
ezetimibe 10 MG tablet
10 mg PO DAILY
fluticasone furoate-vilanterol [Breo Ellipta] 200-25 mcg/dose blister with device
1 inh INHALATION R DAILY
phenobarbital 32.4 MG tablet
32.4 mg PO TID Qty: 9 0RF
dexlansoprazole 60 mg capsule,biphase delayed releas
60 mg PO DAILY
phenytoin sodium extended [Dilantin Extended] 100 mg capsule
100 mg PO TID
aspirin 81 mg Tablet,Delayed Release (Dr/Ec)
81 mg PO DAILY
hyoscyamine sulfate 0.125 mg Tablet
0.125 mg PO TIDPRN PRN (Reason: spasms)
albuterol sulfate 90 mcg/actuation Hfa Aerosol Inhaler
2 puff INHALATION R Q4HPRN PRN (Reason: sob)
cholecalciferol (vitamin D3) [Vitamin D3] 25 mcg (1,000 unit) Tablet
25 mcg PO DAILY
Visbiome 112.5 billion cell Capsule
1 cap PO DAILY
Leqvio 284 mg/1.5 mL Syringe
284 mg SC [id number]
Patient Comments:
patient last had July
gabapentin 600 mg Tablet
600 mg PO Q8H Qty: 0 0RF
atenolol 25 mg Tablet
25 mg PO Q12 Qty: 60 0RF
isosorbide mononitrate 60 mg tablet extended release 24 hr
60 mg PO DAILY Qty: 0 0RF
docusate sodium 100 mg Capsule
100 mg PO BID Qty: 30 0RF
hydromorphone 2 mg Tablet
2 - 4 mg PO Q6H PRN (Reason: moderate-severe pain) Qty: 30 0RF
Rx Instructions:
1 tab for moderate pain, 2 if severe.
Dx total joint.
sennosides [Rupa-rosemarie] 8.6 mg Tablet
17.2 mg PO BID Qty: 30 0RF
ondansetron HCl 4 mg tablet
4 mg PO Q6H PRN (Reason: nausea and vomiting) Qty: 30 0RF
acetaminophen [Tylenol Extra Strength] 500 mg tablet
1,000 mg PO Q6H Qty: 60 0RF
Rx Instructions:
Do NOT exceed >4000 mg daily.
doxycycline hyclate 100 mg tablet
100 mg PO BID Qty: 7 0RF
Rx Instructions:
Start night of discharge and continue until finished.
prednisone 10 mg tablet
40 mg PO TAPER Qty: 20 0RF
Rx Instructions:
4 TABS X 2 DAYS, 3 TABS X 2 DAYS, 2 TABS X 2 DAYS, 1 TAB X 2 DAYS, THEN STOP
warfarin 2.5 mg tablet
2.5 mg PO QPM Qty: 1 0RF
Rx Instructions:
Take 5 mg (2 2.5 mg tabs) 3/6 PM and 3/7 PM. Then take 2.5 mg (1 tab) 3/8 PM and 3/9 PM.
Dosing to be adjusted by Coumadin clinic after INR 3/10.
bumetanide 2 mg tablet
2 mg PO BID AT 0800,1600 Qty: 0 0RF
Rx Instructions:
HOLD IF systolic blood pressure <120 while on Dilaudid.
Referrals:
Luis Manuel Burden MD [Family Provider, Family Practice]
Interventions
Interventions:
*Risk Screen - Suicide Last Done: 02/26/25 14:39
*General Assessment Last Done: 02/26/25 15:43
*Neglect/Abuse Screening Last Done: 02/26/25 14:39
*ED- Fall Risk Assessment Last Done: 02/26/25 15:43
ED- Cardiac Assessment Last Done: 02/26/25 15:45
Discharge Date and Time
Print Language: KOREAN
[2025-02-26] MEDS: LOW STRENGTH ASPIRIN 324 MG PO (15:19)
[2025-02-26] MEDS: NSS 500 IV (15:23)
[2025-02-26 15:37] LABS: INR 2.56; PT 27.5 Sec (11.4-14.6)
[2025-02-26 15:38] LABS: APTT 39.9 Sec (23.4-35.0)
--- NOTE | 2025-02-26 15:40 | CON.CAR ---
Addendum entered and electronically signed by Jake Gr MD 02/26/25 19:00:
I saw and examined the patient independently.
The WEATHER ANCHOR's note was reviewed and I agree with the note with changes/additions as noted below.
Comment:
79 yo female with PMH of chronic HFPEF admitted with worsening FRENCH, abdominal tightness. At home: bumex 2mg bid, with metolazone 5mg //. She called with weight gain, so we tried daily metolazone over weekend. Did not feel better so presented to
ED. Exam with RRR, no murmurs, no edema. Cr 1.7.
Acute on chronic HFPEF
-severe, requiring hospitalization, IV diuresis, close monitor of labs/tele
-will give 3 mg IV bumex now, and monitor for response
-assess to continue 3mg IV bid tomorrow
Chest pain
-seems atypical, 1st troponin within normal limits: trend
-last cath 12/2022 showed stable CAD
Original Note:
Medical History
-
Chief Complaint: Shortness of breath
History of Present Illness:
Josefina Cruz is an 79-year-old female (known to Dr. Gr, her primary academic manager), with chronic HFpEF, mild/moderate mitral regurgitation and tricuspid regurgitation, CAD (CABG 2005, LAD PCI 2016), paroxysmal atrial fibrillation (on warfarin), PAD
(balloon angioplasty and stenting of the superior mesenteric artery, 2023), carotid stenosis, nephrectomy (2011), dyslipidemia with statin intolerance on Leqvio, prior PE, hypertension, chronic lower extremity edema, and asthma who presented to the
emergency department with a chief complaint of shortness of breath. None at rest, exertional only. If she does not rest when she gets short of breath she feels like she may pass out. She is also endorsing midsternal anterior chest pain. It does
not radiate. It comes and goes. It does not get worse with exertion.
She called on Wednesday and reported a weight gain of 5 pounds overnight. She endorsed dyspnea with exertion. She was told to take metolazone for at least 2 days, possibly 3 to diurese for 5 pounds. Triage called her today for an update. Her FRENCH
was unchanged as was her weight. She did take metolazone over the weekend. She endorsed associated dizziness and mid sternal chest pain. She was told to present to the emergency department for evaluation.
Past Medical History
Past Medical History: Arrhythmias (Paroxysmal atrial fibrillation), Asthma, CAD (CABG 2005, LAD PCI 2016), CHF (HFpEF), HTN, Hypercholesterolemia (Statin intolerant), Seizures, Valvular Disease (Mitral regurgitation, tricuspid regurgitation) and
Other (Prior PE, PAD)
Past Surgical History: Appendectomy, Cardiac (CABG [facility]), Gynecological and Orthopedic
Social History
Tobacco: Former Smoker
Living: With Family
Employment: Retired
Family History
Family History: Reviewed & Not Pertinent
Allergies / Home Medications
Allergy/AdvReac Type Severity Reaction Status Date / Time
metronidazole (From Flagyl) Allergy Nausea / Verified 09/27/24 08:12
Vomiting
pollen extracts Allergy ENVIRONMENTAL Verified 09/27/24 08:12
ALLERGIES-NASAL
SYMPTOMS
�Medication �Instructions �Recorded �Confirmed �Type
montelukast 10 mg tablet 10 mg PO HS Lung/breathing issues 04/02/15 09/27/24 History
ezetimibe 10 mg tablet 10 mg PO DAILY High cholesterol 03/12/21 09/15/24 History
fluticasone furoate 200 1 inh inhalation R DAILY 01/13/23 09/15/24 History
mcg-vilanterol 25 mcg/dose Lung/Breathing Issues
inhalation powder (Breo Ellipta)
phenobarbital 32.4 mg tablet 32.4 mg PO TID Seizures #9 tabs 03/22/23 09/15/24 Rx
dexlansoprazole 60 mg 60 mg PO DAILY Gastrointestinal 03/25/23 09/27/24 History
capsule,biphase delayed release Issue
albuterol sulfate 90 mcg/actuation 2 puff inhalation R Q4HPRN PRN sob 11/24/23 09/27/24 History
aerosol inhaler
aspirin 81 mg tablet,delayed 81 mg PO DAILY Blood Clot 11/24/23 09/15/24 History
release Prevention/Tx
hyoscyamine sulfate 0.125 mg tablet 0.125 mg PO TIDPRN PRN spasms 11/24/23 09/15/24 History
phenytoin sodium extended 100 mg 100 mg PO TID Seizures 11/24/23 09/27/24 History
capsule (Dilantin Extended)
Lactobac no.2-Bifidobac no.1-S. 1 cap PO DAILY Supplement 02/29/24 09/27/24 History
thermo 112.5 billion cell capsule
(Visbiome)
cholecalciferol (vitamin D3) 25 25 mcg PO DAILY Supplement 02/29/24 09/27/24 History
mcg (1,000 unit) tablet (Vitamin
D3)
inclisiran 284 mg/1.5 mL 284 mg SC [id number] High Cholesterol 05/04/24 09/15/24 History
subcutaneous syringe (Leqvio)
gabapentin 600 mg tablet 600 mg PO Q8H neuropathic pain #0 05/12/24 09/15/24 Rx
tabs
atenolol 25 mg tablet 25 mg PO Q12 #60 tabs 06/21/24 09/15/24 Rx
isosorbide mononitrate 60 mg 60 mg PO DAILY Heart 06/21/24 09/15/24 Rx
tablet,extended release 24 hr Disease/Condition #0 tabs
acetaminophen 500 mg tablet 1,000 mg (2 x 500 mg) PO Q6H #60 09/28/24 Rx
(Tylenol Extra Strength) tabs
bumetanide 2 mg tablet 2 mg PO BID AT 0800,1600 #0 tabs 09/28/24 09/15/24 Rx
docusate sodium 100 mg capsule 100 mg PO BID #30 caps 09/28/24 Rx
doxycycline hyclate 100 mg tablet 100 mg PO BID #7 tabs 09/28/24 Rx
hydromorphone 2 mg tablet 2 - 4 mg (1 - 2 x 2 mg) PO Q6H PRN 09/28/24 Rx
moderate-severe pain #30 tabs
ondansetron HCl 4 mg tablet 4 mg PO Q6H PRN nausea and 09/28/24 Rx
vomiting #30 tabs
prednisone 10 mg tablet 40 mg (4 x 10 mg) PO TAPER #20 tabs 09/28/24 Rx
sennosides 8.6 mg tablet (Rupa-rosemarie) 17.2 mg (2 x 8.6 mg) PO BID #30 09/28/24 Rx
tabs
warfarin 2.5 mg tablet 2.5 mg PO QPM #1 tab 09/28/24 Rx
Review of Systems
-
History Source: Patient
All other systems: Negative unless noted
Constitutional: Weight Gain and Fatigue
EENT: No Symptoms
Respiratory: Trouble Breathing
Cardiac: Chest Pain
Abdomen/GI: No Symptoms
: No Symptoms
Musculoskeletal: No Symptoms
Skin: No Symptoms
Neurological: No Symptoms
Endocrine: No Symptoms
Hematologic/Lymphatic: No Symptoms
Physical Exam
Vital Signs
Temp Pulse Resp BP Pulse Ox
98.7 F 75 15 85/52 90
02/26/25 14:38 02/26/25 15:05 02/26/25 15:05 02/26/25 15:05 02/26/25 15:11
Physical Exam
General: Well Developed, Well Nourished, No Apparent Distress and Comfortable
HEENT: Normocephalic, Anicteric and Moist Mucous Membranes
Respiratory: Clear and Non Labored Respirations
Cardiac: S1/S2 and Regular Rhythm
Breast: Deferred by me
GI: Soft, Non Tender, Non Distended and Normal Bowel Sounds
Rectal: Deferred by Provider
Genito-urinary: No Costovertebral Tender
Musculoskeletal: No Clubbing
Skin: Warm and Dry
Neuro: Awake and Alert
Hematologic/Lymphatic: No Lymphadenopathy
Psych: Calm
Impression / Plan
-
I/P: 79F with chronic HFpEF, mild/moderate mitral regurgitation and tricuspid regurgitation, CAD (CABG 2005, LAD PCI 2016), paroxysmal atrial fibrillation (on warfarin), PAD (balloon angioplasty and stenting of the superior mesenteric artery, 2023),
carotid stenosis, nephrectomy (2011), dyslipidemia with statin intolerance on Leqvio, prior PE, hypertension, chronic left lower extremity edema, and asthma who presented to the emergency department with a chief complaint of shortness of breath
Primary academic manager: Dr. Gr
Shortness of breath
- DDx includes acute on chronic HFpEF
Chest pain
- On aspirin and warfarin
- EKG with mild anterolateral ST changes, troponin level pending
- Echocardiogram
HFpEF, acute on chronic, severe requiring hospitalization
- Diuresis given FRENCH and weight gain on home scale, start with bumetanide 3 mg IV x 1 then 2 mg IV twice daily
- Update echocardiogram
- Heart failure education
- Trend daily weight, I's/O, and BMP with diuresis - IV diuresis with solitary kidney requires intensive monitoring
CAD
- Continue medical management
- Chest pain evaluation as above
- [facility] 12/2022:The COPPOLA-LAD graft is atretic (unchanged) but there is normal antegrade flow in the mid LAD stent placed in 2017 remains widely patent. SVG-OM & SVG-RPDA patent.
Paroxysmal atrial fibrillation
- In sinus rhythm
- Oral Anticoagulation: Warfarin, INR 2.56
- [id number]: Score at least 6 (Heart failure, HTN, age 75 or more, Vascular disease, female gender)
Mitral regurgitation, mild to moderate by TTE 02/2024
Tricuspid regurgitation, mild to moderate, PASP 50-50 mmHg by TTE 02/2020
Nephrectomy, right (2001)
Hypercholesterolemia, with statin intolerance, on Leqvio
PAD, follows with vascular surgery
Seizure disorder
Prior PE
Data Reviewed
-
EKG: Report Reviewed by me
Medical Tests (Nuc Med, Echo etc): Report Reviewed by me
Labs: Labs Reviewed by me
Old Records: Reviewed
[2025-02-26 15:46] LABS: Hematocrit 40.1 % (37.0-47.0); Hemoglobin 13.4 g/dL (12.0-16.0); Mean Corp Hgb Conc. 33.4 g/dL (33.0-37.0); Mean Corpuscular Volume 92.8 fL (81.0-99.0); Nucleated Red Blood Cells % 0 %; Platelet Count 294 10^3/uL (130-400); Red Cell Dist. Width 13.5 % (11.5-14.5)
[2025-02-26 15:53] LABS: Troponin I 0.028 ng/ml
[2025-02-26 16:06] LABS: ALT (SGPT) 19 U/L (0-35); AST (SGOT) 25 U/L (14-36); Albumin 4.0 g/dl (3.5-5.0); Alkaline Phosphatase 220 U/L (38-126); Blood Urea Nitrogen 61 mg/dl (7-17); Calcium 8.9 mg/dl (8.4-10.2); Carbon Dioxide 29 mmol/L (22-30); Chloride 96 mmol/L (98-107); Estimated Creatinine Clearance 30 ml/min; Glucose 115 mg/dl (70-99); Potassium 3.6 mmol/L (3.5-5.1); Sodium 135 mmol/L (135-145); Total Protein 7.4 g/dl (6.3-8.2); eGFR 30.13
[2025-02-26] MEDS: BUMEX 3 MG IV (16:50)
--- NOTE | 2025-02-26 16:54 | HPS.HSE ---
Addendum entered and electronically signed by Gianna Beasley MD 02/26/25 17:39:
see update note for addendum
Original Note:
Family Physician
-
Family Physician: Luis Manuel Burden
Chief Complaint
-
sob
History of Present Illness
79-year-old with past medical history for asthma, coronary artery disease, renal cell carcinoma, melanoma, basal cell and squamous cell cancer, CHF, hypertension, hyperlipidemia, seizures, DVT, PE presented to us with shortness of breath and
dizziness. patient stated sob for past few days, which is worse with exertion. she stated weight gain for past few weeks. she gained 5lbs in past few days. she complained of mid sternum pain today and dizzy and felt as if she is going to pass out.
denied any LE edema. denied PHAN. denied fever, chills, cough, congestion. denied abdominal pain,n,v,d. denied dysuria or hematuria.
Patient received a dose of aspirin, Bumex, nitro, Toradol, normal saline, tramadol in ER. Admitting for further management
Medical History
Past Medical History
Past Medical History: Reports Other
Additional Past Medical History:
Asthma
Renal cancer
Basal cell skin cancer
Diverticulitis
Seizure
Clark's esophagus
DVT, PE
Hyperlipidemia
Hypertension,
Osteoporosis
Coronary artery disease
Shingles
Past Surgical History: Reports Other
Additional Past Surgical History:
Coronary artery bypass graft
Appendectomy
Hysterectomy
Exploratory
Ankle fracture repair
Hyperlipidemia
Rotator cuff repair
FLYNN/BSO right knee replacement
Elevated troponin
Right tendon repair
Social History
Tobacco: Non-smoker
Alcohol: None
Drug: None
Family History
Family History: Not pertinent
Allergies / Home Medications
Allergies reflects when Allergies were last updated in [facility].
Home Medications with original date entered in [facility]
Allergy/Medication List:
Allergies
Allergy/AdvReac Type Severity Reaction Status Date / Time
metronidazole (From Flagyl) Allergy Nausea / Verified 09/27/24 08:12
Vomiting
pollen extracts Allergy ENVIRONMENTAL Verified 09/27/24 08:12
ALLERGIES-NASAL
SYMPTOMS
Home Medications
montelukast 10 mg tablet 10 mg PO HS Lung/breathing issues 04/02/15
ezetimibe 10 mg tablet 10 mg PO DAILY High cholesterol 03/12/21
fluticasone furoate 200 mcg-vilanterol 25 mcg/dose inhalation powder (Breo Ellipta) 1 inh inhalation R DAILY Lung/Breathing Issues 01/13/23
phenobarbital 32.4 mg tablet 32.4 mg PO TID Seizures #9 tabs 03/22/23
dexlansoprazole 60 mg capsule,biphase delayed release 60 mg PO DAILY Gastrointestinal Issue 03/25/23
albuterol sulfate 90 mcg/actuation aerosol inhaler 2 puff inhalation R Q4HPRN PRN sob 11/24/23
aspirin 81 mg tablet,delayed release 81 mg PO DAILY Blood Clot Prevention/Tx 11/24/23
hyoscyamine sulfate 0.125 mg tablet 0.125 mg PO TIDPRN PRN spasms 11/24/23
phenytoin sodium extended 100 mg capsule (Dilantin Extended) 100 mg PO TID Seizures 11/24/23
cholecalciferol (vitamin D3) 25 mcg (1,000 unit) tablet (Vitamin D3) 25 mcg PO DAILY Supplement 02/29/24
isosorbide mononitrate 60 mg tablet,extended release 24 hr 60 mg PO DAILY Heart Disease/Condition #0 tabs 06/21/24
acetaminophen 500 mg tablet (Tylenol Extra Strength) 1,000 mg PO Q6HPRN PRN MILD PAIN 02/26/25
atenolol 50 mg tablet 50 mg PO BID 02/26/25
bumetanide 2 mg tablet 2 mg PO BID 02/26/25
gabapentin 600 mg tablet 1,200 mg PO BID@1199,199902/26/25
gabapentin 600 mg tablet 600 mg PO DAILY neuropathic pain 02/26/25
metolazone 5 mg tablet 5 mg PO DAILY 02/26/25
warfarin 2.5 mg tablet 2.5 mg PO SUMOTUWETHSA@199902/26/25
warfarin 2.5 mg tablet 3.75 mg PO FR@199902/26/25
Review of Systems
-
Constitutional: Reports Weight Gain
EENT: Reports No Symptoms
Respiratory: Reports Trouble Breathing
Cardiac: Reports Chest Pain
Abdomen/GI: Reports No Symptoms
: Reports No Symptoms
Musculoskeletal: Reports No Symptoms
Skin: Reports No Symptoms
Neurological: Reports No Symptoms
Endocrine: Reports No Symptoms
Hematologic/Lymphatic: Reports No Symptoms
Psych: Reports No Symptoms
Physical Exam
Vital Signs
Vital Signs
Temp Pulse Resp BP Pulse Ox
98.7 F 69 15 105/50 89
02/26/25 14:38 02/26/25 16:15 02/26/25 16:15 02/26/25 16:00 02/26/25 15:26
Physical Exam
General: Well Developed, Well Nourished and No Apparent Distress
HEENT: NormoCephalic, Moist mucous membranes and Atraumatic
Respiratory: Rales
Cardiac: S1/S2 and Regular Rhythm; No Murmur or Rub
GI: Soft, Non Tender, Non Distended and Normal Bowel Sounds; No Organomegaly
Rectal: Deferred by Provider
Musculoskeletal: No Clubbing, No Cyanosis and No Edema
Skin: No Rash
Neuro: AO x 3 and Nonfocal/grossly intact
Psych: Calm
Laboratory Results
-
02/26/25 15:10
02/26/25 15:10
Laboratory Results
PT 27.5 Sec (11.4-14.6) H 02/26/25 15:10
INR 2.56 02/26/25 15:10
APTT 39.9 Sec (23.4-35.0) H 02/26/25 15:10
Total Bilirubin 0.5 mg/dl (0.2-1.3) 02/26/25 15:10
AST 25 U/L (14-36) 02/26/25 15:10
ALT 19 U/L (0-35) 02/26/25 15:10
Alkaline Phosphatase 220 U/L (38-126) H 02/26/25 15:10
Troponin I 0.028 ng/ml 02/26/25 15:10
Data Reviewed
-
Diagnostic Radiology: Report Reviewed by me
Lab Data: Labs Reviewed by me
Impression/Plan
-
# Chest pain/short of breath likely from acute on chronic heart failure
# Acute hypoxic respiratory failure
-Patient requiring 3 L of oxygen, continue supplemental oxygen to keep sat greater than 95, wean as tolerated
- Trop negative, chest x-ray negative
- Cardiology consulted
- Trend troponin
- BNP pending
- EKG with normal sinus rhythm, ST and T wave abnormality
- Obtain echocardiogram
- Aspirin and warfarin continued
- Bumex continued
-Daily weights, MOY's
- Cardiology consulted
# Leukocytosis likely reactive
- WBCs 15.2, patient is afebrile
- Continue to monitor
# Acute kidney injury on CKD stage IIIb likely from fluid overload
- Creatinine 1.7
- Continue to monitor
#Paroxysmal atrial fibrillation
- In sinus rhythm
- Atenolol continued
#chronic mesenteric ischemia - Complete occlusion of the proximal SMA with distal reconstitution
-, status post ex lap, angioplasty and stenting of the SMA 06/17
#History of DVT/PE
- Daily PT/INR
- Coumadin continued
#Essential hypertension
- atenolol, diltiazem
#CAD s/p prior CABG and PCI and coronary stent
- Imdur continued
#Seizure disorder
-Continue home phenytoin/phenobarbital
#GERD
-Continue PPI
#Asthma
- Continue albuterol PRN
- Continue Breo
- Continue Singulair
# Neuropathy
- Gabapentin continued
#Mitral regurgitation, mild to moderate by TTE 02/2024
#Tricuspid regurgitation, mild to moderate, PASP 50-50 mmHg by TTE 02/2020
#Hypercholesterolemia, with statin intolerance, on Leqvio
#PAD, follows with vascular surgery
# DVT prophylaxis
- Warfarin
# CODE STATUS
- Full code
--- NOTE | 2025-02-26 17:31 | W.PN.UPDATE ---
Update Note
Progress Note Update
I saw and examined the patient.
The GREENSKEEPER SUPERVISOR Severo's note was reviewed and I agree with the note.
Comment: 79 y/o F Hx of Valvular HD, chronic HFpEF, CAD, Afib, PAD presents to ER with SOB (exertional) with feeling of passing out. She also reports mid-sternal chest pain. She discussed with Cards office last week about 5 pound weight gain and
Metolazone was added for a few days without improvement. In ER, she is found to have acute CHF and started on IV Bumex. She also reports chest pain but trop unremarkable. Patient referred for admission.
Exam:
General: Well Developed, Well Nourished, No Apparent Distress and Comfortable
HEENT: Normocephalic, Anicteric and Moist Mucous Membranes
Respiratory: Clear and Non Labored Respirations
Cardiac: S1/S2 and Regular Rhythm
Breast: Deferred by me
GI: Soft, Non Tender, Non Distended and Normal Bowel Sounds
Rectal: Deferred by Provider
Genito-urinary: No Costovertebral Tender
Musculoskeletal: No Clubbing
Skin: Warm and Dry
Neuro: Awake and Alert
Hematologic/Lymphatic: No Lymphadenopathy
Psych: Calm
Assessment:
Acute hypoxic respiratory insufficiency
Acute on chronic HFpEF
chest pain
- repeat trop and EKG
- start IV Bumex 2mg BID
- CBC Cards consult
- repeat Echo
- therapeutic INR - doubt PE
rest of plan per GREENSKEEPER SUPERVISOR's Note
[2025-02-26] MEDS: ULTRAM 50 MG PO (17:42)
[2025-02-26 19:12] LABS: Troponin I 0.021 ng/ml
[2025-02-26] MEDS: LUMINAL 32.4 MG PO (21:06)
[2025-02-26] MEDS: TENORMIN 50 MG PO (21:06)
[2025-02-26] MEDS: SINGULAIR 10 MG PO (21:11)
[2025-02-26] MEDS: COUMADIN 2.5 MG PO (21:11)
[2025-02-26] MEDS: DILANTIN 100 MG PO (21:12)
[2025-02-26] MEDS: NEURONTIN 1200 MG PO (21:12)
[2025-02-26] MEDS: OFIRMEV 100 IV (22:56)
--- NOTE | 2025-02-26 23:42 | PTCARENOTE ---
Pt arrived from the ED at 8:45 PM via wheel chair and walked to the bed. Pt oriented to unit. Call aponte within reach, side rails up, bed set in lowest position. will continue plan of care.
[2025-02-27 03:00] VITALS: BP 111/46
[2025-02-27 06:00] VITALS: BMI 29.7
[2025-02-27 06:20] LABS: INR 2.57; PT 27.6 Sec (11.4-14.6)
[2025-02-27 06:35] LABS: Hematocrit 37.5 % (37.0-47.0); Hemoglobin 12.4 g/dL (12.0-16.0); Mean Corp Hgb Conc. 33.1 g/dL (33.0-37.0); Mean Corpuscular Volume 93.5 fL (81.0-99.0); Platelet Count 229 10^3/uL (130-400); Red Cell Dist. Width 13.6 % (11.5-14.5)
[2025-02-27 07:00] VITALS: BP 129/61
[2025-02-27 07:12] LABS: Blood Urea Nitrogen 62 mg/dl (7-17); Calcium 8.3 mg/dl (8.4-10.2); Carbon Dioxide 32 mmol/L (22-30); Chloride 98 mmol/L (98-107); Estimated Creatinine Clearance 36 ml/min; Glucose 105 mg/dl (70-99); HDL Cholesterol 54 mg/dl; LDL Cholesterol, Calculated 37 mg/dl; Magnesium 2.2 mg/dl (1.6-2.3); Potassium 3.2 mmol/L (3.5-5.1); Sodium 138 mmol/L (135-145); Very Low Density Lipoprotein 22 mg/dl (0-30); eGFR 38.03
[2025-02-27] MEDS: LUMINAL 32.4 MG PO ×3 (08:12→21:50)
[2025-02-27] MEDS: TENORMIN 50 MG PO ×2 (08:12→19:25)
[2025-02-27] MEDS: ASPIR LOW (ENTERIC COATED) 81 MG PO (08:15)
[2025-02-27] MEDS: KCL 40 MEQ PO (08:15)
[2025-02-27] MEDS: PROTONIX 40 MG PO (08:16)
[2025-02-27] MEDS: NEURONTIN 600 MG PO (08:16)
[2025-02-27] MEDS: ZETIA 10 MG PO (08:16)
[2025-02-27] MEDS: DILANTIN 100 MG PO ×3 (08:16→21:50)
[2025-02-27] MEDS: IMDUR (EXTENDED RELEASE) 60 MG PO (08:16)
[2025-02-27] MEDS: BUMEX 3 MG IV ×2 (08:18→16:20)
[2025-02-27] MEDS: SYMBICORT 160/4.5 MCG INHALER 2 PUFF INH ×2 (08:18→19:42)
[2025-02-27] MEDS: FLUSH (NSS) 2 FLUSH IV ×2 (08:23→16:23)
--- NOTE | 2025-02-27 08:47 | W.PN.UPDATE ---
Update Note
Progress Note Update
I saw and evaluated the patient. I reviewed the resident�s note and agree with findings and plan as documented in the resident�s note.
Denies SOB at rest.
Gen: NAD, Awake and alert
Eyes: EOMI, PERRLA, no scleral icterus.
Neck: supple.
CV: RRR, +S1/S2, no m/r/g.
Resp: rales in the bases
Abd: +BS, soft, NT, ND
Skin: No rashes.
Neuro: CN 2-12 intact, non-focal.
Psych: Normal mood and affect.
CXR: No acute cardiopulmonary abnormality. Minimal basilar opacities favored to represent atelectasis.
Acute hypoxic respiratory failure due to acute on chronic HFpEF:
-presented with CP/SOB
-proBNP 1300
-Trop NEG
-cont IV Bumex, daily wts, I/Os
-was on 3L NC O2, now weaned to RA
-cards following
-check echo
-cont BB
Other problems:
Hypokalemia: PO K
Leukocytosis, reactive, resolved
AYUSH on CKD3b: likely due to CRS, Cr improving with diuresis
PAF: cont BB/coumadin
h/o chronic mesenteric ischemia due to complete occlusion of the proximal SMA with distal reconstitution s/p ex lap, angioplasty and stenting of the SMA 06/17
h/o DVT/PE: cont coumadin
Essential HTN: cont BB/Imdur
CAD s/p prior CABG and PCI: cont ASA/BB
Seizure d/o: cont phenytoin/phenobarbital
GERD: cont PPI
Asthma: not in acute exac, cont Symbicort/Albuterol
Neuropathy: cont Neurontin
Valvular disease: mild-mod MR/TR
HLD (statin intolerance): on Leqvio
Pulm HTN
PAD
Obesity due to excess calories
FULL/Warfarin
[2025-02-27 11:00] VITALS: BP 133/61
[2025-02-27 12:44] VITALS: BMI 29.7
--- NOTE | 2025-02-27 13:28 | W.PN.CD ---
Addendum entered and electronically signed by Ofelia Clemens MD 02/27/25 14:34:
I saw and examined the patient.
The GRAPHIC EDITOR's note was reviewed and I agree with the note.
Comment: she is a bit better, but not an overwhelming response, so bumex increased. She still has bibasilar rales, rrr, no edema, body habitus makes volume exam difficult. Reassess response to therapy tomorrow. May need to reconside diuretic
approach. Echo today
Original Note:
Today's Communication / Plan
-
Continue diuresis
Echocardiogram today
Impression / Plan
-
I/P: 79F with chronic HFpEF, mild/moderate mitral regurgitation and tricuspid regurgitation, CAD (CABG 2005, LAD PCI 2016), paroxysmal atrial fibrillation (on warfarin), PAD (balloon angioplasty and stenting of the superior mesenteric artery, 2023),
carotid stenosis, nephrectomy (2011), dyslipidemia with statin intolerance on Leqvio, prior PE, hypertension, chronic left lower extremity edema, and asthma who presented to the emergency department with a chief complaint of shortness of breath
Primary microsoft bi architect: Dr. Gr
HFpEF, acute on chronic, severe requiring hospitalization
- Diuresis given FRENCH and weight gain on home scale, bumetanide 3 mg IV BID, she may need metolazone
- Standing scale weight 86 kg this morning, she was 78 kg in May, - formal dry weight to be determined
- Home diuretic: Bumetanide 2 mg p.o. twice daily with metolazone 5 mg MWF 30 minutes before bumetanide
- Update echocardiogram
- Heart failure education
- Trend daily weight, I's/O, and BMP with diuresis - IV diuresis with solitary kidney requires intensive monitoring
Chest pain, chronic
- On aspirin and warfarin
- EKG with mild anterolateral ST changes without troponin leak
- Echocardiogram today
CAD
- Continue medical management
- Chest pain evaluation as above
- [facility] 12/2022:The COPPOLA-LAD graft is atretic (unchanged) but there is normal antegrade flow in the mid LAD stent placed in 2017 remains widely patent. SVG-OM & SVG-RPDA patent.
Paroxysmal atrial fibrillation
- In sinus rhythm
- Oral Anticoagulation: Warfarin, INR 2.57, daily INRs while admitted
- [id number]: Score at least 6 (Heart failure, HTN, age 75 or more, Vascular disease, female gender)
Mitral regurgitation, mild to moderate by TTE 02/2024
Tricuspid regurgitation, mild to moderate, PASP 50-50 mmHg by TTE 02/2020
Nephrectomy, right (2001)
Hypercholesterolemia, with statin intolerance, on Leqvio
PAD, follows with vascular surgery
Seizure disorder
Prior PE
Physical Exam
Vital Signs/Labs
Vital Signs
Temp Pulse Resp BP Pulse Ox
98.1 F 66 18 133/61 94
02/27/25 11:00 02/27/25 11:00 02/27/25 11:00 02/27/25 11:00 02/27/25 11:00
02/26/25 02/27/25 02/28/25
06:59 06:59 06:59
Actual Weight 86.046 kg
02/27/25 05:32
02/27/25 05:32
PT 27.6 Sec (11.4-14.6) H 02/27/25 05:32
INR 2.57 02/27/25 05:32
APTT 39.9 Sec (23.4-35.0) H 02/26/25 15:10
Magnesium 2.2 mg/dl (1.6-2.3) 02/27/25 05:32
Triglycerides 110 mg/dl (10-149) 02/27/25 05:32
LDL Cholesterol, Calc 37 mg/dl 02/27/25 05:32
VLDL Cholesterol, Calc 22 mg/dl (0-30) 02/27/25 05:32
HDL Cholesterol 54 mg/dl 02/27/25 05:32
02/26/25
15:10
Cvz-O-Agdimjokjhu Pept 1300
LAB Results
02/26/25 02/26/25
15:10 18:40
Troponin I 0.028 0.021
Physical Exam
Constitutional: No acute distress and Comfortable
EENT: Anicteric and Moist mucous membranes
Cardiovascular: Rhythm & rate is regular, Pedal edema is absent and S1S2 is normal
Respiratory: Respiratory effort normal and Lungs clear to auscul.
GI: Soft, Distention absent, Flat, Non tender and Normal bowel sounds
Neuro/Psych: Alert and Oriented
Other: Skin
Data Reviewed
-
Date of Service: February 27, 2025
Labs: Labs Reviewed by me
Old Records: Reviewed
--- NOTE | 2025-02-27 14:49 | W.PN.HOSP.TC ---
Today's Communication/Plan
-
Follow-up echo
Continue diuresing per cardiology
Assessment / Plan
Assessment / Plan
Ms. Cruz is an 79-year-old female with chronic HFpEF, mild/moderate mitral regurgitation and tricuspid regurgitation, CAD (CABG 2005, LAD PCI 2016), paroxysmal atrial fibrillation (on warfarin), PAD s/p balloon angioplasty and stenting of the
superior mesenteric artery in 2023, carotid stenosis, nephrectomy in 2011, dyslipidemia with statin intolerance on Leqvio, prior PE, hypertension, neuropathy, seizure disorder, pulmonary hypertension, asthma, and chronic left lower extremity edema
who presented to the ED with chest pain and SOB on exertion on 02/26/2025. She required 3 L nasal cannula (no oxygen requirement at home) and was weaned to room air later. She was admitted for further management of her acute hypoxic respiratory
failure secondary to acute on chronic HFpEF. She follows with Dr. Gr.
#Acute hypoxic respiratory failure secondary to acute on chronic HFpEF
#Chest pain
She is slowly improving, although not having a great response to Bumex. Troponin negative, proBNP 1300. Dry weight unknown. Per cards, home diuretic regimen is bumetanide 2 mg p.o. twice daily with metolazone 5 mg MWF 30 minutes before bumetanide.
-Cardiology following, per recs:
-- IV Bumex 3 mg twice daily at 8 AM and 4 PM: Will reconsider diuretic approach tomorrow.
-- Daily weights and I/Os.
-- BMP with diuresis - IV diuresis with solitary kidney requires intensive monitoring
-Follow-up echo
-Continue atenolol 50 mg p.o. twice daily
#Chronic chest pain
#CAD
#Paroxysmal A-fib
EKG with mild anterolateral ST changes without troponin leak. Repeat echo pending.
-Continue aspirin 81 p.o. daily and warfarin 3.75 mg p.o. FR at 10 PM with daily INR checks
#Chronic hypokalemia
-Continue home potassium
#History of DVT/PE
-Continue warfarin
#Essential hypertension
-Continue atenolol 50 mg p.o. twice daily and Imdur 60 mg p.o. daily
#GERD
-Continue dexlansoprazole 60 mg p.o. daily
#Seizure disorder
-Continue phenobarbital 32.4 mg p.o. 3 times daily
#Asthma
-Continue montelukast 10 mg p.o. at bedtime and Breo Ellipta inhaler daily
#Neuropathy
-Continue home gabapentin
#Hyperlipidemia with statin intolerance
- Continue Zetia 10 mg p.o. daily
SVT prophy: Warfarin
CODE STATUS: Full
Anticipated Discharge: 24 - 48 hours (Pending clinical improvement)
Subjective/Interval History
-
Date of Service: February 27, 2025
- This morning, she is conversing with her roommate and in a great mood. She endorses feeling very 'bloated'and notes that this is where she carries her water weight.
- She denies SOB at rest, orthopnea, fevers, chills, nausea, vomiting, urinary changes, and chest pain.
- Overall, she is feeling emotional and states that she would just like this 'fluid off.'
Objective Data
-
Labs:
Laboratory Results
02/27/25
05:32
WBC 7.5
Hgb 12.4
Hct 37.5
Plt Count 229 D
PT 27.6 H
INR 2.57
Sodium 138
Potassium 3.2 L
Chloride 98
Carbon Dioxide 32 H
BUN 62 H
Creatinine 1.4 H
Glucose 105 H
Calcium 8.3 L
Vital Signs:
Vital Signs
Temp Pulse Resp BP Pulse Ox
98.1 F 66 18 133/61 94
02/27/25 11:00 02/27/25 11:00 02/27/25 11:00 02/27/25 11:00 02/27/25 11:00
I&O
02/26/25 02/27/25 02/28/25
06:59 06:59 06:59
Intake Total 480 / 480
Balance 480 / 480
Review of Systems
-
History Source: Patient
All other systems: Reviewed and negative
Constitutional: Reports Weight Gain (20 pound weight gain in the last 2 weeks per her, all water weight.)
Respiratory: Reports Trouble Breathing (On exertion)
Physical Exam
-
General: Well Developed, Well Nourished, No Apparent Distress, Comfortable, Conversant and Other (Sitting in bed, chatting with her roommate in bed 1. She is conversant and comfortable.)
HEENT: Normocephalic, Atraumatic and Moist Mucous Membranes
Respiratory: Rales (At bilateral lung bases otherwise clear) and Non Labored Respirations
Cardiac: Regular Rhythm and S1/S2
GI: Soft, Normal Bowel Sounds, Distended and Other (Substantially bloated)
Musculoskeletal: No Clubbing, No Cyanosis and No Edema
Skin: Warm and Dry
Neuro: AO x 3
Psych: Calm, Intact Judgement/Insight and Anxious (Appears on edge, and states that she will 'start crying' if we can get fluid off of her)
--- NOTE | 2025-02-27 15:38 | CARDSERVLU ---
Echocardiogram with [facility] completed after protocol screening completed. Allergies verified.
Patent IV site: __Right arm median cephalic site clear___
IV site flushed with 0.9% NaCl pre and post administration.
Diluted bolus method utilized to enhance visualization of ventricular kelsey.
Total volume given: _3___ mL
Patient tolerated all procedures well without complications.
[2025-02-27 16:20] VITALS: BP 136/72
[2025-02-27] MEDS: NEURONTIN 200 MG PO ×2 (16:20→21:50)
--- NOTE | 2025-02-27 17:33 | CM ---
Alert awake oriented patient who lives with her Charly in a 2 story home with 3 steps to enter and 11 steps to bed/bathroom. She is independent in activates of daily living.She does drive .She uses no adaptive devices.
Had [facility] in past .[facility] hx
Pharmacy [facility] [place]
PCP Dr Burden
PLAN Will need PT OT for dc planning.
[2025-02-27] MEDS: COUMADIN 2.5 MG PO (19:33)
[2025-02-27 19:36] VITALS: BP 134/67
[2025-02-27 20:36] LABS: Urine Character Clear (Clear)
[2025-02-27] MEDS: TYLENOL 650 MG PO (20:55)
[2025-02-27] MEDS: SINGULAIR 10 MG PO (21:50)
[2025-02-27 23:00] VITALS: BP 110/50
[2025-02-28 03:00] VITALS: BP 137/62
[2025-02-28 06:00] VITALS: BMI 29.4
[2025-02-28 06:07] LABS: Hematocrit 39.4 % (37.0-47.0); Hemoglobin 13.2 g/dL (12.0-16.0); Mean Corp Hgb Conc. 33.5 g/dL (33.0-37.0); Mean Corpuscular Volume 92.9 fL (81.0-99.0); Platelet Count 260 10^3/uL (130-400); Red Cell Dist. Width 13.6 % (11.5-14.5)
[2025-02-28 06:11] LABS: INR 2.57; PT 27.6 Sec (11.4-14.6)
[2025-02-28 06:25] LABS: Blood Urea Nitrogen 61 mg/dl (7-17); Calcium 8.8 mg/dl (8.4-10.2); Carbon Dioxide 31 mmol/L (22-30); Chloride 97 mmol/L (98-107); Estimated Creatinine Clearance 39 ml/min; Glucose 120 mg/dl (70-99); Potassium 3.5 mmol/L (3.5-5.1); Sodium 137 mmol/L (135-145); eGFR 41.57
[2025-02-28] MEDS: SYMBICORT 160/4.5 MCG INHALER 2 PUFF INH ×2 (07:58→19:38)
[2025-02-28] MEDS: TENORMIN 50 MG PO ×2 (08:15→19:35)
[2025-02-28] MEDS: ZETIA 10 MG PO (08:15)
[2025-02-28] MEDS: ASPIR LOW (ENTERIC COATED) 81 MG PO (08:15)
[2025-02-28] MEDS: DILANTIN 100 MG PO ×3 (08:15→21:39)
[2025-02-28] MEDS: LUMINAL 32.4 MG PO ×3 (08:16→21:39)
[2025-02-28] MEDS: PROTONIX 40 MG PO (08:16)
[2025-02-28] MEDS: NEURONTIN 200 MG PO ×3 (08:16→21:39)
[2025-02-28] MEDS: BUMEX 3 MG IV ×2 (08:16→16:08)
[2025-02-28] MEDS: IMDUR (EXTENDED RELEASE) 60 MG PO (08:16)
[2025-02-28] MEDS: FLUSH (NSS) 2 FLUSH IV ×2 (08:23→16:11)
--- NOTE | 2025-02-28 08:28 | W.PN.CD ---
Today's Communication / Plan
-
continue bumex 3mg IV bid
- metolazone 5mg x1 today before PM dose
Impression / Plan
-
I/P: 79F with chronic HFpEF, mild/moderate mitral regurgitation and tricuspid regurgitation, CAD (CABG 2005, LAD PCI 2016), paroxysmal atrial fibrillation (on warfarin), PAD (balloon angioplasty and stenting of the superior mesenteric artery, 2023),
carotid stenosis, nephrectomy (2011), dyslipidemia with statin intolerance on Leqvio, prior PE, hypertension, chronic left lower extremity edema, and asthma who presented to the emergency department with a chief complaint of shortness of breath
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 Gr
HFpEF, acute on chronic, severe requiring hospitalization, with IV diuresis and close monitoring of labs/tele
- 85 kg this morning, she was 78 kg in May, - formal dry weight to be determined
- Home diuretic: Bumetanide 2 mg p.o. twice daily with metolazone 5 mg MWF 30 minutes before bumetanide
- echo pending
- continue bumex 3mg IV bid
- metolazone 5mg x1 today before PM dose
Chest pain, chronic, atypical
- On aspirin and warfarin
- EKG with mild anterolateral ST changes without troponin leak
- Echocardiogram pending
CAD
- Continue medical management
- [facility] 12/2022:The COPPOLA-LAD graft is atretic (unchanged) but there is normal antegrade flow in the mid LAD stent placed in 2017 remains widely patent. SVG-OM & SVG-RPDA patent.
Paroxysmal atrial fibrillation
- In sinus rhythm
- Oral Anticoagulation: Warfarin, INR 2.57, daily INRs while admitted
- [id number]: Score at least 6 (Heart failure, HTN, age 75 or more, Vascular disease, female gender)
Mitral regurgitation, mild to moderate by TTE 02/2024
Tricuspid regurgitation, mild to moderate, PASP 50-50 mmHg by TTE 02/2020
Nephrectomy, right (2001)
Hypercholesterolemia, with statin intolerance, on Leqvio
PAD, follows with vascular surgery
Seizure disorder
Prior PE
Physical Exam
Vital Signs/Labs
Vital Signs
Temp Pulse Resp BP Pulse Ox
98.3 F 71 16 137/66 94
02/28/25 03:00 02/28/25 08:16 02/28/25 08:02 02/28/25 08:16 02/28/25 08:02
02/27/25 02/28/25 03/01/25
06:59 06:59 06:59
Actual Weight 86.046 kg 84.964 kg
02/28/25 05:20
02/28/25 05:20
PT 27.6 Sec (11.4-14.6) H 02/28/25 05:20
INR 2.57 02/28/25 05:20
APTT 39.9 Sec (23.4-35.0) H 02/26/25 15:10
Magnesium 2.2 mg/dl (1.6-2.3) 02/27/25 05:32
Triglycerides 110 mg/dl (10-149) 02/27/25 05:32
LDL Cholesterol, Calc 37 mg/dl 02/27/25 05:32
VLDL Cholesterol, Calc 22 mg/dl (0-30) 02/27/25 05:32
HDL Cholesterol 54 mg/dl 02/27/25 05:32
02/26/25
15:10
Nid-B-Jhrdbfgoagg Pept 1300
LAB Results
02/26/25 02/26/25
15:10 18:40
Troponin I 0.028 0.021
Physical Exam
Constitutional: No acute distress and Comfortable
EENT: Moist mucous membranes
Cardiovascular: Rhythm & rate is regular, Pedal edema is absent, JVD present and Systolic murmur present
Respiratory: Respiratory effort normal and Lungs clear to auscul.
Neuro/Psych: AO x 3
Data Reviewed
-
Date of Service: February 28, 2025
EKG: Other (Tele: SR 70s)
Labs: Labs Reviewed by me
--- NOTE | 2025-02-28 08:40 | W.PN.UPDATE ---
Update Note
Progress Note Update
I saw and evaluated the patient. I reviewed the resident�s note and agree with findings and plan as documented in the resident�s note.
No new complaints.
Gen: NAD, Awake and alert
Eyes: EOMI, PERRLA, no scleral icterus.
Neck: supple.
CV: remains RRR, +S1/S2, no m/r/g.
Resp: CTAB
Abd: remains +BS, soft, NT, ND
Skin: No rashes.
Neuro: CN 2-12 intact, non-focal.
Psych: Normal mood and affect.
CXR: No acute cardiopulmonary abnormality. Minimal basilar opacities favored to represent atelectasis.
Echo:
1. Left ventricular ejection fraction is normal with an ejection fraction of 72.1 % by Go's biplane method of discs.
2. Mild concentric left ventricular hypertrophy.
3. Mild pulmonary hypertension.
4. Compared to the prior on 03/01/2024, the right ventricular size and function have normalized. Mitral regurgitation is now mild from mild to moderate. Otherwise, the findings are similar.
Acute hypoxic respiratory failure due to acute on chronic HFpEF:
-presented with CP/SOB
-proBNP 1300
-Trop NEG
-cont IV Bumex (with a dose of Zaroxolyn today), daily wts, I/Os
-was on 3L NC O2, now weaned to RA
-cards following
-echo above
-cont BB
Other problems:
Hypokalemia: PO K
Leukocytosis, reactive, resolved
AYUSH on CKD3b: likely due to CRS, Cr improving with diuresis
PAF: cont BB/coumadin
h/o chronic mesenteric ischemia due to complete occlusion of the proximal SMA with distal reconstitution s/p ex lap, angioplasty and stenting of the SMA 06/17
h/o DVT/PE: cont coumadin
Essential HTN: cont BB/Imdur
CAD s/p prior CABG and PCI: cont ASA/BB
Seizure d/o: cont phenytoin/phenobarbital
GERD: cont PPI
Asthma: not in acute exac, cont Symbicort/Albuterol
Neuropathy: cont Neurontin
Valvular disease: mild-mod MR/TR
HLD (statin intolerance): on Leqvio
Pulm HTN
PAD
Obesity due to excess calories
FULL/Warfarin
--- NOTE | 2025-02-28 09:51 | W.PN.HOSP.TC ---
Today's Communication/Plan
-
IV Bumex twice daily today, followed by metolazone after p.m. dose. Cards following.
Discharge pending diuresis.
Assessment / Plan
Assessment / Plan
Ms. Cruz is an 79-year-old female with chronic HFpEF, mild/moderate mitral regurgitation and tricuspid regurgitation, CAD (CABG 2005, LAD PCI 2016), paroxysmal atrial fibrillation (on warfarin), PAD s/p balloon angioplasty and stenting of the
superior mesenteric artery in 2023, carotid stenosis, nephrectomy in 2011, dyslipidemia with statin intolerance on Leqvio, prior PE, hypertension, neuropathy, seizure disorder, pulmonary hypertension, asthma, and chronic left lower extremity edema
who presented to the ED with chest pain and SOB on exertion on 02/26/2025. She required 3 L nasal cannula (no oxygen requirement at home) and was weaned to room air later. She was admitted for further management of her acute hypoxic respiratory
failure secondary to acute on chronic HFpEF. She follows with Dr. Gr.
Echo 02/27/2025 showing:
1. Left ventricular ejection fraction is normal with an ejection fraction of 72.1 % by Go's biplane method of discs.
2. Mild concentric left ventricular hypertrophy.
3. Mild pulmonary hypertension.
4. Compared to the prior on 03/01/2024, the right ventricular size and function have normalized. Mitral regurgitation is now mild from mild to moderate. Otherwise, the findings are similar.
#Acute hypoxic respiratory failure secondary to acute on chronic HFpEF
#Chest pain
She is slowly improving, although not having a great response to Bumex. Troponin negative, proBNP 1300. Dry weight unknown. Per cards, home diuretic regimen is bumetanide 2 mg p.o. twice daily with metolazone 5 mg MWF 30 minutes before bumetanide.
-Cardiology following, per recs:
-- Continue IV Bumex 3 mg twice daily at 8 AM and 4 PM
-- Metolazone 5 mg x 1 today before IV Bumex p.m. dose
-- Daily weights and I/Os.
-- BMP with diuresis - IV diuresis with solitary kidney requires intensive monitoring
- Echo 02/27/2025 as above, unremarkable.
-Continue atenolol 50 mg p.o. twice daily
#Chronic chest pain
#CAD
#Paroxysmal A-fib
EKG with mild anterolateral ST changes without troponin leak. Repeat echo pending.
-Continue aspirin 81 p.o. daily and warfarin 3.75 mg p.o. FR at 10 PM with daily INR checks
#Chronic hypokalemia
-Continue home potassium
#History of DVT/PE
-Continue warfarin
#Essential hypertension
-Continue atenolol 50 mg p.o. twice daily and Imdur 60 mg p.o. daily
#GERD
-Continue dexlansoprazole 60 mg p.o. daily
#Seizure disorder
-Continue phenobarbital 32.4 mg p.o. 3 times daily
#Asthma
-Continue montelukast 10 mg p.o. at bedtime and Breo Ellipta inhaler daily
#Neuropathy
-Continue home gabapentin
#Hyperlipidemia with statin intolerance
- Continue Zetia 10 mg p.o. daily
SVT prophy: Warfarin
CODE STATUS: Full
Anticipated Discharge: 24 - 48 hours (Pending diuresis per cardiology.)
Subjective/Interval History
-
Date of Service: February 28, 2025
-No acute events overnight.
-She reports feeling better today than she has in the past few days. However, she still feels very volume overload and a little bit emotional/nervous about why her diuretics are not 'working.' She denies chest pain, nausea/vomiting, or dizziness.
She still endorses SOB on exertion, although notes that it is slightly better than before.
-Cardiology anticipates 1-2 more days of diuresis before she is stable for discharge.
Objective Data
-
Labs:
Laboratory Results
08/06/25
05:20
WBC 11.6 H
Hgb 13.2
Hct 39.4
Plt Count 260
PT 27.6 H
INR 2.57
Sodium 137
Potassium 3.5
Chloride 97 L
Carbon Dioxide 31 H
BUN 61 H
Creatinine 1.3 H
Glucose 120 H
Calcium 8.8
Vital Signs:
Vital Signs
Temp Pulse Resp BP Pulse Ox
99.0 F 71 16 137/66 94
02/28/25 07:00 02/28/25 08:16 02/28/25 08:02 02/28/25 08:16 02/28/25 08:02
I&O
02/27/25 02/28/25 03/01/25
06:59 06:59 06:59
Intake Total 1280 / 1280
Output Total 450 / 450
Balance 830 / 830
Review of Systems
-
All other systems: Reviewed and negative
Constitutional: Reports Weight Gain (Water weight gain, mostly in the belly.)
Respiratory: Reports Trouble Breathing (SOB on exertion due to volume overload)
Physical Exam
-
General: Well Developed, Well Nourished, No Apparent Distress, Comfortable and Conversant
HEENT: Normocephalic, Atraumatic and Moist Mucous Membranes
Respiratory: Clear to Auscultation, Rales (Some rales at bilateral lung bases.) and Non Labored Respirations
Cardiac: Regular Rhythm and S1/S2
GI: Soft, Nontender, Nondistended and Other (Severely bloated, per patient she is carrying approximately 15 pounds of water weight there.)
Musculoskeletal: No Clubbing, No Cyanosis and No Edema
Skin: Warm, Dry and Rash
Psych: Calm and Intact Judgement/Insight
[2025-02-28] MEDS: KCL 40 MEQ PO (10:17)
[2025-02-28 11:00] VITALS: BP 116/59
[2025-02-28 15:00] VITALS: BP 116/46
[2025-02-28] MEDS: ZAROXOLYN 5 MG PO (15:52)
[2025-02-28] MEDS: TYLENOL 650 MG PO (16:16)
--- NOTE | 2025-02-28 16:48 | CM ---
Continue IV Bumex.
Requested PT OT eval for patient from .
Pt on 2 liters oxygen Pox 98%.
PLAN Need PT eval for dc planning
[2025-02-28 19:00] VITALS: BP 138/67
[2025-02-28] MEDS: COUMADIN 2.5 MG PO (19:35)
[2025-02-28] MEDS: KCL 20 MEQ PO (21:39)
[2025-02-28] MEDS: SINGULAIR 10 MG PO (21:40)
--- NOTE | 2025-02-28 21:43 | VATNOTE ---
NOTED ORDER FOR TWO LARGE BORE IVS UNTIL PT STABLE. PT CURRENTLY STABLE WITH H/H OF 13.2/39.4 AND NO IV THERAPY REQUIRING A SECOND SITE AT THIS TIME. VAT TO FOLLOW.
[2025-02-28 23:00] VITALS: BP 145/58
[2025-03-01] VITALS (7 sets, daily range): BP systolic 90–134; BP diastolic 50–63; O2SAT 95; BMI 29.3
[2025-03-01 07:31] LABS: Hematocrit 40.6 % (37.0-47.0); Hemoglobin 13.8 g/dL (12.0-16.0); Mean Corp Hgb Conc. 34.0 g/dL (33.0-37.0); Mean Corpuscular Volume 93.1 fL (81.0-99.0); Platelet Count 262 10^3/uL (130-400); Red Cell Dist. Width 13.6 % (11.5-14.5)
[2025-03-01 07:45] LABS: INR 2.36; PT 26.2 Sec (11.4-14.6)
[2025-03-01] MEDS: SYMBICORT 160/4.5 MCG INHALER 2 PUFF INH ×2 (07:51→19:41)
--- NOTE | 2025-03-01 08:00 | W.PN.CD ---
Today's Communication / Plan
-
Increase bumex to 4 mg will monitor Cr
Metolazone w/ PM dose
Impression / Plan
-
I/P: 79F with chronic HFpEF, mild/moderate mitral regurgitation and tricuspid regurgitation, CAD (CABG 2005, LAD PCI 2016), paroxysmal atrial fibrillation (on warfarin), PAD (balloon angioplasty and stenting of the superior mesenteric artery, 2023),
carotid stenosis, nephrectomy (2011), dyslipidemia with statin intolerance on Leqvio, prior PE, hypertension, chronic left lower extremity edema, and asthma who presented to the emergency department with a chief complaint of shortness of breath
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 Gr
HFpEF, acute on chronic, severe requiring hospitalization, with IV diuresis and close monitoring of labs/tele
- 85 kg this morning, she was 78 kg, 171 lbs, in May, - formal dry weight to be determined
- Home diuretic: Bumetanide 2 mg p.o. twice daily with metolazone 5 mg MWF 30 minutes before bumetanide
- echo pending
- given slow progression will increase bumex 4mg IV bid
- metolazone 5mg x1 today before PM dose
Pause on tele
-3-4 s pause on tele appears asymptomatic monitor
Chest pain, chronic, atypical
- On aspirin and warfarin
- EKG with mild anterolateral ST changes without troponin leak
- Echocardiogram pending
CAD
- Continue medical management
- [facility] 12/2022:The COPPOLA-LAD graft is atretic (unchanged) but there is normal antegrade flow in the mid LAD stent placed in 2017 remains widely patent. SVG-OM & SVG-RPDA patent.
Paroxysmal atrial fibrillation
- In sinus rhythm
- Oral Anticoagulation: Warfarin, INR 2.57, daily INRs while admitted
- [id number]: Score at least 6 (Heart failure, HTN, age 75 or more, Vascular disease, female gender)
Mitral regurgitation, mild to moderate by TTE 02/2024
Tricuspid regurgitation, mild to moderate, PASP 50-50 mmHg by TTE 02/2020
Nephrectomy, right (2001)
Hypercholesterolemia, with statin intolerance, on Leqvio
PAD, follows with vascular surgery
Seizure disorder
Prior PE
Physical Exam
Vital Signs/Labs
Vital Signs
Temp Pulse Resp BP Pulse Ox
98.2 F 67 16 116/55 93
03/01/25 07:00 03/01/25 07:55 03/01/25 07:55 03/01/25 07:00 03/01/25 07:55
02/28/25 03/01/25 03/02/25
06:59 06:59 06:59
Actual Weight 187 lb 5 oz 186 lb 14.4 oz
03/01/25 07:04
PT 27.6 Sec (11.4-14.6) H 02/28/25 05:20
INR 2.57 02/28/25 05:20
APTT 39.9 Sec (23.4-35.0) H 02/26/25 15:10
Magnesium 2.2 mg/dl (1.6-2.3) 02/27/25 05:32
Triglycerides 110 mg/dl (10-149) 02/27/25 05:32
LDL Cholesterol, Calc 37 mg/dl 02/27/25 05:32
VLDL Cholesterol, Calc 22 mg/dl (0-30) 02/27/25 05:32
HDL Cholesterol 54 mg/dl 02/27/25 05:32
02/26/25
15:10
Mpr-B-Bsdtzklxqzb Pept 1300
LAB Results
02/26/25 02/26/25
15:10 18:40
Troponin I 0.028 0.021
Physical Exam
Constitutional: No acute distress and Comfortable
EENT: Anicteric
Cardiovascular: Rhythm & rate is regular
Respiratory: Respiratory effort normal and Lungs clear to auscul.
GI: Soft
Neuro/Psych: Alert and Oriented
Data Reviewed
-
Date of Service: March 01, 2025
EKG: Tracing Personally Visualized and interpreted (sr)
Labs: Labs Reviewed by me
[2025-03-01] MEDS: BUMEX 3 MG IV (08:08)
[2025-03-01] MEDS: TYLENOL 650 MG PO ×2 (08:09→21:15)
[2025-03-01] MEDS: NEURONTIN 200 MG PO ×3 (08:10→21:17)
[2025-03-01] MEDS: TENORMIN 50 MG PO ×2 (08:10→21:16)
[2025-03-01] MEDS: PROTONIX 40 MG PO (08:10)
[2025-03-01] MEDS: ZETIA 10 MG PO (08:11)
[2025-03-01] MEDS: IMDUR (EXTENDED RELEASE) 60 MG PO (08:11)
[2025-03-01] MEDS: DILANTIN 100 MG PO ×3 (08:11→21:17)
[2025-03-01] MEDS: LUMINAL 32.4 MG PO ×3 (08:11→21:18)
[2025-03-01] MEDS: ASPIR LOW (ENTERIC COATED) 81 MG PO (08:11)
[2025-03-01 08:13] LABS: Blood Urea Nitrogen 58 mg/dl (7-17); Calcium 9.4 mg/dl (8.4-10.2); Carbon Dioxide 28 mmol/L (22-30); Chloride 99 mmol/L (98-107); Estimated Creatinine Clearance 46 ml/min; Glucose 115 mg/dl (70-99); Potassium 3.9 mmol/L (3.5-5.1); Sodium 138 mmol/L (135-145); eGFR 50.80
--- NOTE | 2025-03-01 08:37 | W.PN.UPDATE ---
Update Note
Progress Note Update
I saw and evaluated the patient. I reviewed the resident�s note and agree with findings and plan as documented in the resident�s note.
No new complaints.
Gen: NAD, Awake and alert
Eyes: EOMI, PERRLA, no scleral icterus.
Neck: supple.
CV: continues to remain RRR, +S1/S2, no m/r/g.
Resp: remains CTAB
Abd: continues to remain +BS, soft, NT, ND
Skin: No rashes.
Neuro: CN 2-12 intact, non-focal.
Psych: Normal mood and affect.
CXR: No acute cardiopulmonary abnormality. Minimal basilar opacities favored to represent atelectasis.
Echo:
1. Left ventricular ejection fraction is normal with an ejection fraction of 72.1 % by Go's biplane method of discs.
2. Mild concentric left ventricular hypertrophy.
3. Mild pulmonary hypertension.
4. Compared to the prior on 03/01/2024, the right ventricular size and function have normalized. Mitral regurgitation is now mild from mild to moderate. Otherwise, the findings are similar.
Acute hypoxic respiratory failure due to acute on chronic HFpEF:
-presented with CP/SOB
-proBNP 1300
-Trop NEG
-cont IV Bumex (s/p Zaroxolyn 02/28), daily wts, I/Os
-was on 3L NC O2, now weaned to RA
-cards following
-echo above
-cont BB
Other problems:
Hypokalemia, resolved
Leukocytosis, reactive, resolved
AYUSH on CKD3b: likely due to CRS, Cr improving with diuresis
PAF: cont BB/coumadin
h/o chronic mesenteric ischemia due to complete occlusion of the proximal SMA with distal reconstitution s/p ex lap, angioplasty and stenting of the SMA 06/17
h/o DVT/PE: cont coumadin
Essential HTN: cont BB/Imdur
CAD s/p prior CABG and PCI: cont ASA/BB
Seizure d/o: cont phenytoin/phenobarbital
GERD: cont PPI
Asthma: not in acute exac, cont Symbicort/Albuterol
Neuropathy: cont Neurontin
Valvular disease: mild-mod MR/TR
HLD (statin intolerance): on Leqvio
Pulm HTN
PAD
Obesity due to excess calories
FULL/Warfarin
--- NOTE | 2025-03-01 10:37 | W.PN.HOSP.TC ---
Today's Communication/Plan
-
Continue diuresing per cardiology
Continue to monitor creatinine
Assessment / Plan
Assessment / Plan
Ms. Cruz is an 79-year-old female with chronic HFpEF, mild/moderate mitral regurgitation and tricuspid regurgitation, CAD (CABG 2005, LAD PCI 2016), paroxysmal atrial fibrillation (on warfarin), PAD s/p balloon angioplasty and stenting of the
superior mesenteric artery in 2023, carotid stenosis, nephrectomy in 2011, dyslipidemia with statin intolerance on Leqvio, prior PE, hypertension, neuropathy, seizure disorder, pulmonary hypertension, asthma, and chronic left lower extremity edema
who presented to the ED with chest pain and SOB on exertion on 02/26/2025. She required 3 L nasal cannula (no oxygen requirement at home) and was weaned to room air later. She was admitted for further management of her acute hypoxic respiratory
failure secondary to acute on chronic HFpEF. She follows with Dr. Gr.
Echo 02/27/2025 showing:
1. Left ventricular ejection fraction is normal with an ejection fraction of 72.1 % by Go's biplane method of discs.
2. Mild concentric left ventricular hypertrophy.
3. Mild pulmonary hypertension.
4. Compared to the prior on 03/01/2024, the right ventricular size and function have normalized. Mitral regurgitation is now mild from mild to moderate. Otherwise, the findings are similar.
#Acute hypoxic respiratory failure secondary to acute on chronic HFpEF
#Chest pain
She is slowly improving, although not having a great response to Bumex. Troponin negative, proBNP 1300. Dry weight unknown. Per cards, home diuretic regimen is bumetanide 2 mg p.o. twice daily with metolazone 5 mg MWF 30 minutes before bumetanide.
-Cardiology following, per recs:
-- 02/28/2025: IV Bumex 3 mg twice daily at 8 AM and 4 PM, then metolazone 5 mg x 1 before IV Bumex p.m. dose
-- 03/01/2025: Increase Bumex to 4 mg twice daily at 8 AM and 4 PM followed by metolazone 5 mg x 1 after IV Bumex p.m. dose
--IV diuresis with solitary kidney requires intensive monitoring: Continue to trend creatinine
-- Daily weights and I/Os.
-- BMP with diuresis
- Echo 02/27/2025 as above, unremarkable.
-Continue atenolol 50 mg p.o. twice daily
#Chronic chest pain
#CAD
#Paroxysmal A-fib
EKG with mild anterolateral ST changes without troponin leak. Repeat echo pending.
-Continue aspirin 81 p.o. daily and warfarin 3.75 mg p.o. FR at 10 PM with daily INR checks
#Chronic hypokalemia
-Continue home potassium
#History of DVT/PE
-Continue warfarin
#Essential hypertension
-Continue atenolol 50 mg p.o. twice daily and Imdur 60 mg p.o. daily
#GERD
-Continue dexlansoprazole 60 mg p.o. daily
#Seizure disorder
-Continue phenobarbital 32.4 mg p.o. 3 times daily
#Asthma
-Continue montelukast 10 mg p.o. at bedtime and Breo Ellipta inhaler daily
#Neuropathy
-Continue home gabapentin
#Hyperlipidemia with statin intolerance
- Continue Zetia 10 mg p.o. daily
SVT prophy: Warfarin
CODE STATUS: Full
Anticipated Discharge: 24 - 48 hours (Per cardiology and diuresis status)
Subjective/Interval History
-
Date of Service: March 01, 2025
-This morning, she reports feeling a lot better than she has in the past week. She is sitting in the chair after just working with physical therapy. She reports that she was able to walk to the bathroom without getting short of breath and her
weight is slowly coming down.
-Cardiology to redose her diuretics today. Otherwise, no acute events or pertinent changes clinically.
Objective Data
-
Labs:
Laboratory Results
03/01/25
07:04
WBC 8.7
Hgb 13.8
Hct 40.6
Plt Count 262
PT 26.2 H
INR 2.36
Sodium 138
Potassium 3.9
Chloride 99
Carbon Dioxide 28
BUN 58 H
Creatinine 1.1 H
Glucose 115 H
Calcium 9.4
Vital Signs:
Vital Signs
Temp Pulse Resp BP Pulse Ox
98.2 F 67 16 116/65 93
03/01/25 07:00 03/01/25 08:10 03/01/25 07:55 03/01/25 08:08 03/01/25 07:55
I&O
02/28/25 03/01/25 03/02/25
06:59 06:59 06:59
Intake Total 1280 / 1280 1260 / 1260
Output Total 450 / 450
Balance 830 / 830 1260 / 1260
Review of Systems
-
History Source: Patient
All other systems: Reviewed and negative
Constitutional: Reports Weight Gain (Water weight for which she is here for diuresis)
Abdomen/GI: Reports Bloated (She carries her water weight here)
Physical Exam
-
General: Well Developed, Well Nourished, No Apparent Distress, Comfortable, Conversant and Other (Sitting in chair about to eat breakfast, she is very conversant and denies SOB at rest and on exertion.)
HEENT: Normocephalic, Atraumatic and Moist Mucous Membranes
Respiratory: Clear to Auscultation and Non Labored Respirations
Cardiac: Regular Rhythm and S1/S2
GI: Soft and Nontender
Musculoskeletal: No Clubbing, No Cyanosis and No Edema
Skin: Warm and Dry
Neuro: AO x 3
Psych: Calm and Intact Judgement/Insight
[2025-03-01] MEDS: ZAROXOLYN 5 MG PO (15:18)
[2025-03-01] MEDS: BUMEX 4 MG IV (15:19)
--- NOTE | 2025-03-01 15:19 | VNURNOTE ---
Home Health Liaison met with patient at bedside to discuss [facility] nurse/therapy, visits, schedule and homebound status. Patient is agreeable and understands that visits at home will be 2-3 x per week to assess and teach medical management. She is
familiar with [facility] services, has had us in the past. She is aware that [facility] will contact them for start of care in 1-2 days after discharge from .
[facility] referral completed in [facility].
--- NOTE | 2025-03-01 17:01 | CM ---
PT indicated VN at Discharge.
Spoke with pt in room .Offered VN she requested [facility]
Liaison Deepti Blount notified of referral
will drive her home .
PLAN Home with [facility]
[2025-03-01] MEDS: COUMADIN 2.5 MG PO (21:16)
[2025-03-01] MEDS: SINGULAIR 10 MG PO (21:18)
[2025-03-02 02:59] VITALS: BP 96/47
[2025-03-02 05:44] LABS: INR 2.26; PT 25.4 Sec (11.4-14.6)
[2025-03-02 06:00] VITALS: BMI 29.0
[2025-03-02] MEDS: SYMBICORT 160/4.5 MCG INHALER 2 PUFF INH (07:20)
[2025-03-02 07:37] VITALS: BP 117/54
[2025-03-02 08:02] LABS: Hematocrit 40.9 % (37.0-47.0); Hemoglobin 13.9 g/dL (12.0-16.0); Mean Corp Hgb Conc. 34.0 g/dL (33.0-37.0); Mean Corpuscular Volume 92.3 fL (81.0-99.0); Nucleated Red Blood Cells % 0 %; Platelet Count 266 10^3/uL (130-400); Red Cell Dist. Width 13.8 % (11.5-14.5)
[2025-03-02 08:16] LABS: ALT (SGPT) 16 U/L (0-35); AST (SGOT) 22 U/L (14-36); Albumin 3.9 g/dl (3.5-5.0); Alkaline Phosphatase 225 U/L (38-126); Blood Urea Nitrogen 69 mg/dl (7-17); Calcium 9.0 mg/dl (8.4-10.2); Carbon Dioxide 30 mmol/L (22-30); Chloride 98 mmol/L (98-107); Estimated Creatinine Clearance 38 ml/min; Glucose 97 mg/dl (70-99); Potassium 3.9 mmol/L (3.5-5.1); Sodium 137 mmol/L (135-145); Total Protein 7.2 g/dl (6.3-8.2); eGFR 41.57
[2025-03-02] MEDS: NEURONTIN 200 MG PO (08:47)
[2025-03-02] MEDS: BUMEX 4 MG IV (08:47)
[2025-03-02] MEDS: DILANTIN 100 MG PO (08:47)
[2025-03-02] MEDS: IMDUR (EXTENDED RELEASE) 60 MG PO (08:47)
[2025-03-02] MEDS: PROTONIX 40 MG PO (08:47)
[2025-03-02] MEDS: ZETIA 10 MG PO (08:47)
[2025-03-02] MEDS: TENORMIN 50 MG PO (08:47)
[2025-03-02] MEDS: LUMINAL 32.4 MG PO (08:47)
[2025-03-02] MEDS: ASPIR LOW (ENTERIC COATED) 81 MG PO (08:47)
--- NOTE | 2025-03-02 08:53 | W.PN.CD ---
Today's Communication / Plan
-
transition to bumex 3mg PO bid, and then resume metolazone 5 mg MWF 30 minutes before bumex on d/c
we will arrange for outpatient follow up and BMP
Impression / Plan
-
I/P: 79F with chronic HFpEF, mild/moderate mitral regurgitation and tricuspid regurgitation, CAD (CABG 2005, LAD PCI 2016), paroxysmal atrial fibrillation (on warfarin), PAD (balloon angioplasty and stenting of the superior mesenteric artery, 2023),
carotid stenosis, nephrectomy (2011), dyslipidemia with statin intolerance on Leqvio, prior PE, hypertension, chronic left lower extremity edema, and asthma who presented to the emergency department with a chief complaint of shortness of breath
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
HFpEF, acute on chronic, improved s/p IV bumex
- 85 kg this morning, she was 78 kg, 171 lbs, in May, - formal dry weight to be determined
- Home diuretic: Bumetanide 2 mg p.o. twice daily with metolazone 5 mg MWF 30 minutes before bumetanide
- transition to bumex 3mg PO bid, and then resume metolazone 5 mg MWF 30 minutes before bumex on d/c
-if Cr stable as outpatient, will add farxiga
Chest pain, chronic, atypical
- On aspirin and warfarin
- EKG with mild anterolateral ST changes without troponin leak
- Echocardiogram pending
CAD
- Continue medical management
- [facility] 12/2022:The COPPOLA-LAD graft is atretic (unchanged) but there is normal antegrade flow in the mid LAD stent placed in 2017 remains widely patent. SVG-OM & SVG-RPDA patent.
Paroxysmal atrial fibrillation
- In sinus rhythm
- Oral Anticoagulation: Warfarin, INR 2.57, daily INRs while admitted
- [id number]: Score at least 6 (Heart failure, HTN, age 75 or more, Vascular disease, female gender)
Mitral regurgitation, mild to moderate by TTE 02/2024
Tricuspid regurgitation, mild to moderate, PASP 50-50 mmHg by TTE 02/2020
Nephrectomy, right (2001)
Hypercholesterolemia, with statin intolerance, on Leqvio
PAD, follows with vascular surgery
Seizure disorder
Prior PE
Physical Exam
Vital Signs/Labs
Vital Signs
Temp Pulse Resp BP Pulse Ox
98 F 65 14 117/54 93
03/02/25 07:37 03/02/25 07:37 03/02/25 07:37 03/02/25 07:37 03/02/25 07:37
03/01/25 03/02/25 03/03/25
06:59 06:59 06:59
Actual Weight 84.776 kg 84.028 kg
03/02/25 05:06
03/02/25 05:06
PT 25.4 Sec (11.4-14.6) H 03/02/25 05:06
INR 2.26 03/02/25 05:06
APTT 39.9 Sec (23.4-35.0) H 02/26/25 15:10
Magnesium 2.2 mg/dl (1.6-2.3) 02/27/25 05:32
Triglycerides 110 mg/dl (10-149) 02/27/25 05:32
LDL Cholesterol, Calc 37 mg/dl 02/27/25 05:32
VLDL Cholesterol, Calc 22 mg/dl (0-30) 02/27/25 05:32
HDL Cholesterol 54 mg/dl 02/27/25 05:32
02/26/25
15:10
[id number]-[id number] Pept 1300
Physical Exam
Constitutional: No acute distress and Comfortable
EENT: Moist mucous membranes
Cardiovascular: Rhythm & rate is regular, Pedal edema is absent, JVD pressure is normal and Systolic murmur absent
Respiratory: Respiratory effort normal and Lungs clear to auscul.
Neuro/Psych: AO x 3
Data Reviewed
-
Date of Service: March 02, 2025
EKG: Other (Tele: SR 60s)
Labs: Labs Reviewed by me
--- NOTE | 2025-03-02 09:14 | W.PN.UPDATE ---
Update Note
Progress Note Update
I saw and evaluated the patient. I reviewed the resident�s note and agree with findings and plan as documented in the resident�s note.
No new complaints.
Gen: NAD, Awake and alert
Eyes: EOMI, PERRLA, no scleral icterus.
Neck: supple.
CV: RRR, +S1/S2, no m/r/g.
Resp: continues to remain CTAB
Abd: +BS, soft, NT, ND
Skin: No rashes.
Neuro: CN 2-12 intact, non-focal.
Psych: remains Normal mood and affect.
CXR: No acute cardiopulmonary abnormality. Minimal basilar opacities favored to represent atelectasis.
Echo:
1. Left ventricular ejection fraction is normal with an ejection fraction of 72.1 % by Go's biplane method of discs.
2. Mild concentric left ventricular hypertrophy.
3. Mild pulmonary hypertension.
4. Compared to the prior on 03/01/2024, the right ventricular size and function have normalized. Mitral regurgitation is now mild from mild to moderate. Otherwise, the findings are similar.
Acute hypoxic respiratory failure due to acute on chronic HFpEF:
-presented with CP/SOB
-proBNP 1300
-Trop NEG
-s/p IV Bumex and Zaroxolyn 02/28
-daily wts, I/Os
-was on 3L NC O2, now weaned to RA
-cards following
-echo above
-cont BB
-d/c on Bumex 3mg PO BID and Zaroxolyn M/W/F
Other problems:
Hypokalemia, resolved
Leukocytosis, reactive, resolved
AYUSH on CKD3b: likely due to CRS, Cr improved with diuresis
PAF: cont BB/coumadin
h/o chronic mesenteric ischemia due to complete occlusion of the proximal SMA with distal reconstitution s/p ex lap, angioplasty and stenting of the SMA 06/17
h/o DVT/PE: cont coumadin
Essential HTN: cont BB/Imdur
CAD s/p prior CABG and PCI: cont ASA/BB
Seizure d/o: cont phenytoin/phenobarbital
GERD: cont PPI
Asthma: not in acute exac, cont Symbicort/Albuterol
Neuropathy: cont Neurontin
Valvular disease: mild-mod MR/TR
HLD (statin intolerance): on Leqvio
Pulm HTN
PAD
Obesity due to excess calories
FULL/Warfarin
Medically cleared for discharge, case management aware.
Total time spent on d/c = 31 min. This included today's physical exam, progress note, review of laboratory and diagnostic data, preparation of discharge documents and prescriptions, and discussions about the pt's hospital course and discharge plan
with the patient and other medical case worker involved in the patient's care.
[2025-03-02 11:12] VITALS: BP 101/66
--- NOTE | 2025-03-02 12:07 | W.PN.HOSP.TC ---
Today's Communication/Plan
-
Discharged today on 3 mg Bumex p.o. twice daily and 5 mg metolazone Wednesday
Assessment / Plan
Assessment / Plan
Ms. Cruz is an 79-year-old female with chronic HFpEF, mild/moderate mitral regurgitation and tricuspid regurgitation, CAD (CABG 2005, LAD PCI 2016), paroxysmal atrial fibrillation (on warfarin), PAD s/p balloon angioplasty and stenting of the
superior mesenteric artery in 2023, carotid stenosis, nephrectomy in 2011, dyslipidemia with statin intolerance on Leqvio, prior PE, hypertension, neuropathy, seizure disorder, pulmonary hypertension, asthma, and chronic left lower extremity edema
who presented to the ED with chest pain and SOB on exertion on 02/26/2025. She required 3 L nasal cannula (no oxygen requirement at home) and was weaned to room air later. She was admitted for further management of her acute hypoxic respiratory
failure secondary to acute on chronic HFpEF. She follows with Dr. Gr.
Echo 02/27/2025 showing:
1. Left ventricular ejection fraction is normal with an ejection fraction of 72.1 % by Go's biplane method of discs.
2. Mild concentric left ventricular hypertrophy.
3. Mild pulmonary hypertension.
4. Compared to the prior on 03/01/2024, the right ventricular size and function have normalized. Mitral regurgitation is now mild from mild to moderate. Otherwise, the findings are similar.
#Acute hypoxic respiratory failure secondary to acute on chronic HFpEF
#Chest pain
She is slowly improving, although not having a great response to Bumex. Troponin negative, proBNP 1300. Dry weight unknown. Per cards, home diuretic regimen is bumetanide 2 mg p.o. twice daily with metolazone 5 mg MWF 30 minutes before bumetanide.
-Cardiology following, per recs:
-- 02/28/2025: IV Bumex 3 mg twice daily at 8 AM and 4 PM, then metolazone 5 mg x 1 before IV Bumex p.m. dose
-- 03/01/2025: Increase Bumex to 4 mg twice daily at 8 AM and 4 PM followed by metolazone 5 mg x 1 after IV Bumex p.m. dose
--03/02/2025: Good for discharge standpoint with Bumex 3 mg twice daily and metolazone 5 mg Wednesday
--IV diuresis with solitary kidney requires intensive monitoring: Continue to trend creatinine
-- Daily weights and I/Os.
-- BMP with diuresis
- Echo 02/27/2025 as above, unremarkable.
-Continue atenolol 50 mg p.o. twice daily
#Chronic chest pain
#CAD
#Paroxysmal A-fib
EKG with mild anterolateral ST changes without troponin leak. Repeat echo pending.
-Continue aspirin 81 p.o. daily and warfarin 3.75 mg p.o. FR at 10 PM with daily INR checks
#Chronic hypokalemia
-Continue home potassium
#History of DVT/PE
-Continue warfarin
#Essential hypertension
-Continue atenolol 50 mg p.o. twice daily and Imdur 60 mg p.o. daily
#GERD
-Continue dexlansoprazole 60 mg p.o. daily
#Seizure disorder
-Continue phenobarbital 32.4 mg p.o. 3 times daily
#Asthma
-Continue montelukast 10 mg p.o. at bedtime and Breo Ellipta inhaler daily
#Neuropathy
-Continue home gabapentin
#Hyperlipidemia with statin intolerance
- Continue Zetia 10 mg p.o. daily
SVT prophy: Warfarin
CODE STATUS: Full
Anticipated Discharge: Today (Nothing pending)
Subjective/Interval History
-
Date of Service: March 02, 2025
-This morning, she is laying in bed and feeling a lot better. She feels ready to go home, and is ready from our and cardiology perspective.
-She does not have any shortness of breath and is feeling that she is diuresing better with the current regimen.
Objective Data
-
Labs:
Laboratory Results
03/02/25
05:06
WBC 8.1
Hgb 13.9
Hct 40.9
Plt Count 266
PT 25.4 H
INR 2.26
Sodium 137
Potassium 3.9
Chloride 98
Carbon Dioxide 30
BUN 69 H
Creatinine 1.3 H
Glucose 97
Calcium 9.0
Total Bilirubin 0.6
AST 22
ALT 16
Alkaline Phosphatase 225 H
Vital Signs:
Vital Signs
Temp Pulse Resp BP Pulse Ox
97.4 F 68 16 101/66 93
03/02/25 11:12 03/02/25 11:12 03/02/25 11:12 03/02/25 11:12 03/02/25 11:12
I&O
03/01/25 03/02/25 03/03/25
06:59 06:59 06:59
Intake Total 1260 / 1260 840 / 840
Balance 1260 / 1260 840 / 840
Review of Systems
-
History Source: Patient
All other systems: Reviewed and negative
Physical Exam
-
General: Well Developed, Well Nourished, No Apparent Distress and Conversant
HEENT: Normocephalic, Atraumatic and Moist Mucous Membranes
Respiratory: Clear to Auscultation and Non Labored Respirations
Cardiac: Regular Rhythm and S1/S2
GI: Soft, Nontender and Nondistended
Musculoskeletal: No Clubbing, No Cyanosis and No Edema
Skin: Warm and Dry
Psych: Calm and Intact Judgement/Insight
--- NOTE | 2025-03-02 12:15 | CM ---
Met with patient and at bedside; will provide transport home; IMM benefit explained; form signed @ 1200
[facility] notified of discharge via [facility]
Plan: [facility]
--- NOTE | 2025-03-02 14:18 | W.DCSUMMARY ---
Discharge Summary
Discharge Data
Date of Admission: 02/26/25
Date of Discharge: 03/02/25
-
Pending Results: No
Hospital Course
Discharging Physician : Rossana Stahl MD/ZAINAB
Disposition : Home
Principal Discharge diagnosis : Acute on chronic HFpEF
Hospital Course : She was here 02/26/2025 through 03/02/2025. Ms. Cruz is an 79-year-old female with chronic HFpEF, mild/moderate mitral regurgitation and tricuspid regurgitation, CAD (CABG 2005, LAD PCI 2016), paroxysmal atrial fibrillation (on
warfarin), PAD s/p balloon angioplasty and stenting of the superior mesenteric artery in 2023, carotid stenosis, nephrectomy in 2011, dyslipidemia with statin intolerance on Leqvio, prior PE, hypertension, neuropathy, seizure disorder, pulmonary
hypertension, asthma, and chronic left lower extremity edema who presented to the ED with chest pain and SOB on exertion on 02/26/2025. She required 3 L nasal cannula (no oxygen requirement at home) and was weaned to room air later. She was admitted
for further management of her acute hypoxic respiratory failure secondary to acute on chronic HFpEF. She follows with Dr. Gr. Cardiology was consulted for further management. See below for plan by problem:
Problem #1: Acute hypoxic respiratory failure secondary to acute on chronic HFpEF
Troponin negative, proBNP 1300. Dry weight unknown. Per cards, home diuretic regimen is bumetanide 2 mg p.o. twice daily with metolazone 5 mg MWF 30 minutes before bumetanide.
She was diuresed as follows per cardiology.
-- 02/28/2025: IV Bumex 3 mg twice daily at 8 AM and 4 PM, then metolazone 5 mg x 1 before IV Bumex p.m. dose
-- 03/01/2025: Increase Bumex to 4 mg twice daily at 8 AM and 4 PM followed by metolazone 5 mg x 1 after IV Bumex p.m. dose
--03/02/2025: Good for discharge standpoint with Bumex 3 mg twice daily and metolazone 5 mg Wednesday
Of note, IV diuresis with solitary kidney requires intensive monitoring and as such we checked her daily creatinine, which was 1.3 (BL 0.6) on discharge.
Her echo as below was unremarkable. We continued her atenolol 50 mg twice daily throughout hospital course. She had no complications from diuresis. She was discharged home with stable vitals after sufficient diuresis and will follow-up with
cardiology outpatient.
Problem #2: Chronic chest pain, CAD, paroxysmal A-fib
She had an EKG with mild anterolateral ST changes without troponin leak. Repeat echo was unremarkable. We continued her daily aspirin and warfarin 3.75 mg with daily INR checks. There were no complications with this problem.
Chronic problems: Hypokalemia, history of DVT/PE, essential hypertension, GERD, seizure disorder, asthma, neuropathy, and hyperlipidemia with statin intolerance.
These were all managed with home medications without dose changes or any medications being held. She had no complications from any of her chronic problems during this hospital stay.
She was discharged on IV Bumex 3 mg twice daily and metolazone 5 mg Wednesday, and instructed to also follow-up with her PCP within a week of discharge.
Important imaging findings :
Echo 02/27/2025 showing:
1. Left ventricular ejection fraction is normal with an ejection fraction of 72.1 % by Go's biplane method of discs.
2. Mild concentric left ventricular hypertrophy.
3. Mild pulmonary hypertension.
4. Compared to the prior on 03/01/2024, the right ventricular size and function have normalized. Mitral regurgitation is now mild from mild to moderate. Otherwise, the findings are similar.
Discharge Plan
-
Patient Disposition: Home (Routine Discharge)
Discharge Diagnosis/Procedures: Acute hypoxic respiratory failure due to acute on chronic HFpEF
Condition: Good
Diet: Low Cholesterol and Restrict fluids to 48 oz
Activity: As tolerated
Driving Restrictions: As prior to admission
Bathing Restrictions: None
Blood Work: BMP in a week
Referrals:
Jake Gr MD [Active, Cardiology] - 03/13/25 3:40 pm
Luis Manuel Burden MD [Family Provider, Family Practice] - in less than 1 week
Referral Note: Follow-up with your PCP about this hospitalization.
Additional Discharge Medication Instructions: Please take Bumex 3 mg twice daily and metolazone 5 mg on Mondays, Wednesdays, and Fridays only.
Prescriptions:
New
bumetanide 1 mg Tablet
3 mg PO BID@0800,1600 30 Days Qty: 60 0RF
Continued
montelukast 10 MG tablet
10 mg PO HS
ezetimibe 10 MG tablet
10 mg PO DAILY
fluticasone furoate-vilanterol [Breo Ellipta] 200-25 mcg/dose blister with device
1 inh INHALATION R DAILY
phenobarbital 32.4 MG tablet
32.4 mg PO TID Qty: 9 0RF
dexlansoprazole 60 mg capsule,biphase delayed releas
60 mg PO DAILY
phenytoin sodium extended [Dilantin Extended] 100 mg capsule
100 mg PO TID
aspirin 81 mg Tablet,Delayed Release (Dr/Ec)
81 mg PO DAILY
hyoscyamine sulfate 0.125 mg Tablet
0.125 mg PO TIDPRN PRN (Reason: spasms)
albuterol sulfate 90 mcg/actuation Hfa Aerosol Inhaler
2 puff INHALATION R Q4HPRN PRN (Reason: sob)
cholecalciferol (vitamin D3) [Vitamin D3] 25 mcg (1,000 unit) Tablet
25 mcg PO DAILY
isosorbide mononitrate 60 mg tablet extended release 24 hr
60 mg PO DAILY Qty: 0 0RF
gabapentin 600 mg Tablet
1,200 mg PO BID@1199,1999
warfarin 2.5 mg Tablet
3.75 mg PO FR@1999
atenolol 50 mg Tablet
50 mg PO BID
gabapentin 600 mg tablet
600 mg PO DAILY
warfarin 2.5 mg tablet
2.5 mg PO SUMOTUWETHSA@1999
acetaminophen [Tylenol Extra Strength] 500 mg tablet
1,000 mg PO Q6HPRN PRN (Reason: MILD PAIN)
Changed
metolazone 5 mg Tablet
See Rx Instructions .ROUTE .COMPLEX 30 Days Qty: 12 0RF
Rx Instructions:
5 mg orally, on MONDAYS, WEDNESDAYS, FRIDAYS only
Discontinued
bumetanide 2 mg tablet
2 mg PO BID
Discharge Orders:
Discharge Patient (As Directed); Ordered 03/02/25
Ordered By: Josesito Luna
Discharge Date and Time
Discharge Date/Time: 03/02/25 13:33
Print Language: AMHARIC
== END 2025-03-02 13:33 | disposition home health service (06) | DRG 291 ==
LOC: 3 WEST ACU 18:19
PROVIDERS: Registered Nurse; Student in an Organized Health Care Education/Training Program; ADMITTING PHYSICIAN Internal Medicine; ATTENDING PHYSICIAN Internal Medicine; CONSULT PHYSICIAN Internal Medicine; EMERGENCY PHYSICIAN Student in an Organized Health Care Education/Training Program; FAMILY PHYSICIAN Family Medicine
DX: I13.0 Hypertensive heart and chronic kidney disease with heart failure and stage 1 through stage 4 chronic kidney disease, or unspecified chronic kidney disease (principal); I50.33 Acute on chronic diastolic (congestive) heart failure; J96.01 Acute respiratory failure with hypoxia; K55.1 Chronic vascular disorders of intestine; N17.9 Acute kidney failure, unspecified; N18.32 Chronic kidney disease, stage 3b; I25.10 Atherosclerotic heart disease of native coronary artery without angina pectoris; Z86.711 Personal history of pulmonary embolism; Z90.5 Acquired absence of kidney; Z95.1 Presence of aortocoronary bypass graft; E78.00 Pure hypercholesterolemia, unspecified; G40.909 Epilepsy, unspecified, not intractable, without status epilepticus; Z95.5 Presence of coronary angioplasty implant and graft; I08.1 Rheumatic disorders of both mitral and tricuspid valves; I48.0 Paroxysmal atrial fibrillation; G62.9 Polyneuropathy, unspecified; I27.20 Pulmonary hypertension, unspecified; Z85.528 Personal history of other malignant neoplasm of kidney; Z85.820 Personal history of malignant melanoma of skin; Z79.899 Other long term (current) drug therapy; K22.70 Barrett's esophagus without dysplasia; M81.0 Age-related osteoporosis without current pathological fracture; Z87.891 Personal history of nicotine dependence; Z88.3 Allergy status to other anti-infective agents; Z79.82 Long term (current) use of aspirin; Z79.01 Long term (current) use of anticoagulants; D72.829 Elevated white blood cell count, unspecified; E87.6 Hypokalemia; K21.9 Gastro-esophageal reflux disease without esophagitis; D64.9 Anemia, unspecified; F41.0 Panic disorder [episodic paroxysmal anxiety]; G89.29 Other chronic pain; Z86.718 Personal history of other venous thrombosis and embolism; Z90.710 Acquired absence of both cervix and uterus; Z96.651 Presence of right artificial knee joint
CPT/HCPCS: 71046; 80048; 80053; 80061; 81003; 83735; 83880; 84443; 84484; 85025; 85027; 85610; 85730; 93005; 93306; 94640; 96361; 96374; 97162; 97530; 99285

== ENCOUNTER 2025-04-01 19:21 | Inpatient (IN) | payer MEDICARE, OTHER, SELFPAY ==
[2025-04-01] VITALS (18 sets, daily range): BP systolic 68–138; BP diastolic 48–82; BMI 31.6; BMI 29.5
[2025-04-01 15:24] LABS: Hematocrit 43.5 % (37.0-47.0); Hemoglobin 14.8 g/dL (12.0-16.0); Mean Corp Hgb Conc. 34.0 g/dL (33.0-37.0); Mean Corpuscular Volume 90.8 fL (81.0-99.0); Nucleated Red Blood Cells % 0 %; Platelet Count 361 10^3/uL (130-400); Red Cell Dist. Width 13.8 % (11.5-14.5)
[2025-04-01 15:33] LABS: INR 1.72; PT 20.3 Sec (11.4-14.6)
[2025-04-01 15:34] LABS: APTT 37.8 Sec (23.4-35.0)
[2025-04-01] MEDS: NSS 250 IV ×2 (15:39→17:43)
[2025-04-01 15:50] LABS: ALT (SGPT) 19 U/L (0-35); AST (SGOT) 20 U/L (14-36); Albumin 4.3 g/dl (3.5-5.0); Alkaline Phosphatase 233 U/L (38-126); Blood Urea Nitrogen 84 mg/dl (7-17); Calcium 9.1 mg/dl (8.4-10.2); Carbon Dioxide 29 mmol/L (22-30); Chloride 92 mmol/L (98-107); Estimated Creatinine Clearance 30 ml/min; Glucose 136 mg/dl (70-99); Lipase 369 U/L (23-300); Potassium 3.2 mmol/L (3.5-5.1); Sodium 133 mmol/L (135-145); Total Protein 7.8 g/dl (6.3-8.2); eGFR 32.40
[2025-04-01 15:53] LABS: COVID-19 Antigen Negative (Negative)
[2025-04-01 16:00] LABS: Troponin I 0.115 ng/ml
[2025-04-01 16:08] LABS: Urine Character Cloudy (Clear)
[2025-04-01 16:40] LABS: Urine Urothelial Cell 0-2 /LPF (FEW)
[2025-04-01] MEDS: ROCEPHIN 1000 MG IV (17:05)
[2025-04-01] MEDS: KLOR-CON 20 MEQ PO (17:05)
[2025-04-01 17:51] LABS: Troponin I 0.107 ng/ml
--- NOTE | 2025-04-01 18:10 | ED.GENMED ---
History of Present Illness
General
Chief Complaint: Blood Pressure Problem
Source: patient and records
Exam Limitations: none
Time Seen by Provider: 04/01/25 14:54
Nursing documentation reviewed up to this point in time: agreed with
History of Present Illness
History of Present Illness:
79-year-old female with a past medical history of hypertension, hyperlipidemia, and DVT/PE on Coumadin, atrial fibrillation, CAD, CHF, single kidney who presents to the emergency department with multiple complaints chief among them lightheadedness
and urinary symptoms but also reports a recent fall. Patient reports that she has been feeling lightheaded and weak for the past 5 days. She reports that the symptoms have been generally worsening to the point that today she had trouble standing
up and walking around�she says that her blood pressure would drop when she stands up and she would pass out and this happened multiple times today. She says that in addition to this lightheadedness over the past few days she has had increasing
urinary symptoms�describes dysuria, increased frequency, bladder pressure. She denies flank pain or fever. She finally says that she had a recent fall that she says it occurred on and was a mechanical fall rather than syncopal episode.
She says that she was walking to the bathroom and fell and hit the back of her head on the door frame. She did not pass out at this time but has had a mild headache since. She also reports some mild neck pain. She denies any other injuries from
the fall including specifically denying chest pain, back pain, pain in the extremities. Of note: Patient was just admitted to the hospital last month with acute hypoxic respiratory failure secondary to CHF requiring diuresis with IV Bumex. Has
also been on metolazone.
Past History
Past History
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
(Diverticulitis, DVT/PE, Only has right kidney, Endometriosis)
ED Past Surgical History: Appendectomy, Cardiac (quadruple bypass 2002. stent), Gynecological (Hysterectomy), Orthopedic (left shoulder, ankle) and Other (Right nephrectomy 2001 'tumor')
Social History
Tobacco: Former smoker
Alcohol: Occasional
Drug: None
Personal:
Living: with family
Employment: Retired
Family History
Family History: Other (Noncontributory)
Review of Systems
Review of Systems
All Other Systems: ROS reviewed and negative except as documented in HPI and ROS
Constitutional: Reports fatigue; Denies fever or chills
EENT: Denies sore throat
Respiratory: Denies cough or trouble breathing
Cardiac: Reports syncope; Denies chest pain or palpitations
ABD/GI: Reports abdominal pain (Bladder pressure); Denies nausea, vomiting or diarrhea
: Reports dysuria, frequency and dark urine; Denies flank pain
Musculoskeletal: Reports neck pain; Denies back pain
Neurological: Reports dizzy and headache; Denies weakness or numbness
Phy Exam
Physical Exam
Physical Exam:
General: Awake, alert, oriented x3; no acute distress
Head: Normocephalic, atraumatic
Eyes: Conjunctiva normal, pupils equal round and reactive to light bilaterally
Throat: Airway intact, dry mucous membranes
Neck: Trachea midline, no cervical spine tenderness
Lungs: Clear to auscultation bilaterally, no wheezing, rales, rhonchi
Heart: Regular rate and rhythm, no murmurs, gallops, or rubs
Abd: Soft, non distended, mild tenderness over the bladder
Back: No signs of trauma the back or flank
Neuro: Cranial nerves intact, speech is fluid, motor and sensory intact in all extremities
Skin: Warm and dry
Extremities: Atraumatic, no significant edema, extremities are warm and well-perfused
Scores
Heart Failure Risk
Heart Failure Risk Score: Not Applicable
Heart Score for Chest Pain Patients
STEMI patient?: Not applicable
Withdrawal Assessment of Alcohol
Withdrawal Assessment Completed?: Not applicable
Course
Orders/Labs/Results
Orders:
Orders
04/01/25 14:47
CT Head W/o Iv Contrast Urgent
Comment:
Reason For Exam: fall on coumadin
04/01/25 14:55
Electrocardiogram (*1) Urgent
Reason for Study: Fatigue / Weakness
EKG- Treatment ONCE
04/01/25 14:56
CT Cervical Spine W/o Iv Contr Urgent
Comment:
Reason For Exam: fall with head strike on AC
0.9% Sodium Chloride 1000 ml [Nss] 1,000 ml IV BOLUS
04/01/25 15:02
COVID-19 Antigen Urgent
Source: Nasal Swab
Complete Blood Count/With Diff Urgent
Comprehensive Metabolic Panel Urgent
Lactate Level [Lactic Acid] Urgent
Lipase Urgent
PTT Urgent
Prothrombin Time Urgent
TSH Reflex To Free T4 Urgent
Urinalysis Reflex To Culture Urgent
Date Specimen was Collected: 04/01/25
Time Specimen was Collected: 14:56
Urine Microscopic Reflex Cult Urgent
Blood Culture Q30M
DIOGENES Source: Blood/Venous
Specimen Description:
Influenza A+B Rapid Molecular Urgent
DIOGENES Source: Nasal Swab
Specimen Description:
Urine Culture Urgent
DIOGENES Source: U
Specimen Description:
Date Specimen was Collected: 04/01/25
Time Specimen was Collected: 14:56
04/01/25 15:03
Troponin I Urgent
Blood Culture Q30M
DIOGENES Source: Blood/Venous
Specimen Description:
04/01/25 15:08
0.9% Sodium Chloride 250 ml [Nss] 250 ml IV BOLUS
04/01/25 17:00
CefTRIAXone [Rocephin] 1,000 mg IV NOW STA
Potassium Chloride Powder [Klor-Con] 20 meq PO NOW STA
04/01/25 17:06
Troponin I Urgent
04/01/25 17:34
0.9% Sodium Chloride 250 ml [Nss] 250 ml IV BOLUS
Abnormal Lab Results
04/01/25 04/01/25 04/01/25
15:02 15:03 17:06
Absolute Neuts (auto) 8.5 H 10^3/uL
(1.4-6.5)
Absolute Lymphs (auto) 1.0 L 10^3/uL
(1.2-3.4)
Neutrophils % 82.6 H %
(42.2-75.2)
Lymphocytes % 9.5 L %
(20.5-51.1)
PT 20.3 H Sec
(11.4-14.6)
APTT 37.8 H Sec
(23.4-35.0)
Sodium 133 L mmol/L
(135-145)
Potassium 3.2 L mmol/L
(3.5-5.1)
Chloride 92 L mmol/L
(98-107)
BUN 84 H mg/dl
(7-17)
Creatinine 1.6 H mg/dL
(0.6-1.0)
Glucose 136 H mg/dl
(70-99)
Lactic Acid 3.5 H mmol/L
(0.7-2.0)
Alkaline Phosphatase 233 H U/L
(38-126)
Troponin I 0.115 H* ng/ml 0.107 H* ng/ml
Lipase 369 H U/L
(23-300)
Urine RBC 3-6 A /HPF
(0-2)
Urine Bacteria (Reflex) Many A
(Negative)
Urine Albumin (Reflex) 1+ A
(Neg - Trace)
04/01/25 15:02
04/01/25 15:02
Vital Signs
Initial and Last Documented VS:
Initial Vital Signs
Temp Pulse Resp BP Pulse Ox
36.5 C 62 17 84/69 95
04/01/25 14:44 04/01/25 14:44 04/01/25 14:44 04/01/25 14:44 04/01/25 14:44
Last Documented Vital Signs
Temp Pulse Resp BP Pulse Ox
36.8 C 75 16 93/48 98
04/01/25 15:00 04/01/25 18:00 04/01/25 18:00 04/01/25 17:30 04/01/25 18:00
MDM/Problems Addressed
Differential Diagnosis Includes:
Lightheadedness: Dehydration/overdiuresis, dysrhythmia, anemia
Urinary symptoms: UTI, hyperglycemia, diuretic effect
MDM/Problems Addressed:
79-year-old female presents for evaluation of increased weakness and lightheadedness, multiple syncopal events over the past few days. She also has been having urinary symptoms. Finally she had a fall few days ago with head strike for which she
never sought care�she is notably on Coumadin. Her vital signs here are significant for hypotension with acceptable heart rate, no fever, no tachypnea or hypoxia. Physical exam is as above. Plan to place an IV send labs including a CBC and a CMP,
coags, lactate and blood cultures. Will check urinalysis and culture. Will check EKG and a troponin given hypotension. Will provide some gentle IV fluids given her history of CHF. Regarding her recent fall we will check a CT of the head and
cervical spine. Monitor closely reassess after the above.
Labs reviewed: CBC shows no clinically significant abnormalities. Chemistry shows AYUSH with a creatinine of 1.6 from discharge value of 1.3�notable in the setting of single kidney. She also has hyponatremia and hypokalemia. She has an elevated
lactate as well as a marginally elevated troponin. Overall I suspect that this is overdiuresis in the setting of her recent CHF last month. Will continue with IV fluid repletion. Her urinalysis was positive for bacteria with some slight pyuria
and in the context of her symptoms and hypotension we will proceed with antibiotic treatment. Fortunately her trauma imaging was negative for any acute posttraumatic injury. Will plan for admission for continued monitoring and treatment.
Discussed case with hospitalist.
Chronic conditions affecting care:
CHF
*Radiology
Radiology exam reviewed: radiology read reviewed
*Pulse Oximetry
SaO2: 98
Oxygen Mode of Delivery: Room air
Patient hypoxic: no (98%)
*EKG
Interpreted by ED Provider?: Yes
Heart Rate: 66
Rate: normal
Rhythm: a-fib
[place]: normal axis
Interval: normal interval
QRS Pattern: normal QRS
Ischemia: non-specific ST changes
*Critical Care Note
Total Time (30-74mins, 75-104mins- exclusive of procedures): 31
comment:
Critical care statement: A total of 31 minutes of critical care time was provided for this patient. This includes management of unstable vital signs, evaluation of the patient at bedside, frequent reassessment, discussion with
consultants/hospitalist, and review of pertinent medical records. This time was separate from time utilized to perform any aforementioned documented procedures
Data Reviewed
Review of Other/Old Records Reveals: Labs and Records
Source: patient and records
Patient Management
Discussion with other providers: Hospitalist (Discussed with hospitalist)
Escalation/DeEscalation of care consider admission/obs:
Admission indicated
ED Attending Note
-
Portions of this chart may have been created with voice recognition software.� Occasional wrong word or��sound alike� substitutions may have occurred due to the inherent limitations of voice recognition software.
Discharge Plan
Departure
Patient Disposition: Admit
Date of Disposition: 04/01/25
Time of Disposition: 18:21
Admit to doctor: Blu
Presentation/result/management discussed w/ accepting MD/DO: Hospitalist
Discharge Problem:
Hyponatremia, Hypokalemia, Hypovolemia, Acute UTI
Prescriptions:
No Action
montelukast 10 MG tablet
10 mg PO HS
ezetimibe 10 MG tablet
10 mg PO DAILY
fluticasone furoate-vilanterol [Breo Ellipta] 200-25 mcg/dose blister with device
1 inh INHALATION R DAILY
phenobarbital 32.4 MG tablet
32.4 mg PO TID Qty: 9 0RF
dexlansoprazole 60 mg capsule,biphase delayed releas
60 mg PO DAILY
phenytoin sodium extended [Dilantin Extended] 100 mg capsule
100 mg PO TID
aspirin 81 mg Tablet,Delayed Release (Dr/Ec)
81 mg PO DAILY
hyoscyamine sulfate 0.125 mg Tablet
0.125 mg PO TIDPRN PRN (Reason: spasms)
albuterol sulfate 90 mcg/actuation Hfa Aerosol Inhaler
2 puff INHALATION R Q4HPRN PRN (Reason: sob)
cholecalciferol (vitamin D3) [Vitamin D3] 25 mcg (1,000 unit) Tablet
25 mcg PO DAILY
isosorbide mononitrate 60 mg tablet extended release 24 hr
60 mg PO DAILY Qty: 0 0RF
gabapentin 600 mg Tablet
1,200 mg PO BID@1200,2000
warfarin 2.5 mg Tablet
3.75 mg PO FR@1999
atenolol 50 mg Tablet
50 mg PO BID
gabapentin 600 mg tablet
600 mg PO DAILY
warfarin 2.5 mg tablet
2.5 mg PO SUMOTUWETHSA@1999
acetaminophen [Tylenol Extra Strength] 500 mg tablet
1,000 mg PO Q6HPRN PRN (Reason: MILD PAIN)
bumetanide 1 mg Tablet
3 mg PO BID@0800,1600 30 Days Qty: 60 0RF
metolazone 5 mg Tablet
See Rx Instructions .ROUTE .COMPLEX 30 Days Qty: 12 0RF
Rx Instructions:
5 mg orally, on MONDAYS, WEDNESDAYS, FRIDAYS only
Referrals:
Luis Manuel Burden MD [Family Provider, Family Practice]
Interventions
Interventions:
*Risk Screen - Suicide Last Done: 04/01/25 14:45
*General Assessment Last Done: 04/01/25 14:45
*Neglect/Abuse Screening Last Done: 04/01/25 14:45
*ED- Fall Risk Assessment Last Done: 04/01/25 15:15
*ED COVID-19 Vaccine History Last Done: 04/01/25 14:45
ED- Cardiac Assessment Last Done: 04/01/25 15:15
ED- Neurological Assessment Last Done: 04/01/25 15:15
ED- Pulmonary Assessment Last Done: 04/01/25 15:15
Discharge Date and Time
Print Language: UPPER SORBIAN
--- NOTE | 2025-04-01 18:38 | HPS.HSE ---
Addendum entered and electronically signed by Radha Hurt MD 04/01/25 19:28:
Held isosorbide mononitrate.
Original Note:
Family Physician
-
Family Physician: Luis Manuel Burden
Chief Complaint
-
syncope
History of Present Illness
79-year-old female past medical history of HFpEF, mild to moderate mitral regurgitation, tricuspid regurgitation, CAD status post CABG 2005, paroxysmal atrial fibrillation on Coumadin, PAD status post balloon angioplasty and stenting of the superior
mesenteric artery in 2023, carotid artery stenosis, nephrectomy in 2011, hyperlipidemia, prior pulm embolism, hypertension, neuropathy, seizure disorder, pulmonary hypertension, asthma, chronic left lower extremity edema, presenting with
lightheadedness and urinary symptoms. Patient feeling lightheaded for the past 5 days. Symptoms are worsening to the point she has trouble standing up and walking. Blood pressure would drop when she stands up and she would pass out and this has
happened multiple times today. Has shortness of breath with exertion.
She has also been having increasing urinary symptoms described as burning with urination, increased frequency and bladder pressure. Denies flank pain or fever.
She had a recent fall 3 days ago and states that it was mechanical rather than from passing out. She was walking to the bathroom and fell and hit the back of her head on the door frame. She did not pass out but has had a mild headache since then.
She also has some mild neck pain.
She denies chest pain, back pain, extremity pain.
Patient was recently admitted from 02/26 to 03/02 for acute CHF exacerbation.
She denies smoking. She drinks alcohol occasionally.
Medical History
Past Medical History
Past Medical History: Reports Other (HFpEF, mild to moderate mitral regurgitation, tricuspid regurgitation, CAD status post CABG 2005, paroxysmal atrial fibrillation on Coumadin, PAD status post balloon angioplasty and stenting of the superior
mesenteric artery in 2023, carotid artery stenosis, nephrectomy in 2011, hyperlipidemia, prio)
Past Surgical History: Reports Other ( Appendectomy, Cardiac (quadruple bypass 2002. stent), Gynecological (Hysterectomy), Orthopedic (left shoulder, ankle) and Other (Right nephrectomy 2001 'tumor'))
Social History
Tobacco: Non-smoker
Alcohol: Occasional
Drug: None
Family History
Family History: Not pertinent
Allergies / Home Medications
Allergies reflects when Allergies were last updated in [employer].
Home Medications with original date entered in [employer]
Allergy/Medication List:
Allergies
Allergy/AdvReac Type Severity Reaction Status Date / Time
metronidazole (From Flagyl) Allergy Nausea / Verified 04/01/25 14:45
Vomiting
pollen extracts Allergy ENVIRONMENTAL Verified 04/01/25 14:45
ALLERGIES-NASAL
SYMPTOMS
Home Medications
montelukast 10 mg tablet 10 mg PO HS Lung/breathing issues 04/02/15
ezetimibe 10 mg tablet 10 mg PO DAILY cholesterol 03/12/21
fluticasone furoate 200 mcg-vilanterol 25 mcg/dose inhalation powder (Breo Ellipta) 1 inh inhalation R DAILY Lung/Breathing Issues 01/13/23
phenobarbital 32.4 mg tablet 32.4 mg PO TID Seizures #9 tabs 03/22/23
dexlansoprazole 60 mg capsule,biphase delayed release 60 mg PO DAILY Gastrointestinal Issue 03/25/23
albuterol sulfate 90 mcg/actuation aerosol inhaler 2 puff inhalation R Q4HPRN PRN sob 11/24/23
aspirin 81 mg tablet,delayed release 81 mg PO DAILY Blood Clot Prevention/Tx 11/24/23
hyoscyamine sulfate 0.125 mg tablet 0.125 mg PO TIDPRN PRN spasms 11/24/23
phenytoin sodium extended 100 mg capsule (Dilantin Extended) 100 mg PO TID Seizures 11/24/23
cholecalciferol (vitamin D3) 25 mcg (1,000 unit) tablet (Vitamin D3) 25 mcg PO DAILY Supplement 02/29/24
isosorbide mononitrate 60 mg tablet,extended release 24 hr 60 mg PO DAILY Heart Disease/Condition #0 tabs 11/27/24
acetaminophen 500 mg tablet (Tylenol Extra Strength) 1,000 mg PO BID 02/26/25
atenolol 50 mg tablet 50 mg PO BID Blood Pressure 02/26/25
gabapentin 600 mg tablet 1,200 mg PO BID@1200,1999 neuropathic pain 02/26/25
gabapentin 600 mg tablet 600 mg PO DAILY neuropathic pain 02/26/25
warfarin 2.5 mg tablet 2.5 mg PO SUMOTUWETHSA@1999 Blood Clot Prevention/Tx 02/26/25
warfarin 2.5 mg tablet 3.75 mg PO FR@1999 Blood Clot Prevention/Tx 02/26/25
bumetanide 1 mg tablet 3 mg (3 x 1 mg) PO BID@0800,1600 Shortness of breath secondary to HFpEF 30 days #60 tabs 03/02/25
metolazone 5 mg tablet See Rx Instructions .Route .COMPLEX Fluid Retention/Swelling 30 days #12 tabs 03/02/25
Review of Systems
-
Constitutional: Reports No Symptoms
EENT: Reports No Symptoms
Respiratory: Reports No Symptoms
Cardiac: Reports No Symptoms
Abdomen/GI: Reports No Symptoms
: Reports See HPI
Musculoskeletal: Reports No Symptoms
Skin: Reports No Symptoms
Neurological: Reports No Symptoms
Endocrine: Reports No Symptoms
Hematologic/Lymphatic: Reports No Symptoms
Psych: Reports No Symptoms
Physical Exam
Vital Signs
Vital Signs
Temp Pulse Resp BP Pulse Ox
98.2 F 74 17 96/60 98
04/01/25 15:00 04/01/25 18:00 04/01/25 18:00 04/01/25 18:00 04/01/25 18:21
Physical Exam
General: Well Developed, Well Nourished and No Apparent Distress
HEENT: NormoCephalic, Moist mucous membranes and Atraumatic
Respiratory: Clear
Cardiac: S1/S2 and Regular Rhythm; No Murmur or Rub
GI: Soft, Non Tender, Non Distended and Normal Bowel Sounds; No Organomegaly
Rectal: Deferred by Provider
Musculoskeletal: No Clubbing, No Cyanosis and No Edema
Skin: No Rash
Neuro: Nonfocal/grossly intact
Laboratory Results
-
04/01/25 15:02
04/01/25 15:02
Laboratory Results
PT 20.3 Sec (11.4-14.6) H 04/01/25 15:02
INR 1.72 04/01/25 15:02
APTT 37.8 Sec (23.4-35.0) H 04/01/25 15:02
Lactic Acid 3.5 mmol/L (0.7-2.0) H 04/01/25 15:02
Total Bilirubin 0.6 mg/dl (0.2-1.3) 04/01/25 15:02
AST 20 U/L (14-36) 04/01/25 15:02
ALT 19 U/L (0-35) 04/01/25 15:02
Alkaline Phosphatase 233 U/L (38-126) H 04/01/25 15:02
Troponin I 0.107 ng/ml H* 04/01/25 17:06
Lipase 369 U/L (23-300) H 04/01/25 15:02
Data Reviewed
-
Lab Data: Labs Reviewed by me
Old Records: Reviewed
Impression/Plan
-
IMPRESSION:
PLAN:
# Syncopal episodes secondary to hypotension/orthostatic hypotension from overdiuresis from Bumex
-Blood pressure 90s systolic
- IV fluids
- Hold Bumex and metolazone, atenolol
# Fall with head injury
- CT head and cervical spine do not show any acute abnormality
# Dysuria
-Urinalysis not consistent with UTI only shows 6-10 WBC, negative nitrates, negative leukocyte esterase
- Urine culture, blood culture pending
- Continue ceftriaxone for now given hypotensive, lactic acidosis although seems to be from orthostatic hypotension
# Acute kidney injury likely prerenal
# History of nephrectomy in 2011
- Creatinine 1.6 from 1.2 in September
# Hypokalemia secondary to Bumex
- Replete potassium
- Replete magnesium
# Nonischemic myocardial injury likely from hypotension
- Troponin 0.115, decreased to 0.107
#Subtherapeutic INR
-will give 3.75 mg Coumadin tonight instead of usual 2.5 mg
# Lactic acidosis secondary to hypotension
- Lactic acid of 3.5, continue to trend
Chronic HFpEF
- Hold Bumex
Pulmonary hypertension
Asthma
- Continue inhalers, montelukast
CAD status post CABG in 2005
- Continue aspirin
- Continue isosorbide mononitrate
Paroxysmal atrial fibrillation
- Continue atenolol
- Continue Coumadin
-INR 1.72
PAD status post balloon angioplasty and stenting of the superior mesenteric artery 2023
Carotid artery stenosis
Hyperlipidemia
- Continue Zetia
History of DVT/PE
- Continue Coumadin
Essential hypertension
Neuropathy
- Continue gabapentin
Seizure disorder
- Continue phenytoin, phenobarbital
Severe degenerative disc disease
- As noted on CT spine
Asthma
Full code
DVT prophylaxis�Coumadin
Cardiac diet
[2025-04-01 22:27] LABS: Magnesium 2.7 mg/dl (1.6-2.3)
[2025-04-01] MEDS: HEPARIN 5000 UNITS SC (23:44)
[2025-04-01] MEDS: SINGULAIR 10 MG PO (23:44)
[2025-04-01] MEDS: TYLENOL 1000 MG PO (23:45)
[2025-04-01] MEDS: COUMADIN 2.5 MG PO (23:45)
[2025-04-01] MEDS: DILANTIN 100 MG PO (23:45)
[2025-04-01] MEDS: NSS 1000 IV (23:46)
[2025-04-02] MEDS: NEURONTIN 300 MG PO ×4 (00:57→20:14)
[2025-04-02] MEDS: LUMINAL 32.4 MG PO ×4 (00:57→22:24)
[2025-04-02 03:00] VITALS: BP 100/42
[2025-04-02 03:48] VITALS: BMI 29.6
[2025-04-02 03:50] VITALS: BMI 29.6
[2025-04-02 07:28] VITALS: BP 129/58
[2025-04-02] MEDS: SYMBICORT 160/4.5 MCG INHALER 2 PUFF INH ×2 (07:39→19:26)
[2025-04-02 07:40] LABS: INR 1.73; PT 20.4 Sec (11.4-14.6)
[2025-04-02 08:01] LABS: ALT (SGPT) 18 U/L (0-35); AST (SGOT) 19 U/L (14-36); Albumin 3.9 g/dl (3.5-5.0); Alkaline Phosphatase 214 U/L (38-126); Blood Urea Nitrogen 75 mg/dl (7-17); Calcium 9.0 mg/dl (8.4-10.2); Carbon Dioxide 32 mmol/L (22-30); Chloride 97 mmol/L (98-107); Estimated Creatinine Clearance 39 ml/min; Glucose 104 mg/dl (70-99); Potassium 3.3 mmol/L (3.5-5.1); Sodium 138 mmol/L (135-145); Total Protein 7.0 g/dl (6.3-8.2); eGFR 41.57
[2025-04-02 08:11] LABS: Hematocrit 39.8 % (37.0-47.0); Hemoglobin 13.1 g/dL (12.0-16.0); Mean Corp Hgb Conc. 32.9 g/dL (33.0-37.0); Mean Corpuscular Volume 91.7 fL (81.0-99.0); Nucleated Red Blood Cells % 0 %; Platelet Count 318 10^3/uL (130-400); Red Cell Dist. Width 13.9 % (11.5-14.5)
[2025-04-02] MEDS: DESENEX/MITRAZOL/ZEASORB 1 APPLIC TOPICAL ×2 (08:35→22:23)
[2025-04-02] MEDS: TYLENOL 1000 MG PO ×2 (08:36→20:14)
[2025-04-02] MEDS: DILANTIN 100 MG PO ×3 (08:36→22:24)
[2025-04-02] MEDS: ZETIA 10 MG PO (08:36)
[2025-04-02] MEDS: HEPARIN 5000 UNITS SC (08:36)
[2025-04-02] MEDS: ASPIR LOW (ENTERIC COATED) 81 MG PO (08:36)
[2025-04-02] MEDS: PROTONIX 40 MG PO (08:36)
[2025-04-02] MEDS: VITAMIN D3 (cholecalciferol) 25 MCG PO (08:44)
[2025-04-02] MEDS: KCL ELIXIR 40 MEQ PO (08:51)
[2025-04-02 11:39] VITALS: BP 127/57
[2025-04-02] MEDS: NSS 1000 IV (11:58)
--- NOTE | 2025-04-02 12:39 | PTCARENOTE ---
Patient OOb to chair with assist x1. Patient tolerated 100% of am meal. Patient c/o chronic back ache, denies need for pain medication at present. Patient tearful on and off. Fearful she wont be able to urinate on her own. Patient has no c/o
dizziness when getting OOB. Patient states, 'I don't know why I cry all the time. It must be my age.' Much emotional support given.
--- NOTE | 2025-04-02 14:19 | W.PN.HOSP.TC ---
Today's Communication/Plan
-
f/u cultures
cont abx
pt/ot
coumadin
orthostatic hypotension
ivf prn
monitor renal function
Assessment / Plan
Assessment / Plan
# Syncopal episodes secondary to hypotension/orthostatic hypotension from overdiuresis from Bumex
-Blood pressure 90s systolic
- IV fluids
- Hold Bumex and metolazone, atenolol
-Orthostatics
# Fall with head injury
- CT head and cervical spine do not show any acute abnormality
-pt/ot
# Dysuria, present
-UA equivocal
- Urine culture, blood culture pending
- Continue ceftriaxone as patient symptoms improving. Follow-up cultures
# Acute kidney injury likely prerenal
# History of nephrectomy in 2011
- Creatinine 1.6 from 1.2 in September
-improving - 1.3 now
# Hypokalemia secondary to Bumex
- Replete potassium
# Nonischemic myocardial injury likely from hypotension
- Troponin 0.115, decreased to 0.107
-ECHo ordered
#Subtherapeutic INR
-will give 3.75 mg Coumadin tonight instead of usual 2.5 mg
# Lactic acidosis secondary to hypotension
- Lactic acid of 3.5, continue to trend
Chronic HFpEF
- Hold Bumex
Pulmonary hypertension
Asthma
- Continue inhalers, montelukast
CAD status post CABG in 2005
- Continue aspirin
- Continue isosorbide mononitrate
Paroxysmal atrial fibrillation
- Continue atenolol
- Continue Coumadin
-INR 1.72
PAD status post balloon angioplasty and stenting of the superior mesenteric artery 2023
Carotid artery stenosis
Hyperlipidemia
- Continue Zetia
History of DVT/PE
- Continue Coumadin
Essential hypertension
Neuropathy
- Continue gabapentin
Seizure disorder
- Continue phenytoin, phenobarbital
Severe degenerative disc disease
- As noted on CT spine
-Mild multilevel spinal cord compression and central canal stenosis.
-Severe multilevel bilateral neural foraminal narrowing.
-PT/OT
-No LE weakness/sensimotor loss
-F/u neurology outpatient
Asthma
Full code
DVT prophylaxis�Coumadin
Cardiac diet
Total time spent on today's encounter was 50 minutes which included time spent in counseling the patient/family regarding diagnosis and treatment plan as listed above, goals of care, and symptom management. Case was discussed with nursing staff,
specialists, and care coordinators/case management. All labs and imaging personally reviewed by me. Remainder the time spent in detailed review of previous records, lab data, imaging, and other medical provider documentation.
Anticipated Discharge: > 48 hours
Subjective/Interval History
-
Date of Service: April 02, 2025
Patient feels better, urinary issues also improving
Objective Data
-
Labs:
Laboratory Results
04/02/25
07:05
WBC 8.0
Hgb 13.1
Hct 39.8
Plt Count 318
PT 20.4 H
INR 1.73
Sodium 138
Potassium 3.3 L
Chloride 97 L
Carbon Dioxide 32 H
BUN 75 H
Creatinine 1.3 H
Glucose 104 H
Calcium 9.0
Total Bilirubin 0.5
AST 19
ALT 18
Alkaline Phosphatase 214 H
Vital Signs:
Vital Signs
Temp Pulse Resp BP Pulse Ox
98.2 F 61 16 127/57 95
04/02/25 11:39 04/02/25 11:39 04/02/25 11:39 04/02/25 11:39 04/02/25 11:39
I&O
04/01/25 04/02/25 04/03/25
06:59 06:59 06:59
Intake Total 480 / 480
Balance 480 / 480
Review of Systems
-
History Source: Patient
All other systems: Not reviewed unless documented
Physical Exam
-
General: Well Developed, Well Nourished, No Apparent Distress and Conversant
HEENT: Normocephalic, Atraumatic and Moist Mucous Membranes
Respiratory: Clear to Auscultation and Non Labored Respirations
Cardiac: Regular Rhythm and S1/S2
GI: Soft, Nontender and Nondistended
Musculoskeletal: No Clubbing, No Cyanosis and No Edema
Skin: Warm and Dry
Psych: Calm and Intact Judgement/Insight
Data Reviewed
-
Diagnostic Radiology: Report Reviewed by me
CT Scan: Report Reviewed by me
Labs: Labs Reviewed by me
[2025-04-02 15:28] VITALS: BP 116/74
[2025-04-02] MEDS: ROCEPHIN 1000 MG IV (16:24)
[2025-04-02] MEDS: STERILE WATER FOR INJECTION 10 ML IV (16:30)
--- NOTE | 2025-04-02 16:44 | CM ---
procedure manager reviewed patient's chart and met with patient. Patient is a readmit, patient states she lives with her spouse in a 2 story home, 3 steps to enter, patient is independent with adl's and ambulation. Patient was sent home with [facility], and
patient's plan is to return to home with [facility].
PCP: Dr. Burden
Pharmacy: [facility] in [place]
Plan; Home with [facility].
[2025-04-02 19:00] VITALS: BP 121/52
[2025-04-02] MEDS: COUMADIN 2.5 MG PO (20:14)
[2025-04-02] MEDS: COUMADIN 1.25 MG PO (20:15)
[2025-04-02] MEDS: SINGULAIR 10 MG PO (22:24)
[2025-04-02 23:00] VITALS: BP 120/44
[2025-04-03] VITALS (8 sets, daily range): BP systolic 84–168; BP diastolic 48–86; PULSE 74–102; O2SAT 94; BMI 30.1
[2025-04-03] MEDS: LEVSIN 0.125 MG PO (04:06)
[2025-04-03] MEDS: NSS 1000 IV (04:59)
[2025-04-03] MEDS: SYMBICORT 160/4.5 MCG INHALER 2 PUFF INH ×2 (07:42→20:46)
[2025-04-03 08:12] LABS: Hematocrit 38.4 % (37.0-47.0); Hemoglobin 12.9 g/dL (12.0-16.0); Mean Corp Hgb Conc. 33.6 g/dL (33.0-37.0); Mean Corpuscular Volume 92.5 fL (81.0-99.0); Platelet Count 297 10^3/uL (130-400); Red Cell Dist. Width 14.2 % (11.5-14.5)
[2025-04-03] MEDS: LUMINAL 32.4 MG PO ×3 (08:40→23:33)
[2025-04-03] MEDS: DILANTIN 100 MG PO ×3 (08:40→23:32)
[2025-04-03] MEDS: DESENEX/MITRAZOL/ZEASORB 1 APPLIC TOPICAL ×2 (08:40→20:27)
[2025-04-03] MEDS: PROTONIX 40 MG PO (08:40)
[2025-04-03] MEDS: NEURONTIN 300 MG PO ×3 (08:40→20:26)
[2025-04-03] MEDS: TYLENOL 1000 MG PO ×2 (08:40→20:26)
[2025-04-03] MEDS: ZETIA 10 MG PO (08:40)
[2025-04-03] MEDS: VITAMIN D3 (cholecalciferol) 25 MCG PO (08:40)
[2025-04-03] MEDS: ASPIR LOW (ENTERIC COATED) 81 MG PO (08:40)
[2025-04-03 09:28] LABS: ALT (SGPT) 18 U/L (0-35); AST (SGOT) 19 U/L (14-36); Albumin 3.7 g/dl (3.5-5.0); Alkaline Phosphatase 208 U/L (38-126); Blood Urea Nitrogen 47 mg/dl (7-17); Calcium 8.7 mg/dl (8.4-10.2); Carbon Dioxide 28 mmol/L (22-30); Chloride 105 mmol/L (98-107); Estimated Creatinine Clearance 64 ml/min; Glucose 96 mg/dl (70-99); Magnesium 2.6 mg/dl (1.6-2.3); Potassium 3.6 mmol/L (3.5-5.1); Sodium 141 mmol/L (135-145); Total Protein 6.8 g/dl (6.3-8.2); eGFR > 60.00
--- NOTE | 2025-04-03 10:29 | CM ---
Chart reviewed
PT rec Home Health
[facility]
Plan; Home with [facility] when stable.
--- NOTE | 2025-04-03 13:19 | W.PN.HOSP.TC ---
Today's Communication/Plan
-
resume bumex, atenolol
reduce imdur
F/u blood cultures
stop abx
Assessment / Plan
Assessment / Plan
# Syncopal episodes secondary to hypotension/orthostatic hypotension from bumex, Imdur, and need of metolazone
-Blood pressure 90s systolic
- IV fluids
- Resume Bumex and metolazone, atenolol
-Orthostatics negative
-Reduce Imdur to 30mg
# Fall with head injury
- CT head and cervical spine do not show any acute abnormality
-pt/ot
# Dysuria, present
-UA equivocal
- Urine culture negative;
- blood culture pending
- Continue ceftriaxone as patient symptoms improving. Follow-up cultures
# Acute kidney injury likely prerenal
# History of nephrectomy in 2011
- Creatinine 1.6 from 1.2 in September
-improving
-Can resume bumex
# Hypokalemia secondary to Bumex
- Replete potassium
# Nonischemic myocardial injury likely from hypotension
- Troponin 0.115, decreased to 0.107
-ECHo ordered - no WMA; EF 60-65%
#Subtherapeutic INR
-Coumadin
# Lactic acidosis secondary to hypotension
- Lactic acid of 3.5, continue to trend
Chronic HFpEF
- resume Bumex
Pulmonary hypertension
Asthma
- Continue inhalers, montelukast
CAD status post CABG in 2005
- Continue aspirin
- Hold isosorbide mononitrate
Paroxysmal atrial fibrillation
- Continue atenolol
- Continue Coumadin
-INR 1.72
PAD status post balloon angioplasty and stenting of the superior mesenteric artery 2023
Carotid artery stenosis
Hyperlipidemia
- Continue Zetia
History of DVT/PE
- Continue Coumadin
Essential hypertension
Neuropathy
- Continue gabapentin
Seizure disorder
- Continue phenytoin, phenobarbital
Severe degenerative disc disease
- As noted on CT spine
-Mild multilevel spinal cord compression and central canal stenosis.
-Severe multilevel bilateral neural foraminal narrowing.
-PT/OT
-No LE weakness/sensimotor loss
-F/u NSG outpatient
Asthma
Full code
DVT prophylaxis�Coumadin
Cardiac diet
Anticipated Discharge: Within 24 hours
Subjective/Interval History
-
Date of Service: April 03, 2025
doing better, orthostatics negative
Objective Data
-
Labs:
Laboratory Results
04/03/25
06:56
WBC 8.2
Hgb 12.9
Hct 38.4
Plt Count 297
Sodium 141
Potassium 3.6
Chloride 105
Carbon Dioxide 28
BUN 47 H
Creatinine 0.8
Glucose 96
Calcium 8.7
Total Bilirubin 0.4
AST 19
ALT 18
Alkaline Phosphatase 208 H
Vital Signs:
Vital Signs
Temp Pulse Resp BP Pulse Ox
98.4 F 76 16 136/74 93
04/03/25 12:31 04/03/25 07:40 04/03/25 07:40 04/03/25 07:17 04/03/25 07:40
I&O
04/02/25 04/03/25 04/04/25
06:59 06:59 06:59
Intake Total 480 / 480 2100 / 2100
Output Total 650 / 650
Balance 480 / 480 1450 / 1450
Review of Systems
-
History Source: Patient
All other systems: Not reviewed unless documented
Physical Exam
-
General: Well Developed, Well Nourished, No Apparent Distress and Conversant
HEENT: Normocephalic, Atraumatic and Moist Mucous Membranes
Respiratory: Clear to Auscultation and Non Labored Respirations
Cardiac: Regular Rhythm and S1/S2
GI: Soft, Nontender and Nondistended
Musculoskeletal: No Clubbing, No Cyanosis and No Edema
Skin: Warm and Dry
Psych: Calm and Intact Judgement/Insight
Data Reviewed
-
Diagnostic Radiology: Report Reviewed by me
CT Scan: Report Reviewed by me
Labs: Labs Reviewed by me
[2025-04-03] MEDS: TOPROL XL 25 MG PO (13:54)
[2025-04-03] MEDS: BUMEX 3 MG PO (17:14)
[2025-04-03] MEDS: COUMADIN 2.5 MG PO (20:27)
[2025-04-03] MEDS: SINGULAIR 10 MG PO (23:33)
[2025-04-04] VITALS (8 sets, daily range): BP systolic 70–134; BP diastolic 36–56; PULSE 77–93; BMI 29.4
[2025-04-04] MEDS: SYMBICORT 160/4.5 MCG INHALER 2 PUFF INH (07:20)
[2025-04-04] MEDS: ASPIR LOW (ENTERIC COATED) 81 MG PO (07:52)
[2025-04-04] MEDS: LUMINAL 32.4 MG PO (07:52)
[2025-04-04] MEDS: DILANTIN 100 MG PO (07:52)
[2025-04-04] MEDS: NEURONTIN 300 MG PO ×2 (07:52→12:07)
[2025-04-04] MEDS: VITAMIN D3 (cholecalciferol) 25 MCG PO (07:52)
[2025-04-04] MEDS: BUMEX 3 MG PO (07:52)
[2025-04-04] MEDS: TYLENOL 1000 MG PO (07:53)
[2025-04-04] MEDS: ZETIA 10 MG PO (07:53)
[2025-04-04] MEDS: PROTONIX 40 MG PO (07:53)
[2025-04-04] MEDS: TOPROL XL 25 MG PO (07:53)
[2025-04-04] MEDS: DESENEX/MITRAZOL/ZEASORB 1 APPLIC TOPICAL (07:56)
[2025-04-04 08:18] LABS: Hematocrit 39.1 % (37.0-47.0); Hemoglobin 13.0 g/dL (12.0-16.0); Mean Corp Hgb Conc. 33.2 g/dL (33.0-37.0); Mean Corpuscular Volume 91.8 fL (81.0-99.0); Platelet Count 298 10^3/uL (130-400); Red Cell Dist. Width 14.4 % (11.5-14.5)
[2025-04-04 08:27] LABS: Glucose - Point of Care 113 mg/dl (70-99)
--- NOTE | 2025-04-04 10:17 | CM ---
Patient current with [facility]
referral [facility]
PT rec Home health
plan: Home with [facility] when stable
to transport
[2025-04-04 10:31] LABS: ALT (SGPT) 21 U/L (0-35); AST (SGOT) 24 U/L (14-36); Albumin 4.1 g/dl (3.5-5.0); Alkaline Phosphatase 203 U/L (38-126); Blood Urea Nitrogen 34 mg/dl (7-17); Calcium 9.7 mg/dl (8.4-10.2); Carbon Dioxide 31 mmol/L (22-30); Chloride 103 mmol/L (98-107); Estimated Creatinine Clearance 63 ml/min; Glucose 118 mg/dl (70-99); Magnesium 1.9 mg/dl (1.6-2.3); Potassium 3.9 mmol/L (3.5-5.1); Sodium 142 mmol/L (135-145); eGFR > 60.00
[2025-04-04 11:43] LABS: Total Protein 7.6 g/dl (6.3-8.2)
--- NOTE | 2025-04-04 11:51 | CM ---
Home today with [facility]
Plan; Home with [facility]
--- NOTE | 2025-04-04 12:25 | W.PN.HOSP.TC ---
Addendum entered and electronically signed by Kristian James MD 04/04/25 17:31:
[id number]
Original Note:
Today's Communication/Plan
-
resume bumex, metolazone
Stop atenolol, start metoprolol succinate
Stop Imdur
Follow-up cardiology within the week, scheduled
Follow-up PCP within 1 week
Follow-up CBC BMP outpatient atenolol
Assessment / Plan
Assessment / Plan
# Syncopal episodes secondary to hypotension/orthostatic hypotension from bumex, Imdur, and need of metolazone
-Blood pressure 90s systolic
- IV fluids
- Resume Bumex and metolazone
-stop atenolol, switch to toprol - (lesser effect on BP)
-Orthostatics negative
-Stop Imdur
-Compression stockings upon dc
# Fall with head injury
- CT head and cervical spine do not show any acute abnormality
-pt/ot
# Dysuria, present
-UA equivocal
- Urine culture negative;
- blood culture pending
- Continue ceftriaxone as patient symptoms improving. Follow-up cultures - negative
# Acute kidney injury likely prerenal
# History of nephrectomy in 2011
- Creatinine 1.6 from 1.2 in September
-improving
-Can resume bumex
-f/u bmp outpt
# Hypokalemia secondary to Bumex
- Replete potassium
# Nonischemic myocardial injury likely from hypotension
- Troponin 0.115, decreased to 0.107
-ECHo ordered - no WMA; EF 60-65%
#Subtherapeutic INR
-Coumadin
# Lactic acidosis secondary to hypotension
- Lactic acid of 3.5, continue to trend
Chronic HFpEF
- resume Bumex
Pulmonary hypertension
Asthma
- Continue inhalers, montelukast
CAD status post CABG in 2005
- Continue aspirin
- stop isosorbide mononitrate
Paroxysmal atrial fibrillation
- Continue atenolol
- Continue Coumadin
-INR 1.72
PAD status post balloon angioplasty and stenting of the superior mesenteric artery 2023
Carotid artery stenosis
Hyperlipidemia
- Continue Zetia
History of DVT/PE
- Continue Coumadin
Essential hypertension
Neuropathy
- Continue gabapentin
Seizure disorder
- Continue phenytoin, phenobarbital
Severe degenerative disc disease
- As noted on CT spine
-Mild multilevel spinal cord compression and central canal stenosis.
-Severe multilevel bilateral neural foraminal narrowing.
-PT/OT
-No LE weakness/sensimotor loss
-F/u NSG outpatient
Asthma
Full code
DVT prophylaxis�Coumadin
Cardiac diet
More than 30 minutes spent in discharge including
Final examination of the patient
Summarizing hospital stay
Instructions for continuing care to all relevant caregivers
Preparation of discharge records, prescriptions, and referral forms
Total time spent (in minutes): 36
Anticipated Discharge: Today
Subjective/Interval History
-
Date of Service: April 04, 2025
No acute events, no issues present as per patient
Objective Data
-
Labs:
Laboratory Results
04/04/25 04/04/25
07:11 09:08
WBC 9.9
Hgb 13.0
Hct 39.1
Plt Count 298
Sodium Cancelled 142
Potassium Cancelled 3.9
Chloride Cancelled 103
Carbon Dioxide Cancelled 31 H
BUN Cancelled 34 H
Creatinine Cancelled 0.8
Glucose Cancelled 118 H
Calcium Cancelled 9.7
Total Bilirubin Cancelled 0.6
AST Cancelled 24
ALT Cancelled 21
Alkaline Phosphatase Cancelled 203 H
Vital Signs:
Vital Signs
Temp Pulse Resp BP Pulse Ox
97.8 F 77 17 113/56 97
04/04/25 10:52 04/04/25 12:14 04/04/25 10:52 04/04/25 12:14 04/04/25 10:52
I&O
04/03/25 04/04/25 04/05/25
06:59 06:59 06:59
Intake Total 2100 / 2100 840 / 840
Output Total 650 / 650 500 / 500
Balance 1450 / 1450 340 / 340
Review of Systems
-
History Source: Patient
All other systems: Not reviewed unless documented
Physical Exam
-
General: Well Developed, Well Nourished, No Apparent Distress and Conversant
HEENT: Normocephalic, Atraumatic and Moist Mucous Membranes
Respiratory: Clear to Auscultation and Non Labored Respirations
Cardiac: Regular Rhythm and S1/S2
GI: Soft, Nontender and Nondistended
Musculoskeletal: No Clubbing, No Cyanosis and No Edema
Skin: Warm and Dry
Psych: Calm and Intact Judgement/Insight
--- NOTE | 2025-04-04 12:32 | W.DS.TRANS ---
DC Summary - [employer]
-
Discharge Instructions:
Sleep Apnea Risk Low
Discharge Diagnosis/Procedures # Syncopal episodes secondary to hypotension/
orthostatic hypotension from bumex, Imdur, and
need of metolazon
Diet Low Cholesterol,Low Fat
Blood Work cbc and bmp in 1 week with pcp
Instructions:
Stand-Alone Forms:
Changes to Home Medications: Yes
Discharge Medications:
DC Medications w/original date entered in [employer]
montelukast 10 mg tablet 10 mg PO HS Lung/breathing issues 04/02/15
ezetimibe 10 mg tablet 10 mg PO DAILY cholesterol 03/12/21
fluticasone furoate 200 mcg-vilanterol 25 mcg/dose inhalation powder (Breo Ellipta) 2 inh inhalation R DAILY Lung/Breathing Issues 01/13/23
dexlansoprazole 60 mg capsule,biphase delayed release 60 mg PO DAILY Gastrointestinal Issue 03/25/23
albuterol sulfate 90 mcg/actuation aerosol inhaler 2 puff inhalation R Q4HPRN PRN sob 11/24/23
aspirin 81 mg tablet,delayed release 81 mg PO DAILY Blood Clot Prevention/Tx 11/24/23
hyoscyamine sulfate 0.125 mg tablet 0.125 mg PO TIDPRN PRN spasms 11/24/23
phenytoin sodium extended 100 mg capsule (Dilantin Extended) 100 mg PO TID Seizures 11/24/23
cholecalciferol (vitamin D3) 25 mcg (1,000 unit) tablet (Vitamin D3) 25 mcg PO DAILY Supplement 02/29/24
acetaminophen 500 mg tablet (Tylenol Extra Strength) 1,000 mg PO BID Pain 02/26/25
warfarin 2.5 mg tablet 2.5 mg PO SUMOTUWETHSA@1999 Blood Clot Prevention/Tx 02/26/25
warfarin 2.5 mg tablet 3.75 mg PO FR@1999 Blood Clot Prevention/Tx 02/26/25
bumetanide 1 mg tablet 3 mg (3 x 1 mg) PO BID@0800,1600 Shortness of breath secondary to HFpEF 30 days #60 tabs 03/02/25
metolazone 5 mg tablet See Rx Instructions .Route .COMPLEX Fluid Retention/Swelling 30 days #12 tabs 03/02/25
phenobarbital 32.4 mg tablet 32.4 mg PO TID Seizures 04/01/25
gabapentin 300 mg capsule 300 mg PO BID@1200,2000 #0 caps 04/04/25
gabapentin 300 mg capsule 300 mg PO DAILY #0 caps 04/04/25
metoprolol succinate 25 mg tablet,extended release 24 hr 25 mg PO DAILY 30 days #30 tabs 04/04/25
miconazole nitrate 2 % topical powder (Miconazorb AF) 1 applic topical BID #85 grams 04/04/25
Home Medication Changes
metoprolol succinate 25 mg tablet,extended release 24 hr 25 mg PO DAILY 30 days #30 tabs 04/04/25
miconazole nitrate 2 % topical powder (Miconazorb AF) 1 applic topical BID #85 grams 04/04/25
Pending Results: No
== END 2025-04-04 13:41 | disposition home health service (06) | DRG 683 ==
LOC: 3 WEST ACU 19:21
PROVIDERS: ADMITTING PHYSICIAN Hospitalist; ATTENDING PHYSICIAN Internal Medicine; EMERGENCY PHYSICIAN Emergency Medicine; FAMILY PHYSICIAN Family Medicine
DX: N17.9 Acute kidney failure, unspecified (principal); E87.20 Acidosis, unspecified; I50.32 Chronic diastolic (congestive) heart failure; I5A Non-ischemic myocardial injury (non-traumatic); I95.2 Hypotension due to drugs; I65.29 Occlusion and stenosis of unspecified carotid artery; I11.0 Hypertensive heart disease with heart failure; S09.90XA Unspecified injury of head, initial encounter; W19.XXXA Unspecified fall, initial encounter; E87.6 Hypokalemia; Z79.01 Long term (current) use of anticoagulants; R79.1 Abnormal coagulation profile; I27.20 Pulmonary hypertension, unspecified; I25.10 Atherosclerotic heart disease of native coronary artery without angina pectoris; Z95.1 Presence of aortocoronary bypass graft; J45.909 Unspecified asthma, uncomplicated; I48.0 Paroxysmal atrial fibrillation; Z86.711 Personal history of pulmonary embolism; Z86.718 Personal history of other venous thrombosis and embolism; G62.9 Polyneuropathy, unspecified; G40.909 Epilepsy, unspecified, not intractable, without status epilepticus; Z85.828 Personal history of other malignant neoplasm of skin; Z85.528 Personal history of other malignant neoplasm of kidney; E78.00 Pure hypercholesterolemia, unspecified; T50.2X5A Adverse effect of carbonic-anhydrase inhibitors, benzothiadiazides and other diuretics, initial encounter; W22.09XA Striking against other stationary object, initial encounter; Z87.891 Personal history of nicotine dependence; Z90.5 Acquired absence of kidney; Z90.710 Acquired absence of both cervix and uterus; Z11.52 Encounter for screening for COVID-19
CPT/HCPCS: 70450; 72125; 80053; 80185; 81003; 81015; 82962; 83605; 83690; 83735; 84300; 84443; 84484; 85025; 85027; 85610; 85730; 87040; 87086; 87502; 87811; 93005; 93308; 94640; 96361; 96374; 97163; 97167; 99291

== ENCOUNTER 2025-04-10 20:20 | Observation (INO) | payer MEDICARE, OTHER, SELFPAY ==
[2025-04-10 16:41] VITALS: BP 177/81
[2025-04-10 16:43] VITALS: BP 177/81
[2025-04-10 17:00] LABS: Hematocrit 43.2 % (37.0-47.0); Hemoglobin 14.7 g/dL (12.0-16.0); Mean Corp Hgb Conc. 34.0 g/dL (33.0-37.0); Mean Corpuscular Volume 91.3 fL (81.0-99.0); Nucleated Red Blood Cells % 0 %; Platelet Count 310 10^3/uL (130-400); Red Cell Dist. Width 14.3 % (11.5-14.5)
--- NOTE | 2025-04-10 17:12 | ED.GENMED ---
History of Present Illness
General
Chief Complaint: Fall
Time Seen by Provider: 04/10/25 17:10
History of Present Illness
History of Present Illness:
FOCUSED PAST MEDICAL HISTORY
- A-fib, PE, CAD, CHF
REVIEW OF OLD RECORDS
- The patient was admitted here 04/01 through 04/04/2025 related to syncopal events and at that time was found to be hypotensive and orthostatic related to use of Bumex, Imdur, metolazone. She was recommended to have compression stocks and stopping
Imdur indefinitely.
Note:
CHIEF COMPLAINT(S)
Neck pain and recent falls.
HISTORY OF PRESENT ILLNESS
The patient is an 79-year-old female who presents with complaints of neck pain and recurrent falls. 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 The patient
describes her pain as originating from a scrape on her left shoulder blade but also reports a significant amount of neck pain, stating, 'My neck hurts so bad.' On examination, there is a visible long scrape on the left shoulder blade, but palpation
reveals tenderness in the neck region rather than the scrape area.
The patient reports that she is not currently taking any strong pain medication at home but does take Tylenol in the morning for shoulder pain. In light of the ongoing neck pain and recent falls, the plan is to obtain a computed tomography (CT) scan
to evaluate for any potential injuries. Despite the suggestion of wearing a cervical collar for stabilization, the patient has refused the collar at this time.
ADDITIONAL HISTORY OBTAINED FROM SOURCES OTHER THAN THE PATIENT
Per the patients supervisor assembly and packing, the patient fell multiple times this morning and was unable to stand afterward.
PHYSICAL EXAM
General: The patient has been moaning in pain intermittently
Skin: Warm, dry. Notable scrape present on left shoulder blade.
Head: Normocephalic, atraumatic.
Neck: Tenderness noted. The patient reports significant pain. I offered and recommended cervical immobilization however the patient adamantly refused
Eye, Ears, nose, mouth, and throat: Oral mucosa moist.
Cardiovascular: Normal peripheral perfusion, No edema.
Respiratory: Respirations are non-labored.
Gastrointestinal: Abdomen nondistended.
Back: Decreased active range of motion, Normal alignment. Long scrape noted on posterior torso, no midline T or L-spine tenderness
Musculoskeletal: Ecchymosis noted to the medial aspect of the left lower extremity distal to the left knee but no significant bony tenderness
Neurological: Alert and oriented to person, place, time, and situation, No focal neurological deficit observed.
Psychiatric: Cooperative, somewhat of a bizarre affect at times
PROBLEM LIST
Acute problems:
- Neck pain
- Recurrent falls
- Scrape on left shoulder blade
- Bruising on legs
PLAN
1. Administer a strong dose of Tylenol to manage pain.
2. Obtain a computed tomography (CT) scan of the neck to assess for potential injuries.
3. Encourage the use of a cervical collar for neck stabilization pending CT results, though patient declined its use initially.
4. Monitor and re-evaluate for any additional injuries or changes in condition.
DIFFERENTIAL DIAGNOSIS
The Differential Diagnosis includes, in no particular order and is not limited to:
- Cervical spine fracture
- Soft tissue injury
- Muscular strain
- Cervical radiculopathy
- Vertebral artery dissection
- Osteoporosis-related fracture
- Spinal stenosis
- Neurological condition contributing to falls
- Medication side effects (from past adjustments)
- Myofascial pain syndrome
Disposition:
SUMMARY OF ENCOUNTER
The patient, an 79-year-old female, presented to the emergency department with complaints of neck pain and difficulty standing due to recurrent knee buckling. A CT scan of the neck, as well as a CT of the torso, was performed. The neck scan showed
chronic issues but no acute fracture, and the torso scan revealed a rib fracture at the bottom of the rib cage. The patient declined narcotic pain medication for pain management. Due to the patients inability to stand and the potential need for
further management of her rib fracture, hospitalization was considered, and consultation with a hospitalist was suggested to assess the necessity of hospital admission for additional care, potentially overnight.
DISPOSITION
Admit
ASSESSMENT
The patient has a rib fracture that is likely contributing to her pain and is compounded by reports of knee buckling, making home discharge unsafe at this time due to mobility issues and potential fall risk.
MANAGEMENT OF THE PATIENTS CARE WAS DISCUSSED WITH
The necessity of hospital admission was discussed with a hospitalist for further evaluation and management.
PLAN
The plan involves admitting the patient for observation and management due to her rib fracture and difficulty ambulating, with potential overnight monitoring. The possibility of rehabilitation placement might also be assessed depending on her
mobility and recovery needs.
INDEPENDENT REVIEW OF LABS AND INTERPRETATION OF TESTS
- My independent interpretation of the CT scan of the neck revealed no fractures but chronic ongoing issues.
- My independent interpretation of the CT scan of the torso showed a rib fracture at the bottom of the rib cage.
DIAGNOSIS
- Rib fracture, unspecified rib, initial encounter (S22.3XXA)
- Difficulty in walking, not elsewhere classified (R26.2)
- Chronic neck pain (M54.2)
RADIOLOGY
- CT of the head and neck showed no acute abnormality however chronic degenerative changes of the C-spine noted. 12th rib fracture noted.
LABS
- White count 15.2, hemoglobin normal, potassium 3.3 (low again), creatinine 1.5 (higher than last week), bicarb 31, alk phos 242 (chronically elevated
Past History
Past History
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
(Diverticulitis, DVT/PE, Only has right kidney, Endometriosis)
ED Past Surgical History: Appendectomy, Cardiac (quadruple bypass 2001. stent), Gynecological (Hysterectomy), Orthopedic (left shoulder, ankle) and Other (Right nephrectomy 2002 'tumor')
Social History
Tobacco: Former smoker
Alcohol: Occasional
Drug: None
Personal:
Living: with family
Employment: Retired
Family History
Family History: Other (Noncontributory)
Phy Exam
Physical Exam
Physical Exam:
See HPI
Course
Orders/Labs/Results
Orders:
Orders
04/10/25 16:48
Complete Blood Count/With Diff Urgent
Comprehensive Metabolic Panel Urgent
Creatine Phosphokinase Urgent
Comment: ADD ON
04/10/25 17:21
Add On- LAB Urgent
Tests Added?: ck
CT Cervical Spine W/o Iv Contr Urgent
Comment:
Reason For Exam: trauma
CT Head W/o Iv Contrast Urgent
Comment:
Reason For Exam: PHAN
0.9% Sodium Chloride 500 ml [Nss] 500 ml IV BOLUS
Acetaminophen [Tylenol] 1,000 mg PO NOW STA
04/10/25 17:55
CT Abd/pel Without Iv Or Oral Urgent
Comment:
Reason For Exam: trauma flank pain renal insuff
04/10/25 18:09
Prothrombin Time Urgent
Abnormal Lab Results
04/10/25 04/10/25
16:48 18:09
WBC 15.2 H 10^3/uL
(4.8-10.8)
MCH 31.1 H pg
(27.0-31.0)
Abs Immat Gran (auto) 0.1 H 10^3/uL
(0-0.05)
Absolute Neuts (auto) 13.0 H 10^3/uL
(1.4-6.5)
Absolute Lymphs (auto) 0.8 L 10^3/uL
(1.2-3.4)
Absolute Monos (auto) 1.2 H 10^3/uL
(0.1-0.6)
Immature Gran % 0.6 H %
(0-0.5)
Neutrophils % 85.9 H %
(42.2-75.2)
Lymphocytes % 5.5 L %
(20.5-51.1)
PT 24.6 H Sec
(11.4-14.6)
Potassium 3.3 L mmol/L
(3.5-5.1)
Chloride 92 L mmol/L
(98-107)
Carbon Dioxide 31 H mmol/L
(22-30)
BUN 58 H mg/dl
(7-17)
Creatinine 1.5 H mg/dL
(0.6-1.0)
Glucose 137 H mg/dl
(70-99)
Alkaline Phosphatase 242 H U/L
(38-126)
Total Protein 8.4 H g/dl
(6.3-8.2)
04/10/25 16:48
04/10/25 16:48
Vital Signs
Initial and Last Documented VS:
Initial Vital Signs
BP
177/81
04/10/25 16:41
Last Documented Vital Signs
Temp Pulse Resp BP Pulse Ox
37.5 C 84 20 177/81 94
04/10/25 16:43 04/10/25 18:38 04/10/25 18:38 04/10/25 16:43 04/10/25 18:37
*Pulse Oximetry
SaO2: 97
Oxygen Mode of Delivery: Room air
Patient hypoxic: no
*Critical Care Note
Total Time (30-74mins, 75-104mins- exclusive of procedures): Not Applicable
ED Attending Note
-
Portions of this chart may have been created with voice recognition software.� Occasional wrong word or��sound alike� substitutions may have occurred due to the inherent limitations of voice recognition software.
Discharge Plan
Departure
Patient Disposition: Admit
Date of Disposition: 04/10/25
Time of Disposition: 19:18
Presentation/result/management discussed w/ accepting MD/DO: Hospitalist
Discharge Problem:
Fracture of rib
Prescriptions:
No Action
montelukast 10 MG tablet
10 mg PO HS
ezetimibe 10 MG tablet
10 mg PO DAILY
fluticasone furoate-vilanterol [Breo Ellipta] 200-25 mcg/dose blister with device
2 inh INHALATION R DAILY
dexlansoprazole 60 mg capsule,biphase delayed releas
60 mg PO DAILY
phenytoin sodium extended [Dilantin Extended] 100 mg capsule
100 mg PO TID
aspirin 81 mg Tablet,Delayed Release (Dr/Ec)
81 mg PO DAILY
hyoscyamine sulfate 0.125 mg Tablet
0.125 mg PO TIDPRN PRN (Reason: spasms)
albuterol sulfate 90 mcg/actuation Hfa Aerosol Inhaler
2 puff INHALATION R Q4HPRN PRN (Reason: sob)
cholecalciferol (vitamin D3) [Vitamin D3] 25 mcg (1,000 unit) Tablet
25 mcg PO DAILY
warfarin 2.5 mg Tablet
3.75 mg PO FR@1999
warfarin 2.5 mg tablet
2.5 mg PO SUMOTUWETHSA@1999
acetaminophen [Tylenol Extra Strength] 500 mg tablet
1,000 mg PO BID
bumetanide 1 mg Tablet
3 mg PO BID@0800,1600 30 Days Qty: 60 0RF
metolazone 5 mg Tablet
See Rx Instructions .ROUTE .COMPLEX 30 Days Qty: 12 0RF
Rx Instructions:
5 mg orally, on MONDAYS, WEDNESDAYS, FRIDAYS only
phenobarbital 32.4 mg Tablet
32.4 mg PO TID
gabapentin 300 mg Capsule
300 mg PO BID@1200,2000 Qty: 0 0RF
metoprolol succinate 25 mg Tablet Extended Release 24 Hr
25 mg PO DAILY 30 Days Qty: 30 0RF
miconazole nitrate [Miconazorb AF] 2 % Powder
1 applic topical BID Qty: 85 0RF
gabapentin 300 mg Capsule
300 mg PO DAILY Qty: 0 0RF
Referrals:
Luis Manuel Burden MD [Family Provider, Family Practice]
Interventions
Interventions:
*Risk Screen - Suicide Last Done: 04/10/25 16:43
*General Assessment Last Done: 04/10/25 16:43
*Neglect/Abuse Screening Last Done: 04/10/25 16:43
*ED- Fall Risk Assessment Last Done: 04/10/25 16:43
*ED COVID-19 Vaccine History Last Done: 04/10/25 16:43
ED-Musculoskeletal Assessment Last Done: 04/10/25 17:45
ED- Neurological Assessment Last Done: 04/10/25 17:45
ED-Skin Assessment Last Done: 04/10/25 17:45
Discharge Date and Time
Print Language: NEPALESE
[2025-04-10 17:13] LABS: ALT (SGPT) 27 U/L (0-35); AST (SGOT) 29 U/L (14-36); Albumin 4.4 g/dl (3.5-5.0); Alkaline Phosphatase 242 U/L (38-126); Blood Urea Nitrogen 58 mg/dl (7-17); Calcium 8.8 mg/dl (8.4-10.2); Carbon Dioxide 31 mmol/L (22-30); Chloride 92 mmol/L (98-107); Glucose 137 mg/dl (70-99); Potassium 3.3 mmol/L (3.5-5.1); Sodium 136 mmol/L (135-145); Total Protein 8.4 g/dl (6.3-8.2); eGFR 35.01
[2025-04-10] MEDS: NSS 500 IV (17:28)
[2025-04-10] MEDS: TYLENOL 1000 MG PO (17:29)
[2025-04-10 18:24] LABS: INR 2.21; PT 24.6 Sec (11.4-14.6)
--- NOTE | 2025-04-10 19:23 | HPS.HSE ---
Family Physician
-
Family Physician: uLis Manuel Burden
Chief Complaint
-
neck pain
frequent falls
History of Present Illness
79-year-old female with PMH for DVT, PE, HTN, seizure, asthma GERD, CAD, atrial fib, CHf, who presents with complaints of neck pain and recurrent falls. her knee are buckling up and she falls. today she fell from her bed and was not able to get up
from the floor. she is been complaining of neck for past few days. denied PHAN, dizzy or syncope. denied fever, chills, chest pain, sob. denied abdominal pain,n,v,d. denied dysuria or hematuria. as per , she seemed confused more than usual
today.
patient noted confused and jerky movements of all body.
noted to have rib fracture. admitting for further management.
Medical History
Past Medical History
Past Medical History: Reports Other
Additional Past Medical History:
Asthma, renal cancer, basal cell skin cancer, diverticulitis, seizures, Clark's esophagus, DVT, PE, hyperlipidemia, hypertension osteoporosis coronary artery disease
Past Surgical History: Reports Other
Additional Past Surgical History:
Right nephrectomy coronary artery bypass graft, appendectomy, hysterectomy, ankle fracture repair, rotator cuff repair, right knee replacement, right tendon repair, left ankle surgery, stent replacement, ex lap angioplasty and stenting of mesenteric
artery,
Social History
Tobacco: Non-smoker
Alcohol: None
Drug: None
Personal:
Living: With Family
Family History
Family History: Not pertinent
Allergies / Home Medications
Allergies reflects when Allergies were last updated in [facility].
Home Medications with original date entered in [facility]
Allergy/Medication List:
Allergies
Allergy/AdvReac Type Severity Reaction Status Date / Time
metronidazole (From Flagyl) Allergy Nausea / Verified 04/10/25 16:43
Vomiting
pollen extracts Allergy ENVIRONMENTAL Verified 04/10/25 16:43
ALLERGIES-NASAL
SYMPTOMS
Home Medications
montelukast 10 mg tablet 10 mg PO HS Lung/breathing issues 04/02/15
ezetimibe 10 mg tablet 10 mg PO DAILY cholesterol 03/12/21
fluticasone furoate 200 mcg-vilanterol 25 mcg/dose inhalation powder (Breo Ellipta) 2 inh inhalation R DAILY Lung/Breathing Issues 01/13/23
dexlansoprazole 60 mg capsule,biphase delayed release 60 mg PO DAILY Gastrointestinal Issue 03/25/23
albuterol sulfate 90 mcg/actuation aerosol inhaler 2 puff inhalation R Q4HPRN PRN sob 11/24/23
aspirin 81 mg tablet,delayed release 81 mg PO DAILY Blood Clot Prevention/Tx 11/24/23
hyoscyamine sulfate 0.125 mg tablet 0.125 mg PO TIDPRN PRN spasms 11/24/23
phenytoin sodium extended 100 mg capsule (Dilantin Extended) 100 mg PO TID Seizures 11/24/23
cholecalciferol (vitamin D3) 25 mcg (1,000 unit) tablet (Vitamin D3) 25 mcg PO DAILY Supplement 02/29/24
acetaminophen 500 mg tablet (Tylenol Extra Strength) 1,000 mg PO BIDPRN PRN mild pain 02/26/25
warfarin 2.5 mg tablet 2.5 mg PO SUMOTUSA@1999 Blood Clot Prevention/Tx 02/26/25
warfarin 2.5 mg tablet 3.75 mg PO WETHFR@1999 Blood Clot Prevention/Tx 02/26/25
bumetanide 1 mg tablet 3 mg (3 x 1 mg) PO BID@0800,1600 Shortness of breath secondary to HFpEF 30 days #60 tabs 03/02/25
phenobarbital 32.4 mg tablet 32.4 mg PO TID Seizures 04/01/25
metoprolol succinate 25 mg tablet,extended release 24 hr 25 mg PO DAILY 30 days #30 tabs 04/04/25
baclofen 5 mg tablet 5 mg PO TIDPRN PRN spasms 04/10/25
dapagliflozin propanediol 10 mg tablet (Farxiga) 10 mg PO DAILY 04/10/25
gabapentin 600 mg tablet 600 mg PO TID 04/10/25
metolazone 5 mg tablet 5 mg PO MOWEFR Fluid Retention/Swelling 04/10/25
miconazole nitrate 2 % topical powder (Miconazorb AF) 1 applic topical BID folds 04/10/25
Review of Systems
-
Constitutional: Reports No Symptoms
EENT: Reports No Symptoms
Respiratory: Reports No Symptoms
Cardiac: Reports No Symptoms
Abdomen/GI: Reports No Symptoms
: Reports No Symptoms
Musculoskeletal: Reports Other (neck pain)
Skin: Reports No Symptoms
Neurological: Reports No Symptoms
Endocrine: Reports No Symptoms
Hematologic/Lymphatic: Reports No Symptoms
Psych: Reports No Symptoms
Physical Exam
Vital Signs
Vital Signs
Temp Pulse Resp BP Pulse Ox
99.5 F 84 20 177/81 94
04/10/25 16:43 04/10/25 18:38 04/10/25 18:38 04/10/25 16:43 04/10/25 18:37
Physical Exam
General: Well Developed, Well Nourished and No Apparent Distress
HEENT: NormoCephalic, Moist mucous membranes and Atraumatic
Respiratory: Clear
Cardiac: S1/S2 and Regular Rhythm; No Murmur or Rub
GI: Soft, Non Tender, Non Distended and Normal Bowel Sounds; No Organomegaly
Rectal: Deferred by Provider
Musculoskeletal: No Clubbing, No Cyanosis, No Edema and Other
Skin: No Rash
Neuro: Nonfocal/grossly intact and Other (involuntarily movement of body)
Psych: Calm
Laboratory Results
-
04/10/25 16:48
04/10/25 16:48
Laboratory Results
PT 24.6 Sec (11.4-14.6) H 04/10/25 18:09
INR 2.21 04/10/25 18:09
Total Bilirubin 0.9 mg/dl (0.2-1.3) 04/10/25 16:48
AST 29 U/L (14-36) 04/10/25 16:48
ALT 27 U/L (0-35) 04/10/25 16:48
Alkaline Phosphatase 242 U/L (38-126) H 04/10/25 16:48
Data Reviewed
-
CT Scan: Report Reviewed by me
Lab Data: Labs Reviewed by me
Impression/Plan
-
# Generalized weakness/frequent falls/neck and back pain likely from involuntary body movement
# Rib fracture
- PT consulted
-will hold gabapentin
-neuro consulted
- Tylenol as needed for pain
- CT abdomen pelvis with impression of Acute, nondisplaced fracture of the posterior left 12th rib. Subacute-appearing, nondisplaced fracture of the lateral left 10th rib.
- CT head with no acute intracranial abnormality
- Cervical spine CT with no acute findings
# metabolic encephalopathy
#Leukocytosis likely reactive
- WBCs 15.2, patient is afebrile
-obtain UA
#Hypokalemia/AYUSH CKD stage IIIb
- K3.3, creatinine 1.5
-orak kcl
#Chronic HFpEF
- not in acute exacerbation
-Bumex,metolazone continued
-Farxiga continued
#Asthma not in acute exacerbation
- Continue inhalers, montelukast
CAD status post CABG in 2005
- Continue aspirin
- stop isosorbide mononitrate
#Paroxysmal atrial fibrillation
- Continue metoprolol
- Continue Coumadin
-INR 2.2
#PAD status post balloon angioplasty and stenting of the superior mesenteric artery 2023
#Carotid artery stenosis
#Hyperlipidemia
- Continue Zetia
#History of DVT/PE
- Continue Coumadin
#Neuropathy
- hold Gabapentin due to involuntary body movement.
#Seizure disorder
- Continue phenytoin, phenobarbital
#GERD
-dexlansoprazole continued
Full code
DVT prophylaxis�Coumadin
Cardiac diet
[2025-04-10] MEDS: KCL ELIXIR 40 MEQ PO (20:15)
[2025-04-10 20:22] LABS: Urine Character Clear (Clear)
--- NOTE | 2025-04-10 20:30 | W.PN.UPDATE ---
Update Note
Progress Note Update
Patient seen in conjunction with SOFTWARE ENGINEERING ANALYST. I agree with the findings and physical. I concur with assessment and plan.
This is a 79-year-old female with past medical history significant for atrial fibrillation on anticoagulation, CHF on diuretics, history of PE, chronic seizures since childhood on phenobarbital and phenytoin, recently admitted to the emergency
department with [facility] in the setting of orthostatic hypotension with adjustment of medications who now again presents to the emergency department with recurrent falls. She reports CVA pain in the neck and back without any focal weakness or numbness
in the hands or legs. She states that when she gets up and knees does buckle and then she falls. She denies any numbness or tingling. She denies any incontinence of the bladder or bowel. She while laying down she is able to move her limbs.
Today she fell and was significant but I was unable to get her up. She has not hit her head. No new medication changes and denies any ingestions.
In the emergency department she was hypertensive to 170/81 with a pulse of 84 and she was satting 84% on room air. Tmax was 99.5. White count was 15.2, hemoglobin and platelets were normal. Electrolytes notable for a potassium of 3.3 with a BUN
of 58 and creatinine 1.5. She had a CT of the head was which was nonacute C-spine was nonacute. CT of the abdomen was nonacute but showed acute, nondisplaced fracture of the posterior left 12th rib. Subacute-appearing, nondisplaced fracture of the
lateral left 10th rib.
On examination the patient has significant myoclonic jerks in the bilateral upper and lower extremities. No rhythmic movements suggestive of seizures.
Frequent falls/weakness
- Admit to medsurg observation
- check u/a covid and flu, uds
- xray to rule out additional rib fractures/ ptx
- check orthostatic vital signs
- check dilantin levels
- check cpk
- would hold gabepentin, if abnormal jerks movement continues, would consider neurology consult
- pain control with tylenol and low dose tramadol
- PT consult/Case management
CHF - Euvolemic appearing. Cr close to baseline
- continue her bumex for now unless orthostatic
- continue metolazone
AFIB
- rate control on metoprolol
- continue warfarin
CAD - stable, no cp or sob
- continue aspirin/ezetimibe
Asthma - no active disease
- continue inhalers
Sz d/o
- checking dilantin levels, continue AEDs for now
DVT PPX - on warfarin
Code status - full code
[2025-04-10 20:42] LABS: Urine Squamous Cell >30 /LPF (Few)
[2025-04-10 20:43] LABS: Urine Red Blood Cell 0-2 /HPF (0-2)
[2025-04-10 21:18] LABS: COVID-19 Antigen Negative (Negative)
[2025-04-10 21:41] LABS: Vitamin B12 385 pg/ml (239-931)
[2025-04-10] MEDS: LUMINAL 32.4 MG PO (22:29)
[2025-04-10] MEDS: DILANTIN 100 MG PO (22:29)
[2025-04-10] MEDS: SINGULAIR 10 MG PO (22:29)
[2025-04-10] MEDS: TYLENOL 650 MG PO (22:32)
[2025-04-10 22:52] VITALS: BP 127/61; BMI 27.8
--- NOTE | 2025-04-11 05:18 | PTCARENOTE ---
Patient received from ED via stretcher. Patient confused, flight of ideas noted. Difficult for patient to stay on topic. Patient denies any discomfort. Bed alarm placed under patient. Call aponte reviewed and within reach. Will continue to monitor.
--- NOTE | 2025-04-11 05:23 | DOWNTIME ---
There was a [employer] Downtime on 04/11/2025 from 0100 to 04/11/2025 at 0215. Downtime documentation of patient's care, including medication administrations, has been reconciled in the electronic record per guidelines. Refer to the
patient's paper chart under the miscellaneous tab to see printed paper medication records and downtime forms.
[2025-04-11 07:20] LABS: Hematocrit 41.2 % (37.0-47.0); Hemoglobin 13.6 g/dL (12.0-16.0); Mean Corp Hgb Conc. 33.0 g/dL (33.0-37.0); Mean Corpuscular Volume 92.0 fL (81.0-99.0); Platelet Count 298 10^3/uL (130-400); Red Cell Dist. Width 14.6 % (11.5-14.5)
[2025-04-11 07:40] VITALS: BP 132/66
[2025-04-11 07:42] LABS: Blood Urea Nitrogen 53 mg/dl (7-17); Calcium 8.7 mg/dl (8.4-10.2); Carbon Dioxide 31 mmol/L (22-30); Chloride 96 mmol/L (98-107); Estimated Creatinine Clearance 41 ml/min; Glucose 115 mg/dl (70-99); Potassium 3.6 mmol/L (3.5-5.1); Sodium 138 mmol/L (135-145); eGFR 45.76
[2025-04-11] MEDS: SYMBICORT 160/4.5 MCG INHALER 2 PUFF INH (08:05)
--- NOTE | 2025-04-11 08:07 | W.PN.HOSP.TC ---
Today's Communication/Plan
-
Discharge home today
Assessment / Plan
Assessment / Plan
Impression:
79-year-old female with PMH for DVT, PE, HTN, seizure, asthma GERD, CAD, atrial fib, CHf, who presents with complaints of neck pain and recurrent falls. her knee are buckling up and she falls. today she fell from her bed and was not able to get up
from the floor. she is been complaining of neck for past few days. denied PHAN, dizzy or syncope. denied fever, chills, chest pain, sob. denied abdominal pain,n,v,d. denied dysuria or hematuria. as per , she seemed confused more than usual
today.
patient noted to have rib fracture. admitting for further management
Seen by physical therapy recommended SNF but patient wants to go home.
Seen by neurology, patient was orthostatic hypotensive with physical therapy and neurology recommending to hold metoprolol.
Will be discharged home with home physical therapy.
Assessment/plan:
# Generalized weakness/frequent falls/neck and back pain likely from involuntary body movement
# Rib fracture
-Seen by physical therapy recommended SNF but patient wants to go home.
-neuro consulted
- Tylenol as needed for pain
- CT abdomen pelvis with impression of Acute, nondisplaced fracture of the posterior left 12th rib. Subacute-appearing, nondisplaced fracture of the lateral left 10th rib.
- CT head with no acute intracranial abnormality
- Cervical spine CT with no acute findings.
Orthostatic hypotension
Metoprolol on hold
# metabolic encephalopathy
#Leukocytosis improved
- UA clean
#Hypokalemia/AYUSH CKD stage IIIb
- K improved
#Chronic HFpEF
- not in acute exacerbation
-Bumex,metolazone continued
-Farxiga continued
#Asthma not in acute exacerbation
- Continue inhalers, montelukast
CAD status post CABG in 2005
- Continue aspirin
- stop isosorbide mononitrate
#Paroxysmal atrial fibrillation
- Continue metoprolol (will hold on Dc secondary to orthostatic)
- Continue Coumadin
-INR 2.2
#PAD status post balloon angioplasty and stenting of the superior mesenteric artery 2023
#Carotid artery stenosis
#Hyperlipidemia
- Continue Zetia
#History of DVT/PE
- Continue Coumadin
#Neuropathy
- hold Gabapentin due to involuntary body movement.
#Seizure disorder
- Continue phenytoin, phenobarbital
#GERD
-dexlansoprazole continued
CODE STATUS: Full code
DVT prophylaxis: Coumadin
Diet: Cardiac diet
Family communication: Discussed with at bedside
Disposition: Discharge home
Total time spent on today's encounter was 65 minutes which included time spent in counseling the patient/family regarding diagnosis and treatment plan as listed above, goals of care, and symptom management. Case was discussed with nursing staff,
specialists, and care coordinators/case management. All labs and imaging personally reviewed by me. Remainder the time spent in detailed review of previous records, lab data, imaging, and other medical provider documentation.
Anticipated Discharge: Today
Subjective/Interval History
-
Date of Service: April 11, 2025
Patient seen and examined at bedside, at bedside, denies any chest pain or shortness of breath, no abdominal pain, no nausea, no vomiting, no diarrhea or constipation.
Objective Data
-
Labs:
Laboratory Results
04/11/25
06:51
WBC 11.9 H
Hgb 13.6
Hct 41.2
Plt Count 298
Sodium 138
Potassium 3.6
Chloride 96 L
Carbon Dioxide 31 H
BUN 53 H
Creatinine 1.2 H
Glucose 115 H
Calcium 8.7
Vital Signs:
Vital Signs
Temp Pulse Resp BP Pulse Ox
98.5 F 84 20 132/66 94
04/11/25 07:40 04/11/25 07:40 04/11/25 07:40 04/11/25 07:40 04/11/25 07:40
Physical Exam
-
General: Well Developed, Well Nourished, No Apparent Distress and Comfortable
HEENT: Normocephalic, Atraumatic, Moist Mucous Membranes, No Ptosis, PERRLA and Nose Appears Normal
Respiratory: Clear to Auscultation and Non Labored Respirations
Cardiac: Regular Rhythm and S1/S2
Breast: Deferred by me
GI: Soft, Nontender, Nondistended and Normal Bowel Sounds
Genito-urinary: No Costovertebral Tender
Musculoskeletal: No Clubbing, No Cyanosis and No Edema
Skin: Warm
Neuro: Awake, Alert, Oriented, AO x 3 and No Motor Deficits
Psych: Calm
Data Reviewed
-
Diagnostic Radiology: Image personally visualized and interpreted and Report Reviewed by me
CT Scan: Image personally visualized and interpreted and Report Reviewed by me
Ultrasound: Image personally visualized and interpreted and Report Reviewed by me
MRI: Image personally visualized and interpreted and Report Reviewed by me
Medical Tests (Nuc Med, Echo etc): Image personally visualized and interpreted and Report Reviewed by me
Labs: Labs Reviewed by me
Old Records: Reviewed
[2025-04-11] MEDS: ZAROXOLYN 5 MG PO (08:33)
[2025-04-11] MEDS: DESENEX/MITRAZOL/ZEASORB 1 APPLIC TOPICAL (08:33)
[2025-04-11] MEDS: DILANTIN 100 MG PO (08:35)
[2025-04-11] MEDS: ZETIA 10 MG PO (08:35)
[2025-04-11] MEDS: BUMEX 3 MG PO (08:35)
[2025-04-11] MEDS: LUMINAL 32.4 MG PO (08:35)
[2025-04-11] MEDS: TOPROL XL 25 MG PO (08:35)
[2025-04-11] MEDS: PROTONIX 40 MG PO (08:35)
[2025-04-11] MEDS: FARXIGA 10 MG PO (08:36)
[2025-04-11] MEDS: ASPIR LOW (ENTERIC COATED) 81 MG PO (08:36)
--- NOTE | 2025-04-11 08:50 | VNURNOTE ---
Chart reviewed. Patient is current with [facility]. Will continue to follow hospital course and DC plans.
[2025-04-11] MEDS: TYLENOL 650 MG PO (08:53)
--- NOTE | 2025-04-11 09:25 | CON.NEURO4 ---
Addendum entered and electronically signed by Fredy Cherry MD 04/11/25 11:29:
Studies reviewed.
I have personally examined the patient. I reviewed and agree with the PRODUCTION RECORDER's Note.
My addenda:
Awake, alert, interactive. No acute distress.
Speech intact.
Follows 2-step requests w/o difficulty. No tremor.
Extra-ocular movements grossly intact.
Facial movements full and symmetric. Hearing intact to normal conversational volume.
Normal UE movements bilaterally.
Neck: full ROM.
Chest: no dyspnea
Heart: no JVD
Ext: (-) Clubbing, (-) Cyanosis, (-) Edema
IMPRESSIONS/RECOMMENDATIONS:
Abrupt onset of loss of consciousness with recurrent falls. The patient's recurrent falling has been assessed by our service in the past. Patient has a longstanding history of epilepsy for which she refuses to change antiseizure medications
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
Continue to follow orthostatic blood pressures
Discontinue metoprolol due to systolic blood pressures as low as 100s
Provide abdominal binder
Consider use of fludrocortisone
Patient is unwilling to change antiseizure medications, alternatives should be considered as an outpatient
Patient's use of gabapentin may also be producing changes in mental status
D/W patient
All questions answered.
Will continue to follow as needed. 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
Original Note:
Consultation - Neurology 4
-
CONSULTING PHYSICIAN: Fredy Cherry MD
REFERRING PHYSICIAN: Hospitalists/BHAVANI Callahan
DICTATED BY: BHAVANI Galeana
DATE/TIME OF REQUEST: 04/10/25
DATE/TIME OF CONSULTATION: 04/10/25
Reason for Consultation: Dizziness
History of Present Illness:
This is a 79-year-old right-handed female who has presented to the hospital with report of recurrent falls, confusion, and neck pain. Patient was previously evaluated by our inpatient Neurology service in November 2023.
From previous evaluation by Neurology Dr. Bennett on 11/25/23:
'78-year-old right-handed woman with a past medical history of epilepsy, atrial fibrillation, hypertension, coronary artery disease, DVT presents to the hospital after being referred by her PCP due to anemia and also has been noted to have
significant gait abnormality with frequent falls.
Patient reports that she has been on phenobarbital and phenytoin with no recent changes since around the age of 6 described having seizures where she would stare briefly. There has not seem to been a seizure in decades. She reports that she had
apparently been tried to been weaned off of phenytoin in the past but seemed to feel awful and had a brain fog after this.
Patient has been using walker for about 1 year. She reports frequent falls a couple times a week. Review of medical record here indicates ambulatory dysfunction as far back as August 2020 for multiple reasons, hip pain as well as ankle fracture
and had been trying walker back in 2020. and clear and that the gait seems to have been progressively worse somewhat abruptly in the past couple of weeks. Patient reports that she hit her head but has no headache or neck pain at this
time.
Assessment: Multifactorial gait abnormality. A very large part of the gait abnormality and falls is very likely due to long-term use of phenytoin which can produce peripheral neuropathy as well as cerebellar degeneration which can produce ataxia
and balance problems.
Patient seems has been on phenytoin and phenobarbital for many years. Seems to have not had seizure in many years. Patient reports that she seemed to have brain fog and feeling unwell and coming off of phenytoin which is puzzling as the
combination of phenytoin and phenobarbital itself would probably produce brain fog at this point I do not see that there is a strong indication for the patient to be on 2 antiseizure medications and I do feel that there is probably significant harm
from the long-term use of phenytoin. I do not expect that neuropathy due to phenytoin would be completely reversible, there is possibility that this could improve in coming off the medication.'
Patient is followed by Neurology Dr. Bonilla as an outpatient. She reports that she did not end up weaning off of phenytoin and has no intentions of ever stopping this medication. She was recently hospitalized here one week ago wtih an AYUSH and
orthostasis. She reports that five days ago on 04/06/25 she got her flu shot and subsequently has had a neck ache. She has continued to have knee buckling with standing/walking and attributes this to the flu shot. She reports that she 'rolled out of
bed' yesterday hitting her head on her night stand. Her felt that she was mildly confused and brought her to the ER for evaluation. CT head and cervical spine were obtained and are negative for any acute abnormalities. Orthostatic vital
signs have been positive. She denies any headache, dizziness, vision change, and speech/swallowing difficulty. She notes that with standing her legs feel weak and start to buckle. She also notes that her arms have been tremulous since she got the
flu shot.
Past Medical History: Seizure disorder, Afib (Coumadin), HTN, HLD, HFpEF, CAD, statin intolerance, renal CA-solitary kidney, LLE DVT, PE, herpes zoster, postherpetic neuralgia, osteoporosis, Barretts esophagus, L RC tear, diverticulitis, basal
cell carcinoma, asthma, left hand mass, tongue mass, bilateral hand tremor, frequent falls with head trauma, lumbar fracture unclear level
Surgical History: CABG, LAD stent, right nephrectomy, appendectomy, FLYNN/BSO, L ankle fx repair, L RC repair, R TKR, lumbar vertebroplasty
Family History: Cousin and maternal grandmother- seizures. Father- Alzheimer's.
Social History: Former smoker. Rare alcohol. Denies illicit drug use.
Allergies: Metronidazole, pollen extracts.
Home Medications: See below.
Review of Symptoms:
Patient denies any fever, headache, chest pain, shortness of breath, GI or symptoms.
�Per the HPI.�All systems are reviewed negative except above.
Physical Exam:
The patient is afebrile, abdomen is nondistended, breathing is unlabored, skin is warm and dry, no edema. +[place] necking bilateral hands.
Neurologic Examination:
The patient is awake, alert and oriented x 3. She is able to follow commands and answer questions appropriately. There is no aphasia. Speech is mildly dysarthric. On cranial nerve assessment, pupils are 3 mm bilateral, round and reactive to light
and accommodation. Visual mendez are full. Extraocular movements are intact. There is a mild right eye ptosis. Hearing is intact bilaterally to normal conversation volume. Tongue palate and uvula are midline. Sternocleidomastoid strengths are full
bilaterally. Motor strengths are 5/5 bilateral upper and lower extremities on medical research [place] scale. There is no drift. There is a low amplitude semi rhythmic tremor in distal right upper extremity at rest and with exertion. Deep tendon
reflexes are 2+ bilateral upper and lower extremities and Babinski is absent bilaterally. There was no extinction noted on double simultaneous stimulation. Coordination is intact by finger to nose bilaterally.
Lab Results: See below.
Neuro Imaging:
1. CT Head 04/10/25: No acute intracranial abnormality.
2. CT cervical spine 04/10/25: No CT evidence for an acute posttraumatic abnormality of the cervical spine.
Differentials for the patient's presentation include:
1. Orthostatic hypotension producing dizziness.
2. Chronic phenytoin use likely producing neuropathy, also contributing to gait dysfunction.
Patient has the following risk factors for their symptoms: Chronic phenytoin usage, orthostatic hypotension
Recommendations:
-Abdominal binder daily when OOB.
-Adjustment of blood pressure medications per primary team.
-Increase fluid intake.
-Slow position changes.
-PT/OT evaluations.
-Continue warfarin, from a neurological standpoint, no role for aspirin therapy.
-Vitamin B12 and thiamine replacement.
-Do not recommend continuation of phenytoin given no seizures in decades, reiterated this to the patient.
-Follow-up with Dr. Bonilla as an outpatient.
Discussed patient care with: Dr. Cherry, the patient
Vital Signs and Labs
-
Vital Signs and Labs:
Vital Signs
Temp Pulse Resp BP Pulse Ox
98.5 F 84 16 132/66 94
04/11/25 07:40 04/11/25 08:35 04/11/25 08:08 04/11/25 08:35 04/11/25 08:08
Lab Results
04/11/25 06:51
04/11/25 06:51
PT 24.6 Sec (11.4-14.6) H 04/10/25 18:09
INR 2.21 04/10/25 18:09
Sodium 138 mmol/L (135-145) 04/11/25 06:51
Potassium 3.6 mmol/L (3.5-5.1) 04/11/25 06:51
BUN 53 mg/dl (7-17) H 04/11/25 06:51
Glucose 115 mg/dl (70-99) H 04/11/25 06:51
Calcium 8.7 mg/dl (8.4-10.2) 04/11/25 06:51
Vitamin B12 Cancelled 04/10/25 20:28
Ur Buprenorphine Negative (Negative) 04/10/25 20:05
Medications
-
Active Medications
Generic Name Dose Route Start Last Admin
Trade Name Freq PRN Reason Stop Dose Admin
Acetaminophen 650 mg 04/10/25 21:58 04/11/25 08:53
Acetaminophen 325 Mg Tablet PO 05/08/25 21:57 650 mg
Q4HPRN PRN Administration
mild pain/PHAN/temp> 100.4F
Albuterol 2 puff 04/10/25 21:58
Albuterol Hfa [90 Mcg/Dose] Inhaler INH
R Q4HPRN PRN
sob
Protocol
Aspirin 81 mg 04/11/25 08:00 04/11/25 08:36
Aspirin 81 Mg (Enteric Coated) Tablet PO 05/09/25 07:59 81 mg
DAILY RENÉ Administration
Baclofen 5 mg 04/10/25 21:58
Baclofen 5 Mg Tablet PO 05/08/25 21:57
TIDPRN PRN
spasms
Bisacodyl 10 mg 04/10/25 21:58
Bisacodyl 10 Mg Rectal Suppository RECTAL 05/08/25 21:57
[id number] PRN
constipation
Budesonide/Formoterol Fumarate 2 puff 04/11/25 08:00 04/11/25 08:05
Symbicort Inhaler 160/4.5 INH 05/09/25 07:59 2 puff
R BID RENÉ Administration
Bumetanide 3 mg 04/11/25 08:00 04/11/25 08:35
Bumetanide 1 Mg Tablet PO 05/09/25 07:59 3 mg
BID@0800,1600 RENÉ Administration
Cyanocobalamin 1,000 mcg 04/11/25 09:45
Cyanocobalamin (Vitamin B-12) 500 Mcg Tablet PO 05/09/25 09:44
DAILY RENÉ
Dapagliflozin 10 mg 04/11/25 08:00 04/11/25 08:36
Dapagliflozin (Farxiga) 10 Mg Tablet PO 05/09/25 07:59 10 mg
DAILY RENÉ Administration
Ezetimibe 10 mg 04/11/25 08:00 04/11/25 08:35
Ezetimibe (Zetia) 10 Mg Tablet PO 05/09/25 07:59 10 mg
DAILY RENÉ Administration
Hyoscyamine Sulfate 0.125 mg 04/10/25 22:20
Hyoscyamine 0.125 Mg (Sl/Oral) Tablet PO 05/08/25 22:19
TIDPRN PRN
spasms
Metolazone 5 mg 04/11/25 07:30 04/11/25 08:33
Metolazone 5 Mg Tablet PO 05/09/25 07:29 5 mg
MoWeFr@0730 RENÉ Administration
Metoprolol Succinate 25 mg 04/11/25 08:00 04/11/25 08:35
Metoprolol 25 Mg Extended Release Tablet PO 05/09/25 07:59 25 mg
DAILY RENÉ Administration
Miconazole Nitrate 0 applic 04/11/25 08:00 04/11/25 08:33
Miconazole Powder Bottle TOPICAL 05/09/25 07:59 1 applic
BID RENÉ Administration
Montelukast Sodium 10 mg 04/10/25 22:00 04/10/25 22:29
Montelukast Sodium 10 Mg Tablet PO 05/08/25 21:59 10 mg
HS RENÉ Administration
Pantoprazole Sodium 40 mg 04/11/25 08:00 04/11/25 08:35
Pantoprazole 40 Mg Delayed Release Tablet PO 05/09/25 07:59 40 mg
DAILY RENÉ Administration
Phenobarbital Sodium 32.4 mg 04/10/25 22:00 04/11/25 08:35
Phenobarbital 32.4 Mg Tablet PO 05/08/25 21:59 32.4 mg
TID RENÉ Administration
Phenytoin 100 mg 04/10/25 22:00 04/11/25 08:35
Phenytoin Sodium Extended 100 Mg Capsule PO 05/08/25 21:59 100 mg
TID RENÉ Administration
Polyethylene Glycol 17 grams 04/10/25 21:58
Polyethylene Glycol Powder 17 Grams Packet PO 05/08/25 21:57
DAILYPRN PRN
constipation
Senna/Docusate Sodium 1 tablet 04/10/25 21:58
Docusate W/Senna (Ayala-Colace) Tablet PO 05/08/25 21:57
BIDPRN PRN
constipation
Warfarin Sodium 2.5 mg 04/14/25 20:00
Warfarin 2.5 Mg Tablet PO 04/19/25 19:59
SUMOTUSA@1999 [facility]
Warfarin Sodium 3.75 mg 04/11/25 20:00
Warfarin 3.75 Mg (1/2 Of 7.5 Mg Tablet) PO 04/16/25 19:59
WeThFr@1999 [facility]
Home Medications
�Medication �Instructions �Recorded
montelukast 10 mg tablet 10 mg PO HS Lung/breathing issues 04/02/15
ezetimibe 10 mg tablet 10 mg PO DAILY cholesterol 03/12/21
fluticasone furoate 200 2 inh inhalation R DAILY 01/13/23
mcg-vilanterol 25 mcg/dose Lung/Breathing Issues
inhalation powder (Breo Ellipta)
dexlansoprazole 60 mg 60 mg PO DAILY Gastrointestinal 03/25/23
capsule,biphase delayed release Issue
albuterol sulfate 90 mcg/actuation 2 puff inhalation R Q4HPRN PRN sob 11/24/23
aerosol inhaler
aspirin 81 mg tablet,delayed 81 mg PO DAILY Blood Clot 11/24/23
release Prevention/Tx
hyoscyamine sulfate 0.125 mg tablet 0.125 mg PO TIDPRN PRN spasms 11/24/23
phenytoin sodium extended 100 mg 100 mg PO TID Seizures 11/24/23
capsule (Dilantin Extended)
cholecalciferol (vitamin D3) 25 25 mcg PO DAILY Supplement 02/29/24
mcg (1,000 unit) tablet (Vitamin
D3)
acetaminophen 500 mg tablet 1,000 mg PO BIDPRN PRN mild pain 02/26/25
(Tylenol Extra Strength)
warfarin 2.5 mg tablet 2.5 mg PO SUMOTUSA@1999 Blood Clot 02/26/25
Prevention/Tx
warfarin 2.5 mg tablet 3.75 mg PO WETHFR@1999 Blood Clot 02/26/25
Prevention/Tx
bumetanide 1 mg tablet 3 mg (3 x 1 mg) PO BID@0800,1600 03/02/25
Shortness of breath secondary to
HFpEF 30 days #60 tabs
phenobarbital 32.4 mg tablet 32.4 mg PO TID Seizures 04/01/25
metoprolol succinate 25 mg 25 mg PO DAILY 30 days #30 tabs 04/04/25
tablet,extended release 24 hr
baclofen 5 mg tablet 5 mg PO TIDPRN PRN spasms 04/10/25
dapagliflozin propanediol 10 mg 10 mg PO DAILY 04/10/25
tablet (Farxiga)
gabapentin 600 mg tablet 600 mg PO TID 04/10/25
metolazone 5 mg tablet 5 mg PO MOWEFR Fluid 04/10/25
Retention/Swelling
miconazole nitrate 2 % topical 1 applic topical BID folds 04/10/25
powder (Miconazorb AF)
[2025-04-11 09:29] VITALS: BP 104/74; BP 112/84; BP 123/75; BP 93/68; PULSE 60; PULSE 93; PULSE 98; O2SAT 94
[2025-04-11] MEDS: VITAMIN B1 100 MG PO (11:11)
[2025-04-11] MEDS: VITAMIN B-12 1000 MCG PO (11:11)
--- NOTE | 2025-04-11 11:49 | CM ---
Addendum entered by Blossom Soliz 04/11/25 13:56:
Patient discharge today
plan: Home, with [facility], declines SNF
to transport
Original Note:
Patient seen at bedside
IA completed
OBS form explained & signed. In chart
recent admission
patient states she fell off bed at home
PT/OT rec SNF ----- patient declines SNF wants to continue with [facility]
she lives with her spouse in a 2 story home, 3 steps to enter, patient is independent with adl's
Patient states has a walker but does not use
DME: Walker, commode, cane
Current with [facility] - referral entered in [facility]
merissa Ocampo from [facility] regarding if patient qualifies [facility] waiver program
PLAN: home with [facility] when stable, declined SNF
--- NOTE | 2025-04-11 12:50 | W.DCSUMMARY ---
Discharge Summary
Discharge Data
Date of Admission: 04/10/25
Date of Discharge: 04/11/25
Total time spent discharging patient (in min): 40
-
Pending Results: No
Hospital Course
Hospital course
79-year-old female with PMH for DVT, PE, HTN, seizure, asthma GERD, CAD, atrial fib, CHf, who presents with complaints of neck pain and recurrent falls. her knee are buckling up and she falls. today she fell from her bed and was not able to get up
from the floor. she is been complaining of neck for past few days. denied PHAN, dizzy or syncope. denied fever, chills, chest pain, sob. denied abdominal pain,n,v,d. denied dysuria or hematuria. as per , she seemed confused more than usual
today.
patient noted to have rib fracture. admitting for further management
Seen by physical therapy recommended SNF but patient wants to go home.
Seen by neurology, patient was orthostatic hypotensive with physical therapy and neurology recommending to hold metoprolol.
Will be discharged home with home physical therapy.
During hospitalization patient was treated from the following
# Generalized weakness/frequent falls/neck and back pain likely from involuntary body movement
# Rib fracture
-Seen by physical therapy recommended SNF but patient wants to go home.
-neuro consulted
- Tylenol as needed for pain
- CT abdomen pelvis with impression of Acute, nondisplaced fracture of the posterior left 12th rib. Subacute-appearing, nondisplaced fracture of the lateral left 10th rib.
- CT head with no acute intracranial abnormality
- Cervical spine CT with no acute findings.
Orthostatic hypotension
Metoprolol on hold
# metabolic encephalopathy
#Leukocytosis improved
- UA clean
#Hypokalemia/AYUSH CKD stage IIIb
- K improved
#Chronic HFpEF
- not in acute exacerbation
-Bumex,metolazone continued
-Farxiga continued
#Asthma not in acute exacerbation
- Continue inhalers, montelukast
CAD status post CABG in 2005
- Continue aspirin
- stop isosorbide mononitrate
#Paroxysmal atrial fibrillation
- Continue metoprolol (will hold on Dc secondary to orthostatic)
- Continue Coumadin
-INR 2.2
#PAD status post balloon angioplasty and stenting of the superior mesenteric artery 2023
#Carotid artery stenosis
#Hyperlipidemia
- Continue Zetia
#History of DVT/PE
- Continue Coumadin
#Neuropathy
- hold Gabapentin due to involuntary body movement.
#Seizure disorder
- Continue phenytoin, phenobarbital
#GERD
-dexlansoprazole continued
CODE STATUS: Full code
DVT prophylaxis: Coumadin
Diet: Cardiac diet
Family communication: Discussed with at bedside
Disposition: Discharge home
Total time spent on today's encounter was 40 minutes which included time spent in counseling the patient/family regarding diagnosis and treatment plan as listed above, goals of care, and symptom management. Case was discussed with nursing staff,
specialists, and care coordinators/case management. All labs and imaging personally reviewed by me. Remainder the time spent in detailed review of previous records, lab data, imaging, and other medical provider documentation.
Anticipated Discharge: Today
Discharge Plan
-
Patient Disposition: Home with Home Care
Discharge Diagnosis/Procedures: Generalized weakness/frequent falls/neck and back pain likely from involuntary body movement
Rib fracture
Orthostatic hypotension
metabolic encephalopathy
Diet: Low Cholesterol and Low Sodium
Activity: With assistance and As tolerated
Other Services: PT and OT
Instructions: Orthostatic hypotension
Referrals:
Jake Gr MD [Active, Cardiology] - in two to four weeks
Fredy Cherry MD [Active, Neurology] - in three to four weeks
Luis Manuel Burden MD [Family Provider, Family Practice]
Additional Discharge Medication Instructions: Hold metoprolol until seen by
Prescriptions:
Continued
montelukast 10 MG tablet
10 mg PO HS
ezetimibe 10 MG tablet
10 mg PO DAILY
fluticasone furoate-vilanterol [Breo Ellipta] 200-25 mcg/dose blister with device
2 inh INHALATION R DAILY
dexlansoprazole 60 mg capsule,biphase delayed releas
60 mg PO DAILY
phenytoin sodium extended [Dilantin Extended] 100 mg capsule
100 mg PO TID
aspirin 81 mg Tablet,Delayed Release (/Ec)
81 mg PO DAILY
hyoscyamine sulfate 0.125 mg Tablet
0.125 mg PO TIDPRN PRN (Reason: spasms)
albuterol sulfate 90 mcg/actuation Hfa Aerosol Inhaler
2 puff INHALATION R Q4HPRN PRN (Reason: sob)
cholecalciferol (vitamin D3) [Vitamin D3] 25 mcg (1,000 unit) Tablet
25 mcg PO DAILY
warfarin 2.5 mg Tablet
3.75 mg PO WETHFR@1999
warfarin 2.5 mg tablet
2.5 mg PO SUMOTUSA@1999
acetaminophen [Tylenol Extra Strength] 500 mg tablet
1,000 mg PO BIDPRN PRN (Reason: mild pain)
bumetanide 1 mg Tablet
3 mg PO BID@0800,1600 30 Days Qty: 60 0RF
phenobarbital 32.4 mg Tablet
32.4 mg PO TID
dapagliflozin propanediol [Farxiga] 10 mg Tablet
10 mg PO DAILY
baclofen 5 mg Tablet
5 mg PO TIDPRN PRN (Reason: spasms)
miconazole nitrate [Miconazorb AF] 2 % powder
1 applic topical BID
metolazone 5 mg tablet
5 mg PO MOWEFR
gabapentin 600 mg Tablet
600 mg PO TID
Held
metoprolol succinate 25 mg Tablet Extended Release 24 Hr
25 mg PO DAILY 30 Days Qty: 30 0RF
Hold Instructions: till seen by Dr. Gr
Discharge Orders:
Discharge Patient (As Directed); Ordered 04/11/25
Ordered By: Chad Seymour
Discharge Date and Time
Print Language: POLISH
[2025-04-11 13:40] LABS: Folate 10.3 ng/ml (2.76-20)
[2025-04-11 14:21] VITALS: BP 128/59
== END 2025-04-11 15:13 | disposition home health service (06) ==
LOC: 3 WEST ACU 20:20
PROVIDERS: Registered Nurse; ADMITTING PHYSICIAN Internal Medicine; ATTENDING PHYSICIAN General Practice; CONSULT PHYSICIAN Psychiatry & Neurology Neurology; EMERGENCY PHYSICIAN Emergency Medicine; FAMILY PHYSICIAN Family Medicine
DX: R53.1 Weakness (principal); S22.32XA Fracture of one rib, left side, initial encounter for closed fracture; W06.XXXA Fall from bed, initial encounter; J45.909 Unspecified asthma, uncomplicated; G93.41 Metabolic encephalopathy; D72.829 Elevated white blood cell count, unspecified; E87.6 Hypokalemia; N17.9 Acute kidney failure, unspecified; N18.32 Chronic kidney disease, stage 3b; I13.0 Hypertensive heart and chronic kidney disease with heart failure and stage 1 through stage 4 chronic kidney disease, or unspecified chronic kidney disease; E78.5 Hyperlipidemia, unspecified; I50.32 Chronic diastolic (congestive) heart failure; I25.10 Atherosclerotic heart disease of native coronary artery without angina pectoris; I48.0 Paroxysmal atrial fibrillation; Z87.891 Personal history of nicotine dependence; Z95.1 Presence of aortocoronary bypass graft; G40.909 Epilepsy, unspecified, not intractable, without status epilepticus; I73.9 Peripheral vascular disease, unspecified; G62.9 Polyneuropathy, unspecified; I95.1 Orthostatic hypotension; K21.9 Gastro-esophageal reflux disease without esophagitis; Z11.52 Encounter for screening for COVID-19; Z79.51 Long term (current) use of inhaled steroids; Z79.899 Other long term (current) drug therapy; Z79.01 Long term (current) use of anticoagulants; Z86.711 Personal history of pulmonary embolism; Z86.718 Personal history of other venous thrombosis and embolism
CPT/HCPCS: 70450; 71046; 72125; 74176; 80048; 80053; 80184; 80185; 80306; 81003; 81015; 82550; 82607; 82746; 85025; 85027; 85610; 87502; 87811; 94640; 97163; 97167; 99284; G0378

== ENCOUNTER 2025-05-10 21:27 | Inpatient (IN) | payer MEDICARE, OTHER, SELFPAY ==
[2025-05-10] VITALS (7 sets, daily range): BP systolic 99–169; BP diastolic 56–121; PULSE 94–111; BMI 30.1; BMI 29.4
[2025-05-10 17:33] LABS: Hematocrit 40.4 % (37.0-47.0); Hemoglobin 13.4 g/dL (12.0-16.0); Mean Corp Hgb Conc. 33.2 g/dL (33.0-37.0); Mean Corpuscular Volume 90.0 fL (81.0-99.0); Nucleated Red Blood Cells % 0 %; Platelet Count 330 10^3/uL (130-400); Red Cell Dist. Width 15.2 % (11.5-14.5)
[2025-05-10 17:44] LABS: ALT (SGPT) 27 U/L (0-35); AST (SGOT) 36 U/L (14-36); Albumin 4.3 g/dl (3.5-5.0); Alkaline Phosphatase 217 U/L (38-126); Blood Urea Nitrogen 70 mg/dl (7-17); Calcium 9.3 mg/dl (8.4-10.2); Carbon Dioxide 32 mmol/L (22-30); Chloride 88 mmol/L (98-107); Estimated Creatinine Clearance 46 ml/min; Glucose 121 mg/dl (70-99); Potassium 3.1 mmol/L (3.5-5.1); Sodium 130 mmol/L (135-145); Total Protein 7.9 g/dl (6.3-8.2); eGFR 50.80
--- NOTE | 2025-05-10 18:03 | ED.GENMED ---
History of Present Illness
<Gi Maya NP - Last Filed: 05/10/25 20:03>
General
Chief Complaint: Headache
Source: patient
Exam Limitations: none
Time Seen by Provider: 05/10/25 17:02
Nursing documentation reviewed up to this point in time: agreed with
History of Present Illness
History of Present Illness:
Patient to the emergency department with complaint of headache dizziness weakness, near syncope. FRENCH. States her symptoms began to escalate on Wednesday. She reports 3 falls since Wednesday. States when she stands she becomes lightheaded and then
tries to lower herself to the floor. She denies any loss of consciousness. She denies hitting her head. Brought to the emergency department by spouse for evaluation. She denies fever chills recent illness. She developed she denies nausea
vomiting diarrhea.
Past History
<Gi Maya NP - Last Filed: 05/10/25 20:03>
Past History
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
ED Past Surgical History: Appendectomy, Cardiac (quadruple bypass 2001. stent), Gynecological (Hysterectomy), Orthopedic (left shoulder, ankle) and Other (Right nephrectomy 2001 'tumor')
Social History
Tobacco: Former smoker
Alcohol: Occasional
Drug: None
Personal:
Living: with family
Employment: Retired
Family History
Family History: Other (Noncontributory)
Review of Systems
<Gi Maya NP - Last Filed: 05/10/25 20:03>
Review of Systems
Allergies reviewed?: Yes
All Other Systems: ROS reviewed and negative except as documented in HPI and ROS
Constitutional: Reports fatigue
EENT: Reports no symptoms
Respiratory: Reports no symptoms
Cardiac: Reports no symptoms
ABD/GI: Reports no symptoms
: Reports no symptoms
Musculoskeletal: Reports no symptoms
Skin: Reports no symptoms
Neurological: Reports dizzy, headache and weakness
Psychiatric: Reports no symptoms
Phy Exam
<Gi Maya AIRCRAFT STEEL FABRICATOR - Last Filed: 05/10/25 20:03>
General Physical Exam
General Presentation: mild distress
General age: appears stated age
General Skin: warm and dry
General Habitus: normal
General Mental: alert
Cardiovascular Exam
Cardiovascular Exam: irregularly irregular
Pulmonary Exam
Pulmonary Exam: lungs clear, no respiratory distress and chest non tender
Neurological Exam
Neurological Exam: alert, oriented x3, CN II-XII intact, no motor deficits, no sensory deficits and speech normal
Musculoskeletal Exam
Musculoskeletal Exam: full ROM and neuro vasc intact
Skin Exam
Skin Exam: normal color, warm/dry and no rash
Psychiatric Exam
Psychiatric Exam: normal mood/affect
Course
<Gi Maya AIRCRAFT STEEL FABRICATOR - Last Filed: 05/10/25 20:03>
Orders/Labs/Results
Orders:
Orders
05/10/25 17:16
Electrocardiogram (*1) Urgent
Reason for Study: Chest Pain
EKG- Treatment ONCE
O2 Therapy [RESP] Urgent
Titrate/Wean O2 to maintain O2 sat greater than (%): 90
Special Instructions: Maintain sats >/=90%
Pulse Ox/spot Check [RESP] Urgent
Quantity: 1
Special Instructions: ON ROOM AIR
05/10/25 17:17
Complete Blood Count/With Diff Urgent
05/10/25 17:18
Comprehensive Metabolic Panel Urgent
05/10/25 17:59
CT Head W/o Iv Contrast Urgent
Comment:
Reason For Exam: pain, dizziness
05/10/25 18:18
0.9% Sodium Chloride 500 ml [Nss] 500 ml IV BOLUS
05/10/25 18:25
Morphine Sulfate 4 mg IV NOW STA
Ondansetron Injectable [Zofran] 4 mg IV NOW STA
05/10/25 18:45
Prothrombin Time Urgent
05/10/25 18:49
Ondansetron Injectable [Zofran] 4 mg .ROUTE .STK-MED ONE
Potassium Chloride [KCl] 40 meq 0.9% Sodium Chloride 250 ml [Nss] 250 ml IV NOW
Abnormal Lab Results
05/10/25 05/10/25 05/10/25
17:17 17:18 18:45
WBC 12.2 H 10^3/uL
(4.8-10.8)
RDW 15.2 H %
(11.5-14.5)
Absolute Neuts (auto) 10.5 H 10^3/uL
(1.4-6.5)
Absolute Lymphs (auto) 0.8 L 10^3/uL
(1.2-3.4)
Absolute Monos (auto) 0.8 H 10^3/uL
(0.1-0.6)
Neutrophils % 85.9 H %
(42.2-75.2)
Lymphocytes % 6.4 L %
(20.5-51.1)
PT 25.5 H Sec
(11.4-14.6)
Sodium 130 L mmol/L
(135-145)
Potassium 3.1 L mmol/L
(3.5-5.1)
Chloride 88 L mmol/L
(98-107)
Carbon Dioxide 32 H mmol/L
(22-30)
BUN 70 H mg/dl
(7-17)
Creatinine 1.1 H mg/dL
(0.6-1.0)
Glucose 121 H mg/dl
(70-99)
Alkaline Phosphatase 217 H U/L
(38-126)
05/10/25 17:17
05/10/25 17:18
Vital Signs
Initial and Last Documented VS:
Initial Vital Signs
Temp Pulse Resp BP Pulse Ox
98.5 F 116 15 169/86 100
05/10/25 17:08 05/10/25 17:08 05/10/25 17:08 05/10/25 17:08 05/10/25 17:08
Last Documented Vital Signs
Temp Pulse Resp BP Pulse Ox
98.5 F 103 13 99/56 97
05/10/25 17:08 05/10/25 19:30 05/10/25 19:30 05/10/25 19:00 05/10/25 19:30
<Pablo Perez MD - Last Filed: 05/10/25 19:44>
Orders/Labs/Results
Orders:
Orders
05/10/25 17:16
Electrocardiogram (*1) Urgent
Reason for Study: Chest Pain
EKG- Treatment ONCE
O2 Therapy [RESP] Urgent
Titrate/Wean O2 to maintain O2 sat greater than (%): 90
Special Instructions: Maintain sats >/=90%
Pulse Ox/spot Check [RESP] Urgent
Quantity: 1
Special Instructions: ON ROOM AIR
05/10/25 17:17
Complete Blood Count/With Diff Urgent
05/10/25 17:18
Comprehensive Metabolic Panel Urgent
05/10/25 17:59
CT Head W/o Iv Contrast Urgent
Comment:
Reason For Exam: pain, dizziness
05/10/25 18:18
0.9% Sodium Chloride 500 ml [Nss] 500 ml IV BOLUS
05/10/25 18:25
Morphine Sulfate 4 mg IV NOW STA
Ondansetron Injectable [Zofran] 4 mg IV NOW STA
05/10/25 18:45
Prothrombin Time Urgent
05/10/25 18:49
Ondansetron Injectable [Zofran] 4 mg .ROUTE .STK-MED ONE
Potassium Chloride [KCl] 40 meq 0.9% Sodium Chloride 250 ml [Nss] 250 ml IV NOW
Abnormal Lab Results
05/10/25 05/10/25 05/10/25
17:17 17:18 18:45
WBC 12.2 H 10^3/uL
(4.8-10.8)
RDW 15.2 H %
(11.5-14.5)
Absolute Neuts (auto) 10.5 H 10^3/uL
(1.4-6.5)
Absolute Lymphs (auto) 0.8 L 10^3/uL
(1.2-3.4)
Absolute Monos (auto) 0.8 H 10^3/uL
(0.1-0.6)
Neutrophils % 85.9 H %
(42.2-75.2)
Lymphocytes % 6.4 L %
(20.5-51.1)
PT 25.5 H Sec
(11.4-14.6)
Sodium 130 L mmol/L
(135-145)
Potassium 3.1 L mmol/L
(3.5-5.1)
Chloride 88 L mmol/L
(98-107)
Carbon Dioxide 32 H mmol/L
(22-30)
BUN 70 H mg/dl
(7-17)
Creatinine 1.1 H mg/dL
(0.6-1.0)
Glucose 121 H mg/dl
(70-99)
Alkaline Phosphatase 217 H U/L
(38-126)
05/10/25 17:17
05/10/25 17:18
Vital Signs
Initial and Last Documented VS:
Initial Vital Signs
Temp Pulse Resp BP Pulse Ox
98.5 F 116 15 169/86 100
05/10/25 17:08 05/10/25 17:08 05/10/25 17:08 05/10/25 17:08 05/10/25 17:08
Last Documented Vital Signs
Temp Pulse Resp BP Pulse Ox
98.5 F 103 13 99/56 97
05/10/25 17:08 05/10/25 19:30 05/10/25 19:30 05/10/25 19:00 05/10/25 19:30
<Gi Maya NP - Last Filed: 05/10/25 20:03>
*Pulse Oximetry
SaO2: 100
Oxygen Mode of Delivery: Room air
Patient hypoxic: no
*EKG
Rhythm: a-fib
*Critical Care Note
Total Time (30-74mins, 75-104mins- exclusive of procedures): Not Applicable
<Gi Maya NP - Last Filed: 05/10/25 20:03>
Update Note
Update Note:
Patient to the emergency department with complaint of headache weakness near syncope. Her symptoms started on Wednesday when she feels her symptoms continue to worsen. She reports 3 falls since Wednesday all associated with near syncope. She
reports feeling lightheaded and then lowered herself to the ground. No loss of consciousness. No associated fever or chills. On arrival to ED, EKG reveals A-fib. She has a history of atrial fibrillation and is currently maintained on Coumadin.
She does not feel that she was in A-fib prior to her symptoms starting on Wednesday but is unsure. Heart rate currently in the low 100s. No chest pain or pressure. INR is 2.27. WBC12.2. Chemistry shows sodium of 130 potassium of 3.1 BUn 70 creat
1.1. She was given IV fluids and a K rider while in ED. CT of head reviewed no acute findings noted. Patient will be admitted to the hospitalist for multiple near syncopal events, hyponatremia, hypokalemia.
ED Attending Note
<Gi Maya NP - Last Filed: 05/10/25 20:03>
-
Portions of this chart may have been created with voice recognition software.� Occasional wrong word or��sound alike� substitutions may have occurred due to the inherent limitations of voice recognition software.
<Pablo Perez MD - Last Filed: 05/10/25 19:44>
ED Attending Note
Patient seen and examined by attending physician: Yes
I performed the substantive portion of visit, reviewed & personally made and approve the management plan that is documented in note by myself or PARTHA.: Yes
ED Attending Note:
Patient with recurring episodes of near syncope. Seem more with standing. Near syncope precedes passing out and true syncope with a few of these episodes. Complaining of general headache for 7 to 10 days. No fever. No neck pain. No chest pain
or shortness of breath. Patient has a history of atrial fibrillation. She cannot tell if she is in it at this time.
On exam patient is nontoxic in no distress. Normocephalic atraumatic. Neck is supple nontender. No chest wall tenderness. Heart rapid and irregular no murmur. Abdomen nontender. She is warm and dry. Perfusing well. Nonfocal.
Nonspecific leukocytosis, mild hyponatremia. Mild hypokalemia. Prerenal azotemia.
Possible explanation for her syncope/near syncope would be the A-fib RVR. Will admit for rate control further care and evaluation
Discharge Plan
Departure
Prescriptions:
No Action
montelukast 10 MG tablet
10 mg PO HS
ezetimibe 10 MG tablet
10 mg PO DAILY
fluticasone furoate-vilanterol [Breo Ellipta] 200-25 mcg/dose blister with device
2 inh INHALATION R DAILY
dexlansoprazole 60 mg capsule,biphase delayed releas
60 mg PO DAILY
phenytoin sodium extended [Dilantin Extended] 100 mg capsule
100 mg PO TID
aspirin 81 mg Tablet,Delayed Release (Dr/Ec)
81 mg PO DAILY
hyoscyamine sulfate 0.125 mg Tablet
0.125 mg PO TIDPRN PRN (Reason: spasms)
albuterol sulfate 90 mcg/actuation Hfa Aerosol Inhaler
2 puff INHALATION R Q4HPRN PRN (Reason: sob)
cholecalciferol (vitamin D3) [Vitamin D3] 25 mcg (1,000 unit) Tablet
25 mcg PO DAILY
warfarin 2.5 mg Tablet
3.75 mg PO WETHFR@1999
warfarin 2.5 mg tablet
2.5 mg PO SUMOTUSA@1999
acetaminophen [Tylenol Extra Strength] 500 mg tablet
1,000 mg PO BIDPRN PRN (Reason: mild pain)
bumetanide 1 mg Tablet
3 mg PO BID@0800,1600 30 Days Qty: 60 0RF
phenobarbital 32.4 mg Tablet
32.4 mg PO TID
metoprolol succinate 25 mg Tablet Extended Release 24 Hr
25 mg PO DAILY 30 Days Qty: 30 0RF
dapagliflozin propanediol [Farxiga] 10 mg Tablet
10 mg PO DAILY
baclofen 5 mg Tablet
5 mg PO TIDPRN PRN (Reason: spasms)
miconazole nitrate [Miconazorb AF] 2 % powder
1 applic topical BID
metolazone 5 mg tablet
5 mg PO MOWEFR
gabapentin 600 mg Tablet
600 mg PO TID
Referrals:
Luis Manuel Burden MD [Family Provider, Family Practice]
Interventions
Interventions:
*Risk Screen - Suicide Last Done: 05/10/25 17:08
*General Assessment Last Done: 05/10/25 17:08
*Neglect/Abuse Screening Last Done: 05/10/25 17:08
*ED- Fall Risk Assessment Last Done: 05/10/25 17:08
*ED COVID-19 Vaccine History Last Done: 05/10/25 17:08
*ED Influenza Vaccine History Last Done: 05/10/25 17:08
ED- Neurological Assessment Last Done: 05/10/25 17:43
Discharge Date and Time
Print Language: MONGOLIAN
[2025-05-10] MEDS: NSS 500 IV (18:49)
[2025-05-10] MEDS: ZOFRAN 4 MG IV (18:51)
[2025-05-10] MEDS: MORPHINE SULFATE 4 MG IV (18:51)
[2025-05-10] MEDS: KCL 270 MEQ IV (18:59)
[2025-05-10 19:02] LABS: INR 2.27; PT 25.5 Sec (11.4-14.6)
--- NOTE | 2025-05-10 20:43 | HPS.HSE ---
Addendum entered and electronically signed by Radha Hurt MD 05/10/25 21:23:
Patient hypoxic to 80 percent during sleep so check CXR and COVID and influenza.
Original Note:
Family Physician
-
Family Physician: Luis Manuel Burden
Chief Complaint
-
syncope
History of Present Illness
79-year-old female past medical history of DVT/PE, hypertension, seizure, asthma, GERD, CAD status post CABG, paroxysmal atrial fibrillation, carotid artery stenosis, CHF, pulmonary hypertension, orthostatic hypotension, CKD 3B, history of
nephrectomy, PAD status post stenting of superior mesenteric artery, hyperlipidemia, neuropathy, severe degenerative disc disease, presenting with headache, dizziness, weakness and syncopal episode few days ago. Symptoms started 4 days ago. She
has had 3 falls since Wednesday. When she stands she becomes lightheaded and then tries to lowered self to the floor. Denies loss of consciousness. Denies hitting her head. Denies fevers or chills. Denies nausea vomiting or diarrhea. She saw
her telephone lineworker Dr. Gr yesterday who apparently added a medication.
She has been complaining of posterior headache and pain along her cheeks and neck. She denies any sinus discharge but thinks that she has sinusitis. She complains of some pain or chest tightness in her chest when she coughs. Denies any sore
throat.
A month ago her high antihypertensive medications were stopped due to hypotension. She has been following low-sodium diet.
She denies smoking or alcohol use.
Medical History
Past Medical History
Past Medical History: Reports Other (DVT/PE, hypertension, seizure, asthma, GERD, CAD status post CABG, paroxysmal atrial fibrillation, carotid artery stenosis, CHF, pulmonary hypertension, orthostatic hypotension, CKD 3B, history of nephrectomy,
PAD status post stenting of superior mesenteric artery, hyperlipidemia, neuropathy, severe)
Past Surgical History: Reports Other (Appendectomy, Cardiac (quadruple bypass 2002. stent), Gynecological (Hysterectomy), Orthopedic (left shoulder, ankle) and Other (Right nephrectomy 2002 'tumor'))
Social History
Tobacco: Non-smoker
Alcohol: None
Drug: None
Family History
Family History: Not pertinent
Allergies / Home Medications
Allergies reflects when Allergies were last updated in [employer].
Home Medications with original date entered in [employer]
Allergy/Medication List:
Allergies
Allergy/AdvReac Type Severity Reaction Status Date / Time
metronidazole (From Flagyl) Allergy Nausea / Verified 04/10/25 16:43
Vomiting
pollen extracts Allergy ENVIRONMENTAL Verified 04/10/25 16:43
ALLERGIES-NASAL
SYMPTOMS
Home Medications
montelukast 10 mg tablet 10 mg PO HS Lung/breathing issues 04/02/15
ezetimibe 10 mg tablet 10 mg PO DAILY cholesterol 03/12/21
fluticasone furoate 200 mcg-vilanterol 25 mcg/dose inhalation powder (Breo Ellipta) 2 inh inhalation R DAILY Lung/Breathing Issues 01/13/23
dexlansoprazole 60 mg capsule,biphase delayed release 60 mg PO DAILY Gastrointestinal Issue 03/25/23
albuterol sulfate 90 mcg/actuation aerosol inhaler 2 puff inhalation R Q4HPRN PRN sob 11/24/23
aspirin 81 mg tablet,delayed release 81 mg PO DAILY Blood Clot Prevention/Tx 11/24/23
hyoscyamine sulfate 0.125 mg tablet 0.125 mg PO TIDPRN PRN spasms 11/24/23
phenytoin sodium extended 100 mg capsule (Dilantin Extended) 100 mg PO TID Seizures 11/24/23
cholecalciferol (vitamin D3) 25 mcg (1,000 unit) tablet (Vitamin D3) 25 mcg PO DAILY Supplement 02/29/24
acetaminophen 500 mg tablet (Tylenol Extra Strength) 1,000 mg PO BIDPRN PRN mild pain 02/26/25
warfarin 2.5 mg tablet 2.5 mg PO SUMOTUSA@2000 Blood Clot Prevention/Tx 02/26/25
warfarin 2.5 mg tablet 3.75 mg PO WETHFR@2000 Blood Clot Prevention/Tx 02/26/25
bumetanide 1 mg tablet 3 mg (3 x 1 mg) PO BID@0800,1600 Shortness of breath secondary to HFpEF 30 days #60 tabs 03/02/25
phenobarbital 32.4 mg tablet 32.4 mg PO TID Seizures 04/01/25
metoprolol succinate 25 mg tablet,extended release 24 hr 25 mg PO DAILY 30 days #30 tabs 04/04/25
Held on 04/11/25. Instructions: till seen by Dr. Gr
baclofen 5 mg tablet 5 mg PO TIDPRN PRN spasms 04/10/25
dapagliflozin propanediol 10 mg tablet (Farxiga) 10 mg PO DAILY 04/10/25
gabapentin 600 mg tablet 600 mg PO TID 04/10/25
metolazone 5 mg tablet 5 mg PO MOWEFR Fluid Retention/Swelling 04/10/25
miconazole nitrate 2 % topical powder (Miconazorb AF) 1 applic topical BID folds 04/10/25
Review of Systems
-
History Source: Patient
A 12 point ROS was completed and negative except as noted: Yes
Constitutional: Reports No Symptoms
EENT: Reports See HPI
Respiratory: Reports See HPI
Cardiac: Reports See HPI
Abdomen/GI: Reports No Symptoms
: Reports No Symptoms
Musculoskeletal: Reports No Symptoms
Skin: Reports No Symptoms
Neurological: Reports No Symptoms
Endocrine: Reports No Symptoms
Hematologic/Lymphatic: Reports No Symptoms
Psych: Reports No Symptoms
Physical Exam
Vital Signs
Vital Signs
Temp Pulse Resp BP Pulse Ox
98.5 F 103 13 99/56 97
05/10/25 17:08 05/10/25 19:30 05/10/25 19:30 05/10/25 19:00 05/10/25 19:30
Physical Exam
General: Well Developed, Well Nourished and No Apparent Distress
HEENT: NormoCephalic, Moist mucous membranes and Atraumatic
Respiratory: Clear
Cardiac: S1/S2 and Regular Rhythm; No Murmur or Rub
GI: Soft, Non Tender, Non Distended and Normal Bowel Sounds; No Organomegaly
Rectal: Deferred by Provider
Musculoskeletal: No Clubbing, No Cyanosis and No Edema
Skin: No Rash
Neuro: Nonfocal/grossly intact
Laboratory Results
-
05/10/25 17:17
05/10/25 17:18
Laboratory Results
PT 25.5 Sec (11.4-14.6) H 05/10/25 18:45
INR 2.27 05/10/25 18:45
Total Bilirubin 1.0 mg/dl (0.2-1.3) 05/10/25 17:18
AST 36 U/L (14-36) 05/10/25 17:18
ALT 27 U/L (0-35) 05/10/25 17:18
Alkaline Phosphatase 217 U/L (38-126) H 05/10/25 17:18
Data Reviewed
-
Lab Data: Labs Reviewed by me
Old Records: Reviewed
Impression/Plan
-
IMPRESSION:
PLAN:
# Dizziness/syncopal episode likely due to orthostatic hypotension versus hypokalemia
# History of orthostatic hypotension
-EKG shows atrial fibrillation with heart rate up to 120s
- IV fluids given
- Check orthostatic vital signs
- Telemetry monitoring
# Headache/neck pain likely symptomatic atrial fibrillation versus less likely chronic sinusitis
- No nasal discharge to warrant antibiotic
- Heart rate up to 120s with A-fib
- Cardiology consulted for further medication adjustment
# Hypokalemia secondary to Bumex/metolazone
- Replete potassium
- Check magnesium
# Hyponatremia possibly secondary to metolazone/dapagliflozin
- Hold metolazone and dapagliflozin
History of DVT/PE
- Continue Coumadin
CAD status post CABG
- Continue aspirin
Paroxysmal atrial fibrillation
- Continue Coumadin
History of heart failure
- Hold dapagliflozin
Pulmonary hypertension
Carotid artery stenosis
Essential hypertension
Seizure disorder
- Continue phenobarbital, phenytoin
Asthma
- Continue albuterol
- Continue Breo
- Continue montelukast
GERD
- Continue dexlansoprazole
CKD 3B
- Renal function at base
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
PAD status post Superior mesenteric artery status post stent
Hyperlipidemia
- Continue Zetia
Chronic neuropathy
- Continue gabapentin
Degenerative disc disease
Full code
DVT prophylaxis Coumadin
Cardiac diet
[2025-05-10 21:20] LABS: Magnesium 2.5 mg/dl (1.6-2.3)
[2025-05-10 22:02] LABS: COVID-19 Antigen Negative (Negative)
[2025-05-11] VITALS (8 sets, daily range): BP systolic 107–148; BP diastolic 48–75; PULSE 92–102; BMI 29.2
[2025-05-11] MEDS: TYLENOL 650 MG PO ×2 (00:10→10:48)
[2025-05-11] MEDS: DILANTIN 100 MG PO ×4 (00:10→21:37)
[2025-05-11] MEDS: LUMINAL 32.4 MG PO ×4 (00:12→21:37)
--- NOTE | 2025-05-11 00:22 | W.PN.UPDATE ---
Update Note
Progress Note Update
Pt states she usually alternated coumadin 2.5mg (sun wed sat) and 3.75mg )wed and wed). 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 PT stated to nurse that she received phone call from cardiology
office (dr echevarria) today telling her to only take 2.5 mg until may 16. INR 2.2 tonight. Pt states goal is usually around 2.5 but she can be a little down or high. Will give the 2.5mg today. Previous order left as is and will let cardiology decide
today. Recheck INR in am.
[2025-05-11] MEDS: COUMADIN 2.5 MG PO (00:35)
--- NOTE | 2025-05-11 03:49 | PTCARENOTE ---
Addendum entered by Doni Mejias RN 05/11/25 06:11:
Pt refused to get washed up or do perineal care over night, refused to use wipes. Pt wants to wait till morning to clean up& prefers to sleep.Desenex ordered for pt. Pt provided with towel to get washed up.Plan of care continued on pt.Call aponte in
reach.
Original Note:
Pt aaox3 able to make her needs known.Pt on fall precautions & bed alarm in place. SYSTEM SOFTWARE DEVELOPER operations label clerk made aware of pt requesting only 2.5mg of coumadin till may 16.No other complaints noted.Pt oriented to room & call aponte in reach.
[2025-05-11] MEDS: SYMBICORT 160/4.5 MCG INHALER 2 PUFF INH ×2 (07:16→19:33)
[2025-05-11] MEDS: ASPIR LOW (ENTERIC COATED) 81 MG PO (08:11)
[2025-05-11] MEDS: NEURONTIN 600 MG PO (08:11)
[2025-05-11] MEDS: PROTONIX 40 MG PO (08:11)
[2025-05-11] MEDS: VITAMIN D3 (cholecalciferol) 25 MCG PO (08:11)
[2025-05-11] MEDS: ZETIA 10 MG PO (08:12)
[2025-05-11] MEDS: DESENEX/MITRAZOL/ZEASORB 1 APPLIC TOPICAL ×2 (08:14→21:43)
--- NOTE | 2025-05-11 09:01 | W.PN.HOSP.TC ---
Addendum entered and electronically signed by Oleksandr Smith DO 05/11/25 17:35:
Of note, per cardiology was not taking Farxiga as she did not tolerate as an outpatient
Original Note:
Today's Communication/Plan
-
Hold diuretics
Trend orthostatics
Check CT A/P
Check UA
Analgesics
Assessment / Plan
Assessment / Plan
#Syncope
#H/O orthostatic hypotension
- Differential diagnoses include orthostatic phenomenon versus arrhythmia versus vagal
- Likely orthostasis exacerbated by her home diuretics (Bumex, metolazone, Farxiga)
- Initial orthostatic vital signs here were not positive; home diuretics held
- Continue to monitor daily orthostatic vital signs, monitor telemetry
- Plan to resume diuretics sequentially
- Cardiology consulted
#Abdomen/urethral discomfort
- Patient states she follows with urology at [facility] where she has urethral dilations (appointment scheduled yesterday though she missed to coming here)
- Abdomen x-ray without any signs of obstructive pattern, abdomen otherwise benign on exam
- Check PVR this morning however no signs of retention, <10 mL
- Will order urinalysis, CT A/P without contrast to further assess
- Consider urology consult based off of CT findings
- Start as needed morphine for moderate and severe discomfort
#Hypokalemia
#Hyponatremia
- Presented with potassium 3.1, sodium 130 due to home diuretic regimen
- Potassium repleted upon arrival, labs improving with diuretics on hold
- Continue to trend BMP and mag, replete K as needed
#Headache
- Patient states she has had head and neck pain for in the timeframe of weeks
- Continue with as needed Tylenol, consider Voltaren versus lidocaine gel
#HFpEF
#Pulmonary hypertension
- Last echocardiogram with preserved LVEF, PASP 39 mmHg, mild TR
- Home diuretics include Bumex 3 mg BID, Farxiga QD, metolazone 3 times a week
- GDMT includes SGLT2i; home regimen also includes beta-jelani
- Suspect intravascular depletion leading to orthostasis as above
- Holding diuretics; monitor I's and O's, weights, BMP
#CAD s/p CABG and PCI
#PAD s/p SMA stent
#Carotid stenosis
#Dyslipidemia
#Statin intolerant
- Home regimen includes aspirin, ezetimibe; regimen includes metoprolol succinate with CAD
- No current signs or symptoms of ACS, mesenteric ischemia, cerebral ischemia
- LDL goal optimally <70 with significant ASCVD history
- Should follow-up OP to consider PCSK9i if needed
#Paroxysmal AF
- Home regimen includes metoprolol succinate and warfarin
- No known history of electrophysiologic
- Currently in rate controlled AF
- Monitor telemetry
#CKD stage IIIb
#Status post right nephrectomy
#History of renal cancer
- Unclear etiology, possibly related to ASCVD, HTN, age; baseline creatinine 1.1
- No signs of significant systemic complications such as acidemia, BMD, AOCKD
- Renal function currently at baseline with diuretics on hold as above
- Monitor BMP, I's and O's, weights
#Seizure disorder
- Unknown cause, Home regimen includes gabapentin, phenobarbital, phenytoin
- No signs or symptoms of seizure activity associated with his hospitalization
- Continue with seizure precautions and home regimen
#Primary hypertension
- Not currently on first-line antihypertensive regimen; Home meds include diuretics as above
- No known history of hypertensive systemic disease such as LVH, cannot rule out association with CKD
#GERD
- Home regimen includes dexlansoprazole
- No history of Clark's esophagus or erosive disease
#Asthma
-Home regimen includes Breo Ellipta, as needed albuterol sulfate MDI, montelukast
- No signs or symptoms of asthma flare at this time
#H/O pulmonary embolism
- Remains on warfarin as above, INR goal 2-3
Diet: Cholesterol-lowering, sodium restricted
Thromboprophylaxis: Home warfarin, INR goal 2-3
CODE STATUS: Full code
Disposition: PT consulted
Anticipated Discharge: 24 - 48 hours
Subjective/Interval History
-
Date of Service: May 11, 2025
Seen and examined at the bedside. No acute events reported overnight. AFVSS this morning
Unclear if she is a reliable historian. States that she came in because she passed out and that she has orthostasis however also states that her orthostasis has been really well-controlled recently
Subsequently developed pain near her urethra. States that she was post to have a urethral dilation with her urologist at [facility] (Dr. Mason) however was unable to make appointment yesterday. PVR near 10 mL. No urinalysis obtained here.
Objective Data
-
Labs:
Laboratory Results
05/11/25 05/11/25
06:00 07:07
WBC Pending
Hgb Pending
Hct Pending
Plt Count Pending
PT Pending
INR Pending
Sodium Pending
Potassium Pending
Chloride Pending
Carbon Dioxide Pending
BUN Pending
Creatinine Pending
Glucose Pending
Calcium Pending
Total Bilirubin Pending
AST Pending
ALT Pending
Alkaline Phosphatase Pending
Vital Signs:
Vital Signs
Temp Pulse Resp BP Pulse Ox
98.5 F 83 16 127/48 95
05/11/25 07:00 05/11/25 07:20 05/11/25 07:20 05/11/25 07:00 05/11/25 07:20
I&O
05/10/25 05/11/25 05/12/25
06:59 06:59 06:59
Output Total 300 / 300
Balance -300 / -300
Review of Systems
-
History Source: Patient
All other systems: Reviewed and negative
Physical Exam
-
General: Well Developed, Well Nourished and Pain
HEENT: Normocephalic, Atraumatic, Moist Mucous Membranes and Anicteric
Respiratory: Clear to Auscultation and Non Labored Respirations; Negative Accessory Resp Muscle Use
Cardiac: Regular Rhythm and S1/S2; Negative Murmur, Rub or Gallop
GI: Soft, Nontender, Nondistended and Normal Bowel Sounds
Musculoskeletal: No Clubbing, No Cyanosis and No Edema
Skin: Warm and Dry; Negative Rash
Neuro: AO x 3, Nonfocal/Grossly Intact and Central Nerve's Intact
Psych: Anxious
Data Reviewed
-
Labs: Labs Reviewed by me and Discussed with Patient
[2025-05-11 09:02] LABS: INR 2.29; PT 25.3 Sec (11.4-14.6)
--- NOTE | 2025-05-11 09:58 | VNURNOTE ---
[facility]
Chart reviewed.� [facility].� Will continue to follow hospital course and DC plans.
[2025-05-11] MEDS: LIORESAL 5 MG PO (10:48)
[2025-05-11 12:14] LABS: Hematocrit 35.9 % (37.0-47.0); Hemoglobin 11.9 g/dL (12.0-16.0); Mean Corp Hgb Conc. 33.1 g/dL (33.0-37.0); Mean Corpuscular Volume 90.0 fL (81.0-99.0); Nucleated Red Blood Cells % 0 %; Platelet Count 289 10^3/uL (130-400); Red Cell Dist. Width 15.4 % (11.5-14.5)
[2025-05-11 12:33] LABS: ALT (SGPT) 23 U/L (0-35); AST (SGOT) 26 U/L (14-36); Albumin 3.6 g/dl (3.5-5.0); Alkaline Phosphatase 172 U/L (38-126); Blood Urea Nitrogen 56 mg/dl (7-17); Calcium 8.9 mg/dl (8.4-10.2); Carbon Dioxide 29 mmol/L (22-30); Chloride 96 mmol/L (98-107); Estimated Creatinine Clearance 42 ml/min; Glucose 129 mg/dl (70-99); Potassium 3.6 mmol/L (3.5-5.1); Sodium 134 mmol/L (135-145); Total Protein 6.7 g/dl (6.3-8.2); eGFR 45.76
[2025-05-11] MEDS: MORPHINE SULFATE 1 MG IV (14:29)
--- NOTE | 2025-05-11 15:48 | CM ---
Alert awake oriented patient who lives with her Charly in a2 story home with 3 steps to enter and 11 steeps to bed bathroom .
She is independent in driving and in all activities of daily living.She uses a walker. Requested [facility] resumption. Emily Puentes notified.
[facility] currently/ [facility] hx
Pharmacy [facility]
PCP Dr Burden
PLAN Home resume [facility]
[2025-05-11] MEDS: NEURONTIN 300 MG PO ×2 (16:21→21:37)
--- NOTE | 2025-05-11 16:32 | CON.CAR ---
Consultation
Consultation Request
Date/Time Consultation Requested: 05/11/25, 7am
Date/Time Consultation Performed: 05/11/25, 11am
Requesting Provider: Luis
Performing Provider: Simón
Reason for Consultation: syncope
Medical History
-
Chief Complaint: syncope
History of Present Illness:
79F with chronic HFpEF, mild/moderate mitral regurgitation and tricuspid regurgitation, CAD (CABG 2005, LAD PCI 2016), paroxysmal atrial fibrillation (on warfarin), PAD (balloon angioplasty and stenting of the superior mesenteric artery, 2023),
carotid stenosis, nephrectomy (2011), dyslipidemia with statin intolerance on Leqvio, prior PE, hypertension, chronic left lower extremity edema, and asthma who presented to the emergency department with syncope.
Syncope seems to happen after standing up. No angina. No edema
Past Medical History
Past Medical History: Arrhythmias (paroxysmal A fib), CHF (chronic HFPEF), CVA and Hypercholesterolemia
Past Surgical History: Cardiac (CABG 2016)
Social History
Tobacco: Non-Smoker
Family History
Family History: Early CAD (none)
Allergies / Home Medications
Allergy/AdvReac Type Severity Reaction Status Date / Time
metronidazole (From Flagyl) Allergy Nausea / Verified 04/10/25 16:43
Vomiting
pollen extracts Allergy ENVIRONMENTAL Verified 04/10/25 16:43
ALLERGIES-NASAL
SYMPTOMS
�Medication �Instructions �Recorded �Confirmed �Type
montelukast 10 mg tablet 10 mg PO HS Lung/breathing issues 04/02/15 05/10/25 History
ezetimibe 10 mg tablet 10 mg PO DAILY cholesterol 03/12/21 05/10/25 History
fluticasone furoate 200 2 inh inhalation R DAILY 01/13/23 05/10/25 History
mcg-vilanterol 25 mcg/dose Lung/Breathing Issues
inhalation powder (Breo Ellipta)
dexlansoprazole 60 mg 60 mg PO DAILY Gastrointestinal 03/25/23 05/10/25 History
capsule,biphase delayed release Issue
albuterol sulfate 90 mcg/actuation 2 puff inhalation R Q4HPRN PRN sob 11/24/23 05/10/25 History
aerosol inhaler
aspirin 81 mg tablet,delayed 81 mg PO DAILY Blood Clot 11/24/23 05/10/25 History
release Prevention/Tx
hyoscyamine sulfate 0.125 mg tablet 0.125 mg PO TIDPRN PRN spasms 11/24/23 05/10/25 History
phenytoin sodium extended 100 mg 100 mg PO TID Seizures 11/24/23 05/10/25 History
capsule (Dilantin Extended)
cholecalciferol (vitamin D3) 25 25 mcg PO DAILY Supplement 02/29/24 05/10/25 History
mcg (1,000 unit) tablet (Vitamin
D3)
acetaminophen 500 mg tablet 1,000 mg PO BIDPRN PRN mild pain 02/26/25 05/10/25 History
(Tylenol Extra Strength)
warfarin 2.5 mg tablet 2.5 mg PO SUMOTUSA@1999 Blood Clot 02/26/25 04/10/25 History
Prevention/Tx
warfarin 2.5 mg tablet 3.75 mg PO WETHFR@1999 Blood Clot 02/26/25 04/10/25 History
Prevention/Tx
phenobarbital 32.4 mg tablet 32.4 mg PO TID Seizures 04/01/25 05/10/25 History
metoprolol succinate 25 mg 25 mg PO DAILY 30 days #30 tabs 04/04/25 04/10/25 Rx
tablet,extended release 24 hr
Held on 04/11/25.
Instructions: till seen by
Dr. Gr
baclofen 5 mg tablet 5 mg PO TIDPRN PRN spasms 04/10/25 05/10/25 History
dapagliflozin propanediol 10 mg 10 mg PO DAILY 04/10/25 04/10/25 History
tablet (Farxiga)
gabapentin 600 mg tablet 600 mg PO TID 04/10/25 05/10/25 History
metolazone 5 mg tablet 5 mg PO MOWEFR Fluid 04/10/25 05/10/25 History
Retention/Swelling
bumetanide 1 mg tablet 3 mg PO BID@0800,1600 Shortness of 05/10/25 05/10/25 History
breath secondary to HFpEF
Review of Systems
-
History Source: Patient
All other systems: Negative unless noted
Cardiac: Syncope
Neurological: Dizzy
Physical Exam
Vital Signs
Temp Pulse Resp BP Pulse Ox
97.7 F 99 18 143/64 92
05/11/25 15:07 05/11/25 15:07 05/11/25 15:07 05/11/25 15:07 05/11/25 15:07
Lab Results
05/11/25 11:46
05/11/25 11:46
Physical Exam
General: Well Developed and Well Nourished
HEENT: Normocephalic and Anicteric
Respiratory: Clear and Non Labored Respirations
Cardiac: S1/S2 (normal), Regular Rhythm, Murmur (none) and Peripheral Edema (none)
Musculoskeletal: No Clubbing, No Cyanosis and No Edema
Skin: Warm and Dry
Neuro: AO x 3
Impression / Plan
-
79F with chronic HFpEF, mild/moderate mitral regurgitation and tricuspid regurgitation, CAD (CABG 2005, LAD PCI 2016), paroxysmal atrial fibrillation (on warfarin), PAD (balloon angioplasty and stenting of the superior mesenteric artery, 2023),
carotid stenosis, nephrectomy (2011), dyslipidemia with statin intolerance on Leqvio, prior PE, hypertension, chronic left lower extremity edema, and asthma who presented to the emergency department with syncope.
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 Gr
Syncope
-seems orthostatic
-hold diuretics
-assess to resume bumex tomorrow
-may need midodrine
Chronic HFPEF
-home regimen is bumex 3mg bid, metolazone 5mg M/W/; she did not tolerate farxiga
-meds held for orthostatic sxs
-assess to resume bumex tomorrow
CAD
- stable, no angina
- [facility] 12/2022:The COPPOLA-LAD graft is atretic (unchanged) but there is normal antegrade flow in the mid LAD stent placed in 2017 remains widely patent. SVG-OM & SVG-RPDA patent.
Paroxysmal atrial fibrillation
- In sinus rhythm
- Oral Anticoagulation: Warfarin
- [id number]: Score at least 6 (Heart failure, HTN, age 75 or more, Vascular disease, female gender)
Mitral regurgitation, mild to moderate
Tricuspid regurgitation, mild to moderate
Nephrectomy, right (2001)
Hypercholesterolemia, with statin intolerance, on zetia
PAD, follows with vascular surgery
Seizure disorder
Prior PE
Data Reviewed
-
EKG: Tracing Personally Visualized and interpreted and Other (Tele: SR 70s)
Labs: Labs Reviewed by me
[2025-05-11 20:46] LABS: Urine Character Cloudy (Clear)
[2025-05-11 20:59] LABS: Urine Squamous Cell 16-20 /LPF (Few)
[2025-05-11 21:00] LABS: Urine Red Blood Cell 16-20 /HPF (0-2); Urine White Cell 50-60 /HPF (0-5)
[2025-05-11] MEDS: COUMADIN 3.75 MG PO (21:36)
[2025-05-11] MEDS: SINGULAIR 10 MG PO (21:37)
[2025-05-12] VITALS (8 sets, daily range): BP systolic 88–167; BP diastolic 52–82; PULSE 99–108; O2SAT 96; BMI 29.2
[2025-05-12] MEDS: SYMBICORT 160/4.5 MCG INHALER 2 PUFF INH (07:15)
[2025-05-12] MEDS: LUMINAL 32.4 MG PO ×3 (07:50→21:13)
[2025-05-12] MEDS: ASPIR LOW (ENTERIC COATED) 81 MG PO (07:50)
[2025-05-12] MEDS: NEURONTIN 300 MG PO ×3 (07:50→21:13)
[2025-05-12] MEDS: ZETIA 10 MG PO (07:50)
[2025-05-12] MEDS: DILANTIN 100 MG PO ×3 (07:50→21:13)
[2025-05-12] MEDS: PROTONIX 40 MG PO (07:50)
[2025-05-12] MEDS: DESENEX/MITRAZOL/ZEASORB 1 APPLIC TOPICAL ×2 (07:51→21:13)
[2025-05-12] MEDS: VITAMIN D3 (cholecalciferol) 25 MCG PO (07:51)
--- NOTE | 2025-05-12 08:43 | W.PN.HOSP.TC ---
Today's Communication/Plan
-
Resume Bumex
Start IV ceftriaxone
Trend orthostatic vital
Follow urine culture
Assessment / Plan
Assessment / Plan
#Syncope
#H/O orthostatic hypotension
- Differential diagnoses include orthostatic phenomenon versus arrhythmia versus vagal
- Likely orthostasis exacerbated by her home diuretics (Bumex, metolazone, Farxiga)
- Initial orthostatic vital signs here were not positive; home diuretics held
- Continue to monitor daily orthostatic vital signs, monitor telemetry
- Plan to resume diuretics sequentially, Bumex resumed today
- Cardiology consulted
#UTI
- Patient states she follows with urology at [facility] where she has urethral dilations (appointment scheduled yesterday though she missed to coming here)
- Abdomen x-ray without any signs of obstructive pattern, abdomen otherwise benign on exam
- Check PVR this morning however no signs of retention, <10 mL
- Urinalysis consistent with infection, CT negative
- Start IV ceftriaxone, follow urine culture
#Hypokalemia
#Hyponatremia
- Presented with potassium 3.1, sodium 130 due to home diuretic regimen
- Potassium repleted upon arrival, labs improving with diuretics on hold
- Continue to trend BMP and mag, replete K as needed
#Headache
- Patient states she has had head and neck pain for in the timeframe of weeks
- Continue with as needed Tylenol, consider Voltaren versus lidocaine gel
#HFpEF
#Pulmonary hypertension
- Last echocardiogram with preserved LVEF, PASP 39 mmHg, mild TR
- Home diuretics include Bumex 3 mg BID, Farxiga QD, metolazone 3 times a week
- GDMT includes SGLT2i; home regimen also includes beta-jelani
- Suspect intravascular depletion leading to orthostasis as above
- Holding diuretics; monitor I's and O's, weights, BMP
#CAD s/p CABG and PCI
#PAD s/p SMA stent
#Carotid stenosis
#Dyslipidemia
#Statin intolerant
- Home regimen includes aspirin, ezetimibe; regimen includes metoprolol succinate with CAD
- No current signs or symptoms of ACS, mesenteric ischemia, cerebral ischemia
- LDL goal optimally <70 with significant ASCVD history
- Should follow-up OP to consider PCSK9i if needed
#Paroxysmal AF
- Home regimen includes metoprolol succinate and warfarin
- No known history of electrophysiologic
- Currently in rate controlled AF
- Monitor telemetry
#CKD stage IIIb
#Status post right nephrectomy
#History of renal cancer
- Unclear etiology, possibly related to ASCVD, HTN, age; baseline creatinine 1.1
- No signs of significant systemic complications such as acidemia, BMD, AOCKD
- Renal function currently at baseline with diuretics on hold as above
- Monitor BMP, I's and O's, weights
#Seizure disorder
- Unknown cause, Home regimen includes gabapentin, phenobarbital, phenytoin
- No signs or symptoms of seizure activity associated with his hospitalization
- Continue with seizure precautions and home regimen
#Primary hypertension
- Not currently on first-line antihypertensive regimen; Home meds include diuretics as above
- No known history of hypertensive systemic disease such as LVH, cannot rule out association with CKD
#GERD
- Home regimen includes dexlansoprazole
- No history of Clark's esophagus or erosive disease
#Asthma
-Home regimen includes Breo Ellipta, as needed albuterol sulfate MDI, montelukast
- No signs or symptoms of asthma flare at this time
#H/O pulmonary embolism
- Remains on warfarin as above, INR goal 2-3
Diet: Cholesterol-lowering, sodium restricted
Thromboprophylaxis: Home warfarin, INR goal 2-3
CODE STATUS: Full code
Disposition: Home care
Anticipated Discharge: 24 - 48 hours
Subjective/Interval History
-
Date of Service: May 12, 2025
Seen and examined at the bedside. No acute events reported overnight. AFVSS this morning
Urinalysis returned consistent with infection, remains with some urinary discomfort this morning
Denies any other new complaints today.
Objective Data
-
Labs:
Laboratory Results
05/12/25
08:33
WBC Pending
Hgb Pending
Hct Pending
Plt Count Pending
PT Pending
INR Pending
Sodium Pending
Potassium Pending
Chloride Pending
Carbon Dioxide Pending
BUN Pending
Creatinine Pending
Glucose Pending
Calcium Pending
Total Bilirubin Pending
AST Pending
ALT Pending
Alkaline Phosphatase Pending
Vital Signs:
Vital Signs
Temp Pulse Resp BP Pulse Ox
98.4 F 91 16 128/66 95
05/12/25 03:38 05/12/25 07:19 05/12/25 07:19 05/12/25 03:38 05/12/25 07:19
I&O
05/11/25 05/12/25 05/13/25
06:59 06:59 06:59
Intake Total 600 / 600
Output Total 300 / 300 600 / 600
Balance -300 / -300 0 / 0
Review of Systems
-
History Source: Patient
All other systems: Reviewed and negative
Physical Exam
-
General: Well Developed, No Apparent Distress and Appears Chronically Ill
HEENT: Normocephalic, Atraumatic, Moist Mucous Membranes and Anicteric
Respiratory: Clear to Auscultation and Non Labored Respirations; Negative Accessory Resp Muscle Use
Cardiac: Regular Rhythm and S1/S2; Negative Murmur, Rub or Gallop
GI: Soft, Nontender, Nondistended and Normal Bowel Sounds
Musculoskeletal: No Clubbing, No Cyanosis and No Edema
Skin: Warm and Dry; Negative Rash
Neuro: AO x 3, Nonfocal/Grossly Intact and Central Nerve's Intact
Psych: Calm
Data Reviewed
-
Labs: Labs Reviewed by me, Discussed with Physician and Discussed with Patient
[2025-05-12 08:53] LABS: Hematocrit 37.5 % (37.0-47.0); Hemoglobin 12.2 g/dL (12.0-16.0); Mean Corp Hgb Conc. 32.5 g/dL (33.0-37.0); Mean Corpuscular Volume 93.1 fL (81.0-99.0); Nucleated Red Blood Cells % 0 %; Platelet Count 300 10^3/uL (130-400); Red Cell Dist. Width 15.4 % (11.5-14.5)
[2025-05-12] MEDS: STERILE WATER FOR INJECTION 20 ML IV (09:03)
[2025-05-12] MEDS: ROCEPHIN 2000 MG IV (09:04)
[2025-05-12] MEDS: STERILE WATER FOR INJECTION IV (09:04)
[2025-05-12 09:05] LABS: INR 2.43; PT 26.5 Sec (11.4-14.6)
[2025-05-12] MEDS: MORPHINE SULFATE 2 MG IV (09:11)
[2025-05-12 09:19] LABS: ALT (SGPT) 21 U/L (0-35); AST (SGOT) 25 U/L (14-36); Albumin 3.8 g/dl (3.5-5.0); Alkaline Phosphatase 191 U/L (38-126); Blood Urea Nitrogen 42 mg/dl (7-17); Calcium 9.1 mg/dl (8.4-10.2); Carbon Dioxide 29 mmol/L (22-30); Chloride 98 mmol/L (98-107); Estimated Creatinine Clearance 56 ml/min; Glucose 158 mg/dl (70-99); Potassium 3.4 mmol/L (3.5-5.1); Sodium 137 mmol/L (135-145); Total Protein 6.9 g/dl (6.3-8.2); eGFR > 60.00
--- NOTE | 2025-05-12 13:32 | W.PN.CD ---
Today's Communication / Plan
-
+ orthostatic VS noted, but with supine HTN
resume bumex today
to consider midodrine if supine HTN improves
Impression / Plan
-
79F with chronic HFpEF, mild/moderate mitral regurgitation and tricuspid regurgitation, CAD (CABG 2005, LAD PCI 2016), paroxysmal atrial fibrillation (on warfarin), PAD (balloon angioplasty and stenting of the superior mesenteric artery, 2023),
carotid stenosis, nephrectomy (2011), dyslipidemia with statin intolerance on Leqvio, prior PE, hypertension, chronic left lower extremity edema, and asthma who presented to the emergency department with syncope.
Primary schedule supervisor: Dr. Gr
Syncope
-seems orthostatic: supine hypertension with significant orthostatic hypotension today--challenging situation
- resume bumex today
- to consider midodrine if supine HTN improves
Chronic HFPEF
-home regimen is bumex 3mg bid, metolazone 5mg M//; she did not tolerate farxiga
-meds held for orthostatic sxs
-resume bumex today
CAD
- stable, no angina
- [facility] 12/2022:The COPPOLA-LAD graft is atretic (unchanged) but there is normal antegrade flow in the mid LAD stent placed in 2017 remains widely patent. SVG-OM & SVG-RPDA patent.
Paroxysmal atrial fibrillation
- In sinus rhythm
- Oral Anticoagulation: Warfarin
- [id number]: Score at least 6 (Heart failure, HTN, age 75 or more, Vascular disease, female gender)
Mitral regurgitation, mild to moderate
Tricuspid regurgitation, mild to moderate
Nephrectomy, right (2001)
Hypercholesterolemia, with statin intolerance, on zetia
PAD, follows with vascular surgery
Seizure disorder
Prior PE
Physical Exam
Vital Signs/Labs
Vital Signs
Temp Pulse Resp BP Pulse Ox
98.6 F 99 16 163/82 93
05/12/25 07:00 05/12/25 11:57 05/12/25 11:57 05/12/25 11:57 05/12/25 11:57
05/11/25 05/12/25 05/13/25
06:59 06:59 06:59
Actual Weight 84.504 kg 84.51 kg
05/12/25 08:33
05/12/25 08:33
PT 26.5 Sec (11.4-14.6) H 05/12/25 08:33
INR 2.43 05/12/25 08:33
Magnesium 2.5 mg/dl (1.6-2.3) H 05/10/25 17:18
Physical Exam
Constitutional: No acute distress and Comfortable
EENT: Moist mucous membranes
Cardiovascular: Rhythm & rate is regular, Pedal edema is absent, JVD pressure is normal and Systolic murmur absent
Respiratory: Respiratory effort normal and Lungs clear to auscul.
Neuro/Psych: AO x 3
Data Reviewed
-
Date of Service: May 12, 2025
EKG: Other (Tele: SR 90s)
Labs: Labs Reviewed by me
[2025-05-12] MEDS: TYLENOL 650 MG PO (16:17)
[2025-05-12] MEDS: BUMEX 3 MG PO (16:17)
[2025-05-12] MEDS: LIORESAL 5 MG PO ×2 (16:17→21:14)
[2025-05-12] MEDS: KCL 40 MEQ PO ×2 (16:17→21:13)
[2025-05-12] MEDS: SYMBICORT 160/4.5 MCG INHALER INH (19:06)
[2025-05-12] MEDS: COUMADIN 2.5 MG PO (21:12)
[2025-05-12] MEDS: SINGULAIR 10 MG PO (21:14)
[2025-05-13 03:49] VITALS: BP 144/69
[2025-05-13 06:00] VITALS: BMI 29.1
[2025-05-13 06:55] LABS: Hematocrit 39.9 % (37.0-47.0); Hemoglobin 12.7 g/dL (12.0-16.0); Mean Corp Hgb Conc. 31.8 g/dL (33.0-37.0); Mean Corpuscular Volume 96.4 fL (81.0-99.0); Nucleated Red Blood Cells % 0 %; Platelet Count 300 10^3/uL (130-400); Red Cell Dist. Width 15.8 % (11.5-14.5)
[2025-05-13 07:15] VITALS: BP 139/68
[2025-05-13 07:32] LABS: Blood Urea Nitrogen 33 mg/dl (7-17); Calcium 9.1 mg/dl (8.4-10.2); Carbon Dioxide 28 mmol/L (22-30); Chloride 101 mmol/L (98-107); Estimated Creatinine Clearance 50 ml/min; Glucose 110 mg/dl (70-99); Magnesium 2.0 mg/dl (1.6-2.3); Potassium 4.3 mmol/L (3.5-5.1); Sodium 137 mmol/L (135-145); eGFR 56.95
[2025-05-13] MEDS: SYMBICORT 160/4.5 MCG INHALER 2 PUFF INH (07:50)
--- NOTE | 2025-05-13 08:36 | W.PN.HOSP.TC ---
Today's Communication/Plan
-
Start midodrine
Continue with home Bumex
Trend orthostatic vitals
Continue IV ceftriaxone
Follow urine culture
Assessment / Plan
Assessment / Plan
#Syncope
#H/O orthostatic hypotension
- Differential diagnoses include orthostatic phenomenon versus arrhythmia versus vagal
- Likely orthostasis exacerbated by her home diuretics (Bumex, metolazone, Farxiga)
- Initial orthostatic vital signs here were not positive; home diuretics held
- Continue to monitor daily orthostatic vital signs, monitor telemetry
- Plan to resume diuretics sequentially, Bumex resumed 05/12
- Start midodrine 2.5 mg 3 times daily and trend orthostats/symptoms
- Continue compression stockings, consider abdomen binder
- Cardiology consulted
#UTI
- Patient states she follows with urology at [facility] where she has urethral dilations (appointment scheduled yesterday though she missed to coming here)
- Abdomen x-ray without any signs of obstructive pattern, abdomen otherwise benign on exam
- Check PVR this morning however no signs of retention, <10 mL
- Urinalysis consistent with infection, CT negative
- C/W IV ceftriaxone, follow urine culture
#Hypokalemia
#Hyponatremia
- Presented with potassium 3.1, sodium 130 due to home diuretic regimen
- Potassium repleted upon arrival, labs improving with diuretics on hold
- Continue to trend BMP and mag, replete K as needed
#Headache
- Patient states she has had head and neck pain for in the timeframe of weeks
- Continue with as needed Tylenol, consider Voltaren versus lidocaine gel
#HFpEF
#Pulmonary hypertension
- Last echocardiogram with preserved LVEF, PASP 39 mmHg, mild TR
- Home diuretics include Bumex 3 mg BID, Farxiga QD, metolazone 3 times a week
- GDMT includes SGLT2i; home regimen also includes beta-jelani
- Suspect intravascular depletion leading to orthostasis as above
- Holding diuretics; monitor I's and O's, weights, BMP
#CAD s/p CABG and PCI
#PAD s/p SMA stent
#Carotid stenosis
#Dyslipidemia
#Statin intolerant
- Home regimen includes aspirin, ezetimibe; regimen includes metoprolol succinate with CAD
- No current signs or symptoms of ACS, mesenteric ischemia, cerebral ischemia
- LDL goal optimally <70 with significant ASCVD history
- Should follow-up OP to consider PCSK9i if needed
#Paroxysmal AF
- Home regimen includes metoprolol succinate and warfarin
- No known history of electrophysiologic
- Currently in rate controlled AF
- Monitor telemetry
#CKD stage IIIb
#Status post right nephrectomy
#History of renal cancer
- Unclear etiology, possibly related to ASCVD, HTN, age; baseline creatinine 1.1
- No signs of significant systemic complications such as acidemia, BMD, AOCKD
- Renal function currently at baseline with diuretics on hold as above
- Monitor BMP, I's and O's, weights
#Seizure disorder
- Unknown cause, Home regimen includes gabapentin, phenobarbital, phenytoin
- No signs or symptoms of seizure activity associated with his hospitalization
- Continue with seizure precautions and home regimen
#Primary hypertension
- Not currently on first-line antihypertensive regimen; Home meds include diuretics as above
- No known history of hypertensive systemic disease such as LVH, cannot rule out association with CKD
#GERD
- Home regimen includes dexlansoprazole
- No history of Clark's esophagus or erosive disease
#Asthma
-Home regimen includes Breo Ellipta, as needed albuterol sulfate MDI, montelukast
- No signs or symptoms of asthma flare at this time
#H/O pulmonary embolism
- Remains on warfarin as above, INR goal 2-3
Diet: Cholesterol-lowering, sodium restricted
Thromboprophylaxis: Home warfarin, INR goal 2-3
CODE STATUS: Full code
Disposition: Home care
Anticipated Discharge: 24 - 48 hours
Subjective/Interval History
-
Date of Service: May 13, 2025
Seen and examined at the bedside. No acute events reported overnight. AFVSS this morning
Was resumed on Bumex yesterday, Orthostatic vital signs yesterday positive with SBP down from 167-145, DBP from 75-65.
As of this morning, patient denies any medical complaints but wants to be discharged home
Objective Data
-
Labs:
Laboratory Results
05/13/25
05:58
WBC 10.6
Hgb 12.7
Hct 39.9
Plt Count 300
Sodium 137
Potassium 4.3 D
Chloride 101
Carbon Dioxide 28
BUN 33 H
Creatinine 1.0
Glucose 110 H
Calcium 9.1
Vital Signs:
Vital Signs
Temp Pulse Resp BP Pulse Ox
99 F 92 18 139/68 96
05/13/25 07:15 05/13/25 07:53 05/13/25 07:53 05/13/25 07:15 05/13/25 07:53
I&O
05/12/25 05/13/25 05/14/25
06:59 06:59 06:59
Intake Total 600 / 600 660 / 660
Output Total 600 / 600
Balance 0 / 0 660 / 660
Review of Systems
-
History Source: Patient
All other systems: Reviewed and negative
Physical Exam
-
General: Well Developed, No Apparent Distress and Appears Chronically Ill
HEENT: Normocephalic, Atraumatic, Moist Mucous Membranes and Anicteric
Respiratory: Clear to Auscultation and Non Labored Respirations; Negative Accessory Resp Muscle Use
Cardiac: Regular Rhythm and S1/S2; Negative Murmur, Rub or Gallop
GI: Soft, Nontender, Nondistended and Normal Bowel Sounds
Musculoskeletal: No Clubbing, No Cyanosis and No Edema
Skin: Warm and Dry; Negative Rash
Neuro: AO x 3, Nonfocal/Grossly Intact and Central Nerve's Intact
Psych: Other (Emotional, histrionic)
Data Reviewed
-
Labs: Labs Reviewed by me and Discussed with Patient
[2025-05-13] MEDS: ASPIR LOW (ENTERIC COATED) 81 MG PO (09:27)
[2025-05-13] MEDS: PROTONIX 40 MG PO (09:27)
[2025-05-13] MEDS: VITAMIN D3 (cholecalciferol) 25 MCG PO (09:27)
[2025-05-13] MEDS: BUMEX 3 MG PO (09:27)
[2025-05-13] MEDS: DILANTIN 100 MG PO (09:27)
[2025-05-13] MEDS: ZETIA 10 MG PO (09:27)
[2025-05-13] MEDS: NEURONTIN 300 MG PO (09:28)
[2025-05-13] MEDS: LUMINAL 32.4 MG PO (09:29)
[2025-05-13] MEDS: DESENEX/MITRAZOL/ZEASORB 1 APPLIC TOPICAL (09:29)
[2025-05-13] MEDS: ROCEPHIN 1000 MG IV (09:30)
[2025-05-13] MEDS: STERILE WATER FOR INJECTION 10 ML IV (09:30)
[2025-05-13 09:58] VITALS: BP 101/59; BP 125/78; BP 133/65; PULSE 111; PULSE 117; PULSE 122
--- NOTE | 2025-05-13 10:20 | W.PN.CD ---
Today's Communication / Plan
-
resumed bumex 3mg bid
added midodrine 2.5mg tid
will make metolazone prn
discharge planning
Impression / Plan
-
79F with chronic HFpEF, mild/moderate mitral regurgitation and tricuspid regurgitation, CAD (CABG 2005, LAD PCI 2016), paroxysmal atrial fibrillation (on warfarin), PAD (balloon angioplasty and stenting of the superior mesenteric artery, 2023),
carotid stenosis, nephrectomy (2011), dyslipidemia with statin intolerance on Leqvio, prior PE, hypertension, chronic left lower extremity edema, and asthma who presented to the emergency department with syncope.
Primary dressage judge: Dr. Gr
Syncope
-seems orthostatic: supine hypertension with significant orthostatic hypotension today--challenging situation
- resumed bumex 3mg bid
- added midodrine 2.5mg tid
- will make metolazone prn
Chronic HFPEF
-home regimen is bumex 3mg bid, metolazone 5mg M//; she did not tolerate farxiga
-plan as above
CAD
- stable, no angina
- [facility] 12/2022:The COPPOLA-LAD graft is atretic (unchanged) but there is normal antegrade flow in the mid LAD stent placed in 2017 remains widely patent. SVG-OM & SVG-RPDA patent.
Paroxysmal atrial fibrillation
- In sinus rhythm
- Oral Anticoagulation: Warfarin
- [id number]: Score at least 6 (Heart failure, HTN, age 75 or more, Vascular disease, female gender)
Mitral regurgitation, mild to moderate
Tricuspid regurgitation, mild to moderate
Nephrectomy, right (2001)
Hypercholesterolemia, with statin intolerance, on zetia
PAD, follows with vascular surgery
Seizure disorder
Prior PE
Physical Exam
Vital Signs/Labs
Vital Signs
Temp Pulse Resp BP Pulse Ox
99 F 104 18 139/98 96
05/13/25 07:15 05/13/25 09:27 05/13/25 07:53 05/13/25 09:27 05/13/25 07:53
05/12/25 05/13/25 05/14/25
06:59 06:59 06:59
Actual Weight 84.51 kg 84.17 kg
05/13/25 05:58
05/13/25 05:58
PT 26.5 Sec (11.4-14.6) H 05/12/25 08:33
INR 2.43 05/12/25 08:33
Magnesium 2.0 mg/dl (1.6-2.3) 05/13/25 05:58
Physical Exam
Constitutional: No acute distress and Comfortable
EENT: Moist mucous membranes
Cardiovascular: Rhythm & rate is regular, Pedal edema is absent, JVD pressure is normal and Systolic murmur absent
Respiratory: Respiratory effort normal and Lungs clear to auscul.
Neuro/Psych: AO x 3
Data Reviewed
-
Date of Service: May 13, 2025
EKG: Other (Tele: SR 90s)
Labs: Labs Reviewed by me
[2025-05-13 10:33] LABS: INR 2.28; PT 25.2 Sec (11.4-14.6)
--- NOTE | 2025-05-13 11:27 | W.DCSUMMARY ---
Discharge Summary
Discharge Data
Date of Admission: 05/10/25
Date of Discharge: 05/13/25
Total time spent discharging patient (in min): 35
-
Pending Results: Yes
Additional Pending Results:
Urine culture
Hospital Course
Discharging physician: Oleksandr Smith DO
Disposition: Home care
Primary discharge diagnoses:
Syncope due to orthostasis
Urinary tract infection
Hypokalemia
Stable Adrenal nodule
Chronic discharge diagnoses:
HFpEF/pulmonary hypertension
CAD s/p CABG and PCI
Carotid stenosis
Chronic mesenteric ischemia s/p SMA stent
Paroxysmal AF on warfarin
CKD stage IIIb
S/p right nephrectomy
Seizure disorder
Primary hypertension
Dyslipidemia
GERD
History of PE
Hospital course:
79-year-old female that presented to the hospital with a syncopal episode at home. Mentions that she passed out when she stood up, has been a frequent issue with other recurrences reported. Has known history of orthostatic hypotension. Recently
was on 3 diuretics for her HFpEF including Bumex 3 mg twice daily, metolazone 3 times weekly, SGLT2 inhibitor daily. Farxiga was discontinued on the outpatient basis due to orthostasis. Upon arrival to the hospital we held her Bumex and
metolazone. Orthostatic vital signs were positive however improved with diuretics on hold. She was resumed on her Bumex with recurrence of positive orthostatic vital signs however improved symptoms. Discussed with her burn nurse who felt blood
pressures were adequate. Was started on midodrine 2.5 mg 3 times daily for orthostasis. Home metoprolol succinate held at time of discharge. Patient to follow-up in office with burn nurse for further medication optimization. Discharge diuretic
regimen of Bumex 3 mg twice daily, metolazone as needed 3 times weekly for weight gain or worsening swelling. Potassium and magnesium low during the hospital stay, repleted and stabilized while here. Recommend outpatient BMP and mag level in 5 to
7 days
She was also diagnosed with a urinary tract infection during the hospitalization. Complained of severe burning discomfort at the urethra, urinalysis was consistent with infection. Urine culture was obtained and remained in the preliminary state
prior to her discharge from the hospital. Patient was eager for discharge. She was treated with IV ceftriaxone in the hospital with clinical improvement and resolution of her dysuria. No recurrence of fevers, no new leukocytosis. Transition her
to equivalent oral regimen of cefdinir 300 mg every 12 hours to complete 5 total days of antibiotics. Recommend follow-up with family doctor shortly after discharge.
Consultants:
Cardiology�Jakeellyn Gr MD
Pertinent imaging findings:
CT A/P without IV contrast (05/11/2025)
IMPRESSION:
1. No nephrolithiasis or hydronephrosis. No left ureteral stone. 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
2. Right adrenal nodule, stable compared to multiple prior studies, likely benign.
3. Small hiatal hernia.
Procedures: N/A
Follow-up:
Family doctor within 1 week
Health Facilities Surveyor within 1 week
Repeat labs in 5 to 7 days (BMP and Mg level)
Discharge Plan
-
Patient Disposition: Home with Home Care
Discharge Diagnosis/Procedures: Syncope due to orthostatic hypotension
Hypokalemia
Urinary tract infection
Condition: Fair
Diet: No added salt
Activity: As tolerated
Additional Activity: When changing positions, sit up very slowly and monitor for lightheadedness or the sensation that you are going to pass out. If this occurs then lay back down
Driving Restrictions: Not until seen by your Dr
Bathing Restrictions: None
Blood Work: BMP, mag level in 5 to 7 days after discharge
Specialty Instructions: Weigh Daily- Call MD for wt gain/loss 3 lbs overnight/5 lbs in 1 week
Referrals:
Jake Gr MD [Active, Cardiology] - in one week
Luis Manuel Burden MD [Family Provider, Family Practice] - in less than 1 week
Additional Discharge Medication Instructions: Start cefdinir 300 mg every 12 hours for 3 more days after discharge from hospital (first dose morning of 05/14/2025)
Start midodrine 2.5 mg 3 times daily (8 AM, 1 PM, 6 PM)
Metolazone now as needed. Only take metolazone if weight increases by 3 pounds in 1 day or 5 pounds in 1 week
Reduced gabapentin to 300 mg 3 times a day
Discontinued Farxiga
Holding metoprolol until you see cardiology in the office
Prescriptions:
New
gabapentin 300 mg Capsule
300 mg PO TID 30 Days Qty: 90 0RF
midodrine 2.5 mg Tablet
2.5 mg PO TID@0800,1300,1800 30 Days Qty: 90 0RF
cefdinir 300 mg capsule
300 mg PO Q12H 3 Days Qty: 6 0RF
Continued
montelukast 10 MG tablet
10 mg PO HS
ezetimibe 10 MG tablet
10 mg PO DAILY
fluticasone furoate-vilanterol [Breo Ellipta] 200-25 mcg/dose blister with device
2 inh INHALATION R DAILY
dexlansoprazole 60 mg capsule,biphase delayed releas
60 mg PO DAILY
phenytoin sodium extended [Dilantin Extended] 100 mg capsule
100 mg PO TID
aspirin 81 mg Tablet,Delayed Release (Dr/Ec)
81 mg PO DAILY
hyoscyamine sulfate 0.125 mg Tablet
0.125 mg PO TIDPRN PRN (Reason: spasms)
albuterol sulfate 90 mcg/actuation Hfa Aerosol Inhaler
2 puff INHALATION R Q4HPRN PRN (Reason: sob)
cholecalciferol (vitamin D3) [Vitamin D3] 25 mcg (1,000 unit) Tablet
25 mcg PO DAILY
warfarin 2.5 mg Tablet
3.75 mg PO WETHFR@1999
warfarin 2.5 mg tablet
2.5 mg PO SUMOTUSA@1999
Rx Instructions:
as per pt take 2.5mg dose till may 16
acetaminophen [Tylenol Extra Strength] 500 mg tablet
1,000 mg PO BIDPRN PRN (Reason: mild pain)
phenobarbital 32.4 mg Tablet
32.4 mg PO TID
baclofen 5 mg Tablet
5 mg PO TIDPRN PRN (Reason: spasms)
bumetanide 1 mg tablet
3 mg PO BID@0800,1600
Changed
metolazone 5 mg tablet
5 mg PO MOWEFR PRN (Reason: Worsening Leg swelling, weight gain >3lb one day) Qty: 0 0RF
Held
metoprolol succinate 25 mg Tablet Extended Release 24 Hr
25 mg PO DAILY 30 Days Qty: 30 0RF
Hold Instructions: Until seen in the office by burn nurse
Discontinued
dapagliflozin propanediol [Farxiga] 10 mg Tablet
10 mg PO DAILY
gabapentin 600 mg Tablet
600 mg PO TID
Discharge Orders:
Discharge Patient (As Directed); Ordered 05/13/25
Ordered By: Oleksandr Smith
Discharge Date and Time
Print Language: UKRAINIAN
[2025-05-13 12:01] VITALS: BP 99/62
--- NOTE | 2025-05-13 12:34 | CM ---
JUAN reviewed chart. Notified pt is medically stable for dc. Referral sent to [facility] for resumption of care at dc.
Referral confirmed and accepted by Emily Puentes/[facility].
Pt to arrange private transport.
JUAN/PATRICIA will continue to follow to ensure a safe and timely dc.
== END 2025-05-13 14:40 | disposition home health service (06) | DRG 312 ==
LOC: 4 EAST ACU 21:27
PROVIDERS: Nurse Practitioner; ADMITTING PHYSICIAN Hospitalist; ATTENDING PHYSICIAN Internal Medicine; EMERGENCY PHYSICIAN Emergency Medicine; FAMILY PHYSICIAN Family Medicine; OTHER PHYSICIAN Internal Medicine
DX: I95.1 Orthostatic hypotension (principal); N39.0 Urinary tract infection, site not specified; I50.32 Chronic diastolic (congestive) heart failure; K55.1 Chronic vascular disorders of intestine; I13.0 Hypertensive heart and chronic kidney disease with heart failure and stage 1 through stage 4 chronic kidney disease, or unspecified chronic kidney disease; E87.1 Hypo-osmolality and hyponatremia; E87.6 Hypokalemia; E27.8 Other specified disorders of adrenal gland; I27.20 Pulmonary hypertension, unspecified; I25.10 Atherosclerotic heart disease of native coronary artery without angina pectoris; Z95.1 Presence of aortocoronary bypass graft; Z98.61 Coronary angioplasty status; I65.29 Occlusion and stenosis of unspecified carotid artery; I48.0 Paroxysmal atrial fibrillation; N18.32 Chronic kidney disease, stage 3b; G40.909 Epilepsy, unspecified, not intractable, without status epilepticus; E78.00 Pure hypercholesterolemia, unspecified; K21.9 Gastro-esophageal reflux disease without esophagitis; Z86.711 Personal history of pulmonary embolism; Z79.899 Other long term (current) drug therapy; R09.02 Hypoxemia; Z90.5 Acquired absence of kidney; J45.909 Unspecified asthma, uncomplicated; G62.9 Polyneuropathy, unspecified; Z87.891 Personal history of nicotine dependence; Z88.3 Allergy status to other anti-infective agents; Z79.01 Long term (current) use of anticoagulants; Z79.82 Long term (current) use of aspirin; Z79.84 Long term (current) use of oral hypoglycemic drugs; Z86.718 Personal history of other venous thrombosis and embolism; Z90.710 Acquired absence of both cervix and uterus; Z85.820 Personal history of malignant melanoma of skin; Z85.528 Personal history of other malignant neoplasm of kidney; K44.9 Diaphragmatic hernia without obstruction or gangrene; Z86.73 Personal history of transient ischemic attack (TIA), and cerebral infarction without residual deficits; Z11.52 Encounter for screening for COVID-19
CPT/HCPCS: 70450; 71046; 74018; 74176; 80048; 80053; 81003; 81015; 83735; 85025; 85610; 87077; 87086; 87186; 87502; 87811; 93005; 94640; 96365; 96366; 96375; 97162; 97166; 99285

== ENCOUNTER → 2025-05-21 15:23 | Outpatient (REF) | payer MEDICARE, OTHER, SELFPAY | LOC: REG 15:23 | PROVIDERS: ATTENDING PHYSICIAN Student in an Organized Health Care Education/Training Program | DX: M79.89 Other specified soft tissue disorders (principal); I27.20 Pulmonary hypertension, unspecified; G89.29 Other chronic pain; M54.50 Low back pain, unspecified; Z09 Encounter for follow-up examination after completed treatment for conditions other than malignant neoplasm; I95.1 Orthostatic hypotension | CPT/HCPCS: 36415; 86430 ==